=== PATIENT | female | born 1965 | race Caucasian/White ===

== ENCOUNTER 2017-04-03 18:50 | Inpatient (IN) | payer MEDICARE, MEDICAID ==
[~2017-04-03] VITALS: Ht 152.4 cm; Wt 42.6 kg
[2017-04-04] VITALS (51 sets, daily range): BP systolic 60–126; BP diastolic 37–100
[2017-04-04] MEDS ORDERED: Lidocaine 1% Plain 30 ml INJ ONE (01:48)
[2017-04-04 02:00] LABS: HEMATOCRIT 25.2 % (37.0-47.0); HEMOGLOBIN 8.7 G/DL (12.0-16.0); MEAN CORPUSCULAR VOLUME 93 FL (80-99); PLATELET COUNT 170 K/UL (150-450); RED BLOOD COUNT 2.72 M/UL (4.20-5.40); RED CELL DISTRIBUTION WIDTH 11.5 % (11.6-14.8); WHITE BLOOD COUNT 5.5 K/UL (4.8-10.8)
[2017-04-04 02:01] LABS: APPEARANCE,URINE CLEAR; BILIRUBIN, URINE NEGATIVE (NEGATIVE); COLOR,URINE PALE YELLOW; GLUCOSE, URINE (UA) 1+ (NEGATIVE); KETONES,URINE NEGATIVE (NEGATIVE); LEUKOCYTE ESTERASE ,URINE NEGATIVE (NEGATIVE); NITRITE,URINE NEGATIVE (NEGATIVE); PH,URINE 6 (4.5-8.0); PROTEIN,URINE 2+ (NEGATIVE); UROBILINOGEN,URINE NORMAL MG/DL (0.0-1.0)
[2017-04-04 02:06] LABS: ANION GAP 10 mmol/L (5-15); BLOOD UREA NITROGEN 88 mg/dL (7-18); CALCIUM 7.2 MG/DL (8.5-10.1); CARBON DIOXIDE 24 MMOL/L (21-32); CHLORIDE 103 MMOL/L (98-107); CREATININE 1.5 MG/DL (0.55-1.30); POTASSIUM 3.5 MMOL/L (3.5-5.1); SODIUM 137 MMOL/L (136-145)
[2017-04-04 02:09] LABS: INR 1.3 (0.9-1.1)
[2017-04-04 02:11] LABS: ALANINE AMINOTRANSFERASE 30 U/L (12-78); ALBUMIN 2.5 G/DL (3.4-5.0); ALKALINE PHOSPHATASE 41 U/L (46-116); ASPARTATE AMINO TRANSFERASE 74 U/L (15-37); BILIRUBIN,TOTAL 0.4 MG/DL (0.2-1.0)
--- NOTE | 2017-04-04 02:14 | Consultation ---
History of Present Illness General Date patient seen: Apr 04, 2017 Time patient seen: 01:40 Referring physician: Yaron Reason for Consultation: strangulated ventral hernia Present Illness HPI 51 year old female with multiple medical comorbidities was transferred to [facility] for care. Patient was at the [facility] when diagnosed with strangulated ventral hernia. She was in the ICU and required surgical care and was transferred to [facility]. I was informed of patient, gladly accepted to assist with surgical management, and expressed necessity for immediate transfer. Patient arrived at [facility] at approximately 01:40AM and I was present in the ICU as patient arrived. Patient evaluated and medical records that were given were reviewed. When seen patient in moderate distress, hypotensive with significant pressor requirement, tachypnea, c/o significant abdominal pain. states she has had pain for a few days now but does not recall exact onset. states pain is severe. states that she has had nausea and emesis for almost 2 weeks now. cannot recall ostomy output but states it has been low. she is a poor historian. she states she had colostomy 3 years ago but does not know why. she states she has medical problems and prior surgeries but cannot state what they are. in reviewing records it seems that patient was admitted to the [facility] 1-2 days ago for abnormal labs, severe hyponatremia, severe dehydration. Admission labs in records. During admission she was noted to have abdominal tenderness and CT was performed which demonstrated strangulated ventral hernia with bowel obstruction. surgery was necessary but unavailable hence transfer to [facility] for surgical care. Patient History History Provided By: Patient, Medical Record Healthcare decision maker Resuscitation status Advanced Directive on File Past Medical/Surgical History Past Medical/Surgical History: (1) Hyponatremia (2) Dehydration, severe (3) Abdominal pain (4) Strangulated ventral incisional hernia (5) Umbilical hernia (6) Peritonitis, acute generalized (7) Acute generalized abdominal pain (8) Bipolar 1 disorder (9) Psychiatric disorder (10) HTN (hypertension) (11) Vitamin D deficiency (12) Anxiety (13) History of colostomy (14) Psychosis (15) Hirsutism Review of Systems All Other Systems: negative except mentioned in HPI ROS Narrative difficult to obtain given patients current medical condition Physical Exam General Appearance: moderate distress, agitated, thin Lines, tubes and drains: peripheral, ngt - bilious output in tube. HEENT: atraumatic Neck: normal inspection Respiratory/Chest: chest wall non-tender, lungs clear, respiratory distress Breasts: other - abrasion noted, healing, old on breast/axilla Cardiovascular/Chest: tachycardia Abdomen: distended, guarding, rebound, tender, hernia, mass, other - generalized tendneress with large incarcerated likely strangulated hernia noted around prior right abdominal colostomy, tender, not reducible, tender umbilical hernia noted, prior midline scar noted. distended, tender, acute abdomen Genitourinary/Rectal: marks Extremities: no edema, no cyanosis Neurologic: alert, responsive Laboratory Tests Test 04/04/17 01:45 White Blood Count Pending Red Blood Count Pending Hemoglobin Pending Hematocrit Pending Mean Corpuscular Volume Pending Mean Corpuscular Hemoglobin Pending Mean Corpuscular Hemoglobin Concent Pending Red Cell Distribution Width Pending Platelet Count Pending Mean Platelet Volume Pending Neutrophils (%) (Auto) Pending Lymphocytes (%) (Auto) Pending Monocytes (%) (Auto) Pending Eosinophils (%) (Auto) Pending Basophils (%) (Auto) Pending Prothrombin Time Pending Prothromb Time International Ratio Pending Activated Partial Thromboplast Time Pending Urine Color Pending Urine Appearance Pending Urine pH Pending Urine Specific [place] Pending Urine Protein Pending Urine Glucose (UA) Pending Urine Ketones Pending Urine Occult Blood Pending Urine Nitrite Pending Urine Bilirubin Pending Urine Urobilinogen Pending Urine Leukocyte Esterase Pending Urine RBC Pending Urine WBC Pending Urine Squamous Epithelial Cells Pending Urine Bacteria Pending Sodium Level Pending Potassium Level Pending Chloride Level Pending Carbon Dioxide Level Pending Blood Urea Nitrogen Pending Creatinine Pending Estimat Glomerular Filtration Rate Pending Glucose Level Pending Lactic Acid Level Pending Calcium Level Pending Total Bilirubin Pending Aspartate Amino Transf (AST/SGOT) Pending Alanine Aminotransferase (ALT/SGPT) Pending Alkaline Phosphatase Pending Total Protein Pending Albumin Pending Globulin Pending Assessment/Plan Problem List: (1) Strangulated ventral incisional hernia Assessment & Plan: 51F with strangulated right lower quadrant abdominal hernia around prior right sided colostomy with bowl obstruction. also has tender umbilical hernia. transferred from [place] for surgical care. hypotensive, in moderate distress, acute abdomen with generalized peritonitis, dehydration, lactic acid >5. exam very concerning for possible bowel ischemia. recommend urgent exploratory laparotomy. may require bowel resection, may require ostomy. high risk given duration and medical history and current medical status. very poor prognosis without surgical intervention but still poor prognosis even with surgery. will proceed with surgery robson. npo, iv fluids, ng tube, marks, central venous catheter. thank you for this consultation. ICD Codes: K43.0 - Incisional hernia with obstruction, without gangrene SNOMED: [id number] Status: deteriorating Brandt Auguste Apr 04, 2017 02:14
[2017-04-04] MEDS ORDERED: Lidocaine 1% 10mg/ml/Epi 0.005mg/ml 30ml vial INJ ONE (02:22)
--- NOTE | 2017-04-04 02:45 | Operative Note - PDOC ---
Operative Note Operative Note Date of Operation/Procedure: Apr 04, 2017 Pre-op Diagnosis: septic shock from strangulated ventral hernia Procedure: left subclavian central venous catheter insertion Operative Findings: consistent w/pre-op dx studies Surgeon: lachelle Anesthesia: local Specimen: none Complications: none Condition: unstable Fluids: n/a Estimated Blood Loss: minimal Drains: none Implant(s) used?: Yes - triple lumen central venous catheter Indications for Procedure 51F septic shock from strangulated ventral hernia. hypotensive on pressors. only has small peripheral access. needs fluids, abx, and pressors/meds. needs central venous catheter robson. plan for OR robson. procedure indicated and recommended. consent obtained from patient. Description of Procedure patient made comfortable at bedside. 1% lidocaine used for local anesthetic. left subclavian site for use. left chest wall and neck prepped and draped in standard surgical fashion. appropriate sterile technique used. time out preformed. left subclavian vein obtained with finder needle. good venous flow aspirated. guide wire passed over finder needle without difficulty. finder needle removed. small incision made using scalpel over guide wire insertion site. dilator used to dilate tract. triple lumen catheter placed over guide without. guide wire removed and discarded. all ports aspirated and flushed without difficulty. line sutured to skin at two sites. dressings applied. patient tolerated procedure well. CXR obtained Brandt Auguste Apr 04, 2017 02:44
[2017-04-04] MEDS ORDERED: NS Irrig 1000ml IRRIG ONE (03:00)
[2017-04-04] MEDS ORDERED: Vecuronium 10 MG VIAL ONE (03:24)
[2017-04-04] MEDS ORDERED: LORAZEPAM4 MG/1 M1 IV (03:33)
[2017-04-04] MEDS ORDERED: ZOFRAN 4 MG4 MG/2 ML IV (03:33)
[2017-04-04] MEDS ORDERED: METRONIDAZ500 MG/100 IVPB (03:33)
[2017-04-04] MEDS ORDERED: PROTONIX IV40 MG IV (03:33)
[2017-04-04] MEDS ORDERED: CEFTRIAXONE1 G2 IV (03:33)
[2017-04-04] MEDS ORDERED: Levophed 4mg/4mL Inj IV ONE (03:59)
[2017-04-04] MEDS: Piperacillin/Tazobactam 3.375 GM in D5W 110 ML IVPB SCH ×2 (04:00→13:58)
[2017-04-04] MEDS ORDERED: Zosyn 3.375gm inj ONE (04:52)
--- NOTE | 2017-04-04 05:50 | Brief Operative Note ---
Immediate Post Operative Note Operative Note Pre-op Diagnosis: septic shock from strangulated ventral hernia Procedure: 1. Exploratory laparotomy 2. Small bowel resection 3. Ileostomy resection 4. Abdominal washout 5. Temporary Abdominal closure with plans for second look laparotomy Post-op Diagnosis: 1. strangulated ventral hernia with necrotic small bowel 2. incarcerated parastomal hernia 3. necrotic small bowel and ischemic ileostomy. Surgeon: Molina Anesthesiologist: Inocencio Anesthesia: general Specimen: yes - 1. necrotic small bowel 2. ischemic ileostomy 3. necrotic hernia sac 4. peritoneal cultures Complications: none Condition: unstable Fluids: see records. Estimated Blood Loss: minimal Drains: COLE Implant(s) used?: No Brandt Auguste Apr 04, 2017 05:50
[2017-04-04] MEDS ORDERED: Dextrose 10% 1,000 ML IV PRN (06:00)
[2017-04-04] MEDS ORDERED: Acetaminophen 650 MG SUPP RECTAL PRN (06:00)
[2017-04-04] MEDS: Norepinephrine Bitartrate 4 MG in NS 250 ML IV SCH ×5 (06:00→21:47)
[2017-04-04] MEDS ORDERED: Albuterol ud Inhalation HHN PRN (06:00)
[2017-04-04] MEDS ORDERED: HYDROmorphone 1mg/ml Carpuject IVP PRN (06:00)
[2017-04-04] MEDS ORDERED: DiphenhydrAMINE 50mg/ml Inj IVP PRN (06:00)
[2017-04-04] MEDS ORDERED: Ipratropium 0.02% Inh Soln 2.5ml UD HHN PRN (06:00)
[2017-04-04] MEDS ORDERED: Albuterol/Ipratropium 3ml neb HHN PRN (06:00)
--- NOTE | 2017-04-04 06:10 | General Progress Note ---
Progress Note Progress Note Surgery: post op note. found significant portion of small bowel from mid jejunum to ileostomy necrotic and not viable. resected majority of small bowel. approximately 75cm of jejunum remaining, duodenum okay, stomach okay. patient had prior subtotal colectomy. etiology of necrosis is incarcerated strangulated ventral hernia. attempted to preserve as much small bowel as possible. some proximal areas that had mild ischemia will hopefully be viable with resuscitation. Bowel left in discontinuity with plans to return to OR in 48 hrs for second look. high risk for short gut requiring mcfp parental nutrition given amount of bowel that required resection. prognosis guarded. -Strict NPO! -NG tube to suction -COLE drain care and management -[place] -Change wound packing and dressings BID -IV fluids -IV Abx -Heparin -Start TPN -Rx as written -Do Not Extubate. Plan for second look re-operation in 48hrs. Brandt Auguste Apr 04, 2017 06:10
[2017-04-04] MEDS: LR 1000ml 1,000 ML IV SCH ×3 (06:25→19:36)
[2017-04-04] MEDS ORDERED: fentaNYL Citrate 2,500 MCG in NS 200 ML IV SCH (07:00)
[2017-04-04] MEDS ORDERED: Midazolam for drip 50 MG in NS 90 ML IV SCH (07:00)
[2017-04-04] MEDS: Pantoprazole Inj IV SCH (08:42)
[2017-04-04] MEDS: Hydromorphone 0.5mg/0.5ml inj IVP PRN (08:42)
[2017-04-04] MEDS: LORazepam Inj 2mg/ml 1ml IV PRN ×2 (08:43→13:00)
[2017-04-04] MEDS ORDERED: cefTRIAXone 2gm/D5W 110ml IVPB SCH ×2 (09:00)
[2017-04-04 09:30] LABS: ANION GAP 12 mmol/L (5-15); BLOOD UREA NITROGEN 71 mg/dL (7-18); CALCIUM 6.7 MG/DL (8.5-10.1); CARBON DIOXIDE 22 MMOL/L (21-32); CHLORIDE 107 MMOL/L (98-107); CREATININE 1.3 MG/DL (0.55-1.30); POTASSIUM 3.3 MMOL/L (3.5-5.1); SODIUM 140 MMOL/L (136-145)
[2017-04-04] MEDS ORDERED: Midazolam/D5W 100ml 100 ML IVPB PRN (09:30)
[2017-04-04 09:35] LABS: ANION GAP 13 mmol/L (5-15); BLOOD UREA NITROGEN 71 mg/dL (7-18); CALCIUM 6.9 MG/DL (8.5-10.1); CARBON DIOXIDE 21 MMOL/L (21-32); CHLORIDE 107 MMOL/L (98-107); CREATININE 1.3 MG/DL (0.55-1.30); PHOSPHORUS 3.6 MG/DL (2.5-4.9); POTASSIUM 3.3 MMOL/L (3.5-5.1); SODIUM 141 MMOL/L (136-145)
[2017-04-04 09:40] LABS: HEMATOCRIT 21.5 % (37.0-47.0); HEMOGLOBIN 7.7 G/DL (12.0-16.0); MEAN CORPUSCULAR VOLUME 94 FL (80-99); PLATELET COUNT 138 K/UL (150-450); RED BLOOD COUNT 2.27 M/UL (4.20-5.40); RED CELL DISTRIBUTION WIDTH 11.7 % (11.6-14.8); WHITE BLOOD COUNT 7.8 K/UL (4.8-10.8)
[2017-04-04 09:42] LABS: INR 1.4 (0.9-1.1)
[2017-04-04 09:43] LABS: ALANINE AMINOTRANSFERASE 40 U/L (12-78); ALBUMIN 2.4 G/DL (3.4-5.0); ALBUMIN/GLOBULIN RATIO 1.1 (1.0-2.7); ALKALINE PHOSPHATASE 33 U/L (46-116); AMYLASE 10 U/L (25-115); ASPARTATE AMINO TRANSFERASE 101 U/L (15-37); BILIRUBIN,TOTAL 0.6 MG/DL (0.2-1.0); CKMB 30.2 NG/ML (0.0-3.6)
--- NOTE | 2017-04-04 11:10 | Pulmonolgy Critical Care Note ---
Critical Care - Asmt/Plan Problems: (1) Septic shock (2) Acute respiratory failure (3) Multiorgan failure Respiratory: monitor respiratory rate, adjust FIO2, CXR Cardiac: continue pressors Renal: F/U I&O, other - a few boluses of IV fluid Infectious Disease: check cultures Gastrointestinal: continue feedings/current rate Endocrine: monitor blood sugar, continue sliding scale insulin Hematologic: monitor H/H, transfuse if hgb<8.5 Neurologic: PRN Ativan, keep patient comfortable Affect: PRN ativan Prophylaxis: Protonix, Heparin Notes Reviewed: engine dynamometer tester, cardio, renal Discussed with: nurses, consultants, child support case officerdigital sales manager - Objective Last 24 Hour Vital Signs Date Time Temp Pulse Resp B/P (MAP) Pulse Ox O2 Delivery O2 Flow Rate FiO2 04/04/17 11:00 157 33 83/57 97 Mechanical Ventilator 40 04/04/17 10:42 156 33 40 04/04/17 09:12 99.6 04/04/17 09:09 151 30 40 04/04/17 08:00 40 04/04/17 07:05 140 15 40 04/04/17 06:30 134 27 126/86 97 Simple Mask 5.0 04/04/17 06:00 97.6 124 32 114/66 97 Simple Mask 5.0 04/04/17 06:00 107/68 04/04/17 05:43 118 15 40 04/04/17 03:00 132 04/04/17 03:00 132 32 69/42 97 Simple Mask 5.0 04/04/17 02:30 128 41 68/44 96 Simple Mask 5.0 04/04/17 02:00 98.7 131 36 69/43 96 Simple Mask 5.0 Status: obtunded Condition: critical HEENT: atraumatic Neck: full ROM Lungs: clear Heart: HR/BP stable, HR/BP unstable Abdomen: soft, non-tender, active bowel sounds Extremities: no C/C/E, edema Decubiti: stage Critical Care - Subjective ROS Limited/Unobtainable: Yes ICU Day: 1 Interval Events: pt brought in to ICU after exploratory laparotomy, He had significant portion of small bowel from mid jejunum to ileostomy necrotic and not viable. resected majority of small bowel. Currently on max dose of levophed with borderline BP. Condition: critical FI02: 40 Vent Support Breath Rate: 12 Vent Support Mode: AC Vent Tidal Volume: 450 Sputum Amount: None PIP: 20 I&O: Intake and Output 04/03/17 04/04/17 18:59 06:59 Intake Total 0 ml Output Total 930 ml Balance -930 ml Intake Oral 0 ml Output Urine Total 550 ml Gastric Drainage Total 350 ml Estimated Blood Loss 30 ml CXR: DAVID ET-Tube: 7.0 ET Position: 22 Labs: Laboratory Tests Test 04/04/17 01:45 04/04/17 01:50 04/04/17 06:40 04/04/17 07:15 White Blood Count 5.5 K/UL (4.8-10.8) 7.8 K/UL (4.8-10.8) Red Blood Count 2.72 M/UL (4.20-5.40) L 2.27 M/UL (4.20-5.40) L Hemoglobin 8.7 G/DL (12.0-16.0) L 7.7 G/DL (12.0-16.0) L Hematocrit 25.2 % (37.0-47.0) L 21.5 % (37.0-47.0) L Mean Corpuscular Volume 93 FL (80-99) 94 FL (80-99) Mean Corpuscular Hemoglobin 32.0 PG (27.0-31.0) H 33.8 PG (27.0-31.0) H Mean Corpuscular Hemoglobin Concent 34.6 G/DL (32.0-36.0) 35.8 G/DL (32.0-36.0) Red Cell Distribution Width 11.5 % (11.6-14.8) L 11.7 % (11.6-14.8) Platelet Count 170 K/UL (150-450) 138 K/UL (150-450) L Mean Platelet Volume 5.2 FL (6.5-10.1) L 6.0 FL (6.5-10.1) L Neutrophils (%) (Auto) % (45.0-75.0) % (45.0-75.0) Lymphocytes (%) (Auto) % (20.0-45.0) % (20.0-45.0) Monocytes (%) (Auto) % (1.0-10.0) % (1.0-10.0) Eosinophils (%) (Auto) % (0.0-3.0) % (0.0-3.0) Basophils (%) (Auto) % (0.0-2.0) % (0.0-2.0) Prothrombin Time 13.7 SEC (9.30-11.50) H 14.7 SEC (9.30-11.50) H Prothromb Time International Ratio 1.3 (0.9-1.1) H 1.4 (0.9-1.1) H Activated Partial Thromboplast Time 48 SEC (23-33) H 64 SEC (23-33) H Urine Color Pale yellow Urine Appearance Clear Urine pH 6 (4.5-8.0) Urine Specific [place] 1.010 (1.005-1.035) Urine Protein 2+ (NEGATIVE) H Urine Glucose (UA) 1+ (NEGATIVE) H Urine Ketones Negative (NEGATIVE) Urine Occult Blood 2+ (NEGATIVE) H Urine Nitrite Negative (NEGATIVE) Urine Bilirubin Negative (NEGATIVE) Urine Urobilinogen Normal MG/DL (0.0-1.0) Urine Leukocyte Esterase Negative (NEGATIVE) Urine RBC 5-10 /HPF (0 - 2) H Urine WBC 0-2 /HPF (0 - 2) Urine Squamous Epithelial Cells Many /LPF (NONE/OCC) H Urine Bacteria Few /HPF (NONE) Sodium Level 137 MMOL/L (136-145) 141 MMOL/L (136-145) Potassium Level 3.5 MMOL/L (3.5-5.1) 3.3 MMOL/L (3.5-5.1) L Chloride Level 103 MMOL/L (98-107) 107 MMOL/L (98-107) Carbon Dioxide Level 24 MMOL/L (21-32) 21 MMOL/L (21-32) Anion Gap 10 mmol/L (5-15) 13 mmol/L (5-15) Blood Urea Nitrogen 88 mg/dL (7-18) H 71 mg/dL (7-18) H Creatinine 1.5 MG/DL (0.55-1.30) H 1.3 MG/DL (0.55-1.30) Estimat Glomerular Filtration Rate 36.4 mL/min (>60) 43.0 mL/min (>60) Glucose Level 100 MG/DL (74-106) 106 MG/DL (74-106) Lactic Acid Level 6.60 mmol/L (0.66-2.22) H 5.60 mmol/L (0.66-2.22) H Calcium Level 7.2 MG/DL (8.5-10.1) L 6.9 MG/DL (8.5-10.1) L Total Bilirubin 0.4 MG/DL (0.2-1.0) 0.6 MG/DL (0.2-1.0) Aspartate Amino Transf (AST/SGOT) 74 U/L (15-37) H 101 U/L (15-37) H Alanine Aminotransferase (ALT/SGPT) 30 U/L (12-78) 40 U/L (12-78) Alkaline Phosphatase 41 U/L (46-116) L 33 U/L (46-116) L Total Protein 5.1 G/DL (6.4-8.2) L 4.5 G/DL (6.4-8.2) L Albumin 2.5 G/DL (3.4-5.0) L 2.4 G/DL (3.4-5.0) L Globulin 2.6 g/dL 2.1 g/dL Albumin/Globulin Ratio 1.0 (1.0-2.7) 1.1 (1.0-2.7) Arterial Blood pH 7.415 (7.350-7.450) 7.340 (7.350-7.450) Arterial Blood Partial Pressure CO2 28.0 mmHg (35.0-45.0) L 34.0 mmHg (35.0-45.0) L Arterial Blood Partial Pressure O2 137.6 mmHg (75.0-100.0) H 110.5 mmHg (75.0-100.0) H Arterial Blood HCO3 17.6 mmol/L (22.0-26.0) L 18.2 mmol/L (22.0-26.0) L Arterial Blood Oxygen Saturation 97.0 % (92.0-98.0) 96.5 % (92.0-98.0) Arterial Blood Base Excess -6.2 -6.7 Jignesh Test Positive Positive Neutrophils % (Manual) Pending Lymphocytes % (Manual) Pending Platelet Estimate Pending Platelet Morphology Pending Hemoglobin A1c 5.4 % (4.3-6.0) Ionized Calcium (Measured) 0.92 mmol/L (1.10-1.35) L Phosphorus Level 3.6 MG/DL (2.5-4.9) Magnesium Level 2.1 MG/DL (1.8-2.4) Creatine Kinase MB 30.2 NG/ML (0.0-3.6) H Troponin I 0.043 ng/mL (0.000-0.056) Pro-B-Type Natriuretic Peptide 43136 pg/mL (0-125) H Amylase Level 10 U/L (25-115) L Lipase 39 U/L (73-393) L YAYO CELIS Apr 04, 2017 11:10
[2017-04-04] MEDS: fentaNYL Citrate 2,500 MCG in NS 200 ML IV SCH (11:52)
[2017-04-04] MEDS: NovoLOG Insulin Flexpen SUBQ SCH ×3 (12:00→18:00)
--- NOTE | 2017-04-04 13:09 | Cardiology Report ---
APPROVED REPORT EKG Measurement Heart [id number] Sinus tachycardia Nonspecific ST and T wave abnormality Abnormal ECG
[2017-04-04] MEDS: Heparin 5000 units/ml inj SUBQ SCH ×3 (14:00→21:47)
--- NOTE | 2017-04-04 14:28 | Diagnostic Imaging Report ---
Indication: Status post line placement Technique: XRAY Chest 1v Comparison: None Findings/Impression: Heart size and mediastinal contours are within normal limits given technique. Left subclavian line has its catheter tip at the cavoatrial junction. NG tube tip in the proximal stomach, side-port in the region of the gastric esophageal junction. This was advanced on the subsequent view. There is patchy bibasilar atelectasis. There is no pneumothorax. No acute osseous abnormality seen.
--- NOTE | 2017-04-04 14:30 | Diagnostic Imaging Report ---
Indication: Endotracheal intubation. Technique: XRAY Chest 1v Comparison: Earlier the same day. Findings/impression: Interval endotracheal intubation. ET tube tip 2.5 cm above the [place]. NG tube has been advanced with tip and side-port within the stomach. Central line tip unchanged at the cavoatrial junction. There is slightly increased patchy left basilar opacities felt to represent atelectasis. There is no pneumothorax. No acute osseous abnormality seen.
--- NOTE | 2017-04-04 14:57 | General Surgery Progress Note ---
General Surgery-Progress Note Subjective Procedure Performed 1. Exploratory laparotomy 2. Small bowel resection 3. Ileostomy resection 4. Abdominal washout 5. Temporary Abdominal closure with plans for second look laparotomy Additional Comments critically unstable. hypotensive on max levophed. tachycardic. lethargic. on vent support. Objective Last 24 Hour Vital Signs Date Time Temp Pulse Resp B/P (MAP) Pulse Ox O2 Delivery O2 Flow Rate FiO2 04/04/17 13:17 158 34 40 04/04/17 13:00 158 33 120/100 96 Mechanical Ventilator 40 04/04/17 12:45 153 33 77/41 97 Mechanical Ventilator 40 04/04/17 12:30 154 33 70/45 97 Mechanical Ventilator 40 04/04/17 12:22 101.4 04/04/17 12:15 155 33 66/47 97 Mechanical Ventilator 40 04/04/17 12:00 40 04/04/17 12:00 99.9 157 40 85/46 97 Simple Mask 5.0 04/04/17 11:52 38 04/04/17 11:28 52/24 04/04/17 11:00 157 33 83/57 97 Mechanical Ventilator 40 04/04/17 10:42 156 33 40 04/04/17 09:12 99.6 04/04/17 09:09 151 30 40 04/04/17 08:30 149 27 77/48 97 Simple Mask 5.0 04/04/17 08:00 40 04/04/17 08:00 149 27 73/49 97 Simple Mask 5.0 04/04/17 07:30 142 27 89/48 97 Simple Mask 5.0 04/04/17 07:05 140 15 40 04/04/17 07:00 140 27 89/48 97 Simple Mask 5.0 04/04/17 06:30 134 27 126/86 97 Simple Mask 5.0 04/04/17 06:00 97.6 124 32 114/66 97 Simple Mask 5.0 04/04/17 06:00 107/68 04/04/17 05:43 118 15 40 04/04/17 03:00 132 04/04/17 03:00 132 32 69/42 97 Simple Mask 5.0 04/04/17 02:30 128 41 68/44 96 Simple Mask 5.0 04/04/17 02:00 98.7 131 36 69/43 96 Simple Mask 5.0 I&O Intake and Output 04/03/17 04/04/17 19:00 07:00 Intake Total 62.5 ml Output Total 1130 ml Balance -1067.5 ml Intake Oral 0 ml IV Total 62.5 ml Output Urine Total 750 ml Gastric Drainage Total 350 ml Estimated Blood Loss 30 ml Dressing: saturated Wound: clean Drains: sabine - serosang Cardiovascular: other - tachy 150's Respiratory: clear Abdomen: soft, absent bowel sounds, other - wounds noted and evaluated. okay for now Extremities: no cyanosis Laboratory Tests Test 04/04/17 01:45 04/04/17 01:50 04/04/17 06:40 04/04/17 07:15 White Blood Count 5.5 K/UL (4.8-10.8) 7.8 K/UL (4.8-10.8) Red Blood Count 2.72 M/UL (4.20-5.40) L 2.27 M/UL (4.20-5.40) L Hemoglobin 8.7 G/DL (12.0-16.0) L 7.7 G/DL (12.0-16.0) L Hematocrit 25.2 % (37.0-47.0) L 21.5 % (37.0-47.0) L Mean Corpuscular Volume 93 FL (80-99) 94 FL (80-99) Mean Corpuscular Hemoglobin 32.0 PG (27.0-31.0) H 33.8 PG (27.0-31.0) H Mean Corpuscular Hemoglobin Concent 34.6 G/DL (32.0-36.0) 35.8 G/DL (32.0-36.0) Red Cell Distribution Width 11.5 % (11.6-14.8) L 11.7 % (11.6-14.8) Platelet Count 170 K/UL (150-450) 138 K/UL (150-450) L Mean Platelet Volume 5.2 FL (6.5-10.1) L 6.0 FL (6.5-10.1) L Neutrophils (%) (Auto) % (45.0-75.0) % (45.0-75.0) Lymphocytes (%) (Auto) % (20.0-45.0) % (20.0-45.0) Monocytes (%) (Auto) % (1.0-10.0) % (1.0-10.0) Eosinophils (%) (Auto) % (0.0-3.0) % (0.0-3.0) Basophils (%) (Auto) % (0.0-2.0) % (0.0-2.0) Prothrombin Time 13.7 SEC (9.30-11.50) H 14.7 SEC (9.30-11.50) H Prothromb Time International Ratio 1.3 (0.9-1.1) H 1.4 (0.9-1.1) H Activated Partial Thromboplast Time 48 SEC (23-33) H 64 SEC (23-33) H Urine Color Pale yellow Urine Appearance Clear Urine pH 6 (4.5-8.0) Urine Specific [place] 1.010 (1.005-1.035) Urine Protein 2+ (NEGATIVE) H Urine Glucose (UA) 1+ (NEGATIVE) H Urine Ketones Negative (NEGATIVE) Urine Occult Blood 2+ (NEGATIVE) H Urine Nitrite Negative (NEGATIVE) Urine Bilirubin Negative (NEGATIVE) Urine Urobilinogen Normal MG/DL (0.0-1.0) Urine Leukocyte Esterase Negative (NEGATIVE) Urine RBC 5-10 /HPF (0 - 2) H Urine WBC 0-2 /HPF (0 - 2) Urine Squamous Epithelial Cells Many /LPF (NONE/OCC) H Urine Bacteria Few /HPF (NONE) Sodium Level 137 MMOL/L (136-145) 141 MMOL/L (136-145) Potassium Level 3.5 MMOL/L (3.5-5.1) 3.3 MMOL/L (3.5-5.1) L Chloride Level 103 MMOL/L (98-107) 107 MMOL/L (98-107) Carbon Dioxide Level 24 MMOL/L (21-32) 21 MMOL/L (21-32) Anion Gap 10 mmol/L (5-15) 13 mmol/L (5-15) Blood Urea Nitrogen 88 mg/dL (7-18) H 71 mg/dL (7-18) H Creatinine 1.5 MG/DL (0.55-1.30) H 1.3 MG/DL (0.55-1.30) Estimat Glomerular Filtration Rate 36.4 mL/min (>60) 43.0 mL/min (>60) Glucose Level 100 MG/DL (74-106) 106 MG/DL (74-106) Lactic Acid Level 6.60 mmol/L (0.66-2.22) H 5.60 mmol/L (0.66-2.22) H Calcium Level 7.2 MG/DL (8.5-10.1) L 6.9 MG/DL (8.5-10.1) L Total Bilirubin 0.4 MG/DL (0.2-1.0) 0.6 MG/DL (0.2-1.0) Aspartate Amino Transf (AST/SGOT) 74 U/L (15-37) H 101 U/L (15-37) H Alanine Aminotransferase (ALT/SGPT) 30 U/L (12-78) 40 U/L (12-78) Alkaline Phosphatase 41 U/L (46-116) L 33 U/L (46-116) L Total Protein 5.1 G/DL (6.4-8.2) L 4.5 G/DL (6.4-8.2) L Albumin 2.5 G/DL (3.4-5.0) L 2.4 G/DL (3.4-5.0) L Globulin 2.6 g/dL 2.1 g/dL Albumin/Globulin Ratio 1.0 (1.0-2.7) 1.1 (1.0-2.7) Arterial Blood pH 7.415 (7.350-7.450) 7.340 (7.350-7.450) Arterial Blood Partial Pressure CO2 28.0 mmHg (35.0-45.0) L 34.0 mmHg (35.0-45.0) L Arterial Blood Partial Pressure O2 137.6 mmHg (75.0-100.0) H 110.5 mmHg (75.0-100.0) H Arterial Blood HCO3 17.6 mmol/L (22.0-26.0) L 18.2 mmol/L (22.0-26.0) L Arterial Blood Oxygen Saturation 97.0 % (92.0-98.0) 96.5 % (92.0-98.0) Arterial Blood Base Excess -6.2 -6.7 Jignesh Test Positive Positive Differential Total Cells Counted 100 Neutrophils % (Manual) 91 % (45-75) H Lymphocytes % (Manual) 6 % (20-45) L Monocytes % (Manual) 3 % (1-10) Eosinophils % (Manual) 0 % (0-3) Basophils % (Manual) 0 % (0-2) Band Neutrophils 0 % (0-8) Platelet Estimate Decreased L Platelet Morphology Normal Hypochromasia 3+ Anisocytosis 1+ Hemoglobin A1c 5.4 % (4.3-6.0) Ionized Calcium (Measured) 0.92 mmol/L (1.10-1.35) L Phosphorus Level 3.6 MG/DL (2.5-4.9) Magnesium Level 2.1 MG/DL (1.8-2.4) Creatine Kinase MB 30.2 NG/ML (0.0-3.6) H Troponin I 0.043 ng/mL (0.000-0.056) Pro-B-Type Natriuretic Peptide 70530 pg/mL (0-125) H Amylase Level 10 U/L (25-115) L Lipase 39 U/L (73-393) L Test 04/04/17 11:35 Lactic Acid Level 4.00 mmol/L (0.66-2.22) H Assessment Post-op Diagnosis 1. strangulated ventral hernia with necrotic small bowel 2. incarcerated parastomal hernia 3. necrotic small bowel and ischemic ileostomy. Plan Problems: (1) Strangulated ventral incisional hernia Assessment & Plan: 51F with strangulated right lower quadrant abdominal hernia around prior right sided colostomy with bowl obstruction. also has tender umbilical hernia. transferred from [place] for surgical care. hypotensive, in moderate distress, acute abdomen with generalized peritonitis, dehydration, lactic acid >5. exam very concerning for possible bowel ischemia. POD 0/1 s/p exploratory laparotomy, small bowel resection, ileostomy resection, abdominal washout, temporary abdominal closure. noted to have >50% of small bowel that was necrotic and required resection. approximately 75cm of jejunum left in discontinuity. duo okay. stomach okay. still very unstable on max levophed with marginal pressures and tachycardia. dressing changed and wounds okay. prognosis very guarded. Strict NPO IV fluids IV Abx trend labs TPN NG tube marks heparin rx as written too unstable for second look right now. will plan for second look in the next 48hrs or so. unfortunately given how unstable she is, she may not make it. Brandt Auguste Apr 04, 2017 14:57
[2017-04-04] MEDS ORDERED: Sodium Chloride 500ML 1,000 ML IV SCH (15:00)
--- NOTE | 2017-04-04 16:11 | 48 Hour Post Anesthesia Eval ---
Post Anesthesia Evaluation Procedure: Exploratory laparotomy small bowel reserction Date of Evaluation: Apr 04, 2017 Time of Evaluation: 16:06 Blood Pressure Systolic: 75 0: 36 Pulse Rate: 136 Respiratory Rate: 12 Temperature (Fahrenheit): 96.8 O2 Sat by Pulse Oximetry: 98 Airway: other - intubated since surgical time, sedated on vent Nausea: No Vomiting: No Pain Intensity: 0 Hydration Status: adequate Cardiopulmonary Status: hypotensive on levofed at max, tachycardic Mental Status/LOC: other - nonresponsive Follow-up Care/Observations: n/a Post-Anesthesia Complications: patients condition critical related to ongoing septic infection peritonitis, no anesthesia related complications or event contributed to this condition. Follow-up care needed: N/A CHRISTIANO DUNCAN M.D. Apr 04, 2017 16:11
[2017-04-04] MEDS ORDERED: Fat Emulsion Iv 20% 250 ML IV SCH (21:00)
--- NOTE | 2017-04-04 22:30 | History and Physical Report ---
DATE OF ADMISSION: 04/04/2017 TIME SEEN: 3 p.m. ATTENDING PHYSICIAN: Juan Marrufo D.O. CONSULTANTS: 1. Tato Watson M.D. 2. Brandt Auguste M.D. 3. Urbano Verdugo M.D. 4. Mariel Saldana M.D. CHIEF COMPLAINT: Failure to thrive, weakness, weight loss, and found to have small-bowel obstruction with bowel strangulation. BRIEF HISTORY: This 51-year-old female presents to [facility] day before with the above-mentioned diagnosis. CT scan showed bowel strangulation. No surgeon available. The patient was transferred to [facility] last night. Dr. Auguste took her to surgery and did bowel resection. Currently, intubated, sedated, lethargic, NG in place, in ICU, and nonverbal. PAST MEDICAL HISTORY: Psych history, hypertension, and bipolar. PAST SURGICAL HISTORY: Recent bowel surgery. MEDICATIONS: Fentanyl, midazolam, pantoprazole, hydromorphone, Zofran, insulin aspart, albuterol, ipratropium, metronidazole, norepinephrine, and aspirin. ALLERGIES: Trazodone. SOCIAL HISTORY: Unable to obtain secondary to the patient's condition. REVIEW OF SYSTEMS: Unavailable. PHYSICAL EXAMINATION: GENERAL: Intubated, severely lethargic, in the ICU, and nonverbal. VITAL SIGNS: Temperature is not given, pulse 147, respirations 32, and blood pressure 81/41. CARDIOVASCULAR: Distant. LUNGS: Distant. ABDOMEN: Status post bowel surgery. Normal bowel sounds. EXTREMITIES: Shows no cyanosis, clubbing, or edema. NEURO: The patient is flaccid in bed, not responding to commands. LABORATORY DATA: Labs at this time show hemoglobin 7.7 and platelets 138,000. BMP shows potassium 3.3, BUN 71, creatinine 1.3. Urinalysis, 1+ glucose, 2+ protein, and 2+ occult blood. INR is 1.4 and PTT 64. ASSESSMENT: 1. Respiratory failure. 2. Bowel strangulation, status post surgery. 3. Hyponatremia. 4. Anemia. 5. Psych history. 6. Hypertension. 7. Bipolar. PLAN: 1. ICU care per Dr. Watson. 2. pulmonary. 3. Antibiotics per Infectious Disease. 4. CBC and BMP in the morning. 5. Pressure support. 6. Dr. Auguste spoke with family. Discussed prognosis is quite poor. He will plan to redo surgery Friday if the patient remains alive. So, we will continue to follow the patient. 7. Dr. Watson, Dr. Auguste, Dr. Verdugo, and Dr. Saldana to consult. We will continue to follow this patient. Juan Marrufo D.O. DR: CARO JOB#: [id number] CC:
[2017-04-05] VITALS (48 sets, daily range): BP systolic 96–147; BP diastolic 49–79
[2017-04-05] MEDS: Norepinephrine Bitartrate 4 MG in NS 250 ML IV SCH ×3 (00:12→11:34)
[2017-04-05] MEDS ORDERED: Piperacillin/Tazobactam 3.375 GM in D5W 110 ML IVPB SCH (02:00)
[2017-04-05] MEDS: LR 1000ml 1,000 ML IV SCH (05:31)
[2017-04-05] MEDS: Heparin 5000 units/ml inj SUBQ SCH ×3 (06:00→22:00)
[2017-04-05 06:13] LABS: HEMATOCRIT 20.2 % (37.0-47.0); HEMOGLOBIN 7.1 G/DL (12.0-16.0); MEAN CORPUSCULAR VOLUME 93 FL (80-99); PLATELET COUNT 87 K/UL (150-450); RED BLOOD COUNT 2.18 M/UL (4.20-5.40); RED CELL DISTRIBUTION WIDTH 11.9 % (11.6-14.8)
[2017-04-05 06:23] LABS: WHITE BLOOD COUNT 32.6 K/UL (4.8-10.8)
[2017-04-05 06:28] LABS: ALANINE AMINOTRANSFERASE 69 U/L (12-78); ALBUMIN 1.9 G/DL (3.4-5.0); ALBUMIN/GLOBULIN RATIO 0.7 (1.0-2.7); ALKALINE PHOSPHATASE 58 U/L (46-116); ANION GAP 10 mmol/L (5-15); ASPARTATE AMINO TRANSFERASE 150 U/L (15-37); BILIRUBIN,TOTAL 0.6 MG/DL (0.2-1.0); BLOOD UREA NITROGEN 30 mg/dL (7-18); CALCIUM 7.7 MG/DL (8.5-10.1); CARBON DIOXIDE 24 MMOL/L (21-32); CHLORIDE 117 MMOL/L (98-107); SODIUM 152 MMOL/L (136-145)
[2017-04-05 06:30] LABS: PHOSPHORUS 2.4 MG/DL (2.5-4.9)
[2017-04-05] MEDS: NovoLOG Insulin Flexpen SUBQ SCH ×5 (06:30→23:44)
[2017-04-05 06:39] LABS: POTASSIUM 2.1 MMOL/L (3.5-5.1)
--- NOTE | 2017-04-05 07:38 | Pulmonolgy Critical Care Note ---
Critical Care - Asmt/Plan Problems: (1) Septic shock (2) Acute respiratory failure (3) Multiorgan failure (4) Strangulated ventral incisional hernia (5) Peritonitis, acute generalized Respiratory: monitor respiratory rate, adjust FIO2, CXR Cardiac: continue pressors Renal: F/U I&O, keep IV fluid, check electrolytes Infectious Disease: check cultures Gastrointestinal: hold feedings Endocrine: check TSH, continue sliding scale insulin Hematologic: monitor H/H, transfuse if hgb<8.5 Neurologic: PRN Ativan, PRN Morphine, keep patient comfortable Affect: PRN ativan Prophylaxis: Protonix, Heparin Notes Reviewed: booster operator, renal Discussed with: nurses, consultants, case management assistantlegal department manager - Objective Last 24 Hour Vital Signs Date Time Temp Pulse Resp B/P (MAP) Pulse Ox O2 Delivery O2 Flow Rate FiO2 04/05/17 06:30 99 14 113/59 100 Mechanical Ventilator 40 04/05/17 06:00 102/56 04/05/17 06:00 12 04/05/17 06:00 100 12 102/56 100 Mechanical Ventilator 40 04/05/17 05:30 104 12 111/58 100 Mechanical Ventilator 40 04/05/17 05:29 111/60 04/05/17 05:07 104 18 40 04/05/17 05:00 105/57 04/05/17 05:00 14 04/05/17 05:00 102 13 105/57 100 Mechanical Ventilator 40 04/05/17 04:30 102 13 102/56 100 Mechanical Ventilator 40 04/05/17 04:00 102 04/05/17 04:00 97.7 102 12 100/56 100 Mechanical Ventilator 40 04/05/17 04:00 100/56 04/05/17 04:00 14 04/05/17 04:00 40 04/05/17 03:30 103 11 103/56 100 Mechanical Ventilator 40 04/05/17 03:21 103 15 40 04/05/17 03:00 99/55 04/05/17 03:00 14 04/05/17 03:00 105 12 99/55 100 Mechanical Ventilator 40 04/05/17 02:30 110 14 119/62 100 Mechanical Ventilator 40 04/05/17 02:00 110 14 106/59 100 Mechanical Ventilator 40 04/05/17 02:00 106/59 1/13/18 02:00 14 04/05/17 01:30 110 14 101/58 100 Mechanical Ventilator 40 04/05/17 01:29 120 24 40 04/05/17 01:00 99/49 04/05/17 01:00 14 04/05/17 01:00 112 14 99/49 100 Mechanical Ventilator 40 04/05/17 00:30 124 20 110/53 99 Mechanical Ventilator 40 04/05/17 00:12 111/54 04/05/17 00:00 98.7 116 16 111/54 100 Mechanical Ventilator 40 04/05/17 00:00 111/54 04/05/17 00:00 16 04/05/17 00:00 40 04/04/17 23:30 121 16 89/48 98 Mechanical Ventilator 40 04/04/17 23:20 118 22 40 04/04/17 23:00 129 23 113/55 98 Mechanical Ventilator 40 04/04/17 23:00 113/55 04/04/17 23:00 23 04/04/17 22:30 125 18 92/45 98 Mechanical Ventilator 40 04/04/17 22:00 98/51 04/04/17 22:00 27 04/04/17 22:00 134 27 98/51 98 Mechanical Ventilator 40 04/04/17 21:47 104/53 04/04/17 21:30 128 19 104/53 98 Mechanical Ventilator 40 04/04/17 21:28 128 20 40 04/04/17 21:00 100.1 131 23 100/52 99 Mechanical Ventilator 40 04/04/17 21:00 100/52 04/04/17 21:00 23 04/04/17 20:55 94/56 04/04/17 20:44 100.1 04/04/17 20:30 130 21 98/56 99 Mechanical Ventilator 40 04/04/17 20:00 40 04/04/17 20:00 133 24 92/50 99 Mechanical Ventilator 40 04/04/17 20:00 133 04/04/17 20:00 92/50 04/04/17 20:00 24 04/04/17 19:30 100.6 134 26 82/43 99 Mechanical Ventilator 40 04/04/17 19:08 134 26 40 04/04/17 19:00 82/43 04/04/17 19:00 26 04/04/17 19:00 134 26 82/42 99 Mechanical Ventilator 40 04/04/17 18:30 141 28 88/45 98 Mechanical Ventilator 40 04/04/17 18:00 28 04/04/17 18:00 99/47 04/04/17 18:00 137 28 91/42 99 Mechanical Ventilator 40 04/04/17 17:30 145 28 91/41 98 Mechanical Ventilator 40 04/04/17 17:16 140 31 40 04/04/17 17:00 141 31 93/46 99 Mechanical Ventilator 40 04/04/17 17:00 32 04/04/17 17:00 93/46 04/04/17 16:30 147 33 91/50 99 Mechanical Ventilator 40 04/04/17 16:11 136 12 98 04/04/17 16:00 101.4 149 32 91/50 99 Mechanical Ventilator 40 04/04/17 16:00 157 04/04/17 16:00 40 04/04/17 15:50 36 04/04/17 15:50 81/41 04/04/17 15:30 147 32 81/41 99 Mechanical Ventilator 40 04/04/17 15:24 154 33 40 04/04/17 15:15 151 33 73/41 100 Mechanical Ventilator 40 04/04/17 15:00 153 33 72/43 100 Mechanical Ventilator 40 04/04/17 15:00 88/54 04/04/17 14:45 155 33 72/44 96 Mechanical Ventilator 40 04/04/17 14:41 34 04/04/17 14:30 155 33 73/42 96 Mechanical Ventilator 40 04/04/17 14:00 156 33 60/38 96 Mechanical Ventilator 40 04/04/17 14:00 60/38 04/04/17 13:58 33 04/04/17 13:30 157 33 61/37 96 Mechanical Ventilator 40 04/04/17 13:17 158 34 40 04/04/17 13:00 33 04/04/17 13:00 77/41 04/04/17 13:00 158 33 120/100 96 Mechanical Ventilator 40 04/04/17 12:45 153 33 77/41 97 Mechanical Ventilator 40 04/04/17 12:30 154 33 70/45 97 Mechanical Ventilator 40 04/04/17 12:22 101.4 04/04/17 12:15 155 33 66/47 97 Mechanical Ventilator 40 04/04/17 12:00 40 04/04/17 12:00 99.9 157 40 85/46 97 Simple Mask 5.0 04/04/17 12:00 157 04/04/17 12:00 85/46 04/04/17 11:52 38 04/04/17 11:45 159 33 67/41 97 Mechanical Ventilator 40 04/04/17 11:30 158 33 74/56 97 Mechanical Ventilator 40 04/04/17 11:28 52/24 04/04/17 11:15 157 33 73/50 97 Mechanical Ventilator 40 04/04/17 11:00 157 33 83/57 97 Mechanical Ventilator 40 04/04/17 10:45 157 27 83/55 97 Simple Mask 5.0 04/04/17 10:42 156 33 40 04/04/17 10:30 156 27 83/57 97 Simple Mask 5.0 04/04/17 10:15 155 27 84/56 97 Simple Mask 5.0 04/04/17 10:00 154 27 86/54 97 Simple Mask 5.0 04/04/17 09:45 153 27 89/50 97 Simple Mask 5.0 04/04/17 09:30 152 27 77/53 97 Simple Mask 5.0 04/04/17 09:15 150 27 72/46 97 Simple Mask 5.0 04/04/17 09:12 99.6 04/04/17 09:09 151 30 40 04/04/17 09:00 149 27 77/48 97 Simple Mask 5.0 04/04/17 08:45 149 27 78/46 97 Simple Mask 5.0 04/04/17 08:30 149 27 77/48 97 Simple Mask 5.0 04/04/17 08:15 150 27 77/50 97 Simple Mask 5.0 04/04/17 08:00 40 04/04/17 08:00 144 04/04/17 08:00 149 27 73/49 97 Simple Mask 5.0 Status: sedated Condition: critical Lungs: clear, chest wall tender Heart: HR/BP unstable Abdomen: soft, non-tender Extremities: no C/C/E, edema Decubiti: location Micro: Microbiology Date/Time Source Procedure Growth Status 04/04/17 04:33 Bowel Gram Stain - Final Resulted 04/04/17 04:33 Bowel Aerobic Culture Pending Resulted 04/04/17 04:33 Bowel Anaerobic Culture Pending Resulted Accucheck: 126 Critical Care - Subjective ROS Limited/Unobtainable: Yes ICU Day: 2 Intubation Day: 2 Condition: critical EKG Rhythm: Sinus Rhythm FI02: 40 Vent Support Breath Rate: 12 Vent Support Mode: AC Vent Tidal Volume: 450 Sputum Amount: Scant PIP: 16 Drips: levophed, fentanyl I&O: Intake and Output 04/04/17 04/05/17 19:00 07:00 Intake Total 4316.80 ml 2699.85 ml Output Total 3350 ml 2685 ml Balance 966.80 ml 14.85 ml Intake Oral 0 ml IV Total 4316.80 ml 2399.85 ml Blood Product 300 ml Output Urine Total 2300 ml 2425 ml Gastric Drainage Total 550 ml 200 ml Drainage Total 60 ml Other 500 ml CXR: no change ET-Tube: 7.0 ET Position: 22 Labs: Laboratory Tests Test 04/04/17 11:35 04/05/17 05:00 Lactic Acid Level 4.00 mmol/L (0.66-2.22) H 2.00 mmol/L (0.66-2.22) White Blood Count 32.6 K/UL (4.8-10.8) #*H Red Blood Count 2.18 M/UL (4.20-5.40) L Hemoglobin 7.1 G/DL (12.0-16.0) L Hematocrit 20.2 % (37.0-47.0) L Mean Corpuscular Volume 93 FL (80-99) Mean Corpuscular Hemoglobin 32.7 PG (27.0-31.0) H Mean Corpuscular Hemoglobin Concent 35.3 G/DL (32.0-36.0) Red Cell Distribution Width 11.9 % (11.6-14.8) Platelet Count 87 K/UL (150-450) L Mean Platelet Volume 6.0 FL (6.5-10.1) L Neutrophils (%) (Auto) % (45.0-75.0) Lymphocytes (%) (Auto) % (20.0-45.0) Monocytes (%) (Auto) % (1.0-10.0) Eosinophils (%) (Auto) % (0.0-3.0) Basophils (%) (Auto) % (0.0-2.0) Neutrophils % (Manual) Pending Lymphocytes % (Manual) Pending Platelet Estimate Pending Platelet Morphology Pending Sodium Level 152 MMOL/L (136-145) #H Potassium Level 2.1 MMOL/L (3.5-5.1) *L Chloride Level 117 MMOL/L (98-107) H Carbon Dioxide Level 24 MMOL/L (21-32) Anion Gap 10 mmol/L (5-15) Blood Urea Nitrogen 30 mg/dL (7-18) H Creatinine 1.0 MG/DL (0.55-1.30) Estimat Glomerular Filtration Rate 58.2 mL/min (>60) Glucose Level 109 MG/DL (74-106) H Calcium Level 7.7 MG/DL (8.5-10.1) L Ionized Calcium (Measured) 1.07 mmol/L (1.10-1.35) L Phosphorus Level 2.4 MG/DL (2.5-4.9) L Magnesium Level 1.6 MG/DL (1.8-2.4) L Total Bilirubin 0.6 MG/DL (0.2-1.0) Aspartate Amino Transf (AST/SGOT) 150 U/L (15-37) H Alanine Aminotransferase (ALT/SGPT) 69 U/L (12-78) Alkaline Phosphatase 58 U/L (46-116) Total Protein 4.5 G/DL (6.4-8.2) L Albumin 1.9 G/DL (3.4-5.0) L Globulin 2.6 g/dL Albumin/Globulin Ratio 0.7 (1.0-2.7) L YAYO CELIS Apr 05, 2017 07:38
--- NOTE | 2017-04-05 07:50 | General Progress Note ---
Assessment/Plan Problem List: (1) Abdominal pain ICD Codes: R10.9 - Unspecified abdominal pain SNOMED: 86211087 (2) Peritonitis, acute generalized ICD Codes: K65.0 - Generalized (acute) peritonitis SNOMED: 15049984 (3) Strangulated ventral incisional hernia ICD Codes: K43.0 - Incisional hernia with obstruction, without gangrene SNOMED: 044550148 (4) Acute respiratory failure ICD Codes: J96.00 - Acute respiratory failure, unspecified whether with hypoxia or hypercapnia SNOMED: 33408792 (5) Septic shock ICD Codes: A41.9 - Sepsis, unspecified organism; R65.21 - Severe sepsis with septic shock SNOMED: 60851897 Status: unchanged Assessment/Plan vent abx sx f/u cbc bmp am id eval Subjective Constitutional: Reports: weakness Allergies: Coded Allergies: TRAZODONE (Verified Allergy, Unknown, 04/04/17) All Systems: reviewed and negative except above Subjective intub sedated in icu ng in place Objective Last 24 Hour Vital Signs Date Time Temp Pulse Resp B/P (MAP) Pulse Ox O2 Delivery O2 Flow Rate FiO2 04/05/17 06:30 99 14 113/59 100 Mechanical Ventilator 40 04/05/17 06:00 102/56 04/05/17 06:00 12 04/05/17 06:00 100 12 102/56 100 Mechanical Ventilator 40 04/05/17 05:30 104 12 111/58 100 Mechanical Ventilator 40 04/05/17 05:29 111/60 04/05/17 05:07 104 18 40 04/05/17 05:00 105/57 04/05/17 05:00 14 04/05/17 05:00 102 13 105/57 100 Mechanical Ventilator 40 04/05/17 04:30 102 13 102/56 100 Mechanical Ventilator 40 04/05/17 04:00 102 04/05/17 04:00 97.7 102 12 100/56 100 Mechanical Ventilator 40 04/05/17 04:00 100/56 04/05/17 04:00 14 04/05/17 04:00 40 04/05/17 03:30 103 11 103/56 100 Mechanical Ventilator 40 04/05/17 03:21 103 15 40 04/05/17 03:00 99/55 04/05/17 03:00 14 04/05/17 03:00 105 12 99/55 100 Mechanical Ventilator 40 04/05/17 02:30 110 14 119/62 100 Mechanical Ventilator 40 04/05/17 02:00 110 14 106/59 100 Mechanical Ventilator 40 04/05/17 02:00 106/59 04/05/17 02:00 14 04/05/17 01:30 110 14 101/58 100 Mechanical Ventilator 40 04/05/17 01:29 120 24 40 04/05/17 01:00 99/49 04/05/17 01:00 14 04/05/17 01:00 112 14 99/49 100 Mechanical Ventilator 40 04/05/17 00:30 124 20 110/53 99 Mechanical Ventilator 40 04/05/17 00:12 111/54 04/05/17 00:00 98.7 116 16 111/54 100 Mechanical Ventilator 40 04/05/17 00:00 111/54 04/05/17 00:00 16 04/05/17 00:00 40 04/04/17 23:30 121 16 89/48 98 Mechanical Ventilator 40 04/04/17 23:20 118 22 40 04/04/17 23:00 129 23 113/55 98 Mechanical Ventilator 40 04/04/17 23:00 113/55 04/04/17 23:00 23 04/04/17 22:30 125 18 92/45 98 Mechanical Ventilator 40 04/04/17 22:00 98/51 04/04/17 22:00 27 04/04/17 22:00 134 27 98/51 98 Mechanical Ventilator 40 04/04/17 21:47 104/53 04/04/17 21:30 128 19 104/53 98 Mechanical Ventilator 40 04/04/17 21:28 128 20 40 04/04/17 21:00 100.1 131 23 100/52 99 Mechanical Ventilator 40 04/04/17 21:00 100/52 04/04/17 21:00 23 04/04/17 20:55 94/56 04/04/17 20:44 100.1 04/04/17 20:30 130 21 98/56 99 Mechanical Ventilator 40 04/04/17 20:00 40 04/04/17 20:00 133 24 92/50 99 Mechanical Ventilator 40 04/04/17 20:00 133 04/04/17 20:00 92/50 04/04/17 20:00 24 04/04/17 19:30 100.6 134 26 82/43 99 Mechanical Ventilator 40 04/04/17 19:08 134 26 40 04/04/17 19:00 82/43 04/04/17 19:00 26 04/04/17 19:00 134 26 82/42 99 Mechanical Ventilator 40 04/04/17 18:30 141 28 88/45 98 Mechanical Ventilator 40 04/04/17 18:00 28 04/04/17 18:00 99/47 04/04/17 18:00 137 28 91/42 99 Mechanical Ventilator 40 04/04/17 17:30 145 28 91/41 98 Mechanical Ventilator 40 04/04/17 17:16 140 31 40 04/04/17 17:00 141 31 93/46 99 Mechanical Ventilator 40 04/04/17 17:00 32 04/04/17 17:00 93/46 04/04/17 16:30 147 33 91/50 99 Mechanical Ventilator 40 04/04/17 16:11 136 12 98 04/04/17 16:00 101.4 149 32 91/50 99 Mechanical Ventilator 40 04/04/17 16:00 157 04/04/17 16:00 40 04/04/17 15:50 36 04/04/17 15:50 81/41 04/04/17 15:30 147 32 81/41 99 Mechanical Ventilator 40 04/04/17 15:24 154 33 40 04/04/17 15:15 151 33 73/41 100 Mechanical Ventilator 40 04/04/17 15:00 153 33 72/43 100 Mechanical Ventilator 40 04/04/17 15:00 88/54 04/04/17 14:45 155 33 72/44 96 Mechanical Ventilator 40 04/04/17 14:41 34 04/04/17 14:30 155 33 73/42 96 Mechanical Ventilator 40 04/04/17 14:00 156 33 60/38 96 Mechanical Ventilator 40 04/04/17 14:00 60/38 04/04/17 13:58 33 04/04/17 13:30 157 33 61/37 96 Mechanical Ventilator 40 04/04/17 13:17 158 34 40 04/04/17 13:00 33 04/04/17 13:00 77/41 04/04/17 13:00 158 33 120/100 96 Mechanical Ventilator 40 04/04/17 12:45 153 33 77/41 97 Mechanical Ventilator 40 04/04/17 12:30 154 33 70/45 97 Mechanical Ventilator 40 04/04/17 12:22 101.4 04/04/17 12:15 155 33 66/47 97 Mechanical Ventilator 40 04/04/17 12:00 40 04/04/17 12:00 99.9 157 40 85/46 97 Simple Mask 5.0 04/04/17 12:00 157 04/04/17 12:00 85/46 04/04/17 11:52 38 04/04/17 11:45 159 33 67/41 97 Mechanical Ventilator 40 04/04/17 11:30 158 33 74/56 97 Mechanical Ventilator 40 04/04/17 11:28 52/24 04/04/17 11:15 157 33 73/50 97 Mechanical Ventilator 40 04/04/17 11:00 157 33 83/57 97 Mechanical Ventilator 40 04/04/17 10:45 157 27 83/55 97 Simple Mask 5.0 04/04/17 10:42 156 33 40 04/04/17 10:30 156 27 83/57 97 Simple Mask 5.0 04/04/17 10:15 155 27 84/56 97 Simple Mask 5.0 04/04/17 10:00 154 27 86/54 97 Simple Mask 5.0 04/04/17 09:45 153 27 89/50 97 Simple Mask 5.0 04/04/17 09:30 152 27 77/53 97 Simple Mask 5.0 04/04/17 09:15 150 27 72/46 97 Simple Mask 5.0 04/04/17 09:12 99.6 04/04/17 09:09 151 30 40 04/04/17 09:00 149 27 77/48 97 Simple Mask 5.0 04/04/17 08:45 149 27 78/46 97 Simple Mask 5.0 04/04/17 08:30 149 27 77/48 97 Simple Mask 5.0 04/04/17 08:15 150 27 77/50 97 Simple Mask 5.0 04/04/17 08:00 40 04/04/17 08:00 144 04/04/17 08:00 149 27 73/49 97 Simple Mask 5.0 Intake and Output 04/04/17 04/05/17 19:00 07:00 Intake Total 4316.80 ml 2699.85 ml Output Total 3350 ml 2685 ml Balance 966.80 ml 14.85 ml Intake Oral 0 ml IV Total 4316.80 ml 2399.85 ml Blood Product 300 ml Output Urine Total 2300 ml 2425 ml Gastric Drainage Total 550 ml 200 ml Drainage Total 60 ml Other 500 ml Laboratory Tests 04/04/17 11:35: Lactic Acid Level 4.00H 04/05/17 05:00: Lactic Acid Level 2.00, White Blood Count 32.6#*H, Red Blood Count 2.18L, Hemoglobin 7.1L, Hematocrit 20.2L, Mean Corpuscular Volume 93, Mean Corpuscular Hemoglobin 32.7H, Mean Corpuscular Hemoglobin Concent 35.3, Red Cell Distribution Width 11.9, Platelet Count 87L, Mean Platelet Volume 6.0L, Neutrophils (%) (Auto) , Lymphocytes (%) (Auto) , Monocytes (%) (Auto) , Eosinophils (%) (Auto) , Basophils (%) (Auto) , Neutrophils % (Manual) [Pending] , Lymphocytes % (Manual) [Pending], Platelet Estimate [Pending], Platelet Morphology [Pending], Sodium Level 152#H, Potassium Level 2.1*L, Chloride Level 117H, Carbon Dioxide Level 24, Anion Gap 10, Blood Urea Nitrogen 30H, Creatinine 1.0, Estimat Glomerular Filtration Rate 58.2, Glucose Level 109H, Calcium Level 7.7L, Ionized Calcium (Measured) 1.07L, Phosphorus Level 2.4L, Magnesium Level 1.6L, Total Bilirubin 0.6, Aspartate Amino Transf (AST/SGOT) 150H, Alanine Aminotransferase (ALT/SGPT) 69, Alkaline Phosphatase 58, Total Protein 4.5L, Albumin 1.9L, Globulin 2.6, Albumin/Globulin Ratio 0.7L Height (Feet): 5 Height (Inches): 0.00 Weight (Pounds): 97 General Appearance: lethargic EENT: normal ENT inspection Neck: normal alignment Cardiovascular: normal peripheral pulses, normal rate, regular rhythm Respiratory/Chest: decreased breath sounds Abdomen: hypoactive bowel sounds Extremities: normal inspection Edema: no edema noted Arm (L), no edema noted Arm (R), no edema noted Leg (L), no edema noted Leg (R), no edema noted Pedal (L), no edema noted Pedal (R), no edema noted Generalized Neurologic: motor weakness Skin: normal pigmentation, warm/dry LACY HERNÁNDEZ Apr 05, 2017 07:50
[2017-04-05] MEDS ORDERED: Potassium Phosphate 30 MM in Sodium Chloride 500ML 550 ML IV ONE (08:45)
[2017-04-05] MEDS: Pantoprazole Inj IV SCH (09:13)
[2017-04-05] MEDS ORDERED: Vancomycin 1gm in D5W 275ml IVPB ONE (10:00)
--- NOTE | 2017-04-05 10:53 | Diagnostic Imaging Report ---
Indication: Dyspnea Technique: XRAY Chest 1v Comparison: 04/04/2017 Findings: NG tube, ET tube and central line unchanged in position. Lung volumes are lower on today's exam. There is apparent increased interstitial prominence, likely related to a lung volumes. Question patchy retrocardiac atelectasis/consolidation. No pleural effusion. No pneumothorax. No acute osseous abnormality. Impression: Apparent development of mild interstitial prominence/opacification. This is slightly artifactual due to low lung volumes on this exam. Clinical correlation and old exam recommended. Support lines/tubes in appropriate position.
[2017-04-05] MEDS: fentaNYL Citrate 2,500 MCG in NS 200 ML IV SCH (11:35)
--- NOTE | 2017-04-05 12:32 | General Progress Note ---
Progress Note Progress Note Surgery: slight improvement. tachycardia improved HR currently in 90's. Hypotension improved and pressor requirement down to 10 of levophed. urine output improved. more responsive today. wbc >30k. K low, lactate improved. NG with black liquid output. abd soft, on distended, tender, wounds clean with packing and dressings. cxr reviewed POD #2 s/p ex lap, bowel resection, left in discontinuity for strangulated ventral hernia with bowel necrosis. somewhat improved -prognosis still very guarded -transfuse prbc -fluids -abx -wean pressors -wean vent -marks -heparin -continue with current care and management -fortunately improving. still unstable. tentatively on schedule friday morning for planned reexploration if continues to improve and stabilize. Brandt Auguste Apr 05, 2017 12:32
[2017-04-05] MEDS: Piperacillin/Tazobactam 3.375 GM in D5W 55 ML IVPB SCH ×2 (12:38→20:00)
--- NOTE | 2017-04-05 12:44 | General Progress Note ---
Progress Note Progress Note [id number] full note dictated DELMI ARITA Apr 05, 2017 12:44
[2017-04-05] MEDS ORDERED: Potassium Chloride 40 MEQ in Sodium Chloride 500ML 550 ML IVPB ONE (14:00)
[2017-04-05] MEDS: D5 1/4NS w/KCl 20mEq 1,000 ML IV SCH (15:55)
[2017-04-05] MEDS: Norepinephrine 4mg in D5W 250ml IV SCH ×2 (16:00→19:56)
--- NOTE | 2017-04-05 17:00 | Consultation ---
DATE OF CONSULTATION: 04/05/2016 NEPHROLOGY CONSULTATION REFERRING PHYSICIAN: Juan Marrufo D.O. REASON FOR CONSULTATION: Hypernatremia, hypokalemia, hypocalcemia, hypophosphatemia, and electrolyte imbalance. HISTORY OF PRESENT ILLNESS: The patient is an unfortunate 51-year-old female with past medical history significant for history of psychiatric disease, bipolar, and hypertension, who complained of abdominal pain at [place] outside facility. She basically had intractable nausea and vomiting. She had a CT scan of the abdomen. CT of the abdomen revealed small bowel obstruction with strangulation. Consequently the patient was transferred to [facility]. She was taken to the OR. Postop, the patient intubated and was transferred to ICU, found to have an abnormal electrolytes. I was called for management of electrolyte imbalance. PAST MEDICAL HISTORY: 1. History of anxiety. 2. History of bipolar disease. 3. History of hirsutism. 4. History of hypertension. 5. History of vitamin D. 6. History of psychosis. PAST SURGICAL HISTORY: History of colostomy. MEDICATIONS: Reviewed. ALLERGIES: The patient is allergic to trazodone. SOCIAL HISTORY: She lives at [facility]. There is no history of tobacco, alcohol, or drug use. REVIEW OF SYSTEMS: Unable to obtain due to the patient's condition, intubated at this time. She only opens her eyes with verbal stimuli and not following commands. PHYSICAL EXAMINATION: VITAL SIGNS: The patient has temperature of 98 degrees, blood pressure of 99/56, pulse rate of 91, and respiratory rate of 18. HEAD AND NECK: No JVP. No LAD. No thyromegaly. NG tube is placed. ET tube is in place. NG tube secreting greenish liquids. CARDIAC: Regular rate and rhythm. S1 and S2. No murmur. No rub. LUNGS: Has decreased breathing sound on both sides. ABDOMEN: Soft. Bowel sounds are hypoactive. Nontender. EXTREMITIES: No edema. No clubbing. No cyanosis. LABORATORY AND DIAGNOSTIC DATA: The patient has sodium of 152, potassium of 3.1, chloride 117 , bicarbonate of 21, BUN 30, creatinine of 1, and glucose of 109. Lactic acid of 4. Calcium of 7.7. Magnesium of 1.6. AST of 150 and ALT of 69. Total protein of 4.1. Albumin of 1.9. UA revealed specific gravity of 1.010, protein 2+, glucose 1+, WBCs 0 to 2, and RBCs 5 to 10. CBC revealed WBC count of 32, hemoglobin of 7.1, hematocrit of 30, and platelet count of 87. ASSESSMENT: 1. Hypernatremia. 2. Hypokalemia. 3. Acute renal failure or dehydration. 4. Malnutrition. 5. Hypocalcemia. 6. Hypomagnesemia. PLAN: Plan for the patient to obtain UA. Check the random urine protein creatinine ratio to calculate the proteinuria. Check the urine sodium and creatinine to calculate fractional excretion of sodium. Replace the magnesium. Change IV fluids to D5 water plus 40 KCl to run at 100 mL/hour. I would check and replace the magnesium. I would check the prealbumin level. If the patient continued to be NPO, may need to restart on TPN. Again, I would like to thank, Dr. Juan Marrufo, for allowing me to participate in the care of this patient. Mariel Saldana M.D. DR: Barbara JOB#: [id number] CC:
[2017-04-05] MEDS ORDERED: NS 275ml ONE ×2 (17:36→17:49)
[2017-04-05] MEDS ORDERED: Tubing Blood Filter IV ONE (17:49)
[2017-04-05] MEDS ORDERED: LR 1000ml ONE ×2 (17:49→18:05)
[2017-04-05] MEDS ORDERED: NS 500ML ONE (17:49)
[2017-04-05] MEDS ORDERED: Tubing IV Secondary IV ONE (17:49)
[2017-04-05] MEDS ORDERED: Sterile Water Irrig 1000ml IRRIG ONE (17:49)
[2017-04-05] MEDS: Dyna-Hex 2% Top Sol 2oz TOPIC SCH (20:00)
--- NOTE | 2017-04-05 22:00 | Operative Note - Dictated ---
DATE OF OPERATION: 04/04/2017 PREOPERATIVE DIAGNOSIS: Septic shock from strangulated ventral hernia. POSTOPERATIVE DIAGNOSES: 1. Strangulated ventral hernia with necrotic small bowel. 2. Incarcerated parastomal hernia. 3. Necrotic small bowel and ischemic ileostomy. PROCEDURE PERFORMED: 1. Exploratory laparotomy. 2. Small bowel resection. 3. Ileostomy resection. 4. Abdominal washout. 5. Temporary abdominal closure with plans for second-look laparotomy. ATTENDING SURGEON: Brandt Auguste M.D. ANESTHESIOLOGIST: Dr. Painter. ANESTHESIA: General [facility]. SPECIMENS: 1. Necrotic small bowel. 2. Ischemic ileostomy. 3. Necrotic hernia sac. 4. Peritoneal cultures. COMPLICATIONS: None. CONDITION: Unstable. FLUIDS: Please see anesthesia records. ESTIMATED BLOOD LOSS: Minimal. DRAINS: A 19-Arabic Ashwin drain. ANTIBIOTICS: The patient was given Zosyn and Flagyl one hour prior to cut time. IMPLANTS: None. WOUND CLASSIFICATION: Class 3. COUNTS: Sponge and needle count correct x2. INDICATIONS FOR PROCEDURE: This is a very unfortunate 51-year-old female, who during hospitalization at an outside facility developed worsening abdominal pain and workup identified an incarcerated ventral hernia as well as incarcerated parastomal hernia. Unfortunately, no surgeon was available and patient was transferred to [facility] for care and surgical evaluation. Immediate transfer was facilitated and the patient arrived to the [facility] at 1:30 a.m. in the morning on 04/04/2017, at which time I was present in the intensive care unit upon arrival. I evaluated the patient and noted the patient to be in distress, hypotensive, tachycardic, receiving pressors, and with an acute abdomen, peritoneal sign, and an incarcerated likely strangulated ventral abdominal hernia. The patient was immediately taken to the operating room for exploration as an emergency. Risks, benefits, and alternatives were discussed with the patient, who was aware of current condition and consented to surgery in emergent fashion. OPERATIVE NOTE: The patient was taken to the operating room and placed on the operative table in the supine position with bilateral arms out. All bony prominences were well padded. SCDs had been already placed. General anesthesia was induced and the patient was intubated. Preoperative time-out was taken identifying the patient, procedure, operative staff, and surgical staff. Upon arrival to the operating room, the patient already had a Donohue catheter and an NG tube placed prior. General anesthesia was induced and the patient was intubated. The abdomen was then clipped, prepped, and draped in standard surgical fashion. We began by making a vertical midline incision through the patient's prior laparotomy scar. Incision was carried down towards the fascia, at which time a large ventral hernia was identified with bowel contents. The ventral hernia was under significant tension with a black color to it. The fascia was opened carefully. Upon entering the hernia sac from the fascia, there was a significant amount of black necrotic ischemic gut noted. The hernia sac itself was black and necrotic as well. There was a significant amount of dark serous foul-smelling fluid in the abdomen. A suction was placed and a fair amount of dark serous foul-smelling fluid was evacuated. The abdomen was then opened further through the fascia. The omental adhesions to the fascia were taken down with electrocautery. Once this was complete, a significant portion of the small bowel was noted to be necrotic and gangrenous without any possibility of viability. We then identified the patient's prior ileostomy and noted that she had a parastomal hernia as well with incarcerated small bowel within the parastomal hernia. Unfortunately, some of the small bowel incarcerated into the parastomal hernia was definitely ischemic as well. There were some intra-loop adhesive bands noted that were causing ischemia as well. Adhesions were taken down and bands were released using electrocautery and fine dissection as necessary. Once this was complete, the bowel was run from ligament of Treitz down to the ileostomy. The abdomen was inspected and the patient was noted to have a rectal stump with a Prolene suture on it, but no other colon remnants, which is consistent with her history of subtotal colectomy for colitis. At this time, the stomach was evaluated and NG tube was noted to be within the stomach. The omentum was evaluated and part of the omentum was noted to be necrotic and resected. The spleen was dusky, but viable. The liver was viable as well as the gallbladder. The ovaries and the uterus were evaluated and viable as well. At this time, washout was performed and all debris evacuated from the abdomen. The stomach and the portions of the duodenum that could be visualized were viable. The ligament of Treitz was identified and the small bowel was ran. Approximately 75 cm of small bowel was viable and the remainder was necrotic without any sustainability or potential viability. This was almost towards the ileostomy. At this time, the decision was made to resect this portion of the small gut. Incision was made at the demarcation between ischemic and necrotic small bowel. A JOSE C linear stapler was used to divide the small bowel. The mesentery of the small bowel was then divided and ligated using #0 silk ties towards the ileostomy. Once this was complete, the ileostomy was evaluated and also noted to be ischemic. The ileostomy was then resected out and in two specimens the small bowel and ileostomy were resected and sent to pathology for review. At this time, the fascial defect of the ileostomy site was closed using a number #1 Prolene suture. The ileostomy site was cleaned with copious amounts of warm normal saline. The abdomen was then reinspected and washed out again with copious amounts of warm normal saline. At this time, the remaining 75 or so centimeters of small bowel were evaluated and some areas of ischemia with potential viability. At this time, it is not considered safe to develop a new ileostomy for the patient given that there was some ischemia of small bowel and portions may need to be resected at a later time and the patient was very unstable. The decision was made for temporary abdominal closure with plans for second-look laparotomy in few days once the patient is resuscitated and stabilized. Once the abdominal washout was complete, NG tube was noted to be in proper positioning. All necrotic gut and remnants were excised and removed and remaining potentially viable bowel and organs were left in place. A 19-Arabic Ashwin drain was placed through the left lower abdomen and into the pelvis for drainage. A temporary abdominal closure was performed using a #0 looped PDS suture. The prior ileostomy site and underlying wound were packed and dressings were applied. The patient was still in unstable condition on pressors and actively being resuscitated. The patient was then transferred back to the intensive care unit for further resuscitation and with plans of second-look laparotomy in the subsequent days as the patient stabilizes. Brandt Auguste M.D. DR: ELKE JOB#: [id number] CC: WOLF
[2017-04-06] VITALS (43 sets, daily range): BP systolic 105–146; BP diastolic 58–85
[2017-04-06] MEDS: Piperacillin/Tazobactam 3.375 GM in D5W 55 ML IVPB SCH ×3 (04:36→19:57)
[2017-04-06 05:42] LABS: HEMATOCRIT 20.9 % (37.0-47.0); HEMOGLOBIN 7.7 G/DL (12.0-16.0); MEAN CORPUSCULAR VOLUME 91 FL (80-99); PLATELET COUNT 48 K/UL (150-450); RED BLOOD COUNT 2.28 M/UL (4.20-5.40); RED CELL DISTRIBUTION WIDTH 12.3 % (11.6-14.8)
[2017-04-06 05:49] LABS: WHITE BLOOD COUNT 27.3 K/UL (4.8-10.8)
[2017-04-06] MEDS: Heparin 5000 units/ml inj SUBQ SCH ×3 (05:58→22:00)
[2017-04-06] MEDS: NovoLOG Insulin Flexpen SUBQ SCH ×4 (05:59→23:26)
[2017-04-06 06:09] LABS: ALANINE AMINOTRANSFERASE 97 U/L (12-78); ALBUMIN 1.6 G/DL (3.4-5.0); ALBUMIN/GLOBULIN RATIO 0.6 (1.0-2.7); ALKALINE PHOSPHATASE 60 U/L (46-116); ANION GAP 6 mmol/L (5-15); ASPARTATE AMINO TRANSFERASE 148 U/L (15-37); BILIRUBIN,TOTAL 0.4 MG/DL (0.2-1.0); BLOOD UREA NITROGEN 18 mg/dL (7-18); CALCIUM 7.9 MG/DL (8.5-10.1); CARBON DIOXIDE 27 MMOL/L (21-32); CHLORIDE 117 MMOL/L (98-107); CREATININE 0.8 MG/DL (0.55-1.30); PHOSPHORUS 2.3 MG/DL (2.5-4.9); SODIUM 150 MMOL/L (136-145)
[2017-04-06 06:12] LABS: POTASSIUM 2.7 MMOL/L (3.5-5.1)
--- NOTE | 2017-04-06 08:06 | General Progress Note ---
Assessment/Plan Problem List: (1) Abdominal pain ICD Codes: R10.9 - Unspecified abdominal pain SNOMED: 55720682 (2) Peritonitis, acute generalized ICD Codes: K65.0 - Generalized (acute) peritonitis SNOMED: 69046741 (3) Strangulated ventral incisional hernia ICD Codes: K43.0 - Incisional hernia with obstruction, without gangrene SNOMED: 604657467 (4) Acute respiratory failure ICD Codes: J96.00 - Acute respiratory failure, unspecified whether with hypoxia or hypercapnia SNOMED: 56358824 (5) Septic shock ICD Codes: A41.9 - Sepsis, unspecified organism; R65.21 - Severe sepsis with septic shock SNOMED: 48043516 Status: unchanged Assessment/Plan vent abx sx f/u cbc bmp am id eval Subjective Constitutional: Reports: weakness Allergies: Coded Allergies: TRAZODONE (Verified Allergy, Unknown, 04/04/17) All Systems: reviewed and negative except above Subjective intub sedated in icu ng in place Objective Last 24 Hour Vital Signs Date Time Temp Pulse Resp B/P (MAP) Pulse Ox O2 Delivery O2 Flow Rate FiO2 04/06/17 07:13 121 17 28 04/06/17 07:00 98.0 108 12 117/68 98 Mechanical Ventilator 04/06/17 06:30 107 12 114/58 98 Mechanical Ventilator 28 04/06/17 06:00 13 04/06/17 06:00 111 13 112/61 100 Mechanical Ventilator 28 04/06/17 05:30 107 13 110/64 98 Mechanical Ventilator 28 04/06/17 05:26 107 12 28 04/06/17 05:00 13 04/06/17 05:00 107 13 111/70 98 Mechanical Ventilator 28 04/06/17 04:30 97.7 112 13 121/68 98 Mechanical Ventilator 28 04/06/17 04:00 107/61 04/06/17 04:00 13 04/06/17 04:00 111 04/06/17 04:00 111 12 107/61 98 Mechanical Ventilator 28 04/06/17 04:00 28 04/06/17 03:30 106 13 117/69 98 Mechanical Ventilator 28 04/06/17 03:13 101 12 28 04/06/17 03:00 126/66 04/06/17 03:00 13 04/06/17 03:00 105 13 126/66 98 Mechanical Ventilator 28 04/06/17 02:30 106 13 121/65 98 Mechanical Ventilator 28 04/06/17 02:00 115/70 04/06/17 02:00 13 04/06/17 02:00 107 13 115/70 98 Mechanical Ventilator 28 04/06/17 01:30 106 13 105/62 98 Mechanical Ventilator 28 04/06/17 01:20 104 16 28 04/06/17 01:00 116/64 04/06/17 01:00 13 04/06/17 01:00 108 13 116/64 98 Mechanical Ventilator 28 04/06/17 00:30 106 13 114/63 98 Mechanical Ventilator 28 04/06/17 00:00 109 04/06/17 00:00 130/72 04/06/17 00:00 12 04/06/17 00:00 28 04/06/17 00:00 97.7 107 12 130/72 97 Mechanical Ventilator 28 04/05/17 23:30 103 15 119/66 98 Mechanical Ventilator 28 04/05/17 23:17 101 12 28 04/05/17 23:00 98/69 04/05/17 23:00 12 04/05/17 23:00 96 12 96/59 98 Mechanical Ventilator 28 04/05/17 22:30 105 13 121/67 98 Mechanical Ventilator 28 04/05/17 22:00 104 12 126/67 99 Mechanical Ventilator 28 04/05/17 22:00 126/67 04/05/17 22:00 12 04/05/17 21:30 103 12 139/76 99 Mechanical Ventilator 28 04/05/17 21:29 107 17 28 04/05/17 21:00 147/79 04/05/17 21:00 13 04/05/17 21:00 100 13 147/79 100 Mechanical Ventilator 28 04/05/17 20:30 91 16 138/78 100 Mechanical Ventilator 28 04/05/17 20:00 96 13 134/79 100 Mechanical Ventilator 28 04/05/17 20:00 96 04/05/17 20:00 134/79 04/05/17 20:00 13 04/05/17 20:00 28 04/05/17 19:56 117/75 04/05/17 19:30 97.7 102 13 107/69 99 Mechanical Ventilator 28 04/05/17 19:23 92 17 28 04/05/17 19:00 95/63 04/05/17 19:00 15 04/05/17 19:00 14 04/05/17 19:00 101 13 124/64 100 Mechanical Ventilator 28 04/05/17 18:30 97 14 113/69 100 Mechanical Ventilator 28 04/05/17 18:00 14 04/05/17 18:00 103 14 106/64 100 Mechanical Ventilator 28 04/05/17 17:30 105 16 121/66 100 Mechanical Ventilator 28 04/05/17 17:13 101 15 28 04/05/17 17:00 102 12 121/74 100 Mechanical Ventilator 28 04/05/17 17:00 13 04/05/17 16:30 100 13 105/66 100 Mechanical Ventilator 28 04/05/17 16:00 97.8 99 13 109/62 100 Mechanical Ventilator 28 04/05/17 16:00 108/63 04/05/17 16:00 95 04/05/17 16:00 28 04/05/17 15:55 12 04/05/17 15:30 99 12 103/66 100 Mechanical Ventilator 40 04/05/17 15:00 12 04/05/17 15:00 96 13 103/66 100 Mechanical Ventilator 40 04/05/17 14:45 98 17 28 04/05/17 14:30 95 12 103/66 100 Mechanical Ventilator 40 04/05/17 14:00 91 12 103/66 100 Mechanical Ventilator 40 04/05/17 14:00 101/65 04/05/17 14:00 14 04/05/17 13:30 90 14 96/55 100 Mechanical Ventilator 40 04/05/17 13:00 101/66 04/05/17 13:00 13 04/05/17 13:00 93 13 112/65 99 Mechanical Ventilator 40 04/05/17 12:50 98 17 40 04/05/17 12:30 96 13 119/64 100 Mechanical Ventilator 40 04/05/17 12:05 98.0 04/05/17 12:00 98.1 96 12 109/62 100 Mechanical Ventilator 40 04/05/17 12:00 94 04/05/17 12:00 40 04/05/17 12:00 96/55 04/05/17 12:00 12 04/05/17 11:35 14 04/05/17 11:34 99/52 1/13/18 11:30 91 16 99/56 99 Mechanical Ventilator 40 04/05/17 11:30 93 14 99/56 100 Mechanical Ventilator 40 04/05/17 11:00 94 12 109/67 99 Mechanical Ventilator 40 04/05/17 11:00 99/56 04/05/17 11:00 12 04/05/17 10:36 99 17 40 04/05/17 10:30 99 14 105/57 99 Mechanical Ventilator 40 04/05/17 10:00 110/62 04/05/17 10:00 14 04/05/17 10:00 102 14 110/62 99 Mechanical Ventilator 40 04/05/17 09:30 106 14 108/68 99 Mechanical Ventilator 40 04/05/17 09:24 105 13 40 04/05/17 09:12 105/59 04/05/17 09:12 14 04/05/17 09:00 104 14 105/59 99 Mechanical Ventilator 40 04/05/17 08:30 103 14 115/61 99 Mechanical Ventilator 40 Intake and Output 04/05/17 04/06/17 19:00 07:00 Intake Total 3602.491 ml 1763.75 ml Output Total 2625 ml 1420 ml Balance 977.491 ml 343.75 ml Intake Oral 0 ml 0 ml IV Total 3402.491 ml 1763.75 ml Blood Product 200 ml Output Urine Total 2145 ml 990 ml Gastric Drainage Total 300 ml 350 ml Drainage Total 180 ml 80 ml Laboratory Tests 04/05/17 08:35: Arterial Blood pH 7.400, Arterial Blood Partial Pressure CO2 40.4, Arterial Blood Partial Pressure O2 130.9H, Arterial Blood HCO3 25.0, Arterial Blood Oxygen Saturation 97.9, Arterial Blood Base Excess 0.3, Jignesh Test Positive 04/05/17 09:40: Lactic Acid Level 1.90 04/05/17 18:00: Urine Eosinophils None seen, Urine Random Creatinine [Pending], Urine Random Microalbumin [Pending], Urine Random Total Protein 52H, Urine Random Sodium 90, Urine Microalbumin/Creatinine Ratio [Pending] 04/06/17 04:00: Lactic Acid Level 1.50, White Blood Count 27.3*H, Red Blood Count 2.28L, Hemoglobin 7.7L, Hematocrit 20.9L, Mean Corpuscular Volume 91, Mean Corpuscular Hemoglobin 33.9H, Mean Corpuscular Hemoglobin Concent 37.0H, Red Cell Distribution Width 12.3, Platelet Count 48L, Mean Platelet Volume 6.8, Neutrophils (%) (Auto) , Lymphocytes (%) (Auto) , Monocytes (%) (Auto) , Eosinophils (%) (Auto) , Basophils (%) (Auto) , Differential Total Cells Counted 100, Neutrophils % (Manual) 91H, Lymphocytes % (Manual) 6L, Monocytes % (Manual) 3, Eosinophils % (Manual) 0, Basophils % (Manual) 0, Band Neutrophils 0 , Platelet Estimate DecreasedL, Platelet Morphology Normal, Hypochromasia 1+, Sodium Level 150H, Potassium Level 2.7*L, Chloride Level 117H, Carbon Dioxide Level 27, Anion Gap 6, Blood Urea Nitrogen 18, Creatinine 0.8, Estimat Glomerular Filtration Rate > 60, Glucose Level 105, Calcium Level 7.9L, Phosphorus Level 2.3L, Magnesium Level 2.1, Total Bilirubin 0.4, Aspartate Amino Transf (AST/SGOT) 148H, Alanine Aminotransferase (ALT/SGPT) 97H, Alkaline Phosphatase 60, Total Protein 4.4L, Albumin 1.6L, Globulin 2.8, Albumin/ Globulin Ratio 0.6L Height (Feet): 5 Height (Inches): 0.00 Weight (Pounds): 102 General Appearance: lethargic EENT: normal ENT inspection Neck: normal alignment Cardiovascular: normal peripheral pulses, normal rate Respiratory/Chest: decreased breath sounds Abdomen: hypoactive bowel sounds Extremities: normal inspection Edema: no edema noted Arm (L), no edema noted Arm (R), no edema noted Leg (L), no edema noted Leg (R), no edema noted Pedal (L), no edema noted Pedal (R), no edema noted Generalized Neurologic: motor weakness Skin: normal pigmentation, warm/dry LACY HERNÁNDEZ Apr 06, 2017 08:06
--- NOTE | 2017-04-06 08:11 | Pulmonolgy Critical Care Note ---
Critical Care - Asmt/Plan Problems: (1) Septic shock (2) Acute respiratory failure (3) Multiorgan failure (4) Strangulated ventral incisional hernia (5) Peritonitis, acute generalized Respiratory: monitor respiratory rate, adjust FIO2, CXR Cardiac: continue pressors, continue to monitor HR/BP Renal: F/U I&O Infectious Disease: check cultures, continue antibiotics Gastrointestinal: continue feedings/current rate, hold feedings Endocrine: monitor blood sugar, check TSH, check HgA1C, continue sliding scale insulin Hematologic: monitor H/H, transfuse if hgb<8.5 Neurologic: PRN Ativan, keep patient comfortable Affect: PRN ativan Prophylaxis: Heparin Time Spent (Minutes): 40 Notes Reviewed: cardio, renal Discussed with: nurses, consultants, upper caserclient services account manager - Objective Last 24 Hour Vital Signs Date Time Temp Pulse Resp B/P (MAP) Pulse Ox O2 Delivery O2 Flow Rate FiO2 04/06/17 07:13 121 17 28 04/06/17 07:00 98.0 108 12 117/68 98 Mechanical Ventilator 04/06/17 06:30 107 12 114/58 98 Mechanical Ventilator 28 04/06/17 06:00 13 04/06/17 06:00 111 13 112/61 100 Mechanical Ventilator 28 04/06/17 05:30 107 13 110/64 98 Mechanical Ventilator 28 04/06/17 05:26 107 12 28 04/06/17 05:00 13 04/06/17 05:00 107 13 111/70 98 Mechanical Ventilator 28 04/06/17 04:30 97.7 112 13 121/68 98 Mechanical Ventilator 28 04/06/17 04:00 107/61 04/06/17 04:00 13 04/06/17 04:00 111 04/06/17 04:00 111 12 107/61 98 Mechanical Ventilator 28 04/06/17 04:00 28 04/06/17 03:30 106 13 117/69 98 Mechanical Ventilator 28 04/06/17 03:13 101 12 28 04/06/17 03:00 126/66 04/06/17 03:00 13 04/06/17 03:00 105 13 126/66 98 Mechanical Ventilator 28 04/06/17 02:30 106 13 121/65 98 Mechanical Ventilator 28 04/06/17 02:00 115/70 04/06/17 02:00 13 04/06/17 02:00 107 13 115/70 98 Mechanical Ventilator 28 04/06/17 01:30 106 13 105/62 98 Mechanical Ventilator 28 04/06/17 01:20 104 16 28 04/06/17 01:00 116/64 04/06/17 01:00 13 04/06/17 01:00 108 13 116/64 98 Mechanical Ventilator 28 04/06/17 00:30 106 13 114/63 98 Mechanical Ventilator 28 04/06/17 00:00 109 04/06/17 00:00 130/72 04/06/17 00:00 12 04/06/17 00:00 28 04/06/17 00:00 97.7 107 12 130/72 97 Mechanical Ventilator 28 04/05/17 23:30 103 15 119/66 98 Mechanical Ventilator 28 04/05/17 23:17 101 12 28 04/05/17 23:00 98/69 04/05/17 23:00 12 04/05/17 23:00 96 12 96/59 98 Mechanical Ventilator 28 04/05/17 22:30 105 13 121/67 98 Mechanical Ventilator 28 04/05/17 22:00 104 12 126/67 99 Mechanical Ventilator 28 04/05/17 22:00 126/67 04/05/17 22:00 12 04/05/17 21:30 103 12 139/76 99 Mechanical Ventilator 28 04/05/17 21:29 107 17 28 04/05/17 21:00 147/79 04/05/17 21:00 13 04/05/17 21:00 100 13 147/79 100 Mechanical Ventilator 28 04/05/17 20:30 91 16 138/78 100 Mechanical Ventilator 28 04/05/17 20:00 96 13 134/79 100 Mechanical Ventilator 28 04/05/17 20:00 96 04/05/17 20:00 134/79 04/05/17 20:00 13 04/05/17 20:00 28 04/05/17 19:56 117/75 04/05/17 19:30 97.7 102 13 107/69 99 Mechanical Ventilator 28 04/05/17 19:23 92 17 28 04/05/17 19:00 95/63 04/05/17 19:00 15 04/05/17 19:00 14 04/05/17 19:00 101 13 124/64 100 Mechanical Ventilator 28 04/05/17 18:30 97 14 113/69 100 Mechanical Ventilator 28 04/05/17 18:00 14 04/05/17 18:00 103 14 106/64 100 Mechanical Ventilator 28 04/05/17 17:30 105 16 121/66 100 Mechanical Ventilator 28 04/05/17 17:13 101 15 28 04/05/17 17:00 102 12 121/74 100 Mechanical Ventilator 28 04/05/17 17:00 13 04/05/17 16:30 100 13 105/66 100 Mechanical Ventilator 28 04/05/17 16:00 97.8 99 13 109/62 100 Mechanical Ventilator 28 04/05/17 16:00 108/63 04/05/17 16:00 95 04/05/17 16:00 28 04/05/17 15:55 12 04/05/17 15:30 99 12 103/66 100 Mechanical Ventilator 40 04/05/17 15:00 12 04/05/17 15:00 96 13 103/66 100 Mechanical Ventilator 40 04/05/17 14:45 98 17 28 04/05/17 14:30 95 12 103/66 100 Mechanical Ventilator 40 04/05/17 14:00 91 12 103/66 100 Mechanical Ventilator 40 04/05/17 14:00 101/65 04/05/17 14:00 14 04/05/17 13:30 90 14 96/55 100 Mechanical Ventilator 40 04/05/17 13:00 101/66 04/05/17 13:00 13 04/05/17 13:00 93 13 112/65 99 Mechanical Ventilator 40 04/05/17 12:50 98 17 40 04/05/17 12:30 96 13 119/64 100 Mechanical Ventilator 40 04/05/17 12:05 98.0 04/05/17 12:00 98.1 96 12 109/62 100 Mechanical Ventilator 40 04/05/17 12:00 94 04/05/17 12:00 40 04/05/17 12:00 96/55 04/05/17 12:00 12 04/05/17 11:35 14 04/05/17 11:34 99/52 04/05/17 11:30 91 16 99/56 99 Mechanical Ventilator 40 04/05/17 11:30 93 14 99/56 100 Mechanical Ventilator 40 04/05/17 11:00 94 12 109/67 99 Mechanical Ventilator 40 04/05/17 11:00 99/56 04/05/17 11:00 12 04/05/17 10:36 99 17 40 04/05/17 10:30 99 14 105/57 99 Mechanical Ventilator 40 04/05/17 10:00 110/62 04/05/17 10:00 14 04/05/17 10:00 102 14 110/62 99 Mechanical Ventilator 40 04/05/17 09:30 106 14 108/68 99 Mechanical Ventilator 40 04/05/17 09:24 105 13 40 04/05/17 09:12 105/59 04/05/17 09:12 14 04/05/17 09:00 104 14 105/59 99 Mechanical Ventilator 40 04/05/17 08:30 103 14 115/61 99 Mechanical Ventilator 40 Status: awake Condition: critical HEENT: atraumatic Neck: full ROM Lungs: chest wall tender Heart: HR/BP stable, HR/BP unstable Abdomen: soft, active bowel sounds, feeding tube Extremities: edema Micro: Microbiology Date/Time Source Procedure Growth Status 04/04/17 07:20 Blood Blood Culture - Preliminary NO GROWTH AFTER 24 HOURS Resulted 04/04/17 07:10 Blood Blood Culture - Preliminary NO GROWTH AFTER 24 HOURS Resulted 04/04/17 04:33 Bowel Gram Stain - Final Resulted 04/04/17 04:33 Bowel Aerobic Culture - Preliminary Resulted 04/04/17 04:33 Bowel Anaerobic Culture - Preliminary Resulted Accucheck: 96 Critical Care - Subjective ROS Limited/Unobtainable: Yes ICU Day: 2 Intubation Day: 2 Condition: critical EKG Rhythm: Sinus Rhythm FI02: 28 Vent Support Breath Rate: 12 Vent Support Mode: AC Vent Tidal Volume: 450 Sputum Amount: Small PIP: 17 Fluids: d5 1/4 NS + 20m eQ at 100 Drips: off levophed, fentanyl Residuals: NG to suction, COLE in place I&O: Intake and Output 04/05/17 04/06/17 19:00 07:00 Intake Total 3602.491 ml 1763.75 ml Output Total 2625 ml 1420 ml Balance 977.491 ml 343.75 ml Intake Oral 0 ml 0 ml IV Total 3402.491 ml 1763.75 ml Blood Product 200 ml Output Urine Total 2145 ml 990 ml Gastric Drainage Total 300 ml 350 ml Drainage Total 180 ml 80 ml ET-Tube: 7.0 ET Position: 22 Labs: Laboratory Tests Test 04/05/17 08:35 04/05/17 09:40 04/05/17 18:00 04/06/17 04:00 Arterial Blood pH 7.400 (7.350-7.450) Arterial Blood Partial Pressure CO2 40.4 mmHg (35.0-45.0) Arterial Blood Partial Pressure O2 130.9 mmHg (75.0-100.0) H Arterial Blood HCO3 25.0 mmol/L (22.0-26.0) Arterial Blood Oxygen Saturation 97.9 % (92.0-98.0) Arterial Blood Base Excess 0.3 Jignesh Test Positive Lactic Acid Level 1.90 mmol/L (0.66-2.22) 1.50 mmol/L (0.66-2.22) Urine Eosinophils None seen Urine Random Creatinine Pending Urine Random Microalbumin Pending Urine Random Total Protein 52 MG/DL (< 11.9) H Urine Random Sodium 90 MEQ/L (20-110) Urine Microalbumin/Creatinine Ratio Pending White Blood Count 27.3 K/UL (4.8-10.8) *H Red Blood Count 2.28 M/UL (4.20-5.40) L Hemoglobin 7.7 G/DL (12.0-16.0) L Hematocrit 20.9 % (37.0-47.0) L Mean Corpuscular Volume 91 FL (80-99) Mean Corpuscular Hemoglobin 33.9 PG (27.0-31.0) H Mean Corpuscular Hemoglobin Concent 37.0 G/DL (32.0-36.0) H Red Cell Distribution Width 12.3 % (11.6-14.8) Platelet Count 48 K/UL (150-450) L Mean Platelet Volume 6.8 FL (6.5-10.1) Neutrophils (%) (Auto) % (45.0-75.0) Lymphocytes (%) (Auto) % (20.0-45.0) Monocytes (%) (Auto) % (1.0-10.0) Eosinophils (%) (Auto) % (0.0-3.0) Basophils (%) (Auto) % (0.0-2.0) Differential Total Cells Counted 100 Neutrophils % (Manual) 91 % (45-75) H Lymphocytes % (Manual) 6 % (20-45) L Monocytes % (Manual) 3 % (1-10) Eosinophils % (Manual) 0 % (0-3) Basophils % (Manual) 0 % (0-2) Band Neutrophils 0 % (0-8) Platelet Estimate Decreased L Platelet Morphology Normal Hypochromasia 1+ Sodium Level 150 MMOL/L (136-145) H Potassium Level 2.7 MMOL/L (3.5-5.1) *L Chloride Level 117 MMOL/L (98-107) H Carbon Dioxide Level 27 MMOL/L (21-32) Anion Gap 6 mmol/L (5-15) Blood Urea Nitrogen 18 mg/dL (7-18) Creatinine 0.8 MG/DL (0.55-1.30) Estimat Glomerular Filtration Rate > 60 mL/min (>60) Glucose Level 105 MG/DL (74-106) Calcium Level 7.9 MG/DL (8.5-10.1) L Phosphorus Level 2.3 MG/DL (2.5-4.9) L Magnesium Level 2.1 MG/DL (1.8-2.4) Total Bilirubin 0.4 MG/DL (0.2-1.0) Aspartate Amino Transf (AST/SGOT) 148 U/L (15-37) H Alanine Aminotransferase (ALT/SGPT) 97 U/L (12-78) H Alkaline Phosphatase 60 U/L (46-116) Total Protein 4.4 G/DL (6.4-8.2) L Albumin 1.6 G/DL (3.4-5.0) L Globulin 2.8 g/dL Albumin/Globulin Ratio 0.6 (1.0-2.7) L YAYO CELIS Apr 06, 2017 08:11
[2017-04-06] MEDS ORDERED: Potassium Chloride 50 MEQ in Sodium Chloride 500ML 550 ML IVPB ONE (09:00)
[2017-04-06] MEDS: Pantoprazole Inj IV SCH (09:01)
[2017-04-06] MEDS: D5 1/4NS w/KCl 20mEq 1,000 ML IV SCH ×3 (09:01→18:54)
[2017-04-06] MEDS ORDERED: Vancomycin 750mg/NS 250ml IVPB SCH (10:00)
--- NOTE | 2017-04-06 10:26 | General Progress Note ---
Progress Note Progress Note surgery: improving. off pressors. uop improved. more alert today. wbc decreasing. h/ h okay. plt down. ng tube output bilious now! wounds clean with dressings. stabilizing. will proceed with planned reexlporation tomorrow. will evaluate remaining bowel for viability. will form ostomy for continuity. npo iv fluid iv abx marks vent dressings transfuse 1 unit prbc ordered platelets for Surgery tomorrow. DO NOT transfuse. will given intraoperative. Brandt Auguste Apr 06, 2017 10:26
--- NOTE | 2017-04-06 10:27 | Pre-Procedure Note/Attestation ---
Pre-Procedure Note/Attestation Complete Prior to Procedure Planned Procedure: not applicable Procedure Narrative: planned re-exploratory laparotomy, possible bowel resection, ostomy creation, abdominal washout. Indications for Procedure Pre-Operative Diagnosis: septic shock from strangulated ventral hernia with small bowel necrosis Attestation I attest that I discussed the nature of the procedure; its benefits; risks and complications; and alternatives (and the risks and benefits of such alternatives ), prior to the procedure, with the patient (or the patient's legal medical field representative). I attest that, if there was a reasonable possibility of needing a blood transfusion, the patient (or the patient's legal medical field representative) was given the [place] Department [employer] standardized written summary, pursuant to the Don[employer] Amarjit Blood Safety Act ([place] Health and Safety Code # 1645, as amended). I attest that I re-evaluated the patient just prior to the surgery and that there has been no change in the patient's H&P, except as documented below: Brandt Auguste Apr 06, 2017 10:27
[2017-04-06] MEDS: fentaNYL Citrate 2,500 MCG in NS 200 ML IV SCH (11:23)
[2017-04-06] MEDS ORDERED: Sodium Phosphate 15 MM in NS 275 ML IV ONE (12:00)
--- NOTE | 2017-04-06 12:05 | Diagnostic Imaging Report ---
Indication: Dyspnea Technique: XRAY Chest 1v Comparison: 04/05/2017 Findings: Heart size and mediastinal contours are stable. Support lines/tubes unchanged in position. There is persistent interstitial opacification/edema, slightly increased. There are increasing patchy bilateral airspace opacities. No pneumothorax. Impression: Interval worsening of interstitial opacification/edema with development of patchy bilateral airspace opacities. Findings are concerning for CHF. Superimposed pneumonia not excludable. Follow-up exam recommended.
[2017-04-06] MEDS ORDERED: Potassium Phosphate 15 MM in NS 275 ML IV ONE (14:00)
--- NOTE | 2017-04-06 14:09 | Cardiology Progress Note ---
Assessment/Plan Assessment/Plan The patient is seen and examined, full consult note is dictated. Objective Last 24 Hour Vital Signs Date Time Temp Pulse Resp B/P (MAP) Pulse Ox O2 Delivery O2 Flow Rate FiO2 04/06/17 13:29 120 15 28 04/06/17 13:00 14 04/06/17 13:00 116 14 120/73 97 Mechanical Ventilator 28 04/06/17 12:00 116 04/06/17 12:00 99.0 118 15 128/73 97 Mechanical Ventilator 28 04/06/17 12:00 28 04/06/17 11:23 21 04/06/17 11:00 24 04/06/17 11:00 114 14 122/69 96 Mechanical Ventilator 28 04/06/17 10:52 119 21 28 04/06/17 10:00 116 14 131/73 98 Mechanical Ventilator 28 04/06/17 10:00 14 04/06/17 09:16 113 12 28 04/06/17 09:01 14 04/06/17 09:00 115 14 117/64 98 Mechanical Ventilator 28 04/06/17 08:00 28 04/06/17 08:00 112 16 123/69 98 Mechanical Ventilator 28 04/06/17 08:00 17 04/06/17 08:00 113 04/06/17 07:13 121 17 28 04/06/17 07:00 98.0 108 12 117/68 98 Mechanical Ventilator 28 04/06/17 06:30 107 12 114/58 98 Mechanical Ventilator 28 04/06/17 06:00 13 04/06/17 06:00 111 13 112/61 100 Mechanical Ventilator 28 04/06/17 05:30 107 13 110/64 98 Mechanical Ventilator 28 04/06/17 05:26 107 12 28 04/06/17 05:00 13 04/06/17 05:00 107 13 111/70 98 Mechanical Ventilator 28 04/06/17 04:30 97.7 112 13 121/68 98 Mechanical Ventilator 28 04/06/17 04:00 107/61 04/06/17 04:00 13 04/06/17 04:00 111 04/06/17 04:00 111 12 107/61 98 Mechanical Ventilator 28 04/06/17 04:00 28 04/06/17 03:30 106 13 117/69 98 Mechanical Ventilator 28 04/06/17 03:13 101 12 28 04/06/17 03:00 126/66 04/06/17 03:00 13 04/06/17 03:00 105 13 126/66 98 Mechanical Ventilator 28 04/06/17 02:30 106 13 121/65 98 Mechanical Ventilator 28 04/06/17 02:00 115/70 04/06/17 02:00 13 04/06/17 02:00 107 13 115/70 98 Mechanical Ventilator 28 04/06/17 01:30 106 13 105/62 98 Mechanical Ventilator 28 04/06/17 01:20 104 16 28 04/06/17 01:00 116/64 04/06/17 01:00 13 04/06/17 01:00 108 13 116/64 98 Mechanical Ventilator 28 04/06/17 00:30 106 13 114/63 98 Mechanical Ventilator 28 04/06/17 00:00 109 04/06/17 00:00 130/72 04/06/17 00:00 12 04/06/17 00:00 28 04/06/17 00:00 97.7 107 12 130/72 97 Mechanical Ventilator 28 04/05/17 23:30 103 15 119/66 98 Mechanical Ventilator 28 04/05/17 23:17 101 12 28 04/05/17 23:00 98/69 04/05/17 23:00 12 04/05/17 23:00 96 12 96/59 98 Mechanical Ventilator 28 04/05/17 22:30 105 13 121/67 98 Mechanical Ventilator 28 04/05/17 22:00 104 12 126/67 99 Mechanical Ventilator 28 04/05/17 22:00 126/67 04/05/17 22:00 12 04/05/17 21:30 103 12 139/76 99 Mechanical Ventilator 28 04/05/17 21:29 107 17 28 04/05/17 21:00 147/79 04/05/17 21:00 13 04/05/17 21:00 100 13 147/79 100 Mechanical Ventilator 28 04/05/17 20:30 91 16 138/78 100 Mechanical Ventilator 28 04/05/17 20:00 96 13 134/79 100 Mechanical Ventilator 28 04/05/17 20:00 96 04/05/17 20:00 134/79 04/05/17 20:00 13 04/05/17 20:00 28 04/05/17 19:56 117/75 04/05/17 19:30 97.7 102 13 107/69 99 Mechanical Ventilator 28 04/05/17 19:23 92 17 28 04/05/17 19:00 95/63 04/05/17 19:00 15 04/05/17 19:00 14 04/05/17 19:00 101 13 124/64 100 Mechanical Ventilator 28 04/05/17 18:30 97 14 113/69 100 Mechanical Ventilator 28 04/05/17 18:00 14 04/05/17 18:00 103 14 106/64 100 Mechanical Ventilator 28 04/05/17 17:30 105 16 121/66 100 Mechanical Ventilator 28 04/05/17 17:13 101 15 28 04/05/17 17:00 102 12 121/74 100 Mechanical Ventilator 28 04/05/17 17:00 13 04/05/17 16:30 100 13 105/66 100 Mechanical Ventilator 28 04/05/17 16:00 97.8 99 13 109/62 100 Mechanical Ventilator 28 04/05/17 16:00 108/63 04/05/17 16:00 95 04/05/17 16:00 28 04/05/17 15:55 12 04/05/17 15:30 99 12 103/66 100 Mechanical Ventilator 40 04/05/17 15:00 12 04/05/17 15:00 96 13 103/66 100 Mechanical Ventilator 40 04/05/17 14:45 98 17 28 04/05/17 14:30 95 12 103/66 100 Mechanical Ventilator 40 Intake and Output 04/05/17 04/06/17 18:59 06:59 Intake Total 3618.091 ml 1907.50 ml Output Total 2775 ml 1470 ml Balance 843.091 ml 437.50 ml Intake Oral 0 ml 0 ml IV Total 3418.091 ml 1907.50 ml Blood Product 200 ml Output Urine Total 2245 ml 1040 ml Gastric Drainage Total 300 ml 350 ml Drainage Total 230 ml 80 ml Laboratory Tests Test 04/05/17 18:00 04/06/17 04:00 04/06/17 09:15 04/06/17 10:15 Urine Eosinophils None seen Urine Random Creatinine Pending Urine Random Microalbumin Pending Urine Random Total Protein 52 MG/DL (< 11.9) H Urine Random Sodium 90 MEQ/L (20-110) Urine Microalbumin/Creatinine Ratio Pending White Blood Count 27.3 K/UL (4.8-10.8) *H Red Blood Count 2.28 M/UL (4.20-5.40) L Hemoglobin 7.7 G/DL (12.0-16.0) L Hematocrit 20.9 % (37.0-47.0) L Mean Corpuscular Volume 91 FL (80-99) Mean Corpuscular Hemoglobin 33.9 PG (27.0-31.0) H Mean Corpuscular Hemoglobin Concent 37.0 G/DL (32.0-36.0) H Red Cell Distribution Width 12.3 % (11.6-14.8) Platelet Count 48 K/UL (150-450) L Mean Platelet Volume 6.8 FL (6.5-10.1) Neutrophils (%) (Auto) % (45.0-75.0) Lymphocytes (%) (Auto) % (20.0-45.0) Monocytes (%) (Auto) % (1.0-10.0) Eosinophils (%) (Auto) % (0.0-3.0) Basophils (%) (Auto) % (0.0-2.0) Differential Total Cells Counted 100 Neutrophils % (Manual) 91 % (45-75) H Lymphocytes % (Manual) 6 % (20-45) L Monocytes % (Manual) 3 % (1-10) Eosinophils % (Manual) 0 % (0-3) Basophils % (Manual) 0 % (0-2) Band Neutrophils 0 % (0-8) Platelet Estimate Decreased L Platelet Morphology Normal Hypochromasia 1+ Sodium Level 150 MMOL/L (136-145) H Potassium Level 2.7 MMOL/L (3.5-5.1) *L Chloride Level 117 MMOL/L (98-107) H Carbon Dioxide Level 27 MMOL/L (21-32) Anion Gap 6 mmol/L (5-15) Blood Urea Nitrogen 18 mg/dL (7-18) Creatinine 0.8 MG/DL (0.55-1.30) Estimat Glomerular Filtration Rate > 60 mL/min (>60) Glucose Level 105 MG/DL (74-106) Lactic Acid Level 1.50 mmol/L (0.66-2.22) Calcium Level 7.9 MG/DL (8.5-10.1) L Phosphorus Level 2.3 MG/DL (2.5-4.9) L Magnesium Level 2.1 MG/DL (1.8-2.4) Total Bilirubin 0.4 MG/DL (0.2-1.0) Aspartate Amino Transf (AST/SGOT) 148 U/L (15-37) H Alanine Aminotransferase (ALT/SGPT) 97 U/L (12-78) H Alkaline Phosphatase 60 U/L (46-116) Total Protein 4.4 G/DL (6.4-8.2) L Albumin 1.6 G/DL (3.4-5.0) L Globulin 2.8 g/dL Albumin/Globulin Ratio 0.6 (1.0-2.7) L Arterial Blood pH 7.422 (7.350-7.450) Arterial Blood Partial Pressure CO2 42.2 mmHg (35.0-45.0) Arterial Blood Partial Pressure O2 87.6 mmHg (75.0-100.0) Arterial Blood HCO3 26.9 mmol/L (22.0-26.0) H Arterial Blood Oxygen Saturation 98.6 % (92.0-98.0) H Arterial Blood Base Excess 2.2 Jignesh Test Positive Urine Creatinine 38.0 MG/DL (30.0-125.0) Microbiology Date/Time Source Procedure Growth Status 04/04/17 07:20 Blood Blood Culture - Preliminary NO GROWTH AFTER 24 HOURS Resulted 04/04/17 07:10 Blood Blood Culture - Preliminary NO GROWTH AFTER 24 HOURS Resulted 04/04/17 22:45 Nasal Aspirate MRSA Culture - Final Staphylococcus Aureus - Mrsa Complete 04/04/17 04:33 Bowel Gram Stain - Final Resulted 04/04/17 04:33 Aerobic Culture - Preliminary Gram Negative Bacillus 1 Usual Skin Chrissie Resulted 04/04/17 04:33 Bowel Anaerobic Culture - Preliminary Resulted JUWAN ULLOA Apr 06, 2017 14:09
--- NOTE | 2017-04-06 14:16 | Nephrology Progress Note ---
Assessment/Plan Assessment 1. Hypernatremia. 2. Hypokalemia. 3. Acute renal failure or dehydration. 4. Malnutrition. 5. Hypocalcemia. 6. Hypomagnesemia. Plan to continue 03/27 ns with kcl replace k replace phos monitoring out put monitoring renal function Subjective Constitutional: Reports: no symptoms HEENT: Reports: no symptoms Genitourinary: Reports: no symptoms Neurologic/Psychiatric: Reports: no symptoms Subjective intubated no acute events overnight off pressor going for another x lap in AM Objective Objective Last 24 Hour Vital Signs Date Time Temp Pulse Resp B/P (MAP) Pulse Ox O2 Delivery O2 Flow Rate FiO2 04/06/17 13:29 120 15 28 04/06/17 13:00 14 04/06/17 13:00 116 14 120/73 97 Mechanical Ventilator 28 04/06/17 12:00 116 04/06/17 12:00 99.0 118 15 128/73 97 Mechanical Ventilator 28 04/06/17 12:00 28 04/06/17 11:23 21 04/06/17 11:00 24 04/06/17 11:00 114 14 122/69 96 Mechanical Ventilator 28 04/06/17 10:52 119 21 28 04/06/17 10:00 116 14 131/73 98 Mechanical Ventilator 28 04/06/17 10:00 14 04/06/17 09:16 113 12 28 04/06/17 09:01 14 04/06/17 09:00 115 14 117/64 98 Mechanical Ventilator 28 04/06/17 08:00 28 04/06/17 08:00 112 16 123/69 98 Mechanical Ventilator 28 04/06/17 08:00 17 04/06/17 08:00 113 04/06/17 07:13 121 17 28 04/06/17 07:00 98.0 108 12 117/68 98 Mechanical Ventilator 28 04/06/17 06:30 107 12 114/58 98 Mechanical Ventilator 28 04/06/17 06:00 13 04/06/17 06:00 111 13 112/61 100 Mechanical Ventilator 28 04/06/17 05:30 107 13 110/64 98 Mechanical Ventilator 28 04/06/17 05:26 107 12 28 04/06/17 05:00 13 04/06/17 05:00 107 13 111/70 98 Mechanical Ventilator 28 04/06/17 04:30 97.7 112 13 121/68 98 Mechanical Ventilator 28 04/06/17 04:00 107/61 04/06/17 04:00 13 04/06/17 04:00 111 04/06/17 04:00 111 12 107/61 98 Mechanical Ventilator 28 04/06/17 04:00 28 04/06/17 03:30 106 13 117/69 98 Mechanical Ventilator 28 04/06/17 03:13 101 12 28 04/06/17 03:00 126/66 04/06/17 03:00 13 04/06/17 03:00 105 13 126/66 98 Mechanical Ventilator 28 04/06/17 02:30 106 13 121/65 98 Mechanical Ventilator 28 04/06/17 02:00 115/70 04/06/17 02:00 13 04/06/17 02:00 107 13 115/70 98 Mechanical Ventilator 28 04/06/17 01:30 106 13 105/62 98 Mechanical Ventilator 28 04/06/17 01:20 104 16 28 04/06/17 01:00 116/64 04/06/17 01:00 13 04/06/17 01:00 108 13 116/64 98 Mechanical Ventilator 28 04/06/17 00:30 106 13 114/63 98 Mechanical Ventilator 28 04/06/17 00:00 109 04/06/17 00:00 130/72 04/06/17 00:00 12 04/06/17 00:00 28 04/06/17 00:00 97.7 107 12 130/72 97 Mechanical Ventilator 28 04/05/17 23:30 103 15 119/66 98 Mechanical Ventilator 28 04/05/17 23:17 101 12 28 04/05/17 23:00 98/69 04/05/17 23:00 12 04/05/17 23:00 96 12 96/59 98 Mechanical Ventilator 28 04/05/17 22:30 105 13 121/67 98 Mechanical Ventilator 28 04/05/17 22:00 104 12 126/67 99 Mechanical Ventilator 28 04/05/17 22:00 126/67 04/05/17 22:00 12 04/05/17 21:30 103 12 139/76 99 Mechanical Ventilator 28 04/05/17 21:29 107 17 28 04/05/17 21:00 147/79 04/05/17 21:00 13 1/13/18 21:00 100 13 147/79 100 Mechanical Ventilator 28 04/05/17 20:30 91 16 138/78 100 Mechanical Ventilator 28 04/05/17 20:00 96 13 134/79 100 Mechanical Ventilator 28 04/05/17 20:00 96 04/05/17 20:00 134/79 04/05/17 20:00 13 04/05/17 20:00 28 04/05/17 19:56 117/75 04/05/17 19:30 97.7 102 13 107/69 99 Mechanical Ventilator 28 04/05/17 19:23 92 17 28 04/05/17 19:00 95/63 04/05/17 19:00 15 04/05/17 19:00 14 04/05/17 19:00 101 13 124/64 100 Mechanical Ventilator 28 04/05/17 18:30 97 14 113/69 100 Mechanical Ventilator 28 04/05/17 18:00 14 04/05/17 18:00 103 14 106/64 100 Mechanical Ventilator 28 04/05/17 17:30 105 16 121/66 100 Mechanical Ventilator 28 04/05/17 17:13 101 15 28 04/05/17 17:00 102 12 121/74 100 Mechanical Ventilator 28 04/05/17 17:00 13 04/05/17 16:30 100 13 105/66 100 Mechanical Ventilator 28 04/05/17 16:00 97.8 99 13 109/62 100 Mechanical Ventilator 28 04/05/17 16:00 108/63 04/05/17 16:00 95 04/05/17 16:00 28 04/05/17 15:55 12 04/05/17 15:30 99 12 103/66 100 Mechanical Ventilator 40 04/05/17 15:00 12 04/05/17 15:00 96 13 103/66 100 Mechanical Ventilator 40 04/05/17 14:45 98 17 28 04/05/17 14:30 95 12 103/66 100 Mechanical Ventilator 40 Intake and Output 04/05/17 04/06/17 19:00 07:00 Intake Total 3602.491 ml 1763.75 ml Output Total 2625 ml 1420 ml Balance 977.491 ml 343.75 ml Intake Oral 0 ml 0 ml IV Total 3402.491 ml 1763.75 ml Blood Product 200 ml Output Urine Total 2145 ml 990 ml Gastric Drainage Total 300 ml 350 ml Drainage Total 180 ml 80 ml Laboratory Tests 04/05/17 18:00: Urine Eosinophils None seen, Urine Random Creatinine [Pending], Urine Random Microalbumin [Pending], Urine Random Total Protein 52H, Urine Random Sodium 90, Urine Microalbumin/Creatinine Ratio [Pending] 04/06/17 04:00: White Blood Count 27.3*H, Red Blood Count 2.28L, Hemoglobin 7.7L, Hematocrit 20.9L, Mean Corpuscular Volume 91, Mean Corpuscular Hemoglobin 33.9H, Mean Corpuscular Hemoglobin Concent 37.0H, Red Cell Distribution Width 12.3, Platelet Count 48L, Mean Platelet Volume 6.8, Neutrophils (%) (Auto) , Lymphocytes (%) (Auto) , Monocytes (%) (Auto) , Eosinophils (%) (Auto) , Basophils (%) (Auto) , Differential Total Cells Counted 100, Neutrophils % ( Manual) 91H, Lymphocytes % (Manual) 6L, Monocytes % (Manual) 3, Eosinophils % ( Manual) 0, Basophils % (Manual) 0, Band Neutrophils 0, Platelet Estimate DecreasedL, Platelet Morphology Normal, Hypochromasia 1+, Sodium Level 150H, Potassium Level 2.7*L, Chloride Level 117H, Carbon Dioxide Level 27, Anion Gap 6 , Blood Urea Nitrogen 18, Creatinine 0.8, Estimat Glomerular Filtration Rate > 60, Glucose Level 105, Lactic Acid Level 1.50, Calcium Level 7.9L, Phosphorus Level 2.3L, Magnesium Level 2.1, Total Bilirubin 0.4, Aspartate Amino Transf ( AST/SGOT) 148H, Alanine Aminotransferase (ALT/SGPT) 97H, Alkaline Phosphatase 60 , Total Protein 4.4L, Albumin 1.6L, Globulin 2.8, Albumin/Globulin Ratio 0.6L 04/06/17 09:15: Arterial Blood pH 7.422, Arterial Blood Partial Pressure CO2 42.2, Arterial Blood Partial Pressure O2 87.6, Arterial Blood HCO3 26.9H, Arterial Blood Oxygen Saturation 98.6H, Arterial Blood Base Excess 2.2, Jignesh Test Positive 04/06/17 10:15: Urine Creatinine 38.0 Height (Feet): 5 Height (Inches): 0.00 Weight (Pounds): 102 Objective HEAD AND NECK: No JVP. No LAD. No thyromegaly. NG tube is placed. ET tube is in place. NG tube secreting greenish liquids. CARDIAC: Regular rate and rhythm. S1 and S2. No murmur. No rub. LUNGS: Has decreased breathing sound on both sides. ABDOMEN: Soft. Bowel sounds are hypoactive. Nontender. EXTREMITIES: No edema. No clubbing. No cyanosis. DELMI ARITA Apr 06, 2017 14:16
--- NOTE | 2017-04-06 16:00 | Consultation ---
DATE OF CONSULTATION: 04/06/2017 INFECTIOUS DISEASE CONSULTATION CONSULTING PHYSICIAN: Andrew Tipton M.D. PRIMARY ATTENDING PHYSICIAN: Juan Marrufo D.O. REASON FOR CONSULT: Peritonitis secondary to necrosis of small bowel. HISTORY OF PRESENT ILLNESS: This 51-year-old correction resident admitted on 04/04/2017 from [facility]. The patient had abdominal pain and failure to thrive. It was discovered that the patient had a strangulated ventral hernia. She had operation that included exploratory laparotomy, small bowel resection, ileostomy resection, and abdominal washout. The patient was on Levophed that was discontinued today. PAST MEDICAL HISTORY: Significant for bipolar disorder, hypertension, and history of colostomy. ALLERGIES: Allergic to trazodone. MEDICATIONS: Vancomycin, Levophed that was discontinued, Zosyn, fluconazole, Fentanyl, midazolam, Protonix, heparin, hydromorphone, insulin, albuterol and ipratropium inhaler, Tylenol, and metronidazole. SOCIAL HISTORY: alf resident. . No other history obtainable. PHYSICAL EXAMINATION: VITAL SIGNS: Temperature 98, blood pressure 117/68, and pulse is 121. The patient had no fever since 04/04/2017. GENERAL: Seems weak, opens eyes. HEAD AND NECK: Orally intubated. CARDIAC: Tachycardic. Has left subclavian vein. ABDOMEN: Has a drain in the midline. It is nondistended and soft. Has NG tube connected to suction. EXTREMITIES: Has no edema. LABORATORY AND DIAGNOSTIC DATA: Sodium 150, potassium 2.7, chloride 117, bicarbonate 27, BUN 18, creatinine 0.8, and glucose 105. WBC 27.3, hemoglobin 7.7, hematocrit 20.9, and platelets are 37,000. Blood culture x2 are negative. Peritoneal culture is pending. Chest x-ray showed interstitial prominence. IMPRESSION: Sepsis with septic shock that is improving. The patient seems to have peritonitis secondary to a strangulated small bowel. She is status post resection of necrotic small bowel and exploratory laparotomy, has respiratory failure, anemia, hypokalemia, hypernatremia, and thrombocytopenia. RECOMMENDATION: We will continue with Zosyn and Flagyl. Discontinue vancomycin and fluconazole. At the end of my exam, I thank Dr. Juan Marrufo for involving me in the care of this patient. Andrew Tipton M.D. DR: SILVANO JOB#: [id number] CC:
[2017-04-06] MEDS: Dyna-Hex 2% Top Sol 2oz TOPIC SCH (19:57)
[2017-04-06] MEDS ORDERED: Tubing IV Secondary IV ONE (21:13)
[2017-04-06] MEDS ORDERED: Tubing Blood Filter IV ONE (21:13)
[2017-04-06] MEDS: LORazepam Inj 2mg/ml 1ml IV PRN (22:02)
[2017-04-07] VITALS (24 sets, daily range): BP systolic 118–136; BP diastolic 72–97
--- NOTE | 2017-04-07 01:15 | Consultation ---
DATE OF CONSULTATION: 04/06/2017 CARDIOLOGY CONSULTATION CONSULTING PHYSICIAN: Urbaon Verdugo M.D. REFERRING PHYSICIAN: Juan Marrufo D.O. REASON FOR CONSULTATION: Management of tachycardia. HISTORY OF PRESENT ILLNESS: The patient is a very unfortunate 51-year-old female who is a transfer from [facility]. Apparently, she had intractable nausea and vomiting. CT of abdomen in that facility revealed small bowel obstruction with strangulation. As there was no surgeon available to operate on her, she was transferred to [facility] for surgical intervention. She is currently in a postoperative period. Cardiology consultation was made at request of Dr. Marrufo for evaluation and management of tachycardia. Review of the old record shows no prior history of coronary artery disease, congestive heart failure, or cardiac arrhythmias. Currently, the patient is intubated, awake, not capable of providing any history. PAST MEDICAL HISTORY: 1. History of anxiety. 2. History of bipolar disease. 3. History of hirsutism. 4. History of hypertension. 5. History of vitamin D deficiency. 6. History of psychosis. PAST SURGICAL HISTORY: 1. History of colostomy. 2. Exploratory laparotomy, small bowel obstruction, ileostomy resection. MEDICATIONS: Prior to arrival to the hospital, ceftriaxone 1 g IV piggyback daily, lorazepam 5 mg IV as needed for agitation and sedation, metronidazole 500 mg IV piggyback q.8 h., Zofran 4 mg IV q.6 h., and Protonix 4 mg IV daily. FAMILY HISTORY: Cannot be obtained at this time. ALLERGIES: Trazodone. SOCIAL HISTORY: She is a resident of a [facility] facility. There is no history of tobacco, alcohol, or illicit drug use. REVIEW OF SYSTEMS: Unable to obtain as the patient is intubated. PHYSICAL EXAMINATION: VITAL SIGNS: Currently, blood pressure is 129/75 mmHg, heart rate of 120, O2 saturation 97%, and respirations 21. She was on IV Levophed, which was discontinued. HEENT: Atraumatic and normocephalic. Anicteric. Pupils are equal, round, and reactive to light and accommodation. Intubated and attached to the ventilator. NECK: JVP cannot be assessed as the patient is intubated. CARDIOVASCULAR: Normal S1 and S2. Regular rate and rhythm. Tachycardic. Do not appreciate any murmurs, gallops, or rubs. LUNGS: Diminished breath sounds at both bases. ABDOMEN: Distended. Diminished bowel sounds. Slightly tender at the site of surgery. EXTREMITIES: No evidence of edema, clubbing, or cyanosis. IMAGING STUDIES: Chest x-ray shows normal cardiac silhouette. There is a possible new left pleural effusion and some increasing interstitial markings suggestive of possible congestive heart failure versus pneumonia. LABORATORY FINDINGS: WBC was 27.3, hemoglobin of 7.7, hematocrit of 20.9, and platelet count is 48. Sodium 150, potassium is 2.7, chloride is 117, BUN of 18, creatinine 0.8, and glucose is 105. Calcium is 7.9. Magnesium is 2.1. Troponin I level was 0.043. INR is 1.4. A 12-lead electrocardiogram shows sinus tachycardia heart rate of [address] and T-wave abnormalities. Prolonged QT interval. ASSESSMENT AND PLAN: The patient is a very unfortunate 51-year-old lady was seen in Cardiology consultation at request of Dr. Marrufo. 1. Sinus tachycardia, most likely due to underlying sepsis. The patient has leukocytosis status post laparotomy. Hemodynamically appears to be stable off Levophed drip. Continue with IV hydration and replacement of potassium and also determination of the correction of hypernatremia likely with hypotonic solutions. 2. We would like to obtain 2D echocardiography especially in the setting of congestive heart failure that is a differential on the chest x-ray that was obtained today. 3. Further therapeutic and diagnostic decision will be based on results of echocardiography. 4. Status post laparotomy postoperative day #2. 5. Septic shock, resolved, off Levophed drip, on hydration. A total amount of time spent in evaluation of this patient in the intensive care unit of [facility] discussing the plan of care with the ancillary service and review of old record was 45 minutes. I would like to thank Dr. Marrufo for the courtesy of this consultation. Urbano Verdugo M.D. DR: EJ JOB#: [id number] CC:
--- NOTE | 2017-04-07 03:15 | Consultation ---
DATE OF CONSULTATION: 04/05/2017 NOTE: CANCELED DICTATION CONSULTING PHYSICIAN: Pamela Ramirez M.D. TREATING ATTENDING PHYSICIAN: Juan Marrufo D.O. HISTORY OF PRESENT ILLNESS: The patient is a 51-year-old female patient from [facility]. The patient is admitted to the hospital for hypernatremia. Pamela Ramirez PsyD. DR: OUMAR JOB#: [id number] CC:
[2017-04-07] MEDS: Piperacillin/Tazobactam 3.375 GM in D5W 55 ML IVPB SCH ×3 (04:01→20:10)
[2017-04-07] MEDS: Heparin 5000 units/ml inj SUBQ SCH ×3 (05:53→21:34)
[2017-04-07] MEDS: NovoLOG Insulin Flexpen SUBQ SCH ×4 (05:54→23:40)
[2017-04-07] MEDS: D5 1/4NS w/KCl 20mEq 1,000 ML IV SCH ×2 (05:55→16:04)
[2017-04-07 06:57] LABS: HEMATOCRIT 24.4 % (37.0-47.0); HEMOGLOBIN 8.5 G/DL (12.0-16.0); MEAN CORPUSCULAR VOLUME 91 FL (80-99); PLATELET COUNT 44 K/UL (150-450); RED BLOOD COUNT 2.67 M/UL (4.20-5.40); RED CELL DISTRIBUTION WIDTH 13.8 % (11.6-14.8); WHITE BLOOD COUNT 12.4 K/UL (4.8-10.8)
[2017-04-07 07:26] LABS: ALANINE AMINOTRANSFERASE 101 U/L (12-78); ALBUMIN 1.4 G/DL (3.4-5.0); ALBUMIN/GLOBULIN RATIO 0.5 (1.0-2.7); ALKALINE PHOSPHATASE 59 U/L (46-116); ANION GAP 6 mmol/L (5-15); ASPARTATE AMINO TRANSFERASE 94 U/L (15-37); BILIRUBIN,TOTAL 0.6 MG/DL (0.2-1.0); BLOOD UREA NITROGEN 16 mg/dL (7-18); CALCIUM 7.7 MG/DL (8.5-10.1); CARBON DIOXIDE 28 MMOL/L (21-32); CHLORIDE 115 MMOL/L (98-107); CREATININE 0.7 MG/DL (0.55-1.30); PHOSPHORUS 1.9 MG/DL (2.5-4.9); POTASSIUM 3.5 MMOL/L (3.5-5.1); SODIUM 149 MMOL/L (136-145)
[2017-04-07] MEDS ORDERED: Zemuron 50mg/5ml Inj IV ONE (08:00)
[2017-04-07] MEDS ORDERED: LR 1000ml ONE (08:00)
--- NOTE | 2017-04-07 08:06 | General Progress Note ---
Assessment/Plan Problem List: (1) Abdominal pain ICD Codes: R10.9 - Unspecified abdominal pain SNOMED: 58314548 (2) Peritonitis, acute generalized ICD Codes: K65.0 - Generalized (acute) peritonitis SNOMED: 04897607 (3) Strangulated ventral incisional hernia ICD Codes: K43.0 - Incisional hernia with obstruction, without gangrene SNOMED: 184669206 (4) Acute respiratory failure ICD Codes: J96.00 - Acute respiratory failure, unspecified whether with hypoxia or hypercapnia SNOMED: 23019126 (5) Septic shock ICD Codes: A41.9 - Sepsis, unspecified organism; R65.21 - Severe sepsis with septic shock SNOMED: 27481906 Status: unchanged Assessment/Plan vent abx sx f/u cbc bmp am id eval Subjective Constitutional: Reports: weakness Allergies: Coded Allergies: TRAZODONE (Verified Allergy, Unknown, 04/04/17) All Systems: reviewed and negative except above Subjective intub sedated in icu ng in place Objective Last 24 Hour Vital Signs Date Time Temp Pulse Resp B/P (MAP) Pulse Ox O2 Delivery O2 Flow Rate FiO2 04/07/17 07:00 99 12 130/78 100 Mechanical Ventilator 28 04/07/17 07:00 12 04/07/17 06:56 98 13 28 04/07/17 06:00 99 15 132/83 98 Mechanical Ventilator 28 04/07/17 05:55 15 04/07/17 05:30 99 14 28 04/07/17 05:00 97 13 126/80 99 Mechanical Ventilator 28 04/07/17 05:00 15 04/07/17 04:00 98.8 99 15 127/82 98 Mechanical Ventilator 28 04/07/17 04:00 98 04/07/17 04:00 15 04/07/17 04:00 28 04/07/17 03:30 108 15 28 04/07/17 03:00 99 15 133/81 98 Mechanical Ventilator 28 04/07/17 03:00 14 04/07/17 02:00 107 16 131/87 98 Mechanical Ventilator 28 04/07/17 02:00 17 04/07/17 01:30 101 14 28 04/07/17 01:30 100 14 131/87 100 Mechanical Ventilator 28 04/07/17 01:00 15 04/07/17 01:00 104 15 127/81 99 Mechanical Ventilator 28 04/07/17 00:30 98.8 103 16 130/80 100 Mechanical Ventilator 28 04/07/17 00:00 28 04/07/17 00:00 103 04/07/17 00:00 15 04/07/17 00:00 98.6 101 13 127/77 98 Mechanical Ventilator 28 04/06/17 23:20 96 13 28 04/06/17 23:10 13 04/06/17 23:00 100 19 113/72 100 Mechanical Ventilator 28 04/06/17 22:00 13 04/06/17 22:00 100 13 125/75 99 Mechanical Ventilator 28 04/06/17 21:30 110 18 28 04/06/17 21:00 100 17 146/85 100 Mechanical Ventilator 28 04/06/17 21:00 13 04/06/17 20:00 98 04/06/17 20:00 98.9 99 14 138/83 100 Mechanical Ventilator 28 04/06/17 20:00 28 04/06/17 19:57 14 04/06/17 19:30 102 16 28 04/06/17 19:00 14 04/06/17 19:00 100 14 132/81 100 Mechanical Ventilator 28 04/06/17 18:30 101 14 125/83 100 Mechanical Ventilator 28 04/06/17 18:00 98.8 102 14 130/81 100 Mechanical Ventilator 28 04/06/17 18:00 20 04/06/17 17:30 107 16 119/76 98 Mechanical Ventilator 28 04/06/17 17:16 114 17 28 04/06/17 17:00 16 04/06/17 17:00 110 15 119/76 97 Mechanical Ventilator 28 04/06/17 16:30 99.9 113 18 140/81 98 Mechanical Ventilator 28 04/06/17 16:00 115 16 140/81 97 Mechanical Ventilator 28 04/06/17 16:00 114 04/06/17 16:00 16 04/06/17 16:00 28 04/06/17 15:30 114 15 127/75 97 Mechanical Ventilator 28 04/06/17 15:20 119 21 28 04/06/17 15:00 20 04/06/17 15:00 119 20 134/77 97 Mechanical Ventilator 28 04/06/17 14:30 116 15 129/77 98 Mechanical Ventilator 28 04/06/17 14:00 16 04/06/17 14:00 116 14 129/75 97 Mechanical Ventilator 28 04/06/17 13:30 117 15 129/75 97 Mechanical Ventilator 28 04/06/17 13:29 120 15 28 04/06/17 13:00 14 04/06/17 13:00 116 14 120/73 97 Mechanical Ventilator 28 04/06/17 12:30 118 15 120/73 97 Mechanical Ventilator 28 04/06/17 12:00 116 04/06/17 12:00 99.0 118 15 128/73 97 Mechanical Ventilator 28 04/06/17 12:00 28 04/06/17 11:30 117 15 137/73 97 Mechanical Ventilator 28 04/06/17 11:23 21 04/06/17 11:00 24 04/06/17 11:00 114 14 122/69 96 Mechanical Ventilator 28 04/06/17 10:52 119 21 28 04/06/17 10:30 114 14 134/81 97 Mechanical Ventilator 28 04/06/17 10:00 116 14 131/73 98 Mechanical Ventilator 28 04/06/17 10:00 14 04/06/17 09:30 114 13 122/68 97 Mechanical Ventilator 28 04/06/17 09:16 113 12 28 04/06/17 09:01 14 04/06/17 09:00 115 14 117/64 98 Mechanical Ventilator 28 04/06/17 08:30 111 13 117/64 98 Mechanical Ventilator 28 Intake and Output 04/06/17 04/07/17 19:00 07:00 Intake Total 1738.75 ml 1530.25 ml Output Total 1260 ml 1330 ml Balance 478.75 ml 200.25 ml IV Total 1738.75 ml 1280.25 ml Blood Product 250 ml Output Urine Total 1200 ml 1195 ml Drainage Total 60 ml 135 ml Laboratory Tests 04/06/17 09:15: Arterial Blood pH 7.422, Arterial Blood Partial Pressure CO2 42.2, Arterial Blood Partial Pressure O2 87.6, Arterial Blood HCO3 26.9H, Arterial Blood Oxygen Saturation 98.6H, Arterial Blood Base Excess 2.2, Jignesh Test Positive 04/06/17 10:15: Urine Creatinine 38.0 04/07/17 05:45: White Blood Count 12.4#H, Red Blood Count 2.67L, Hemoglobin 8.5L, Hematocrit 24.4L, Mean Corpuscular Volume 91, Mean Corpuscular Hemoglobin 31.8H, Mean Corpuscular Hemoglobin Concent 34.9, Red Cell Distribution Width 13.8, Platelet Count 44L, Mean Platelet Volume 7.8, Neutrophils (%) (Auto) , Lymphocytes (%) ( Auto) , Monocytes (%) (Auto) , Eosinophils (%) (Auto) , Basophils (%) (Auto) , Neutrophils % (Manual) [Pending], Lymphocytes % (Manual) [Pending], Platelet Estimate [Pending], Platelet Morphology [Pending], Sodium Level 149H, Potassium Level 3.5, Chloride Level 115H, Carbon Dioxide Level 28, Anion Gap 6, Blood Urea Nitrogen 16, Creatinine 0.7, Estimat Glomerular Filtration Rate > 60, Glucose Level 97, Calcium Level 7.7L, Phosphorus Level 1.9L, Magnesium Level 1.2L, Total Bilirubin 0.6, Aspartate Amino Transf (AST/SGOT) 94H, Alanine Aminotransferase (ALT/SGPT) 101H, Alkaline Phosphatase 59, Total Protein 4.5L, Albumin 1.4L, Globulin 3.1, Albumin/Globulin Ratio 0.5L Height (Feet): 5 Height (Inches): 0.00 Weight (Pounds): 94 General Appearance: lethargic EENT: normal ENT inspection Neck: normal alignment Cardiovascular: normal peripheral pulses, normal rate, regular rhythm Respiratory/Chest: decreased breath sounds Abdomen: hypoactive bowel sounds Edema: no edema noted Arm (L), no edema noted Arm (R), no edema noted Leg (L), no edema noted Leg (R), no edema noted Pedal (L), no edema noted Pedal (R), no edema noted Generalized Neurologic: motor weakness Skin: normal pigmentation, warm/dry LACY HERNÁNDEZ Apr 07, 2017 08:05
[2017-04-07] MEDS: Pantoprazole Inj IV SCH (08:14)
--- NOTE | 2017-04-07 09:02 | Diagnostic Imaging Report ---
Indication: Dyspnea Technique: XRAY Chest 1v Comparison: 04/06/2017 Findings: ET tube tip above the monica. NG tube and left subclavian catheter unchanged in position. Heart size and mediastinal contours are stable. Improvement in aeration with decreased interstitial opacification and decreased patchy left lower lung opacities. Some right-sided opacities persist. There is no pneumothorax. No acute osseous abnormality seen. Impression: Interval improved aeration with decreased interstitial opacification and improved aeration of the left lower lung compared to the prior exam. Patchy right basilar opacities persist.
--- NOTE | 2017-04-07 09:24 | Pulmonolgy Critical Care Note ---
Critical Care - Asmt/Plan Problems: (1) Septic shock (2) Acute respiratory failure (3) Multiorgan failure (4) Strangulated ventral incisional hernia (5) Peritonitis, acute generalized Respiratory: monitor respiratory rate, adjust FIO2 Cardiac: stop pressors, continue to monitor HR/BP Renal: F/U I&O Infectious Disease: check cultures, continue antibiotics Gastrointestinal: hold feedings, other - start TPN Endocrine: check TSH, check HgA1C, continue sliding scale insulin Hematologic: transfuse if hgb<8.5 Neurologic: PRN Ativan, PRN Morphine, keep patient comfortable Affect: PRN ativan Prophylaxis: Heparin Disposition: keep in ICU Notes Reviewed: cardio Discussed with: nurses, consultants, case hardenerdigital strategy manager - Objective Last 24 Hour Vital Signs Date Time Temp Pulse Resp B/P (MAP) Pulse Ox O2 Delivery O2 Flow Rate FiO2 04/07/17 08:00 14 04/07/17 08:00 98.7 100 13 124/78 100 Mechanical Ventilator 28 04/07/17 08:00 28 04/07/17 08:00 98 04/07/17 07:00 99 12 130/78 100 Mechanical Ventilator 28 04/07/17 07:00 12 04/07/17 06:56 98 13 28 04/07/17 06:00 99 15 132/83 98 Mechanical Ventilator 28 04/07/17 05:55 15 04/07/17 05:30 99 14 28 04/07/17 05:00 97 13 126/80 99 Mechanical Ventilator 28 04/07/17 05:00 15 04/07/17 04:00 98.8 99 15 127/82 98 Mechanical Ventilator 28 04/07/17 04:00 98 04/07/17 04:00 15 04/07/17 04:00 28 04/07/17 03:30 108 15 28 04/07/17 03:00 99 15 133/81 98 Mechanical Ventilator 28 04/07/17 03:00 14 04/07/17 02:00 107 16 131/87 98 Mechanical Ventilator 28 04/07/17 02:00 17 04/07/17 01:30 101 14 28 04/07/17 01:30 100 14 131/87 100 Mechanical Ventilator 28 04/07/17 01:00 15 04/07/17 01:00 104 15 127/81 99 Mechanical Ventilator 28 04/07/17 00:30 98.8 103 16 130/80 100 Mechanical Ventilator 28 04/07/17 00:00 28 04/07/17 00:00 103 04/07/17 00:00 15 04/07/17 00:00 98.6 101 13 127/77 98 Mechanical Ventilator 28 04/06/17 23:20 96 13 28 04/06/17 23:10 13 04/06/17 23:00 100 19 113/72 100 Mechanical Ventilator 28 04/06/17 22:00 13 04/06/17 22:00 100 13 125/75 99 Mechanical Ventilator 28 04/06/17 21:30 110 18 28 04/06/17 21:00 100 17 146/85 100 Mechanical Ventilator 28 04/06/17 21:00 13 04/06/17 20:00 98 04/06/17 20:00 98.9 99 14 138/83 100 Mechanical Ventilator 28 04/06/17 20:00 28 04/06/17 19:57 14 04/06/17 19:30 102 16 28 04/06/17 19:00 14 04/06/17 19:00 100 14 132/81 100 Mechanical Ventilator 28 04/06/17 18:30 101 14 125/83 100 Mechanical Ventilator 28 04/06/17 18:00 98.8 102 14 130/81 100 Mechanical Ventilator 28 04/06/17 18:00 20 04/06/17 17:30 107 16 119/76 98 Mechanical Ventilator 28 04/06/17 17:16 114 17 28 04/06/17 17:00 16 04/06/17 17:00 110 15 119/76 97 Mechanical Ventilator 28 04/06/17 16:30 99.9 113 18 140/81 98 Mechanical Ventilator 28 04/06/17 16:00 115 16 140/81 97 Mechanical Ventilator 28 04/06/17 16:00 114 04/06/17 16:00 16 04/06/17 16:00 28 04/06/17 15:30 114 15 127/75 97 Mechanical Ventilator 28 04/06/17 15:20 119 21 28 04/06/17 15:00 20 04/06/17 15:00 119 20 134/77 97 Mechanical Ventilator 28 04/06/17 14:30 116 15 129/77 98 Mechanical Ventilator 28 04/06/17 14:00 16 04/06/17 14:00 116 14 129/75 97 Mechanical Ventilator 28 04/06/17 13:30 117 15 129/75 97 Mechanical Ventilator 28 04/06/17 13:29 120 15 28 04/06/17 13:00 14 04/06/17 13:00 116 14 120/73 97 Mechanical Ventilator 28 04/06/17 12:30 118 15 120/73 97 Mechanical Ventilator 28 04/06/17 12:00 116 04/06/17 12:00 99.0 118 15 128/73 97 Mechanical Ventilator 28 04/06/17 12:00 28 04/06/17 11:30 117 15 137/73 97 Mechanical Ventilator 28 04/06/17 11:23 21 04/06/17 11:00 24 04/06/17 11:00 114 14 122/69 96 Mechanical Ventilator 28 04/06/17 10:52 119 21 28 04/06/17 10:30 114 14 134/81 97 Mechanical Ventilator 28 04/06/17 10:00 116 14 131/73 98 Mechanical Ventilator 28 04/06/17 10:00 14 04/06/17 09:30 114 13 122/68 97 Mechanical Ventilator 28 Micro: Microbiology Date/Time Source Procedure Growth Status 04/04/17 22:45 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 Complete Accucheck: 98 Critical Care - Subjective ROS Limited/Unobtainable: No ICU Day: 3 Intubation Day: 3 Condition: critical EKG Rhythm: Sinus Rhythm FI02: 28 Vent Support Breath Rate: 12 Vent Support Mode: AC Vent Tidal Volume: 450 Sputum Amount: Small PIP: 19 I&O: Intake and Output 04/06/17 04/07/17 19:00 07:00 Intake Total 1738.75 ml 1530.25 ml Output Total 1260 ml 1330 ml Balance 478.75 ml 200.25 ml IV Total 1738.75 ml 1280.25 ml Blood Product 250 ml Output Urine Total 1200 ml 1195 ml Drainage Total 60 ml 135 ml CXR: ET in good position ET-Tube: 7.0 ET Position: 22 Labs: Laboratory Tests Test 04/06/17 10:15 04/07/17 04:00 04/07/17 05:45 Urine Creatinine 38.0 MG/DL (30.0-125.0) Arterial Blood pH 7.405 (7.350-7.450) Arterial Blood Partial Pressure CO2 42.0 mmHg (35.0-45.0) Arterial Blood Partial Pressure O2 96.9 mmHg (75.0-100.0) Arterial Blood HCO3 25.7 mmol/L (22.0-26.0) Arterial Blood Oxygen Saturation 97.3 % (92.0-98.0) Arterial Blood Base Excess 0.9 Jignesh Test Positive White Blood Count 12.4 K/UL (4.8-10.8) #H Red Blood Count 2.67 M/UL (4.20-5.40) L Hemoglobin 8.5 G/DL (12.0-16.0) L Hematocrit 24.4 % (37.0-47.0) L Mean Corpuscular Volume 91 FL (80-99) Mean Corpuscular Hemoglobin 31.8 PG (27.0-31.0) H Mean Corpuscular Hemoglobin Concent 34.9 G/DL (32.0-36.0) Red Cell Distribution Width 13.8 % (11.6-14.8) Platelet Count 44 K/UL (150-450) L Mean Platelet Volume 7.8 FL (6.5-10.1) Neutrophils (%) (Auto) % (45.0-75.0) Lymphocytes (%) (Auto) % (20.0-45.0) Monocytes (%) (Auto) % (1.0-10.0) Eosinophils (%) (Auto) % (0.0-3.0) Basophils (%) (Auto) % (0.0-2.0) Differential Total Cells Counted 100 Neutrophils % (Manual) 83 % (45-75) H Lymphocytes % (Manual) 12 % (20-45) L Monocytes % (Manual) 0 % (1-10) L Eosinophils % (Manual) 1 % (0-3) Basophils % (Manual) 0 % (0-2) Band Neutrophils 4 % (0-8) Platelet Estimate Decreased L Platelet Morphology Normal Hypochromasia 1+ Sodium Level 149 MMOL/L (136-145) H Potassium Level 3.5 MMOL/L (3.5-5.1) Chloride Level 115 MMOL/L (98-107) H Carbon Dioxide Level 28 MMOL/L (21-32) Anion Gap 6 mmol/L (5-15) Blood Urea Nitrogen 16 mg/dL (7-18) Creatinine 0.7 MG/DL (0.55-1.30) Estimat Glomerular Filtration Rate > 60 mL/min (>60) Glucose Level 97 MG/DL (74-106) Calcium Level 7.7 MG/DL (8.5-10.1) L Phosphorus Level 1.9 MG/DL (2.5-4.9) L Magnesium Level 1.2 MG/DL (1.8-2.4) L Total Bilirubin 0.6 MG/DL (0.2-1.0) Aspartate Amino Transf (AST/SGOT) 94 U/L (15-37) H Alanine Aminotransferase (ALT/SGPT) 101 U/L (12-78) H Alkaline Phosphatase 59 U/L (46-116) Total Protein 4.5 G/DL (6.4-8.2) L Albumin 1.4 G/DL (3.4-5.0) L Globulin 3.1 g/dL Albumin/Globulin Ratio 0.5 (1.0-2.7) L YAYO CELIS Apr 07, 2017 09:24
[2017-04-07] MEDS: fentaNYL Citrate 2,500 MCG in NS 200 ML IV SCH (10:01)
--- NOTE | 2017-04-07 10:02 | General Progress Note ---
Progress Note Progress Note Surgery: patient seen and examined. more alert today. eyes open. mild agitation. improved. stable. labs improved. plt low. plan for second look laparotomy today. likely ostomy creation. Brandt Auguste Apr 07, 2017 10:02
--- NOTE | 2017-04-07 10:19 | Anethesia Preoperative Eval ---
Anesthesia Pre-op PMH/ROS General Date of Evaluation: Apr 07, 2017 Time of Evaluation: 11:56 Anesthesiologist: Sin ASA Score: ASA 4 Mallampati Score Class I : Soft palate, uvula, fauces, pillars visible Class II: Soft palate, uvula, fauces visible Class III: Soft palate, base of uvula visible Class IV: Only hard plate visible Mallampati Classification: Class II Surgeon: Molina Diagnosis: Sepsis, ARF Surgical Procedure: Exploratory Laparotomy Anesthesia History: none Family History: no anesthesia problems Allergies: Coded Allergies: TRAZODONE (Verified Allergy, Unknown, 04/04/17) Medications: see eMAR Past Medical History Pulmonary: Reports: other - Acute Ventilatory Failure Gastrointestinal/Genitourinary: Reports: other - Strangulated Bowel Hematology/Immune: Reports: other - Sepsis PSxH Narrative: Incisional Hernia, Non -Viable Bowel removed 04/04/17 Anesthesia Pre-op Phys. Exam Physician Exam Last Vital Signs Date Time Temp Pulse Resp B/P (MAP) Pulse Ox O2 Delivery O2 Flow Rate FiO2 04/07/17 10:01 15 04/07/17 09:34 95 28 04/07/17 09:00 122/83 100 Mechanical Ventilator 04/07/17 08:00 98.7 04/04/17 12:00 5.0 Constitutional: NAD Neurologic: CN 2-12 intact Cardiovascular: other - ARF Respiratory: CTA Airway Exam Mallampati Score: Class II MO: limited ROM: limited Teeth: intact Anesthesia Pre-op A/P Labs Hematology Test 04/07/17 05:45 White Blood Count 12.4 K/UL (4.8-10.8) #H Red Blood Count 2.67 M/UL (4.20-5.40) L Hemoglobin 8.5 G/DL (12.0-16.0) L Hematocrit 24.4 % (37.0-47.0) L Mean Corpuscular Volume 91 FL (80-99) Mean Corpuscular Hemoglobin 31.8 PG (27.0-31.0) H Mean Corpuscular Hemoglobin Concent 34.9 G/DL (32.0-36.0) Red Cell Distribution Width 13.8 % (11.6-14.8) Platelet Count 44 K/UL (150-450) L Mean Platelet Volume 7.8 FL (6.5-10.1) Neutrophils (%) (Auto) % (45.0-75.0) Lymphocytes (%) (Auto) % (20.0-45.0) Monocytes (%) (Auto) % (1.0-10.0) Eosinophils (%) (Auto) % (0.0-3.0) Basophils (%) (Auto) % (0.0-2.0) Differential Total Cells Counted 100 Neutrophils % (Manual) 83 % (45-75) H Lymphocytes % (Manual) 12 % (20-45) L Monocytes % (Manual) 0 % (1-10) L Eosinophils % (Manual) 1 % (0-3) Basophils % (Manual) 0 % (0-2) Band Neutrophils 4 % (0-8) Platelet Estimate Decreased L Platelet Morphology Normal Hypochromasia 1+ Chemistry Test 04/07/17 05:45 Sodium Level 149 MMOL/L (136-145) H Potassium Level 3.5 MMOL/L (3.5-5.1) Chloride Level 115 MMOL/L (98-107) H Carbon Dioxide Level 28 MMOL/L (21-32) Anion Gap 6 mmol/L (5-15) Blood Urea Nitrogen 16 mg/dL (7-18) Creatinine 0.7 MG/DL (0.55-1.30) Estimat Glomerular Filtration Rate > 60 mL/min (>60) Glucose Level 97 MG/DL (74-106) Calcium Level 7.7 MG/DL (8.5-10.1) L Phosphorus Level 1.9 MG/DL (2.5-4.9) L Magnesium Level 1.2 MG/DL (1.8-2.4) L Total Bilirubin 0.6 MG/DL (0.2-1.0) Aspartate Amino Transf (AST/SGOT) 94 U/L (15-37) H Alanine Aminotransferase (ALT/SGPT) 101 U/L (12-78) H Alkaline Phosphatase 59 U/L (46-116) Total Protein 4.5 G/DL (6.4-8.2) L Albumin 1.4 G/DL (3.4-5.0) L Globulin 3.1 g/dL Albumin/Globulin Ratio 0.5 (1.0-2.7) L Risk Assessment & Plan Assessment: ASA 4 Plan: GA, BIS Status Change Before Surgery: No Pre-Antibiotics Drug: on Floor Carlos Mack MD Apr 07, 2017 10:19
[2017-04-07] MEDS ORDERED: Potassium Phosphate 30 MM in Sodium Chloride 500ML 550 ML IV ONE (10:30)
--- NOTE | 2017-04-07 12:06 | Wound Care Consultation ---
Wound Assessment Wound Assessment #1: Wound Number: 1 Wound Present on Admission: Yes New Wound: No Status Change of Wound: No Wound Location Body Site: other - sacrococcygeal extending to right buttock Wound Type: pressure ulcer Jacquelyn Test: Does not Jacquelyn Pressure Ulcer Stage: Deep Tissue Injury Wound Thickness: Full Thickness Wound Length: 10.0 Wound Width: 10.0 Wound Depth: utd Percent of Wound Purple/Maroon: 100 Wound Drainage Amount: None Wound Drainage Odor: None/Absent Tissue Surrounding Wound: Erythemic Wound General Appearance: Reddened - maroon Wound Assessment #2: Wound Number: 2 Wound Present on Admission: Yes New Wound: No Wound Location Body Site Modif: left, anterior Wound Location Body Site: breast Wound Type: scab - lesion etiology unknown-scattered dry scabs Jacquelyn Test: Does not Jacquelyn Wound Length: 4.5 - scattered Wound Width: 4.5 - scattered Percent of Wound Black/Brown: 100 - scattered dry Wound Drainage Amount: None Wound Drainage Odor: None/Absent Tissue Surrounding Wound: Erythemic Wound General Appearance: Necrotic - scattered dry scabs Wound Comment #1 sacrococcygeal extending to right buttocks deep tissue injury. #2 left breast lesion-etiology unknown scattered dry scabs. Recommendation. -Local wound care as ordered. -Turn and reposition. -Keep clean and dry. -Optimize nutrition. -Offload affected areas. -Apply low air loss SPR mattress. -Avoid shear and friction -Assess and follow up with MD for any further change of condition to skin noted. SHA ADKINS Apr 07, 2017 12:06
--- NOTE | 2017-04-07 12:22 | Cardiology Report ---
APPROVED REPORT EXAM: Two-dimensional and M-mode echocardiogram with Doppler and color Doppler. INDICATION Tachycardia M-Mode DIMENSIONS IVSd0.8 (0.7-1.1cm)Left Atrium (MM)3.3 (1.6-4.0cm) LVDd2.9 (3.5-5.6cm)Aortic Root2.4 (2.0-3.7cm) PWd0.8 (0.7-1.1cm)Aortic Cusp Exc.1.5 (1.5-2.0cm) LVDs1.6 (2.5-4.0cm) PWs1.8 cm Technically difficult study due to poor acoustic windows. Pt on vent. Study quality precludes accurate assessment of regional wall motion. Normal left ventricular chamber size, systolic function and wall motion. Left ventricular ejection fraction estimated to be 60 %. No evidence of left ventricular hypertrophy. No evidence of pericardial effusion. All other cardiac chamber sizes are within normal limits. Focal aortic valve sclerosis with adequate cusp excursion. Thickened mitral valve leaflets with normal excursion. Mitral annulus and aortic root calcification. Pulmonic valve not well visualized. Normal tricuspid valve structure. IVC dilated at 2.1 cm without physiologic collapse suggestive of increased RA pressure. A color flow and spectral Doppler study was performed and revealed: No aortic regurgitation. Moderate mitral regurgitation. Mitral diastolic velocities suggest mild left ventricular dysfunction (Grade I ). Moderate tricuspid regurgitation. No pulmonic regurgitation present.
--- NOTE | 2017-04-07 12:30 | Nephrology Progress Note ---
Assessment/Plan Assessment 1. Hypernatremia. 2. Hypokalemia. 3. Acute renal failure or dehydration. 4. Malnutrition. 5. Hypocalcemia. 6. Hypomagnesemia. Plan to continue 03/27 ns with kcl replace k replace phos monitoring out put monitoring renal function Subjective Constitutional: Reports: no symptoms HEENT: Reports: no symptoms Genitourinary: Reports: no symptoms Neurologic/Psychiatric: Reports: no symptoms Subjective intubated open her eyes with verbal stimuli off pressor Objective Objective Last 24 Hour Vital Signs Date Time Temp Pulse Resp B/P (MAP) Pulse Ox O2 Delivery O2 Flow Rate FiO2 04/07/17 11:07 97 12 28 04/07/17 11:00 92 13 124/79 99 Mechanical Ventilator 28 04/07/17 10:31 98.7 04/07/17 10:01 15 04/07/17 10:00 98 13 124/81 99 Mechanical Ventilator 28 04/07/17 09:34 95 13 28 04/07/17 09:00 95 15 122/83 100 Mechanical Ventilator 28 04/07/17 08:00 14 04/07/17 08:00 98.7 100 13 124/78 100 Mechanical Ventilator 28 04/07/17 08:00 28 04/07/17 08:00 98 04/07/17 07:00 99 12 130/78 100 Mechanical Ventilator 28 04/07/17 07:00 12 04/07/17 06:56 98 13 28 04/07/17 06:00 99 15 132/83 98 Mechanical Ventilator 28 04/07/17 05:55 15 04/07/17 05:30 99 14 28 04/07/17 05:00 97 13 126/80 99 Mechanical Ventilator 28 04/07/17 05:00 15 04/07/17 04:00 98.8 99 15 127/82 98 Mechanical Ventilator 28 04/07/17 04:00 98 04/07/17 04:00 15 04/07/17 04:00 28 04/07/17 03:30 108 15 28 04/07/17 03:00 99 15 133/81 98 Mechanical Ventilator 28 04/07/17 03:00 14 04/07/17 02:00 107 16 131/87 98 Mechanical Ventilator 28 04/07/17 02:00 17 04/07/17 01:30 101 14 28 04/07/17 01:30 100 14 131/87 100 Mechanical Ventilator 28 04/07/17 01:00 15 04/07/17 01:00 104 15 127/81 99 Mechanical Ventilator 28 04/07/17 00:30 98.8 103 16 130/80 100 Mechanical Ventilator 28 04/07/17 00:00 28 04/07/17 00:00 103 04/07/17 00:00 15 04/07/17 00:00 98.6 101 13 127/77 98 Mechanical Ventilator 28 04/06/17 23:20 96 13 28 04/06/17 23:10 13 04/06/17 23:00 100 19 113/72 100 Mechanical Ventilator 28 04/06/17 22:00 13 04/06/17 22:00 100 13 125/75 99 Mechanical Ventilator 28 04/06/17 21:30 110 18 28 04/06/17 21:00 100 17 146/85 100 Mechanical Ventilator 28 04/06/17 21:00 13 04/06/17 20:00 98 04/06/17 20:00 98.9 99 14 138/83 100 Mechanical Ventilator 28 04/06/17 20:00 28 04/06/17 19:57 14 04/06/17 19:30 102 16 28 04/06/17 19:00 14 04/06/17 19:00 100 14 132/81 100 Mechanical Ventilator 28 04/06/17 18:30 101 14 125/83 100 Mechanical Ventilator 28 04/06/17 18:00 98.8 102 14 130/81 100 Mechanical Ventilator 28 04/06/17 18:00 20 04/06/17 17:30 107 16 119/76 98 Mechanical Ventilator 28 04/06/17 17:16 114 17 28 04/06/17 17:00 16 04/06/17 17:00 110 15 119/76 97 Mechanical Ventilator 28 04/06/17 16:30 99.9 113 18 140/81 98 Mechanical Ventilator 28 04/06/17 16:00 115 16 140/81 97 Mechanical Ventilator 28 04/06/17 16:00 114 04/06/17 16:00 16 04/06/17 16:00 28 04/06/17 15:30 114 15 127/75 97 Mechanical Ventilator 28 04/06/17 15:20 119 21 28 04/06/17 15:00 20 04/06/17 15:00 119 20 134/77 97 Mechanical Ventilator 28 04/06/17 14:30 116 15 129/77 98 Mechanical Ventilator 28 04/06/17 14:00 16 04/06/17 14:00 116 14 129/75 97 Mechanical Ventilator 28 04/06/17 13:30 117 15 129/75 97 Mechanical Ventilator 28 04/06/17 13:29 120 15 28 04/06/17 13:00 14 04/06/17 13:00 116 14 120/73 97 Mechanical Ventilator 28 04/06/17 12:30 118 15 120/73 97 Mechanical Ventilator 28 Intake and Output 04/06/17 04/07/17 19:00 07:00 Intake Total 1738.75 ml 1530.25 ml Output Total 1260 ml 1330 ml Balance 478.75 ml 200.25 ml IV Total 1738.75 ml 1280.25 ml Blood Product 250 ml Output Urine Total 1200 ml 1195 ml Drainage Total 60 ml 135 ml Laboratory Tests 04/07/17 04:00: Arterial Blood pH 7.405, Arterial Blood Partial Pressure CO2 42.0, Arterial Blood Partial Pressure O2 96.9, Arterial Blood HCO3 25.7, Arterial Blood Oxygen Saturation 97.3, Arterial Blood Base Excess 0.9, Jignesh Test Positive 04/07/17 05:45: White Blood Count 12.4#H, Red Blood Count 2.67L, Hemoglobin 8.5L, Hematocrit 24.4L, Mean Corpuscular Volume 91, Mean Corpuscular Hemoglobin 31.8H, Mean Corpuscular Hemoglobin Concent 34.9, Red Cell Distribution Width 13.8, Platelet Count 44L, Mean Platelet Volume 7.8, Neutrophils (%) (Auto) , Lymphocytes (%) ( Auto) , Monocytes (%) (Auto) , Eosinophils (%) (Auto) , Basophils (%) (Auto) , Differential Total Cells Counted 100, Neutrophils % (Manual) 83H, Lymphocytes % (Manual) 12L, Monocytes % (Manual) 0L, Eosinophils % (Manual) 1, Basophils % ( Manual) 0, Band Neutrophils 4, Platelet Estimate DecreasedL, Platelet Morphology Normal, Hypochromasia 1+, Sodium Level 149H, Potassium Level 3.5, Chloride Level 115H, Carbon Dioxide Level 28, Anion Gap 6, Blood Urea Nitrogen 16, Creatinine 0.7, Estimat Glomerular Filtration Rate > 60, Glucose Level 97, Calcium Level 7.7L, Phosphorus Level 1.9L, Magnesium Level 1.2L, Total Bilirubin 0.6, Aspartate Amino Transf (AST/SGOT) 94H, Alanine Aminotransferase ( ALT/SGPT) 101H, Alkaline Phosphatase 59, Total Protein 4.5L, Albumin 1.4L, Globulin 3.1, Albumin/Globulin Ratio 0.5L Height (Feet): 5 Height (Inches): 0.00 Weight (Pounds): 94 Objective HEAD AND NECK: No JVP. No LAD. No thyromegaly. NG tube is placed. ET tube is in place. NG tube secreting greenish liquids. CARDIAC: Regular rate and rhythm. S1 and S2. No murmur. No rub. LUNGS: Has decreased breathing sound on both sides. ABDOMEN: Soft. Bowel sounds are hypoactive. Nontender. EXTREMITIES: No edema. No clubbing. No cyanosis. DELMI ARITA Apr 07, 2017 12:30
--- NOTE | 2017-04-07 12:51 | Immediate Post-Op Evaluation ---
Immediate Post-Op Evalulation Immediate Post-Op Evalulation Procedure: Exploratory Laparotomy Date of Evaluation: Apr 07, 2017 Time of Evaluation: 14:20 IV Fluids: 1000 LR Blood Products: 0 Estimated Blood Loss: 25 Urinary Output: 0 Blood Pressure Systolic: 136 Blood Pressure Diastolic: 85 Pulse Rate: 89 Respiratory Rate: 20 - Mech Vent O2 Sat by Pulse Oximetry: 100 Temperature (Fahrenheit): 98.6 Pain Score (1-10): 1 Nausea: No Vomiting: No Patient Status: no response, patent, ventilated, none Hydration Status: adequate Drug: on Floor Carlos Mack MD Apr 07, 2017 12:51
--- NOTE | 2017-04-07 14:03 | Brief Operative Note ---
Immediate Post Operative Note Operative Note Pre-op Diagnosis: septic shock from strangulated ventral hernia with small bowel necrosis s/p ex- lap with small bowel resection. Procedure: 1. Planned Second look laparotomy / Exploratory laparotomy 2. Ileostomy creation 3. Abdominal washout 4. Complex closure of prior large right lower quadrant ileostomy site with tissue transfer. Findings: consistent w/pre-op dx studies Surgeon: Molina Anesthesiologist: Frederick Anesthesia: general Specimen: none Complications: none Condition: stable Fluids: n/a Estimated Blood Loss: minimal Drains: COLE Implant(s) used?: No Brandt Auguste Apr 07, 2017 14:02
--- NOTE | 2017-04-07 15:18 | GI Initial Consult Note ---
History of Present Illness General Date patient seen: Apr 07, 2017 Time patient seen: 15:12 Referring physician: Yaron Reason for Consultation: TPN Present Illness HPI CHIEF COMPLAINT: Failure to thrive, weakness, weight loss, and found to have small-bowel obstruction with bowel strangulation. BRIEF HISTORY: This 51-year-old female presents to [place] day before with the above-mentioned diagnosis. CT scan showed bowel strangulation. No surgeon available. The patient was transferred to [place] last night. Dr. Auguste took her to surgery and did bowel resection. Currently, intubated, sedated, lethargic, NG in place, in ICU, and nonverbal. GI consulted for TPN. HPI noted above. Pt scheduled for second look laparotomy today with possible ostomy. ROS limited, non verbal. Currently has NGT, in ICU with simple mask. Labs reviewed with mild leukocytosis, anemia, elevated troponin levels, abnormal LFTs with transaminitis and hyperbilirubinemia. Unknown history of endoscopies / colonoscopies. Home Meds Reported Medications Ondansetron* (ZOFRAN*) 4 Mg/2 Ml Vial, 4 MG IV Q6H, VIAL 04/04/17 Lorazepam (LORAZEPAM) 4 Mg/1 Ml Vial, 4 MG IV NEEDED, VIAL 04/04/17 Pantoprazole* (PROTONIX*) 40 Mg Vial, 40 MG IV DAILY, VIAL 04/04/17 Metronidazole/Sodium Chloride* (METRONIDAZOLE 500 MG/100 ML*) 500 Mg/100 Ml Piggyback, 500 MG IVPB EVERY 8 HOURS, BAG 04/04/17 Ceftriaxone Sodium (CEFTRIAXONE) 1 Gm Vial.port, 1 GM IV DAILY, VIAL 04/04/17 Med list reviewed/reconciled: Yes Allergies: Coded Allergies: TRAZODONE (Verified Allergy, Unknown, 04/04/17) Patient History Limited by: medical condition History Provided By: Medical Record [facility] Narrative PAST MEDICAL HISTORY: Psych history, hypertension, and bipolar. PAST SURGICAL HISTORY: Recent bowel surgery. Review of Systems All Other Systems: limited Physical Exam Vital Signs Date Time Temp Pulse Resp B/P (MAP) Pulse Ox O2 Delivery O2 Flow Rate FiO2 04/04/17 02:00 98.7 131 36 69/43 96 Simple Mask 5.0 04/04/17 05:43 40 Sp02 EP Interpretation: reviewed Labs Laboratory Tests Test 04/07/17 04:00 1/15/18 05:45 Arterial Blood pH 7.405 (7.350-7.450) Arterial Blood Partial Pressure CO2 42.0 mmHg (35.0-45.0) Arterial Blood Partial Pressure O2 96.9 mmHg (75.0-100.0) Arterial Blood HCO3 25.7 mmol/L (22.0-26.0) Arterial Blood Oxygen Saturation 97.3 % (92.0-98.0) Arterial Blood Base Excess 0.9 Jignesh Test Positive White Blood Count 12.4 K/UL (4.8-10.8) #H Red Blood Count 2.67 M/UL (4.20-5.40) L Hemoglobin 8.5 G/DL (12.0-16.0) L Hematocrit 24.4 % (37.0-47.0) L Mean Corpuscular Volume 91 FL (80-99) Mean Corpuscular Hemoglobin 31.8 PG (27.0-31.0) H Mean Corpuscular Hemoglobin Concent 34.9 G/DL (32.0-36.0) Red Cell Distribution Width 13.8 % (11.6-14.8) Platelet Count 44 K/UL (150-450) L Mean Platelet Volume 7.8 FL (6.5-10.1) Neutrophils (%) (Auto) % (45.0-75.0) Lymphocytes (%) (Auto) % (20.0-45.0) Monocytes (%) (Auto) % (1.0-10.0) Eosinophils (%) (Auto) % (0.0-3.0) Basophils (%) (Auto) % (0.0-2.0) Differential Total Cells Counted 100 Neutrophils % (Manual) 83 % (45-75) H Lymphocytes % (Manual) 12 % (20-45) L Monocytes % (Manual) 0 % (1-10) L Eosinophils % (Manual) 1 % (0-3) Basophils % (Manual) 0 % (0-2) Band Neutrophils 4 % (0-8) Platelet Estimate Decreased L Platelet Morphology Normal Hypochromasia 1+ Sodium Level 149 MMOL/L (136-145) H Potassium Level 3.5 MMOL/L (3.5-5.1) Chloride Level 115 MMOL/L (98-107) H Carbon Dioxide Level 28 MMOL/L (21-32) Anion Gap 6 mmol/L (5-15) Blood Urea Nitrogen 16 mg/dL (7-18) Creatinine 0.7 MG/DL (0.55-1.30) Estimat Glomerular Filtration Rate > 60 mL/min (>60) Glucose Level 97 MG/DL (74-106) Calcium Level 7.7 MG/DL (8.5-10.1) L Phosphorus Level 1.9 MG/DL (2.5-4.9) L Magnesium Level 1.2 MG/DL (1.8-2.4) L Total Bilirubin 0.6 MG/DL (0.2-1.0) Aspartate Amino Transf (AST/SGOT) 94 U/L (15-37) H Alanine Aminotransferase (ALT/SGPT) 101 U/L (12-78) H Alkaline Phosphatase 59 U/L (46-116) Total Protein 4.5 G/DL (6.4-8.2) L Albumin 1.4 G/DL (3.4-5.0) L Globulin 3.1 g/dL Albumin/Globulin Ratio 0.5 (1.0-2.7) L General Appearance: no apparent distress, thin Head: normocephalic EENT: normal ENT inspection Neck: supple Respiratory: other - simple mask Cardiovascular: normal rate Gastrointestinal: soft Musculoskeletal: back normal Skin: normal color, no rash, warm/dry Lymphatic: normal inspection, no adenopathy Current Medications Current Medications Medications (Trade) Dose Ordered Sig/Nicole Route PRN Reason Start Time Stop Time Status Last Admin Dose Admin Acetaminophen (Tylenol) 650 mg Q4H PRN RECTAL FEVER 04/04/17 06:00 05/04/17 05:59 04/04/17 20:14 Albuterol Sulfate (Proventil) 2.5 mg NEEDED PRN HHN Shortness of Breath 04/04/17 06:00 04/09/17 05:59 Albuterol/ Ipratropium (Albuterol/ Ipratropium) 3 ml NEEDED PRN HHN Shortness of Breath 04/04/17 06:00 04/09/17 05:59 Chlorhexidine Gluconate (Collette-Hex 2%) 1 applic DAILY@1999 TOPIC 04/05/17 20:00 05/05/17 19:59 04/06/17 19:57 Dextrose 1,000 ml @ 0 mls/hr Q24H PRN IV PN interrupted or unavailable 04/08/17 20:00 05/08/17 19:59 Dextrose (Dextrose 50%) STAT PRN IV Hypoglycemia 04/04/17 06:00 05/04/17 05:59 Dextrose/ Electrolytes 1,000 ml @ 100 mls/hr Q10H IV 04/05/17 14:00 04/08/17 19:59 04/07/17 05:55 Diphenhydramine HCl (Benadryl) 12.5 mg Q6H PRN IVP Itching/Pruritis 04/04/17 06:00 05/04/17 05:59 Fentanyl Citrate 2500 mcg/Sodium Chloride 250 ml @ 0 mls/hr Q24H IV 04/04/17 10:45 04/11/17 06:59 04/07/17 10:01 Heparin Sodium (Porcine) (Heparin 5000 units/ml) 5,000 units EVERY 8 HOURS SUBQ 04/04/17 06:00 05/04/17 05:59 Hydromorphone HCl (Dilaudid) 0.5 mg Q3H PRN IVP Pain Score 1-3 04/04/17 06:00 04/11/17 05:59 04/04/17 08:42 Hydromorphone HCl (Dilaudid) 1 mg Q3H PRN IVP pain score 4-6 04/04/17 06:00 04/11/17 05:59 Hydromorphone HCl (Dilaudid) 2 mg Q3H PRN IVP pain score 7-10 04/04/17 06:00 04/11/17 05:59 04/05/17 23:47 Insulin Aspart (NovoLOG) Q6HR SUBQ 04/04/17 06:00 05/04/17 05:59 04/06/17 23:26 Ipratropium [place] (Atrovent) 0.5 mcg NEEDED PRN HHN Shortness of Breath 04/04/17 06:00 04/09/17 05:59 Lorazepam (Ativan 2mg/ml 1ml) 0.5 mg Q4H PRN IV For Anxiety 04/04/17 06:00 04/11/17 05:59 04/06/17 22:02 Metronidazole 100 ml @ 100 mls/hr Q6HR IV 04/04/17 06:00 04/11/17 05:59 04/07/17 11:37 Midazolam HCl 100 ml @ 0 mls/hr Q24H PRN IVPB titrate per protocol 04/04/17 09:30 04/11/17 09:29 Norepinephrine Bitartrate 4 mg/ Dextrose 250 ml @ 0 mls/hr Q24H IV 04/05/17 16:00 05/05/17 15:59 04/05/17 19:56 Ondansetron HCl (Zofran) 4 mg Q6H PRN IVP Nausea & Vomiting 04/04/17 06:00 05/04/17 05:59 Pantoprazole (Protonix) 40 mg DAILY IV 04/04/17 09:00 05/04/17 08:59 04/07/17 08:14 Piperacillin Sod/ Tazobactam Sod 3.375 gm/Dextrose 55 ml @ 13.75 mls/ hr Q8HR@0400,1200,2000 IVPB 04/05/17 12:00 04/12/17 11:59 04/07/17 11:38 Potassium Phosphate 30 mm/ Sodium Chloride 560 ml @ 93.3 mls/hr ONCE ONCE IV 04/07/17 10:30 04/07/17 16:30 04/07/17 10:00 GI: Plan Problems: (1) On total parenteral nutrition (TPN) (2) Dehydration, severe (3) Strangulated ventral incisional hernia (4) Vitamin D deficiency (5) Sepsis (6) Severe malnutrition (7) Anemia (8) Electrolyte imbalance Plan TPN ordered, scheduled to start tomorrow. fu surgical recs anemia work up monitor H&H, prn transfusions ppi electrolyte correction fu labs Discussed with Dr. Mejia. Thank you for this patient referral, we will follow. Shahana Wang N.P. Apr 07, 2017 15:18
--- NOTE | 2017-04-07 15:42 | Infectious Diseases Prog Note ---
Assessment/Plan Assessment/Plan A: Sepsis Peritonitis Strangulated hernia Small bowel necrosis Respiratory failure Anemia s/p laparotomy X 2 P: Continue Zosyn & Flagyl Subjective ROS Limited/Unobtainable: Yes Neurologic: Reports: confusion, other - on restraint Allergies: Coded Allergies: TRAZODONE (Verified Allergy, Unknown, 04/04/17) Objective Vital Signs Last 24 Hour Vital Signs Date Time Temp Pulse Resp B/P (MAP) Pulse Ox O2 Delivery O2 Flow Rate FiO2 04/07/17 15:08 94 15 28 04/07/17 14:02 89 20 100 04/07/17 12:00 99 04/07/17 12:00 28 04/07/17 12:00 14 04/07/17 12:00 98.9 100 15 120/75 100 Mechanical Ventilator 28 04/07/17 11:07 97 12 28 04/07/17 11:00 14 04/07/17 11:00 92 13 124/79 99 Mechanical Ventilator 28 04/07/17 10:31 98.7 04/07/17 10:01 15 04/07/17 10:00 98 13 124/81 99 Mechanical Ventilator 28 04/07/17 09:34 95 13 28 04/07/17 09:00 95 15 122/83 100 Mechanical Ventilator 28 04/07/17 09:00 16 04/07/17 08:00 14 04/07/17 08:00 98.7 100 13 124/78 100 Mechanical Ventilator 28 04/07/17 08:00 28 04/07/17 08:00 98 04/07/17 07:00 99 12 130/78 100 Mechanical Ventilator 28 04/07/17 07:00 12 04/07/17 06:56 98 13 28 04/07/17 06:00 99 15 132/83 98 Mechanical Ventilator 28 04/07/17 05:55 15 04/07/17 05:30 99 14 28 04/07/17 05:00 97 13 126/80 99 Mechanical Ventilator 28 04/07/17 05:00 15 04/07/17 04:00 98.8 99 15 127/82 98 Mechanical Ventilator 28 04/07/17 04:00 98 04/07/17 04:00 15 04/07/17 04:00 28 04/07/17 03:30 108 15 28 04/07/17 03:00 99 15 133/81 98 Mechanical Ventilator 28 04/07/17 03:00 14 04/07/17 02:00 107 16 131/87 98 Mechanical Ventilator 28 04/07/17 02:00 17 04/07/17 01:30 101 14 28 04/07/17 01:30 100 14 131/87 100 Mechanical Ventilator 28 04/07/17 01:00 15 04/07/17 01:00 104 15 127/81 99 Mechanical Ventilator 28 04/07/17 00:30 98.8 103 16 130/80 100 Mechanical Ventilator 28 04/07/17 00:00 28 04/07/17 00:00 103 04/07/17 00:00 15 04/07/17 00:00 98.6 101 13 127/77 98 Mechanical Ventilator 28 04/06/17 23:20 96 13 28 04/06/17 23:10 13 04/06/17 23:00 100 19 113/72 100 Mechanical Ventilator 28 04/06/17 22:00 13 04/06/17 22:00 100 13 125/75 99 Mechanical Ventilator 28 04/06/17 21:30 110 18 28 04/06/17 21:00 100 17 146/85 100 Mechanical Ventilator 28 04/06/17 21:00 13 04/06/17 20:00 98 04/06/17 20:00 98.9 99 14 138/83 100 Mechanical Ventilator 28 04/06/17 20:00 28 04/06/17 19:57 14 04/06/17 19:30 102 16 28 04/06/17 19:00 14 04/06/17 19:00 100 14 132/81 100 Mechanical Ventilator 28 04/06/17 18:30 101 14 125/83 100 Mechanical Ventilator 28 04/06/17 18:00 98.8 102 14 130/81 100 Mechanical Ventilator 28 04/06/17 18:00 20 04/06/17 17:30 107 16 119/76 98 Mechanical Ventilator 28 04/06/17 17:16 114 17 28 04/06/17 17:00 16 04/06/17 17:00 110 15 119/76 97 Mechanical Ventilator 28 04/06/17 16:30 99.9 113 18 140/81 98 Mechanical Ventilator 28 04/06/17 16:00 115 16 140/81 97 Mechanical Ventilator 28 04/06/17 16:00 114 04/06/17 16:00 16 04/06/17 16:00 28 Height (Feet): 5 Height (Inches): 0.00 Weight (Pounds): 94 HEENT: other - orally intubated Respiratory/Chest: decreased breath sounds Cardiovascular: normal rate, other - left subclavian line Abdomen: other - NG to suction, drain, surgical wound dressing Extremities: other - edema of hands Neurologic/Psychiatric: disoriented, other Microbiology Date/Time Source Procedure Growth Status 04/04/17 22:45 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 Complete Laboratory Tests Test 04/07/17 04:00 04/07/17 05:45 Arterial Blood pH 7.405 (7.350-7.450) Arterial Blood Partial Pressure CO2 42.0 mmHg (35.0-45.0) Arterial Blood Partial Pressure O2 96.9 mmHg (75.0-100.0) Arterial Blood HCO3 25.7 mmol/L (22.0-26.0) Arterial Blood Oxygen Saturation 97.3 % (92.0-98.0) Arterial Blood Base Excess 0.9 Jignesh Test Positive White Blood Count 12.4 K/UL (4.8-10.8) #H Red Blood Count 2.67 M/UL (4.20-5.40) L Hemoglobin 8.5 G/DL (12.0-16.0) L Hematocrit 24.4 % (37.0-47.0) L Mean Corpuscular Volume 91 FL (80-99) Mean Corpuscular Hemoglobin 31.8 PG (27.0-31.0) H Mean Corpuscular Hemoglobin Concent 34.9 G/DL (32.0-36.0) Red Cell Distribution Width 13.8 % (11.6-14.8) Platelet Count 44 K/UL (150-450) L Mean Platelet Volume 7.8 FL (6.5-10.1) Neutrophils (%) (Auto) % (45.0-75.0) Lymphocytes (%) (Auto) % (20.0-45.0) Monocytes (%) (Auto) % (1.0-10.0) Eosinophils (%) (Auto) % (0.0-3.0) Basophils (%) (Auto) % (0.0-2.0) Differential Total Cells Counted 100 Neutrophils % (Manual) 83 % (45-75) H Lymphocytes % (Manual) 12 % (20-45) L Monocytes % (Manual) 0 % (1-10) L Eosinophils % (Manual) 1 % (0-3) Basophils % (Manual) 0 % (0-2) Band Neutrophils 4 % (0-8) Platelet Estimate Decreased L Platelet Morphology Normal Hypochromasia 1+ Sodium Level 149 MMOL/L (136-145) H Potassium Level 3.5 MMOL/L (3.5-5.1) Chloride Level 115 MMOL/L (98-107) H Carbon Dioxide Level 28 MMOL/L (21-32) Anion Gap 6 mmol/L (5-15) Blood Urea Nitrogen 16 mg/dL (7-18) Creatinine 0.7 MG/DL (0.55-1.30) Estimat Glomerular Filtration Rate > 60 mL/min (>60) Glucose Level 97 MG/DL (74-106) Calcium Level 7.7 MG/DL (8.5-10.1) L Phosphorus Level 1.9 MG/DL (2.5-4.9) L Magnesium Level 1.2 MG/DL (1.8-2.4) L Total Bilirubin 0.6 MG/DL (0.2-1.0) Aspartate Amino Transf (AST/SGOT) 94 U/L (15-37) H Alanine Aminotransferase (ALT/SGPT) 101 U/L (12-78) H Alkaline Phosphatase 59 U/L (46-116) Total Protein 4.5 G/DL (6.4-8.2) L Albumin 1.4 G/DL (3.4-5.0) L Globulin 3.1 g/dL Albumin/Globulin Ratio 0.5 (1.0-2.7) L Current Medications Medications (Trade) Dose Ordered Sig/Nicole Route PRN Reason Start Time Stop Time Status Last Admin Dose Admin Acetaminophen (Tylenol) 650 mg Q4H PRN RECTAL FEVER 04/04/17 06:00 05/04/17 05:59 04/04/17 20:14 Albuterol Sulfate (Proventil) 2.5 mg NEEDED PRN HHN Shortness of Breath 04/04/17 06:00 04/09/17 05:59 Albuterol/ Ipratropium (Albuterol/ Ipratropium) 3 ml NEEDED PRN HHN Shortness of Breath 04/04/17 06:00 04/09/17 05:59 Chlorhexidine Gluconate (Collette-Hex 2%) 1 applic DAILY@2000 TOPIC 04/05/17 20:00 05/05/17 19:59 04/06/17 19:57 Dextrose 1,000 ml @ 0 mls/hr Q24H PRN IV PN interrupted or unavailable 04/08/17 20:00 05/08/17 19:59 Dextrose (Dextrose 50%) STAT PRN IV Hypoglycemia 04/04/17 06:00 05/04/17 05:59 Dextrose/ Electrolytes 1,000 ml @ 100 mls/hr Q10H IV 04/05/17 14:00 04/08/17 19:59 04/07/17 05:55 Diphenhydramine HCl (Benadryl) 12.5 mg Q6H PRN IVP Itching/Pruritis 04/04/17 06:00 05/04/17 05:59 Fat Emulsion Intravenous 216 ml/Amino Acids/ Electrolytes/ Dextrose 1,536 ml @ 64 mls/hr Q24H IV 04/08/17 20:00 05/08/17 19:59 Fentanyl Citrate 2500 mcg/Sodium Chloride 250 ml @ 0 mls/hr Q24H IV 04/04/17 10:45 04/11/17 06:59 04/07/17 10:01 Heparin Sodium (Porcine) (Heparin 5000 units/ml) 5,000 units EVERY 8 HOURS SUBQ 04/04/17 06:00 05/04/17 05:59 Hydromorphone HCl (Dilaudid) 0.5 mg Q3H PRN IVP Pain Score 1-3 04/04/17 06:00 04/11/17 05:59 04/04/17 08:42 Hydromorphone HCl (Dilaudid) 1 mg Q3H PRN IVP pain score 4-6 04/04/17 06:00 04/11/17 05:59 Hydromorphone HCl (Dilaudid) 2 mg Q3H PRN IVP pain score 7-10 04/04/17 06:00 04/11/17 05:59 04/05/17 23:47 Insulin Aspart (NovoLOG) Q6HR SUBQ 04/04/17 06:00 05/04/17 05:59 04/06/17 23:26 Ipratropium [place] (Atrovent) 0.5 mcg NEEDED PRN HHN Shortness of Breath 04/04/17 06:00 04/09/17 05:59 Lorazepam (Ativan 2mg/ml 1ml) 0.5 mg Q4H PRN IV For Anxiety 04/04/17 06:00 04/11/17 05:59 04/06/17 22:02 Metronidazole 100 ml @ 100 mls/hr Q6HR IV 04/04/17 06:00 04/11/17 05:59 04/07/17 11:37 Midazolam HCl 100 ml @ 0 mls/hr Q24H PRN IVPB titrate per protocol 04/04/17 09:30 04/11/17 09:29 Norepinephrine Bitartrate 4 mg/ Dextrose 250 ml @ 0 mls/hr Q24H IV 04/05/17 16:00 05/05/17 15:59 04/05/17 19:56 Ondansetron HCl (Zofran) 4 mg Q6H PRN IVP Nausea & Vomiting 04/04/17 06:00 05/04/17 05:59 Pantoprazole (Protonix) 40 mg DAILY IV 04/04/17 09:00 05/04/17 08:59 04/07/17 08:14 Piperacillin Sod/ Tazobactam Sod 3.375 gm/Dextrose 55 ml @ 13.75 mls/ hr Q8HR@0400,1200,2000 IVPB 04/05/17 12:00 04/12/17 11:59 04/07/17 11:38 Potassium Phosphate 30 mm/ Sodium Chloride 560 ml @ 93.3 mls/hr ONCE ONCE IV 04/07/17 10:30 04/07/17 16:30 04/07/17 10:00 MIO LOMAX Apr 07, 2017 15:42
[2017-04-07] MEDS: Norepinephrine 4mg in D5W 250ml IV SCH (16:00)
[2017-04-07] MEDS: Dyna-Hex 2% Top Sol 2oz TOPIC SCH (20:10)
--- NOTE | 2017-04-07 23:56 | Cardiology Progress Note ---
Assessment/Plan Assessment/Plan 1. Sinus tachycardia, most likely due to underlying sepsis. The patient has leukocytosis status post second look laparotomy, second look, s/p ileostomy pouch creation, POD #0. Hemodynamically appears to be stable, Continue with IV hydration and correction of electrolyte derangement. 2D echocardiography reveals normal LV systolic function. 2. Sepsis, leukocytosis, on hydration. 3. Hypernatremia, free water deficit, hypotonic IVF, nephrology follow up. 4. Hypokalemia, better with replacement, keep K >4.0. 5. Hypomagnesemia, replace with Mg sulfate, keep Mg level >2.5. Subjective Subjective Sinus rhythm at 89. Intubated. Had second look laparotomy with ileostomy creation POD #0 Objective Last 24 Hour Vital Signs Date Time Temp Pulse Resp B/P (MAP) Pulse Ox O2 Delivery O2 Flow Rate FiO2 04/07/17 23:15 98 17 28 04/07/17 23:00 96 15 130/97 100 Mechanical Ventilator 28 04/07/17 23:00 12 04/07/17 22:00 98.8 94 11 125/77 100 Mechanical Ventilator 28 04/07/17 22:00 13 04/07/17 21:18 103 14 28 04/07/17 21:00 12 18 21:00 99 14 121/74 100 Mechanical Ventilator 28 04/07/17 20:00 99.1 102 22 118/74 96 Mechanical Ventilator 28 04/07/17 20:00 28 04/07/17 20:00 14 04/07/17 20:00 99 04/07/17 19:16 101 15 28 04/07/17 19:00 100 14 130/79 99 Mechanical Ventilator 28 04/07/17 19:00 14 04/07/17 18:07 15 04/07/17 18:00 100 15 134/78 100 Mechanical Ventilator 28 04/07/17 17:18 100 12 28 04/07/17 17:00 95 16 128/84 99 Mechanical Ventilator 28 04/07/17 17:00 14 04/07/17 16:00 97 04/07/17 16:00 98.5 87 14 127/72 100 Mechanical Ventilator 28 04/07/17 16:00 136/80 04/07/17 16:00 14 04/07/17 16:00 28 04/07/17 15:08 94 15 28 04/07/17 15:00 95 15 136/80 99 Mechanical Ventilator 28 04/07/17 15:00 15 04/07/17 14:02 89 20 100 04/07/17 12:00 99 04/07/17 12:00 28 04/07/17 12:00 14 04/07/17 12:00 98.9 100 15 120/75 100 Mechanical Ventilator 28 04/07/17 11:07 97 12 28 04/07/17 11:00 14 04/07/17 11:00 92 13 124/79 99 Mechanical Ventilator 28 04/07/17 10:31 98.7 04/07/17 10:01 15 04/07/17 10:00 98 13 124/81 99 Mechanical Ventilator 28 04/07/17 09:34 95 13 28 04/07/17 09:00 95 15 122/83 100 Mechanical Ventilator 28 04/07/17 09:00 16 04/07/17 08:00 14 04/07/17 08:00 98.7 100 13 124/78 100 Mechanical Ventilator 28 04/07/17 08:00 28 04/07/17 08:00 98 04/07/17 07:00 99 12 130/78 100 Mechanical Ventilator 28 04/07/17 07:00 12 04/07/17 06:56 98 13 28 04/07/17 06:00 99 15 132/83 98 Mechanical Ventilator 28 04/07/17 05:55 15 04/07/17 05:30 99 14 28 04/07/17 05:00 97 13 126/80 99 Mechanical Ventilator 28 04/07/17 05:00 15 04/07/17 04:00 98.8 99 15 127/82 98 Mechanical Ventilator 28 04/07/17 04:00 98 04/07/17 04:00 15 04/07/17 04:00 28 04/07/17 03:30 108 15 28 04/07/17 03:00 99 15 133/81 98 Mechanical Ventilator 28 04/07/17 03:00 14 04/07/17 02:00 107 16 131/87 98 Mechanical Ventilator 28 04/07/17 02:00 17 04/07/17 01:30 101 14 28 04/07/17 01:30 100 14 131/87 100 Mechanical Ventilator 28 04/07/17 01:00 15 04/07/17 01:00 104 15 127/81 99 Mechanical Ventilator 28 04/07/17 00:30 98.8 103 16 130/80 100 Mechanical Ventilator 28 04/07/17 00:00 28 04/07/17 00:00 103 04/07/17 00:00 15 04/07/17 00:00 98.6 101 13 127/77 98 Mechanical Ventilator 28 Intake and Output 04/06/17 04/07/17 19:00 07:00 Intake Total 1738.75 ml 1530.25 ml Output Total 1260 ml 1330 ml Balance 478.75 ml 200.25 ml IV Total 1738.75 ml 1280.25 ml Blood Product 250 ml Output Urine Total 1200 ml 1195 ml Drainage Total 60 ml 135 ml 2D Echo: LVEF at 60%, Moderate MR, Grade I LVDD Laboratory Tests Test 04/07/17 04:00 04/07/17 05:45 Arterial Blood pH 7.405 (7.350-7.450) Arterial Blood Partial Pressure CO2 42.0 mmHg (35.0-45.0) Arterial Blood Partial Pressure O2 96.9 mmHg (75.0-100.0) Arterial Blood HCO3 25.7 mmol/L (22.0-26.0) Arterial Blood Oxygen Saturation 97.3 % (92.0-98.0) Arterial Blood Base Excess 0.9 Jignesh Test Positive White Blood Count 12.4 K/UL (4.8-10.8) #H Red Blood Count 2.67 M/UL (4.20-5.40) L Hemoglobin 8.5 G/DL (12.0-16.0) L Hematocrit 24.4 % (37.0-47.0) L Mean Corpuscular Volume 91 FL (80-99) Mean Corpuscular Hemoglobin 31.8 PG (27.0-31.0) H Mean Corpuscular Hemoglobin Concent 34.9 G/DL (32.0-36.0) Red Cell Distribution Width 13.8 % (11.6-14.8) Platelet Count 44 K/UL (150-450) L Mean Platelet Volume 7.8 FL (6.5-10.1) Neutrophils (%) (Auto) % (45.0-75.0) Lymphocytes (%) (Auto) % (20.0-45.0) Monocytes (%) (Auto) % (1.0-10.0) Eosinophils (%) (Auto) % (0.0-3.0) Basophils (%) (Auto) % (0.0-2.0) Differential Total Cells Counted 100 Neutrophils % (Manual) 83 % (45-75) H Lymphocytes % (Manual) 12 % (20-45) L Monocytes % (Manual) 0 % (1-10) L Eosinophils % (Manual) 1 % (0-3) Basophils % (Manual) 0 % (0-2) Band Neutrophils 4 % (0-8) Platelet Estimate Decreased L Platelet Morphology Normal Hypochromasia 1+ Sodium Level 149 MMOL/L (136-145) H Potassium Level 3.5 MMOL/L (3.5-5.1) Chloride Level 115 MMOL/L (98-107) H Carbon Dioxide Level 28 MMOL/L (21-32) Anion Gap 6 mmol/L (5-15) Blood Urea Nitrogen 16 mg/dL (7-18) Creatinine 0.7 MG/DL (0.55-1.30) Estimat Glomerular Filtration Rate > 60 mL/min (>60) Glucose Level 97 MG/DL (74-106) Calcium Level 7.7 MG/DL (8.5-10.1) L Phosphorus Level 1.9 MG/DL (2.5-4.9) L Magnesium Level 1.2 MG/DL (1.8-2.4) L Total Bilirubin 0.6 MG/DL (0.2-1.0) Aspartate Amino Transf (AST/SGOT) 94 U/L (15-37) H Alanine Aminotransferase (ALT/SGPT) 101 U/L (12-78) H Alkaline Phosphatase 59 U/L (46-116) Total Protein 4.5 G/DL (6.4-8.2) L Albumin 1.4 G/DL (3.4-5.0) L Globulin 3.1 g/dL Albumin/Globulin Ratio 0.5 (1.0-2.7) L Objective HEENT: Atraumatic and normocephalic. Anicteric. Pupils are equal, round and reactive to light and accommodation. Intubated and attached to the ventilator. NECK: JVP cannot be assessed as the patient is intubated. CARDIOVASCULAR: Normal S1 and S2. Regular rate and rhythm. Do not appreciate any murmurs, gallops, or rubs. LUNGS: Diminished breath sounds at both bases. ABDOMEN: Distended. Diminished bowel sounds. Slightly tender at the site of surgery. EXTREMITIES: No evidence of edema, clubbing, or cyanosis. JUWAN ULLOA Apr 07, 2017 23:56
[2017-04-08] VITALS (29 sets, daily range): BP systolic 106–136; BP diastolic 62–81
--- NOTE | 2017-04-08 01:30 | Operative Note - Dictated ---
DATE OF OPERATION: 04/07/2017 PREOPERATIVE DIAGNOSES: 1. 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 2. Bowel left in discontinuity and partial abdominal closure for planned second-look reexploration. POSTOPERATIVE DIAGNOSES: 1. 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 2. Bowel left in discontinuity and partial abdominal closure for planned second-look reexploration. OPERATION PERFORMED: 1. Planned second-look laparotomy/exploratory laparotomy. 2. Ileostomy creation. 3. Abdominal washout. 4. Complex closure of prior large right lower quadrant ileostomy with tissue transfer. ATTENDING SURGEON: Brandt Auguste M.D. INVENTORY CONTROL ANALYST: None. ANESTHESIOLOGIST: Carlos Mack M.D. ANESTHESIA: General CALL OUT OPERATOR. SPECIMENS: None. COMPLICATIONS: None. CONDITION: Stable. FLUIDS: Please see anesthesia records. ESTIMATED BLOOD LOSS: Minimal. DRAINS: A 19-Maori COLE drain left in the pelvis through the right upper quadrant. WOUND CLASSIFICATION: Class 3. ANTIBIOTICS: The patient was on scheduled Zosyn and Flagyl for acute active inflammatory process. COMPLICATIONS: None. COUNTS: Sponge and needle count correct x2. INDICATIONS FOR PROCEDURE: This is an unfortunate 51-year-old female with a large ventral hernia, who developed strangulated ventral hernia with small bowel necrosis leading to septic shock. When initially arriving at [facility], the patient was taken urgently to the operating room for exploration at which time, a majority of her small bowel was noted to be necrotic and required resection. The patient already had a subtotal colectomy for colitis a few years ago and did not have any large bowel. Her ileostomy was nonviable as well and resected and the vital portions of the bowel were identified as potentially the stomach, duodenum, and 75 cm of the proximal jejunum. The patient was left in discontinuity with planned second-look laparotomy during the first procedure with abdominal washout and temporary abdominal closure. Since first procedure, the patient has improved. Over the past 48 hours, she has weaned off pressors, has become more alert, and is making better urine output with improved laboratory data as well. The patient was scheduled for planned reexploration today to evaluate remainder of small bowel for viability and completion of surgery with likely ostomy creation. The risks, benefits, and alternatives were discussed with the patient's daughter who was contacted. The patient's daughter expressed understanding and consented for surgery. OPERATIVE NOTE: The patient was taken to the operating room directly from the intensive care unit and placed on the operating table in supine position. Bilateral arms were out. All bony prominences were well padded with gel pads. SCDs were initiated. The patient already had ET tube and Donohue catheter prior to entering the operating room. The abdominal dressings were removed. Preoperative time-out was taken identifying the patient, procedure, operative staff, and surgical staff. The abdomen was prepped and draped in standard surgical fashion using Betadine. We began by removing the temporary abdominal closure suture and opened the abdomen. Upon doing so, the abdomen looked very clear with only minimal serous fluid. All four quadrants, the pelvis, abdomen were evaluated. In the right upper quadrant, there was no significant finding, liver looked okay, gallbladder looked okay. In the right lower quadrant, there were no significant findings, prior fascial closure from the prior ileostomy site looked intact. In the pelvis, there were some small blood clots which were evacuated and otherwise drain was in good positioning, uterus and ovaries were normal, rectal stump was seen. In the left lower quadrant, there were no abnormalities. In the left upper quadrant, the stomach looked okay as well as the spleen and the remainder of whatever was left of the omentum. There were no abscess cavities, fluid collections, or other abnormalities. The stomach was evaluated and noted to be viable with mild edema. NG tube was in place. The duodenum was distended and otherwise normal. The bowel was evaluated from the ligament of Treitz and re-examined, and noted to be viable without any areas of necrosis and significantly improved as compared to initial surgery. The bowel was remeasured and noted to be approximately again only 75 cm in length from the ligament of Treitz to the terminal end. At this time, the abdomen was washed out with copious amounts of warm normal saline. Following this, hemostasis was achieved with electrocautery when necessary. At this time, given the bowel was all viable, no further resection was necessary and no other abnormalities were noted. Decision was made to create an ostomy for the patient. Given the large prior right-sided parastomal hernia and ostomy site with resection, there was no significant room to place the ostomy properly and unfortunately was unable to place it on the right side and it was necessary to place it on the left side. The prior drain was removed and the drain site was extended to two fingerbreadths through the fascia and with electrocautery and place for new ostomy site. The small bowel was grasped with a Adan making sure not to twist it around its mesentery. Once this was complete, it was brought through the newly created ileostomy incision site. Following this, the abdomen was inspected and the bowel looked in good positioning viable and stable and therefore, we began our abdominal closure. The abdominal fascia was closed with 0-loop PDS suture. Following closure, the midline wound was covered when we turned our attention to creation of the ostomy. The prior staple line was removed and hemostasis was achieved with electrocautery. A Radha-style ileostomy was created using multiple 3-0 Vicryl sutures in a circumferential fashion around the ileostomy site. Successful Radha ileostomy was created without ischemia or abnormality. The ileostomy was digitally manipulated and noted to go through the fascia without complication and bowel succus was evacuated. At this time, ileostomy bag was placed and we turned our attention to the very large right lower quadrant wound at which the prior ileostomy was resected and large parastomal hernia sac was resected leaving a large defect. This had achieved wound care for the last 48 hours and had some nice granulation tissue and did not have any signs of infection. At this time, decision was made to partially close and reapproximate some of the tissues in this area with fat transfer. A flap of fat was made in the subcutaneous tissue around the Lilibeth fascia. This was mobilized laterally and placed over the significant portion of the defect. The fat was sutured into place and the Lilibeth fascia was reapproximated using multiple interrupted 3-0 Vicryl sutures. Once this was complete, there was significant reduction of size of the right lower quadrant defect. At this time, we began the conclusion of our procedure. All wounds were closed. Packing, dressing, and a few surgical ghulam were placed in the superior portion of the midline wound that was near-reapproximated as well as the medial portion of the right lower quadrant wound to help with wound closure. Wet-to-dry gauze dressings were placed on the remainder of the open wounds followed by dressings. The patient tolerated the procedure well and was taken directly to the intensive care unit. rBandt Auguste M.D. DR: DESTINEE JOB#: [id number] CC: WOLF
[2017-04-08] MEDS: D5 1/4NS w/KCl 20mEq 1,000 ML IV SCH ×2 (02:00→12:37)
[2017-04-08] MEDS: Piperacillin/Tazobactam 3.375 GM in D5W 55 ML IVPB SCH ×3 (04:00→20:01)
[2017-04-08] MEDS: Heparin 5000 units/ml inj SUBQ SCH ×2 (05:41→14:00)
[2017-04-08] MEDS: NovoLOG Insulin Flexpen SUBQ SCH ×3 (05:41→18:00)
[2017-04-08 06:15] LABS: HEMATOCRIT 25.9 % (37.0-47.0); HEMOGLOBIN 8.8 G/DL (12.0-16.0); MEAN CORPUSCULAR VOLUME 92 FL (80-99); PLATELET COUNT 77 K/UL (150-450); RED CELL DISTRIBUTION WIDTH 13.7 % (11.6-14.8); WHITE BLOOD COUNT 8.4 K/UL (4.8-10.8)
[2017-04-08 06:31] LABS: INR 1.4 (0.9-1.1)
[2017-04-08 06:38] LABS: ALANINE AMINOTRANSFERASE 61 U/L (12-78); ALBUMIN 1.4 G/DL (3.4-5.0); ALBUMIN/GLOBULIN RATIO 0.5 (1.0-2.7); ALKALINE PHOSPHATASE 49 U/L (46-116); ANION GAP 5 mmol/L (5-15); ASPARTATE AMINO TRANSFERASE 48 U/L (15-37); BILIRUBIN,TOTAL 0.5 MG/DL (0.2-1.0); BLOOD UREA NITROGEN 14 mg/dL (7-18); CALCIUM 7.7 MG/DL (8.5-10.1); CARBON DIOXIDE 28 MMOL/L (21-32); CHLORIDE 111 MMOL/L (98-107); CREATININE 0.5 MG/DL (0.55-1.30); POTASSIUM 3.6 MMOL/L (3.5-5.1); SODIUM 144 MMOL/L (136-145)
[2017-04-08 06:41] LABS: % IRON SATURATION 38 % (15-50); IRON 22 ug/dL (50-175); TOTAL IRON BINDING CAPACITY 58 ug/dL (250-450)
[2017-04-08 06:43] LABS: FERRITIN 414 NG/ML (8-388); PHOSPHORUS 2.1 MG/DL (2.5-4.9)
[2017-04-08] MEDS: Pantoprazole Inj IV SCH (09:13)
[2017-04-08] MEDS: fentaNYL Citrate 2,500 MCG in NS 200 ML IV SCH (09:13)
--- NOTE | 2017-04-08 09:52 | Nephrology Progress Note ---
Assessment/Plan Assessment 1. Hypernatremia resolved 2. Hypokalemia. 3. Acute renal failure or dehydration. 4. Malnutrition. 5. Hypocalcemia. 6. Hypomagnesemia. Plan to continue 03/27 ns with kcl nutritional support if no feeding TPN replace phos monitoring out put monitoring renal function Subjective Constitutional: Reports: no symptoms HEENT: Reports: no symptoms Genitourinary: Reports: no symptoms Neurologic/Psychiatric: Reports: no symptoms Subjective intubated open her eyes with verbal stimuli off pressor fallows simple command Objective Objective Last 24 Hour Vital Signs Date Time Temp Pulse Resp B/P (MAP) Pulse Ox O2 Delivery O2 Flow Rate FiO2 04/08/17 09:13 13 04/08/17 09:05 94 13 28 04/08/17 09:00 16 04/08/17 08:00 18 04/08/17 07:11 102 23 28 04/08/17 07:00 96 20 136/77 96 Mechanical Ventilator 28 04/08/17 07:00 16 04/08/17 06:00 94 20 121/67 98 Mechanical Ventilator 28 04/08/17 06:00 14 04/08/17 05:20 101 17 28 04/08/17 05:00 94 12 116/68 100 Mechanical Ventilator 28 04/08/17 05:00 11 04/08/17 04:00 98.6 97 19 123/73 99 Mechanical Ventilator 28 04/08/17 04:00 28 04/08/17 04:00 18 04/08/17 04:00 95 04/08/17 03:18 104 15 28 04/08/17 03:00 100 11 112/73 100 Mechanical Ventilator 28 04/08/17 03:00 12 04/08/17 02:00 95 14 122/78 100 Mechanical Ventilator 28 04/08/17 02:00 15 04/08/17 01:28 95 16 28 04/08/17 01:00 14 04/08/17 01:00 94 15 127/76 100 Mechanical Ventilator 28 04/08/17 00:10 15 04/08/17 00:00 93 04/08/17 00:00 28 04/08/17 00:00 98.8 94 12 123/74 100 Mechanical Ventilator 28 04/07/17 23:15 98 17 28 04/07/17 23:00 96 15 130/97 100 Mechanical Ventilator 28 04/07/17 23:00 12 04/07/17 22:00 98.8 94 11 125/77 100 Mechanical Ventilator 28 04/07/17 22:00 13 04/07/17 21:18 103 14 28 04/07/17 21:00 12 04/07/17 21:00 99 14 121/74 100 Mechanical Ventilator 28 04/07/17 20:00 99.1 102 22 118/74 96 Mechanical Ventilator 28 04/07/17 20:00 28 04/07/17 20:00 14 04/07/17 20:00 99 04/07/17 19:16 101 15 28 04/07/17 19:00 100 14 130/79 99 Mechanical Ventilator 28 04/07/17 19:00 14 04/07/17 18:07 15 04/07/17 18:00 100 15 134/78 100 Mechanical Ventilator 28 04/07/17 17:18 100 12 28 04/07/17 17:00 95 16 128/84 99 Mechanical Ventilator 28 04/07/17 17:00 14 04/07/17 16:00 97 04/07/17 16:00 98.5 87 14 127/72 100 Mechanical Ventilator 28 04/07/17 16:00 136/80 04/07/17 16:00 14 04/07/17 16:00 28 04/07/17 15:08 94 15 28 04/07/17 15:00 95 15 136/80 99 Mechanical Ventilator 28 04/07/17 15:00 15 04/07/17 14:02 89 20 100 04/07/17 12:00 99 04/07/17 12:00 28 04/07/17 12:00 14 04/07/17 12:00 98.9 100 15 120/75 100 Mechanical Ventilator 28 04/07/17 11:07 97 12 28 04/07/17 11:00 14 04/07/17 11:00 92 13 124/79 99 Mechanical Ventilator 28 04/07/17 10:31 98.7 04/07/17 10:01 15 04/07/17 10:00 98 13 124/81 99 Mechanical Ventilator 28 Intake and Output 04/07/17 04/08/17 19:00 07:00 Intake Total 1749.95 ml 1640.25 ml Output Total 2205 ml 2145 ml Balance -455.05 ml -504.75 ml IV Total 1749.95 ml 1640.25 ml Output Urine Total 1360 ml 1455 ml Gastric Drainage Total 700 ml 550 ml Drainage Total 125 ml 55 ml Other 20 ml 85 ml Laboratory Tests 04/08/17 04:00: Iron Level 22L, Total Iron Binding Capacity 58L, Percent Iron Saturation 38, Unsaturated Iron Binding 36L, Free Thyroxine 1.06 04/08/17 05:25: White Blood Count 8.4, Red Blood Count 2.80L, Hemoglobin 8.8L, Hematocrit 25.9L , Mean Corpuscular Volume 92, Mean Corpuscular Hemoglobin 31.4H, Mean Corpuscular Hemoglobin Concent 34.0, Red Cell Distribution Width 13.7, Platelet Count 77#L, Mean Platelet Volume 7.4, Neutrophils (%) (Auto) , Lymphocytes (%) ( Auto) , Monocytes (%) (Auto) , Eosinophils (%) (Auto) , Basophils (%) (Auto) , Neutrophils % (Manual) [Pending], Lymphocytes % (Manual) [Pending], Platelet Estimate [Pending], Platelet Morphology [Pending], Reticulocyte Count [Pending] , Prothrombin Time 14.7H, Prothromb Time International Ratio 1.4H, Activated Partial Thromboplast Time 35H, Sodium Level 144, Potassium Level 3.6, Chloride Level 111H, Carbon Dioxide Level 28, Anion Gap 5, Blood Urea Nitrogen 14, Creatinine 0.5L, Estimat Glomerular Filtration Rate > 60, Glucose Level 105, Calcium Level 7.7L, Phosphorus Level 2.1L, Magnesium Level 1.3L, Ferritin 414H, Total Bilirubin 0.5, Aspartate Amino Transf (AST/SGOT) 48H, Alanine Aminotransferase (ALT/SGPT) 61, Alkaline Phosphatase 49, Total Protein 4.5L, Albumin 1.4L, Globulin 3.1, Albumin/Globulin Ratio 0.5L, Vitamin B12 Level > 2000H, Folate 5.7L, Thyroid Stimulating Hormone (TSH) 1.683 04/08/17 09:05: Vancomycin Level Trough [Pending] 04/08/17 09:30: Arterial Blood pH 7.462H, Arterial Blood Partial Pressure CO2 39.6, Arterial Blood Partial Pressure O2 109.9H, Arterial Blood HCO3 27.7H, Arterial Blood Oxygen Saturation 98.4H, Arterial Blood Base Excess 3.6, Jignesh Test Positive Height (Feet): 5 Height (Inches): 0.00 Weight (Pounds): 94 Objective HEAD AND NECK: No JVP. No LAD. No thyromegaly. NG tube is placed. ET tube is in place. NG tube secreting greenish liquids. CARDIAC: Regular rate and rhythm. S1 and S2. No murmur. No rub. LUNGS: Has decreased breathing sound on both sides. ABDOMEN: Soft. Bowel sounds are hypoactive. Nontender. EXTREMITIES: No edema. No clubbing. No cyanosis. DELMI ARITA Apr 08, 2017 09:52
--- NOTE | 2017-04-08 10:17 | Infectious Diseases Prog Note ---
Assessment/Plan Assessment/Plan A: Sepsis Peritonitis Strangulated hernia Small bowel necrosis Respiratory failure Anemia s/p laparotomy X 2 P: Continue Zosyn & Flagyl Subjective ROS Limited/Unobtainable: Yes Allergies: Coded Allergies: TRAZODONE (Verified Allergy, Unknown, 04/04/17) Objective Vital Signs Last 24 Hour Vital Signs Date Time Temp Pulse Resp B/P (MAP) Pulse Ox O2 Delivery O2 Flow Rate FiO2 04/08/17 10:00 95 16 107/64 98 Mechanical Ventilator 28 04/08/17 09:13 13 04/08/17 09:05 94 13 28 04/08/17 09:00 16 04/08/17 09:00 95 16 109/66 98 Mechanical Ventilator 28 04/08/17 08:00 18 04/08/17 08:00 98.7 96 18 107/64 98 Mechanical Ventilator 28 04/08/17 07:11 102 23 28 04/08/17 07:00 96 20 136/77 96 Mechanical Ventilator 28 04/08/17 07:00 16 04/08/17 06:00 94 20 121/67 98 Mechanical Ventilator 28 04/08/17 06:00 14 04/08/17 05:20 101 17 28 04/08/17 05:00 94 12 116/68 100 Mechanical Ventilator 28 04/08/17 05:00 11 04/08/17 04:00 98.6 97 19 123/73 99 Mechanical Ventilator 28 04/08/17 04:00 28 04/08/17 04:00 18 04/08/17 04:00 95 04/08/17 03:18 104 15 28 04/08/17 03:00 100 11 112/73 100 Mechanical Ventilator 28 04/08/17 03:00 12 04/08/17 02:00 95 14 122/78 100 Mechanical Ventilator 28 04/08/17 02:00 15 04/08/17 01:28 95 16 28 04/08/17 01:00 14 04/08/17 01:00 94 15 127/76 100 Mechanical Ventilator 28 04/08/17 00:10 15 04/08/17 00:00 93 04/08/17 00:00 28 04/08/17 00:00 98.8 94 12 123/74 100 Mechanical Ventilator 28 04/07/17 23:15 98 17 28 04/07/17 23:00 96 15 130/97 100 Mechanical Ventilator 28 04/07/17 23:00 12 04/07/17 22:00 98.8 94 11 125/77 100 Mechanical Ventilator 28 04/07/17 22:00 13 04/07/17 21:18 103 14 28 04/07/17 21:00 12 04/07/17 21:00 99 14 121/74 100 Mechanical Ventilator 28 04/07/17 20:00 99.1 102 22 118/74 96 Mechanical Ventilator 28 04/07/17 20:00 28 04/07/17 20:00 14 04/07/17 20:00 99 04/07/17 19:16 101 15 28 04/07/17 19:00 100 14 130/79 99 Mechanical Ventilator 28 04/07/17 19:00 14 04/07/17 18:07 15 04/07/17 18:00 100 15 134/78 100 Mechanical Ventilator 28 04/07/17 17:18 100 12 28 04/07/17 17:00 95 16 128/84 99 Mechanical Ventilator 28 04/07/17 17:00 14 04/07/17 16:00 97 04/07/17 16:00 98.5 87 14 127/72 100 Mechanical Ventilator 28 04/07/17 16:00 136/80 04/07/17 16:00 14 04/07/17 16:00 28 04/07/17 15:08 94 15 28 04/07/17 15:00 95 15 136/80 99 Mechanical Ventilator 28 04/07/17 15:00 15 04/07/17 14:02 89 20 100 04/07/17 12:00 99 04/07/17 12:00 28 04/07/17 12:00 14 04/07/17 12:00 98.9 100 15 120/75 100 Mechanical Ventilator 28 04/07/17 11:07 97 12 28 04/07/17 11:00 14 04/07/17 11:00 92 13 124/79 99 Mechanical Ventilator 28 04/07/17 10:31 98.7 Height (Feet): 5 Height (Inches): 0.00 Weight (Pounds): 94 HEENT: mucous membranes moist, other - orally intubated Respiratory/Chest: lungs clear, other - on ventilator Cardiovascular: normal rate, other - left subclavian central line Abdomen: other - surgical drain & dressing Extremities: other - edema of hands Neurologic/Psychiatric: alert Laboratory Tests Test 04/08/17 04:00 04/08/17 05:25 04/08/17 09:05 04/08/17 09:30 Iron Level 22 ug/dL (50-175) L Total Iron Binding Capacity 58 ug/dL (250-450) L Percent Iron Saturation 38 % (15-50) Unsaturated Iron Binding 36 ug/dL (112-346) L Free Thyroxine 1.06 NG/DL (0.76-1.46) White Blood Count 8.4 K/UL (4.8-10.8) Red Blood Count 2.80 M/UL (4.20-5.40) L Hemoglobin 8.8 G/DL (12.0-16.0) L Hematocrit 25.9 % (37.0-47.0) L Mean Corpuscular Volume 92 FL (80-99) Mean Corpuscular Hemoglobin 31.4 PG (27.0-31.0) H Mean Corpuscular Hemoglobin Concent 34.0 G/DL (32.0-36.0) Red Cell Distribution Width 13.7 % (11.6-14.8) Platelet Count 77 K/UL (150-450) #L Mean Platelet Volume 7.4 FL (6.5-10.1) Neutrophils (%) (Auto) % (45.0-75.0) Lymphocytes (%) (Auto) % (20.0-45.0) Monocytes (%) (Auto) % (1.0-10.0) Eosinophils (%) (Auto) % (0.0-3.0) Basophils (%) (Auto) % (0.0-2.0) Neutrophils % (Manual) Pending Lymphocytes % (Manual) Pending Platelet Estimate Pending Platelet Morphology Pending Reticulocyte Count Pending Prothrombin Time 14.7 SEC (9.30-11.50) H Prothromb Time International Ratio 1.4 (0.9-1.1) H Activated Partial Thromboplast Time 35 SEC (23-33) H Sodium Level 144 MMOL/L (136-145) Potassium Level 3.6 MMOL/L (3.5-5.1) Chloride Level 111 MMOL/L (98-107) H Carbon Dioxide Level 28 MMOL/L (21-32) Anion Gap 5 mmol/L (5-15) Blood Urea Nitrogen 14 mg/dL (7-18) Creatinine 0.5 MG/DL (0.55-1.30) L Estimat Glomerular Filtration Rate > 60 mL/min (>60) Glucose Level 105 MG/DL (74-106) Calcium Level 7.7 MG/DL (8.5-10.1) L Phosphorus Level 2.1 MG/DL (2.5-4.9) L Magnesium Level 1.3 MG/DL (1.8-2.4) L Ferritin 414 NG/ML (8-388) H Total Bilirubin 0.5 MG/DL (0.2-1.0) Aspartate Amino Transf (AST/SGOT) 48 U/L (15-37) H Alanine Aminotransferase (ALT/SGPT) 61 U/L (12-78) Alkaline Phosphatase 49 U/L (46-116) Total Protein 4.5 G/DL (6.4-8.2) L Albumin 1.4 G/DL (3.4-5.0) L Globulin 3.1 g/dL Albumin/Globulin Ratio 0.5 (1.0-2.7) L Vitamin B12 Level > 2000 PG/ML (193-986) H Folate 5.7 NG/ML (8.6-58.9) L Thyroid Stimulating Hormone (TSH) 1.683 uiU/mL (0.358-3.740) Vancomycin Level Trough < 2.0 ug/mL (5.0-12.0) L Arterial Blood pH 7.462 (7.350-7.450) Arterial Blood Partial Pressure CO2 39.6 mmHg (35.0-45.0) Arterial Blood Partial Pressure O2 109.9 mmHg (75.0-100.0) H Arterial Blood HCO3 27.7 mmol/L (22.0-26.0) H Arterial Blood Oxygen Saturation 98.4 % (92.0-98.0) H Arterial Blood Base Excess 3.6 Jignesh Test Positive Current Medications Medications (Trade) Dose Ordered Sig/Nicole Route PRN Reason Start Time Stop Time Status Last Admin Dose Admin Acetaminophen (Tylenol) 650 mg Q4H PRN RECTAL FEVER 04/04/17 06:00 05/04/17 05:59 04/04/17 20:14 Albuterol Sulfate (Proventil) 2.5 mg NEEDED PRN HHN Shortness of Breath 1/12/18 06:00 04/09/17 05:59 Albuterol/ Ipratropium (Albuterol/ Ipratropium) 3 ml NEEDED PRN HHN Shortness of Breath 04/04/17 06:00 04/09/17 05:59 Chlorhexidine Gluconate (Collette-Hex 2%) 1 applic DAILY@2000 TOPIC 04/05/17 20:00 05/05/17 19:59 04/07/17 20:10 Dextrose 1,000 ml @ 0 mls/hr Q24H PRN IV PN interrupted or unavailable 04/08/17 20:00 05/08/17 19:59 Dextrose (Dextrose 50%) STAT PRN IV Hypoglycemia 04/04/17 06:00 05/04/17 05:59 Dextrose/ Electrolytes 1,000 ml @ 100 mls/hr Q10H IV 04/05/17 14:00 04/08/17 19:59 04/08/17 02:00 Diphenhydramine HCl (Benadryl) 12.5 mg Q6H PRN IVP Itching/Pruritis 04/04/17 06:00 05/04/17 05:59 Fat Emulsion Intravenous 216 ml/Amino Acids/ Electrolytes/ Dextrose 1,536 ml @ 64 mls/hr Q24H IV 04/08/17 20:00 05/08/17 19:59 Fentanyl Citrate 2500 mcg/Sodium Chloride 250 ml @ 0 mls/hr Q24H IV 04/04/17 10:45 04/11/17 06:59 04/08/17 09:13 Heparin Sodium (Porcine) (Heparin 5000 units/ml) 5,000 units EVERY 8 HOURS SUBQ 04/04/17 06:00 05/04/17 05:59 Hydromorphone HCl (Dilaudid) 0.5 mg Q3H PRN IVP Pain Score 1-3 04/04/17 06:00 04/11/17 05:59 04/04/17 08:42 Hydromorphone HCl (Dilaudid) 1 mg Q3H PRN IVP pain score 4-6 04/04/17 06:00 04/11/17 05:59 Hydromorphone HCl (Dilaudid) 2 mg Q3H PRN IVP pain score 7-10 04/04/17 06:00 04/11/17 05:59 04/05/17 23:47 Insulin Aspart (NovoLOG) Q6HR SUBQ 04/04/17 06:00 05/04/17 05:59 04/06/17 23:26 Ipratropium Parsons (Atrovent) 0.5 mcg NEEDED PRN HHN Shortness of Breath 04/04/17 06:00 04/09/17 05:59 Lorazepam (Ativan 2mg/ml 1ml) 0.5 mg Q4H PRN IV For Anxiety 04/04/17 06:00 04/11/17 05:59 04/06/17 22:02 Magnesium Sulfate 100 ml @ 100 mls/hr Q1H IVPB 04/08/17 09:00 04/08/17 10:59 04/08/17 10:11 Metronidazole 100 ml @ 100 mls/hr Q6HR IV 04/04/17 06:00 04/11/17 05:59 04/08/17 05:42 Midazolam HCl 100 ml @ 0 mls/hr Q24H PRN IVPB titrate per protocol 04/04/17 09:30 04/11/17 09:29 Norepinephrine Bitartrate 4 mg/ Dextrose 250 ml @ 0 mls/hr Q24H IV 04/05/17 16:00 05/05/17 15:59 04/05/17 19:56 Ondansetron HCl (Zofran) 4 mg Q6H PRN IVP Nausea & Vomiting 04/04/17 06:00 05/04/17 05:59 Pantoprazole (Protonix) 40 mg DAILY IV 04/04/17 09:00 05/04/17 08:59 04/08/17 09:13 Piperacillin Sod/ Tazobactam Sod 3.375 gm/Dextrose 55 ml @ 13.75 mls/ hr Q8HR@0400,1200,2000 IVPB 04/05/17 12:00 04/12/17 11:59 04/08/17 04:00 MIO LOMAX Apr 08, 2017 10:17
--- NOTE | 2017-04-08 10:45 | General Progress Note ---
Progress Note Progress Note Surgery: doing well since surgery. no acute events. more alert today. comfortable. on vent support. labs improved. ng with bilious output. COLE with serous output. abdomen soft, non distended, wounds clean with packing and dressings, ostomy pink and viable. afebrile, HD stable, recovering. POD #1 s/p planned second look laparotomy. remaining intestine viable. has stomach, duodenum, and 75cm of jejunum remaining. ostomy created. abdomen washed out. 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 -wean vent to extubate -start TPN today. -will start tube feeds soon -trend labs -will monitor exam. -packing and dressings BID Brandt Auguste Apr 08, 2017 10:45
--- NOTE | 2017-04-08 11:18 | Pulmonolgy Critical Care Note ---
Critical Care - Asmt/Plan Problems: (1) Septic shock (2) Acute respiratory failure (3) Multiorgan failure (4) Strangulated ventral incisional hernia (5) Peritonitis, acute generalized Respiratory: monitor respiratory rate, adjust FIO2, weaning trial Cardiac: continue to monitor HR/BP Renal: F/U I&O Infectious Disease: check cultures, continue antibiotics Gastrointestinal: continue feedings/current rate Endocrine: monitor blood sugar, check TSH, continue sliding scale insulin Hematologic: monitor H/H, transfuse if hgb<8.5 Neurologic: PRN Ativan, PRN Morphine, keep patient comfortable Affect: PRN ativan Prophylaxis: Protonix, Heparin Notes Reviewed: information receptionist, cardio Discussed with: nurses, consultants, supportive employment case managersoftware qa manager - Objective Last 24 Hour Vital Signs Date Time Temp Pulse Resp B/P (MAP) Pulse Ox O2 Delivery O2 Flow Rate FiO2 04/08/17 10:00 14 04/08/17 10:00 96 14 111/64 98 Mechanical Ventilator 28 04/08/17 09:30 95 16 107/63 98 Mechanical Ventilator 28 04/08/17 09:13 13 04/08/17 09:05 94 13 28 04/08/17 09:00 16 04/08/17 09:00 95 16 109/66 98 Mechanical Ventilator 28 04/08/17 08:30 96 20 136/77 96 Mechanical Ventilator 28 04/08/17 08:00 18 04/08/17 08:00 98.7 96 18 107/64 98 Mechanical Ventilator 28 04/08/17 08:00 28 04/08/17 07:30 97 20 113/65 97 Mechanical Ventilator 28 04/08/17 07:11 102 23 28 04/08/17 07:00 96 20 136/77 96 Mechanical Ventilator 28 04/08/17 07:00 16 04/08/17 06:00 94 20 121/67 98 Mechanical Ventilator 28 04/08/17 06:00 14 04/08/17 05:20 101 17 28 04/08/17 05:00 94 12 116/68 100 Mechanical Ventilator 28 04/08/17 05:00 11 04/08/17 04:00 98.6 97 19 123/73 99 Mechanical Ventilator 28 04/08/17 04:00 28 04/08/17 04:00 18 04/08/17 04:00 95 04/08/17 03:18 104 15 28 04/08/17 03:00 100 11 112/73 100 Mechanical Ventilator 28 04/08/17 03:00 12 04/08/17 02:00 95 14 122/78 100 Mechanical Ventilator 28 04/08/17 02:00 15 04/08/17 01:28 95 16 28 04/08/17 01:00 14 04/08/17 01:00 94 15 127/76 100 Mechanical Ventilator 28 04/08/17 00:10 15 04/08/17 00:00 93 04/08/17 00:00 28 04/08/17 00:00 98.8 94 12 123/74 100 Mechanical Ventilator 28 04/07/17 23:15 98 17 28 04/07/17 23:00 96 15 130/97 100 Mechanical Ventilator 28 04/07/17 23:00 12 04/07/17 22:00 98.8 94 11 125/77 100 Mechanical Ventilator 28 04/07/17 22:00 13 04/07/17 21:18 103 14 28 04/07/17 21:00 12 04/07/17 21:00 99 14 121/74 100 Mechanical Ventilator 28 04/07/17 20:00 99.1 102 22 118/74 96 Mechanical Ventilator 28 04/07/17 20:00 28 04/07/17 20:00 14 04/07/17 20:00 99 04/07/17 19:16 101 15 28 04/07/17 19:00 100 14 130/79 99 Mechanical Ventilator 28 04/07/17 19:00 14 04/07/17 18:07 15 04/07/17 18:00 100 15 134/78 100 Mechanical Ventilator 28 04/07/17 17:18 100 12 28 04/07/17 17:00 95 16 128/84 99 Mechanical Ventilator 28 04/07/17 17:00 14 04/07/17 16:00 97 04/07/17 16:00 98.5 87 14 127/72 100 Mechanical Ventilator 28 04/07/17 16:00 136/80 04/07/17 16:00 14 04/07/17 16:00 28 04/07/17 15:08 94 15 28 04/07/17 15:00 95 15 136/80 99 Mechanical Ventilator 28 04/07/17 15:00 15 04/07/17 14:02 89 20 100 04/07/17 12:00 99 04/07/17 12:00 28 04/07/17 12:00 14 04/07/17 12:00 98.9 100 15 120/75 100 Mechanical Ventilator 28 Status: awake Condition: critical HEENT: atraumatic, normocephalic Lungs: clear Heart: HR/BP stable Abdomen: soft Extremities: no C/C/E, edema Accucheck: 101 Critical Care - Subjective ROS Limited/Unobtainable: No ICU Day: 4 Intubation Day: 4 Condition: critical EKG Rhythm: Sinus Bradycardia FI02: 28 Vent Support Breath Rate: 12 Vent Support Mode: CPAP Vent Tidal Volume: 450 Sputum Amount: Small PIP: 17 Drips: tpn I&O: Intake and Output 04/07/17 04/08/17 19:00 07:00 Intake Total 1749.95 ml 1640.25 ml Output Total 2205 ml 2145 ml Balance -455.05 ml -504.75 ml IV Total 1749.95 ml 1640.25 ml Output Urine Total 1360 ml 1455 ml Gastric Drainage Total 700 ml 550 ml Drainage Total 125 ml 55 ml Other 20 ml 85 ml CXR: clear, DAVID ET-Tube: 7.0 ET Position: 22 Labs: Laboratory Tests Test 04/08/17 04:00 04/08/17 05:25 04/08/17 09:05 04/08/17 09:30 Iron Level 22 ug/dL (50-175) L Total Iron Binding Capacity 58 ug/dL (250-450) L Percent Iron Saturation 38 % (15-50) Unsaturated Iron Binding 36 ug/dL (112-346) L Free Thyroxine 1.06 NG/DL (0.76-1.46) White Blood Count 8.4 K/UL (4.8-10.8) Red Blood Count 2.80 M/UL (4.20-5.40) L Hemoglobin 8.8 G/DL (12.0-16.0) L Hematocrit 25.9 % (37.0-47.0) L Mean Corpuscular Volume 92 FL (80-99) Mean Corpuscular Hemoglobin 31.4 PG (27.0-31.0) H Mean Corpuscular Hemoglobin Concent 34.0 G/DL (32.0-36.0) Red Cell Distribution Width 13.7 % (11.6-14.8) Platelet Count 77 K/UL (150-450) #L Mean Platelet Volume 7.4 FL (6.5-10.1) Neutrophils (%) (Auto) % (45.0-75.0) Lymphocytes (%) (Auto) % (20.0-45.0) Monocytes (%) (Auto) % (1.0-10.0) Eosinophils (%) (Auto) % (0.0-3.0) Basophils (%) (Auto) % (0.0-2.0) Differential Total Cells Counted 100 Neutrophils % (Manual) 82 % (45-75) H Lymphocytes % (Manual) 13 % (20-45) L Monocytes % (Manual) 4 % (1-10) Eosinophils % (Manual) 1 % (0-3) Basophils % (Manual) 0 % (0-2) Band Neutrophils 0 % (0-8) Platelet Estimate Decreased L Platelet Morphology Normal Red Blood Cell Morphology Normal Reticulocyte Count 0.6 % (0.0-2.0) Prothrombin Time 14.7 SEC (9.30-11.50) H Prothromb Time International Ratio 1.4 (0.9-1.1) H Activated Partial Thromboplast Time 35 SEC (23-33) H Sodium Level 144 MMOL/L (136-145) Potassium Level 3.6 MMOL/L (3.5-5.1) Chloride Level 111 MMOL/L (98-107) H Carbon Dioxide Level 28 MMOL/L (21-32) Anion Gap 5 mmol/L (5-15) Blood Urea Nitrogen 14 mg/dL (7-18) Creatinine 0.5 MG/DL (0.55-1.30) L Estimat Glomerular Filtration Rate > 60 mL/min (>60) Glucose Level 105 MG/DL (74-106) Calcium Level 7.7 MG/DL (8.5-10.1) L Phosphorus Level 2.1 MG/DL (2.5-4.9) L Magnesium Level 1.3 MG/DL (1.8-2.4) L Ferritin 414 NG/ML (8-388) H Total Bilirubin 0.5 MG/DL (0.2-1.0) Aspartate Amino Transf (AST/SGOT) 48 U/L (15-37) H Alanine Aminotransferase (ALT/SGPT) 61 U/L (12-78) Alkaline Phosphatase 49 U/L (46-116) Total Protein 4.5 G/DL (6.4-8.2) L Albumin 1.4 G/DL (3.4-5.0) L Globulin 3.1 g/dL Albumin/Globulin Ratio 0.5 (1.0-2.7) L Vitamin B12 Level > 2000 PG/ML (193-986) H Folate 5.7 NG/ML (8.6-58.9) L Thyroid Stimulating Hormone (TSH) 1.683 uiU/mL (0.358-3.740) Vancomycin Level Trough < 2.0 ug/mL (5.0-12.0) L Arterial Blood pH 7.462 (7.350-7.450) Arterial Blood Partial Pressure CO2 39.6 mmHg (35.0-45.0) Arterial Blood Partial Pressure O2 109.9 mmHg (75.0-100.0) H Arterial Blood HCO3 27.7 mmol/L (22.0-26.0) H Arterial Blood Oxygen Saturation 98.4 % (92.0-98.0) H Arterial Blood Base Excess 3.6 Jignesh Test Positive YAYO CELIS Apr 08, 2017 11:18
[2017-04-08] MEDS ORDERED: Potassium Phosphate 30 MM in Sodium Chloride 500ML 550 ML IV ONE (12:30)
--- NOTE | 2017-04-08 12:53 | Diagnostic Imaging Report ---
Indication: Dyspnea Comparison: 04/07/2017 A single view chest radiograph was obtained. Findings: Interstitial vascular prominence has improved since last day. There is left basilar density likely atelectasis noted. Tubes and lines are stable. Heart size is stable. IMPRESSION: Improved pulmonary vascular congestion. Suspected mild left basal atelectasis
--- NOTE | 2017-04-08 13:25 | General Progress Note ---
Assessment/Plan Problem List: (1) Abdominal pain ICD Codes: R10.9 - Unspecified abdominal pain SNOMED: 77260614 (2) Peritonitis, acute generalized ICD Codes: K65.0 - Generalized (acute) peritonitis SNOMED: 61615923 (3) Strangulated ventral incisional hernia ICD Codes: K43.0 - Incisional hernia with obstruction, without gangrene SNOMED: 537056322 (4) Acute respiratory failure ICD Codes: J96.00 - Acute respiratory failure, unspecified whether with hypoxia or hypercapnia SNOMED: 27025923 (5) Septic shock ICD Codes: A41.9 - Sepsis, unspecified organism; R65.21 - Severe sepsis with septic shock SNOMED: 56926779 Status: progressing Assessment/Plan vent abx sx f/u cbc bmp am id eval ltach eval Subjective Constitutional: Reports: weakness Allergies: Coded Allergies: TRAZODONE (Verified Allergy, Unknown, 04/04/17) All Systems: reviewed and negative except above Subjective o2nc calm in icu ng in place Objective Last 24 Hour Vital Signs Date Time Temp Pulse Resp B/P (MAP) Pulse Ox O2 Delivery O2 Flow Rate FiO2 04/08/17 13:00 98.7 100 18 112/62 98 Nasal Cannula 3.0 04/08/17 12:15 99 Nasal Cannula 2.0 28 04/08/17 12:14 Nasal Cannula 2.0 28 04/08/17 12:05 Nasal Cannula 2.0 28 04/08/17 12:00 04/08/17 12:00 19 04/08/17 12:00 96 14 113/64 98 Mechanical Ventilator 28 04/08/17 11:59 95 18 28 04/08/17 11:40 89 04/08/17 11:30 96 16 108/65 98 Mechanical Ventilator 28 04/08/17 11:20 28 04/08/17 11:14 97 20 28 04/08/17 11:00 16 04/08/17 11:00 96 22 106/69 98 Mechanical Ventilator 22 04/08/17 10:30 95 17 108/63 98 Mechanical Ventilator 28 04/08/17 10:00 14 04/08/17 10:00 96 14 111/64 98 Mechanical Ventilator 28 04/08/17 09:30 95 16 107/63 98 Mechanical Ventilator 28 04/08/17 09:13 13 04/08/17 09:05 94 13 28 04/08/17 09:00 16 04/08/17 09:00 95 16 109/66 98 Mechanical Ventilator 28 04/08/17 08:30 96 20 136/77 96 Mechanical Ventilator 28 04/08/17 08:28 81 04/08/17 08:00 18 04/08/17 08:00 98.7 96 18 107/64 98 Mechanical Ventilator 28 04/08/17 08:00 28 04/08/17 07:30 97 20 113/65 97 Mechanical Ventilator 28 04/08/17 07:11 102 23 28 04/08/17 07:00 96 20 136/77 96 Mechanical Ventilator 28 04/08/17 07:00 16 04/08/17 06:00 94 20 121/67 98 Mechanical Ventilator 28 04/08/17 06:00 14 04/08/17 05:20 101 17 28 04/08/17 05:00 94 12 116/68 100 Mechanical Ventilator 28 04/08/17 05:00 11 04/08/17 04:00 98.6 97 19 123/73 99 Mechanical Ventilator 28 04/08/17 04:00 28 04/08/17 04:00 18 04/08/17 04:00 95 04/08/17 03:18 104 15 28 04/08/17 03:00 100 11 112/73 100 Mechanical Ventilator 28 04/08/17 03:00 12 04/08/17 02:00 95 14 122/78 100 Mechanical Ventilator 28 04/08/17 02:00 15 04/08/17 01:28 95 16 28 04/08/17 01:00 14 04/08/17 01:00 94 15 127/76 100 Mechanical Ventilator 28 04/08/17 00:10 15 04/08/17 00:00 93 04/08/17 00:00 28 04/08/17 00:00 98.8 94 12 123/74 100 Mechanical Ventilator 28 04/07/17 23:15 98 17 28 04/07/17 23:00 96 15 130/97 100 Mechanical Ventilator 28 04/07/17 23:00 12 04/07/17 22:00 98.8 94 11 125/77 100 Mechanical Ventilator 28 04/07/17 22:00 13 04/07/17 21:18 103 14 28 04/07/17 21:00 12 04/07/17 21:00 99 14 121/74 100 Mechanical Ventilator 28 04/07/17 20:00 99.1 102 22 118/74 96 Mechanical Ventilator 28 04/07/17 20:00 28 04/07/17 20:00 14 04/07/17 20:00 99 04/07/17 19:16 101 15 28 04/07/17 19:00 100 14 130/79 99 Mechanical Ventilator 28 04/07/17 19:00 14 04/07/17 18:07 15 04/07/17 18:00 100 15 134/78 100 Mechanical Ventilator 28 04/07/17 17:18 100 12 28 04/07/17 17:00 95 16 128/84 99 Mechanical Ventilator 28 04/07/17 17:00 14 04/07/17 16:00 97 04/07/17 16:00 98.5 87 14 127/72 100 Mechanical Ventilator 28 04/07/17 16:00 136/80 04/07/17 16:00 14 04/07/17 16:00 28 04/07/17 15:08 94 15 28 04/07/17 15:00 95 15 136/80 99 Mechanical Ventilator 28 04/07/17 15:00 15 04/07/17 14:02 89 20 100 Intake and Output 04/07/17 04/08/17 19:00 07:00 Intake Total 1749.95 ml 1640.25 ml Output Total 2205 ml 2145 ml Balance -455.05 ml -504.75 ml IV Total 1749.95 ml 1640.25 ml Output Urine Total 1360 ml 1455 ml Gastric Drainage Total 700 ml 550 ml Drainage Total 125 ml 55 ml Other 20 ml 85 ml Laboratory Tests 04/08/17 04:00: Iron Level 22L, Total Iron Binding Capacity 58L, Percent Iron Saturation 38, Unsaturated Iron Binding 36L, Free Thyroxine 1.06 04/08/17 05:25: White Blood Count 8.4, Red Blood Count 2.80L, Hemoglobin 8.8L, Hematocrit 25.9L , Mean Corpuscular Volume 92, Mean Corpuscular Hemoglobin 31.4H, Mean Corpuscular Hemoglobin Concent 34.0, Red Cell Distribution Width 13.7, Platelet Count 77#L, Mean Platelet Volume 7.4, Neutrophils (%) (Auto) , Lymphocytes (%) ( Auto) , Monocytes (%) (Auto) , Eosinophils (%) (Auto) , Basophils (%) (Auto) , Differential Total Cells Counted 100, Neutrophils % (Manual) 82H, Lymphocytes % (Manual) 13L, Monocytes % (Manual) 4, Eosinophils % (Manual) 1, Basophils % ( Manual) 0, Band Neutrophils 0, Platelet Estimate DecreasedL, Platelet Morphology Normal, Red Blood Cell Morphology Normal, Reticulocyte Count 0.6, Prothrombin Time 14.7H, Prothromb Time International Ratio 1.4H, Activated Partial Thromboplast Time 35H, Sodium Level 144, Potassium Level 3.6, Chloride Level 111H, Carbon Dioxide Level 28, Anion Gap 5, Blood Urea Nitrogen 14, Creatinine 0.5L, Estimat Glomerular Filtration Rate > 60, Glucose Level 105, Calcium Level 7.7L, Phosphorus Level 2.1L, Magnesium Level 1.3L, Ferritin 414H, Total Bilirubin 0.5, Aspartate Amino Transf (AST/SGOT) 48H, Alanine Aminotransferase (ALT/SGPT) 61, Alkaline Phosphatase 49, Total Protein 4.5L, Albumin 1.4L, Globulin 3.1, Albumin/Globulin Ratio 0.5L, Vitamin B12 Level > 2000H, Folate 5.7L, Thyroid Stimulating Hormone (TSH) 1.683 04/08/17 09:05: Vancomycin Level Trough < 2.0L 04/08/17 09:30: Arterial Blood pH 7.462H, Arterial Blood Partial Pressure CO2 39.6, Arterial Blood Partial Pressure O2 109.9H, Arterial Blood HCO3 27.7H, Arterial Blood Oxygen Saturation 98.4H, Arterial Blood Base Excess 3.6, Jignesh Test Positive Height (Feet): 5 Height (Inches): 0.00 Weight (Pounds): 94 General Appearance: lethargic EENT: normal ENT inspection Neck: normal alignment Cardiovascular: normal peripheral pulses, normal rate, regular rhythm Respiratory/Chest: chest wall non-tender, lungs clear, normal breath sounds Abdomen: normal bowel sounds, non tender, soft Extremities: normal inspection Edema: no edema noted Arm (L), no edema noted Arm (R), no edema noted Leg (L), no edema noted Leg (R), no edema noted Pedal (L), no edema noted Pedal (R), no edema noted Generalized Neurologic: motor weakness Skin: normal pigmentation, warm/dry LACY HERNÁNDEZ Apr 08, 2017 13:25
[2017-04-08] MEDS: Norepinephrine 4mg in D5W 250ml IV SCH (16:00)
--- NOTE | 2017-04-08 18:06 | GI Progress Note ---
Assessment/Plan Problems: (1) On total parenteral nutrition (TPN) ICD Codes: Z78.9 - Other specified health status SNOMED: 59190147, 304018131 (2) Anemia ICD Codes: D64.9 - Anemia, unspecified SNOMED: 967843127 (3) Electrolyte imbalance ICD Codes: E87.8 - Other disorders of electrolyte and fluid balance, not elsewhere classified SNOMED: 306625890 (4) Severe malnutrition ICD Codes: E43 - Unspecified severe protein-calorie malnutrition SNOMED: 82452430 (5) History of colostomy ICD Codes: Z98.890 - Other specified postprocedural states SNOMED: 929944162 (6) Multiorgan failure SNOMED: 00929864 (7) Strangulated ventral incisional hernia ICD Codes: K43.0 - Incisional hernia with obstruction, without gangrene SNOMED: 193466334 Status: unchanged Status Narrative Discussed with Dr. Mejia. Assessment/Plan start TPN tonight fu surgical recs anemia work up >> folate deficiency monitor H&H, prn transfusions ppi electrolyte correction fu labs Subjective Subjective limited Objective Last 24 Hour Vital Signs Date Time Temp Pulse Resp B/P (MAP) Pulse Ox O2 Delivery O2 Flow Rate FiO2 04/08/17 17:00 100 22 117/77 98 Nasal Cannula 3.0 04/08/17 17:00 22 04/08/17 16:38 22 04/08/17 16:00 100 04/08/17 16:00 98.9 98 30 120/72 97 Nasal Cannula 3.0 04/08/17 16:00 120/72 04/08/17 16:00 22 04/08/17 15:00 20 04/08/17 15:00 100 22 117/72 97 Nasal Cannula 3.0 04/08/17 14:00 99 18 111/72 97 Nasal Cannula 3.0 04/08/17 14:00 22 04/08/17 13:00 16 04/08/17 13:00 98.7 100 18 112/62 98 Nasal Cannula 3.0 04/08/17 12:37 16 04/08/17 12:15 99 Nasal Cannula 2.0 28 04/08/17 12:14 Nasal Cannula 2.0 28 04/08/17 12:05 Nasal Cannula 2.0 28 04/08/17 12:00 04/08/17 12:00 19 04/08/17 12:00 96 14 113/64 98 Mechanical Ventilator 28 04/08/17 11:59 95 18 28 04/08/17 11:40 89 04/08/17 11:30 96 16 108/65 98 Mechanical Ventilator 28 04/08/17 11:20 28 04/08/17 11:14 97 20 28 04/08/17 11:00 16 04/08/17 11:00 96 22 106/69 98 Mechanical Ventilator 22 04/08/17 10:30 95 17 108/63 98 Mechanical Ventilator 28 04/08/17 10:00 14 04/08/17 10:00 96 14 111/64 98 Mechanical Ventilator 28 04/08/17 09:30 95 16 107/63 98 Mechanical Ventilator 28 04/08/17 09:13 13 04/08/17 09:05 94 13 28 04/08/17 09:00 16 04/08/17 09:00 95 16 109/66 98 Mechanical Ventilator 28 04/08/17 08:30 96 20 136/77 96 Mechanical Ventilator 28 04/08/17 08:28 81 04/08/17 08:00 18 04/08/17 08:00 98.7 96 18 107/64 98 Mechanical Ventilator 28 04/08/17 08:00 28 04/08/17 07:30 97 20 113/65 97 Mechanical Ventilator 28 04/08/17 07:11 102 23 28 04/08/17 07:00 96 20 136/77 96 Mechanical Ventilator 28 04/08/17 07:00 16 04/08/17 06:00 94 20 121/67 98 Mechanical Ventilator 28 04/08/17 06:00 14 04/08/17 05:20 101 17 28 04/08/17 05:00 94 12 116/68 100 Mechanical Ventilator 28 04/08/17 05:00 11 04/08/17 04:00 98.6 97 19 123/73 99 Mechanical Ventilator 28 04/08/17 04:00 28 04/08/17 04:00 18 04/08/17 04:00 95 04/08/17 03:18 104 15 28 04/08/17 03:00 100 11 112/73 100 Mechanical Ventilator 28 04/08/17 03:00 12 04/08/17 02:00 95 14 122/78 100 Mechanical Ventilator 28 04/08/17 02:00 15 04/08/17 01:28 95 16 28 04/08/17 01:00 14 04/08/17 01:00 94 15 127/76 100 Mechanical Ventilator 28 04/08/17 00:10 15 04/08/17 00:00 93 04/08/17 00:00 28 04/08/17 00:00 98.8 94 12 123/74 100 Mechanical Ventilator 28 04/07/17 23:15 98 17 28 04/07/17 23:00 96 15 130/97 100 Mechanical Ventilator 28 04/07/17 23:00 12 04/07/17 22:00 98.8 94 11 125/77 100 Mechanical Ventilator 28 04/07/17 22:00 13 04/07/17 21:18 103 14 28 04/07/17 21:00 12 04/07/17 21:00 99 14 121/74 100 Mechanical Ventilator 28 04/07/17 20:00 99.1 102 22 118/74 96 Mechanical Ventilator 28 04/07/17 20:00 28 04/07/17 20:00 14 04/07/17 20:00 99 04/07/17 19:16 101 15 28 04/07/17 19:00 100 14 130/79 99 Mechanical Ventilator 28 04/07/17 19:00 14 04/07/17 18:07 15 Intake and Output 04/07/17 04/08/17 19:00 07:00 Intake Total 1749.95 ml 1640.25 ml Output Total 2205 ml 2145 ml Balance -455.05 ml -504.75 ml IV Total 1749.95 ml 1640.25 ml Output Urine Total 1360 ml 1455 ml Gastric Drainage Total 700 ml 550 ml Drainage Total 125 ml 55 ml Other 20 ml 85 ml Laboratory Tests Test 04/08/17 04:00 04/08/17 05:25 04/08/17 09:05 04/08/17 09:30 Iron Level 22 ug/dL (50-175) L Total Iron Binding Capacity 58 ug/dL (250-450) L Percent Iron Saturation 38 % (15-50) Unsaturated Iron Binding 36 ug/dL (112-346) L Free Thyroxine 1.06 NG/DL (0.76-1.46) White Blood Count 8.4 K/UL (4.8-10.8) Red Blood Count 2.80 M/UL (4.20-5.40) L Hemoglobin 8.8 G/DL (12.0-16.0) L Hematocrit 25.9 % (37.0-47.0) L Mean Corpuscular Volume 92 FL (80-99) Mean Corpuscular Hemoglobin 31.4 PG (27.0-31.0) H Mean Corpuscular Hemoglobin Concent 34.0 G/DL (32.0-36.0) Red Cell Distribution Width 13.7 % (11.6-14.8) Platelet Count 77 K/UL (150-450) #L Mean Platelet Volume 7.4 FL (6.5-10.1) Neutrophils (%) (Auto) % (45.0-75.0) Lymphocytes (%) (Auto) % (20.0-45.0) Monocytes (%) (Auto) % (1.0-10.0) Eosinophils (%) (Auto) % (0.0-3.0) Basophils (%) (Auto) % (0.0-2.0) Differential Total Cells Counted 100 Neutrophils % (Manual) 82 % (45-75) H Lymphocytes % (Manual) 13 % (20-45) L Monocytes % (Manual) 4 % (1-10) Eosinophils % (Manual) 1 % (0-3) Basophils % (Manual) 0 % (0-2) Band Neutrophils 0 % (0-8) Platelet Estimate Decreased L Platelet Morphology Normal Red Blood Cell Morphology Normal Reticulocyte Count 0.6 % (0.0-2.0) Prothrombin Time 14.7 SEC (9.30-11.50) H Prothromb Time International Ratio 1.4 (0.9-1.1) H Activated Partial Thromboplast Time 35 SEC (23-33) H Sodium Level 144 MMOL/L (136-145) Potassium Level 3.6 MMOL/L (3.5-5.1) Chloride Level 111 MMOL/L (98-107) H Carbon Dioxide Level 28 MMOL/L (21-32) Anion Gap 5 mmol/L (5-15) Blood Urea Nitrogen 14 mg/dL (7-18) Creatinine 0.5 MG/DL (0.55-1.30) L Estimat Glomerular Filtration Rate > 60 mL/min (>60) Glucose Level 105 MG/DL (74-106) Calcium Level 7.7 MG/DL (8.5-10.1) L Phosphorus Level 2.1 MG/DL (2.5-4.9) L Magnesium Level 1.3 MG/DL (1.8-2.4) L Ferritin 414 NG/ML (8-388) H Total Bilirubin 0.5 MG/DL (0.2-1.0) Aspartate Amino Transf (AST/SGOT) 48 U/L (15-37) H Alanine Aminotransferase (ALT/SGPT) 61 U/L (12-78) Alkaline Phosphatase 49 U/L (46-116) Total Protein 4.5 G/DL (6.4-8.2) L Albumin 1.4 G/DL (3.4-5.0) L Globulin 3.1 g/dL Albumin/Globulin Ratio 0.5 (1.0-2.7) L Vitamin B12 Level > 2000 PG/ML (193-986) H Folate 5.7 NG/ML (8.6-58.9) L Thyroid Stimulating Hormone (TSH) 1.683 uiU/mL (0.358-3.740) Vancomycin Level Trough < 2.0 ug/mL (5.0-12.0) L Arterial Blood pH 7.462 (7.350-7.450) Arterial Blood Partial Pressure CO2 39.6 mmHg (35.0-45.0) Arterial Blood Partial Pressure O2 109.9 mmHg (75.0-100.0) H Arterial Blood HCO3 27.7 mmol/L (22.0-26.0) H Arterial Blood Oxygen Saturation 98.4 % (92.0-98.0) H Arterial Blood Base Excess 3.6 Jignesh Test Positive Height (Feet): 5 Height (Inches): 0.00 Weight (Pounds): 94 General Appearance: no apparent distress Cardiovascular: normal rate Respiratory/Chest: normal breath sounds, no respiratory distress, other - NC Abdominal Exam: normal bowel sounds, non tender, soft, other - TPN Extremities: non-tender Shahana Wang N.Michelle Apr 08, 2017 18:06
[2017-04-08] MEDS ORDERED: FAT EMULSION 20% IV SCH (20:00)
[2017-04-08] MEDS ORDERED: TPN IV SCH (20:00)
[2017-04-08] MEDS ORDERED: Dextrose 10% 1,000 ML IV PRN ×2 (20:00)
[2017-04-08] MEDS: FAT EMULSION 20% IV SCH (20:01)
[2017-04-08] MEDS: TPN IV SCH (20:01)
[2017-04-08] MEDS: Dyna-Hex 2% Top Sol 2oz TOPIC SCH (20:01)
--- NOTE | 2017-04-08 21:58 | Cardiology Progress Note ---
Assessment/Plan Assessment/Plan 1. Sinus tachycardia, most likely due to underlying sepsis. The patient has leukocytosis status post second look laparotomy, s/p ileostomy pouch creation, POD #1. Hemodynamically appears to be stable, Continue with IV hydration and correction of electrolyte derangement. 2D echocardiography reveals normal LV systolic function. 2. Sepsis, leukocytosis, on hydration. 3. Hypernatremia, improving, hypotonic IVF, nephrology follow up. 4. Hypokalemia, resolved, keep K >4.0. 5. Hypomagnesemia, replace with Mg sulfate, keep Mg level >2.5. Subjective Subjective Sinus tachycardia at 100. Extubated on NC. Had second look laparotomy with ileostomy creation POD #1 Objective Last 24 Hour Vital Signs Date Time Temp Pulse Resp B/P (MAP) Pulse Ox O2 Delivery O2 Flow Rate FiO2 04/08/17 21:00 103 21 119/68 99 Nasal Cannula 3.0 04/08/17 20:00 103 04/08/17 20:00 98.5 99 21 120/74 99 Nasal Cannula 3.0 04/08/17 19:00 99 21 118/80 96 Nasal Cannula 3.0 04/08/17 18:00 100 23 118/72 97 Nasal Cannula 3.0 04/08/17 18:00 100 22 118/77 97 Nasal Cannula 3.0 04/08/17 17:00 100 22 117/77 98 Nasal Cannula 3.0 04/08/17 17:00 22 04/08/17 16:38 22 04/08/17 16:00 100 04/08/17 16:00 98.9 98 30 120/72 97 Nasal Cannula 3.0 04/08/17 16:00 120/72 04/08/17 16:00 22 04/08/17 15:00 20 04/08/17 15:00 100 22 117/72 97 Nasal Cannula 3.0 04/08/17 14:00 99 18 111/72 97 Nasal Cannula 3.0 04/08/17 14:00 22 04/08/17 13:00 16 04/08/17 13:00 98.7 100 18 112/62 98 Nasal Cannula 3.0 04/08/17 12:37 16 04/08/17 12:15 99 Nasal Cannula 2.0 28 04/08/17 12:14 Nasal Cannula 2.0 28 04/08/17 12:05 Nasal Cannula 2.0 28 04/08/17 12:00 04/08/17 12:00 19 04/08/17 12:00 96 14 113/64 98 Mechanical Ventilator 28 04/08/17 11:59 95 18 28 04/08/17 11:40 89 04/08/17 11:30 96 16 108/65 98 Mechanical Ventilator 28 04/08/17 11:20 28 04/08/17 11:14 97 20 28 04/08/17 11:00 16 04/08/17 11:00 96 22 106/69 98 Mechanical Ventilator 22 04/08/17 10:30 95 17 108/63 98 Mechanical Ventilator 28 04/08/17 10:00 14 04/08/17 10:00 96 14 111/64 98 Mechanical Ventilator 28 04/08/17 09:30 95 16 107/63 98 Mechanical Ventilator 28 04/08/17 09:13 13 04/08/17 09:05 94 13 28 04/08/17 09:00 16 04/08/17 09:00 95 16 109/66 98 Mechanical Ventilator 28 04/08/17 08:30 96 20 136/77 96 Mechanical Ventilator 28 04/08/17 08:28 81 04/08/17 08:00 18 04/08/17 08:00 98.7 96 18 107/64 98 Mechanical Ventilator 28 04/08/17 08:00 28 04/08/17 07:30 97 20 113/65 97 Mechanical Ventilator 28 04/08/17 07:11 102 23 28 04/08/17 07:00 96 20 136/77 96 Mechanical Ventilator 28 04/08/17 07:00 16 04/08/17 06:00 94 20 121/67 98 Mechanical Ventilator 28 04/08/17 06:00 14 04/08/17 05:20 101 17 28 04/08/17 05:00 94 12 116/68 100 Mechanical Ventilator 28 04/08/17 05:00 11 04/08/17 04:00 98.6 97 19 123/73 99 Mechanical Ventilator 28 04/08/17 04:00 28 04/08/17 04:00 18 04/08/17 04:00 95 04/08/17 03:18 104 15 28 04/08/17 03:00 100 11 112/73 100 Mechanical Ventilator 28 04/08/17 03:00 12 04/08/17 02:00 95 14 122/78 100 Mechanical Ventilator 28 04/08/17 02:00 15 04/08/17 01:28 95 16 28 04/08/17 01:00 14 04/08/17 01:00 94 15 127/76 100 Mechanical Ventilator 28 04/08/17 00:10 15 04/08/17 00:00 93 04/08/17 00:00 28 04/08/17 00:00 98.8 94 12 123/74 100 Mechanical Ventilator 28 04/07/17 23:15 98 17 28 04/07/17 23:00 96 15 130/97 100 Mechanical Ventilator 28 04/07/17 23:00 12 04/07/17 22:00 98.8 94 11 125/77 100 Mechanical Ventilator 28 04/07/17 22:00 13 Intake and Output 04/07/17 04/08/17 19:00 07:00 Intake Total 1749.95 ml 1640.25 ml Output Total 2205 ml 2145 ml Balance -455.05 ml -504.75 ml IV Total 1749.95 ml 1640.25 ml Output Urine Total 1360 ml 1455 ml Gastric Drainage Total 700 ml 550 ml Drainage Total 125 ml 55 ml Other 20 ml 85 ml 2D Echo: LVEF 60%, Mod MR, Grade I LVDD Laboratory Tests Test 04/08/17 04:00 04/08/17 05:25 04/08/17 09:05 04/08/17 09:30 Iron Level 22 ug/dL (50-175) L Total Iron Binding Capacity 58 ug/dL (250-450) L Percent Iron Saturation 38 % (15-50) Unsaturated Iron Binding 36 ug/dL (112-346) L Free Thyroxine 1.06 NG/DL (0.76-1.46) White Blood Count 8.4 K/UL (4.8-10.8) Red Blood Count 2.80 M/UL (4.20-5.40) L Hemoglobin 8.8 G/DL (12.0-16.0) L Hematocrit 25.9 % (37.0-47.0) L Mean Corpuscular Volume 92 FL (80-99) Mean Corpuscular Hemoglobin 31.4 PG (27.0-31.0) H Mean Corpuscular Hemoglobin Concent 34.0 G/DL (32.0-36.0) Red Cell Distribution Width 13.7 % (11.6-14.8) Platelet Count 77 K/UL (150-450) #L Mean Platelet Volume 7.4 FL (6.5-10.1) Neutrophils (%) (Auto) % (45.0-75.0) Lymphocytes (%) (Auto) % (20.0-45.0) Monocytes (%) (Auto) % (1.0-10.0) Eosinophils (%) (Auto) % (0.0-3.0) Basophils (%) (Auto) % (0.0-2.0) Differential Total Cells Counted 100 Neutrophils % (Manual) 82 % (45-75) H Lymphocytes % (Manual) 13 % (20-45) L Monocytes % (Manual) 4 % (1-10) Eosinophils % (Manual) 1 % (0-3) Basophils % (Manual) 0 % (0-2) Band Neutrophils 0 % (0-8) Platelet Estimate Decreased L Platelet Morphology Normal Red Blood Cell Morphology Normal Reticulocyte Count 0.6 % (0.0-2.0) Prothrombin Time 14.7 SEC (9.30-11.50) H Prothromb Time International Ratio 1.4 (0.9-1.1) H Activated Partial Thromboplast Time 35 SEC (23-33) H Sodium Level 144 MMOL/L (136-145) Potassium Level 3.6 MMOL/L (3.5-5.1) Chloride Level 111 MMOL/L (98-107) H Carbon Dioxide Level 28 MMOL/L (21-32) Anion Gap 5 mmol/L (5-15) Blood Urea Nitrogen 14 mg/dL (7-18) Creatinine 0.5 MG/DL (0.55-1.30) L Estimat Glomerular Filtration Rate > 60 mL/min (>60) Glucose Level 105 MG/DL (74-106) Calcium Level 7.7 MG/DL (8.5-10.1) L Phosphorus Level 2.1 MG/DL (2.5-4.9) L Magnesium Level 1.3 MG/DL (1.8-2.4) L Ferritin 414 NG/ML (8-388) H Total Bilirubin 0.5 MG/DL (0.2-1.0) Aspartate Amino Transf (AST/SGOT) 48 U/L (15-37) H Alanine Aminotransferase (ALT/SGPT) 61 U/L (12-78) Alkaline Phosphatase 49 U/L (46-116) Total Protein 4.5 G/DL (6.4-8.2) L Albumin 1.4 G/DL (3.4-5.0) L Globulin 3.1 g/dL Albumin/Globulin Ratio 0.5 (1.0-2.7) L Vitamin B12 Level > 2000 PG/ML (193-986) H Folate 5.7 NG/ML (8.6-58.9) L Thyroid Stimulating Hormone (TSH) 1.683 uiU/mL (0.358-3.740) Vancomycin Level Trough < 2.0 ug/mL (5.0-12.0) L Arterial Blood pH 7.462 (7.350-7.450) Arterial Blood Partial Pressure CO2 39.6 mmHg (35.0-45.0) Arterial Blood Partial Pressure O2 109.9 mmHg (75.0-100.0) H Arterial Blood HCO3 27.7 mmol/L (22.0-26.0) H Arterial Blood Oxygen Saturation 98.4 % (92.0-98.0) H Arterial Blood Base Excess 3.6 Jignesh Test Positive Objective HEENT: Atraumatic and normocephalic. Anicteric. Pupils are equal, round and reactive to light and accommodation. Intubated and attached to the ventilator. NECK: JVP cannot be assessed as the patient is intubated. CARDIOVASCULAR: Normal S1 and S2. Regular rate and rhythm. Do not appreciate any murmurs, gallops, or rubs. LUNGS: Diminished breath sounds at both bases. ABDOMEN: Distended. Diminished bowel sounds. Slightly tender at the site of surgery. EXTREMITIES: No evidence of edema, clubbing, or cyanosis. JUWAN ULLOA Apr 08, 2017 21:58
[2017-04-09] VITALS (24 sets, daily range): BP systolic 111–144; BP diastolic 42–90
[2017-04-09] MEDS: NovoLOG Insulin Flexpen SUBQ SCH ×4 (00:22→17:47)
[2017-04-09] MEDS: Piperacillin/Tazobactam 3.375 GM in D5W 55 ML IVPB SCH ×3 (04:08→20:16)
[2017-04-09 07:17] LABS: BASOPHILS % (AUTO) 0.2 % (0.0-2.0); EOSINOPHILS % (AUTO) 1.4 % (0.0-3.0); HEMATOCRIT 26.2 % (37.0-47.0); HEMOGLOBIN 8.8 G/DL (12.0-16.0); LYMPHOCYTES % (AUTO) 15.1 % (20.0-45.0); MEAN CORPUSCULAR VOLUME 93 FL (80-99); MONOCYTES % (AUTO) 2.5 % (1.0-10.0); NEUTROPHILS % (AUTO) 80.8 % (45.0-75.0); PLATELET COUNT 108 K/UL (150-450); RED BLOOD COUNT 2.83 M/UL (4.20-5.40); RED CELL DISTRIBUTION WIDTH 13.2 % (11.6-14.8); WHITE BLOOD COUNT 6.7 K/UL (4.8-10.8)
[2017-04-09 07:22] LABS: ALANINE AMINOTRANSFERASE 40 U/L (12-78); ALBUMIN 1.3 G/DL (3.4-5.0); ALBUMIN/GLOBULIN RATIO 0.4 (1.0-2.7); ALKALINE PHOSPHATASE 43 U/L (46-116); ANION GAP 5 mmol/L (5-15); ASPARTATE AMINO TRANSFERASE 28 U/L (15-37); BILIRUBIN,TOTAL 0.5 MG/DL (0.2-1.0); BLOOD UREA NITROGEN 16 mg/dL (7-18); CALCIUM 7.7 MG/DL (8.5-10.1); CARBON DIOXIDE 29 MMOL/L (21-32); CHLORIDE 108 MMOL/L (98-107); CREATININE 0.6 MG/DL (0.55-1.30); PHOSPHORUS 1.9 MG/DL (2.5-4.9); POTASSIUM 2.9 MMOL/L (3.5-5.1); SODIUM 142 MMOL/L (136-145)
[2017-04-09] MEDS: Pantoprazole Inj IV SCH (08:51)
--- NOTE | 2017-04-09 09:36 | Infectious Diseases Prog Note ---
Assessment/Plan Assessment/Plan A: Sepsis Peritonitis Strangulated hernia Small bowel necrosis Respiratory failure resolved Anemia s/p laparotomy X 2 Short bowel syndrome P: Continue Zosyn , discontinue Flagyl Subjective ROS Limited/Unobtainable: Yes Respiratory: Reports: other - extubated yrsterday Neurologic: Reports: confusion, other - on restraint Allergies: Coded Allergies: TRAZODONE (Verified Allergy, Unknown, 04/04/17) Objective Vital Signs Last 24 Hour Vital Signs Date Time Temp Pulse Resp B/P (MAP) Pulse Ox O2 Delivery O2 Flow Rate FiO2 04/09/17 08:00 99.2 102 22 120/87 100 Nasal Cannula 3.0 04/09/17 07:56 Nasal Cannula 2.0 04/09/17 07:56 100 Nasal Cannula 2.0 04/09/17 07:00 102 22 125/77 100 Nasal Cannula 3.0 04/09/17 06:00 102 21 125/78 100 Nasal Cannula 3.0 04/09/17 05:00 104 21 126/78 96 Nasal Cannula 3.0 04/09/17 04:00 98.8 103 26 128/86 93 Nasal Cannula 3.0 04/09/17 04:00 104 04/09/17 03:00 106 28 125/79 97 Nasal Cannula 3.0 04/09/17 02:00 108 22 120/81 96 Nasal Cannula 3.0 04/09/17 01:00 113 22 124/78 95 Nasal Cannula 3.0 04/09/17 00:00 98.7 110 22 129/76 93 Nasal Cannula 3.0 04/09/17 00:00 112 04/08/17 23:00 110 24 122/81 96 Nasal Cannula 3.0 04/08/17 22:00 108 21 124/72 96 Nasal Cannula 3.0 04/08/17 21:00 103 21 119/68 99 Nasal Cannula 3.0 04/08/17 20:00 103 04/08/17 20:00 98.5 99 21 120/74 99 Nasal Cannula 3.0 04/08/17 19:30 96 Nasal Cannula 2.0 28 04/08/17 19:30 Nasal Cannula 2.0 28 04/08/17 19:00 99 21 118/80 96 Nasal Cannula 3.0 04/08/17 18:00 100 23 118/72 97 Nasal Cannula 3.0 04/08/17 18:00 100 22 118/77 97 Nasal Cannula 3.0 04/08/17 17:00 100 22 117/77 98 Nasal Cannula 3.0 04/08/17 17:00 22 04/08/17 16:38 22 04/08/17 16:00 100 04/08/17 16:00 98.9 98 30 120/72 97 Nasal Cannula 3.0 04/08/17 16:00 120/72 04/08/17 16:00 22 04/08/17 15:00 20 04/08/17 15:00 100 22 117/72 97 Nasal Cannula 3.0 04/08/17 14:00 99 18 111/72 97 Nasal Cannula 3.0 04/08/17 14:00 22 04/08/17 13:00 16 04/08/17 13:00 98.7 100 18 112/62 98 Nasal Cannula 3.0 04/08/17 12:37 16 04/08/17 12:15 99 Nasal Cannula 2.0 28 04/08/17 12:14 Nasal Cannula 2.0 28 04/08/17 12:05 Nasal Cannula 2.0 28 04/08/17 12:00 04/08/17 12:00 19 04/08/17 12:00 96 14 113/64 98 Mechanical Ventilator 28 04/08/17 11:59 95 18 28 04/08/17 11:40 89 04/08/17 11:30 96 16 108/65 98 Mechanical Ventilator 28 04/08/17 11:20 28 04/08/17 11:14 97 20 28 04/08/17 11:00 16 04/08/17 11:00 96 22 106/69 98 Mechanical Ventilator 22 04/08/17 10:30 95 17 108/63 98 Mechanical Ventilator 28 04/08/17 10:00 14 04/08/17 10:00 96 14 111/64 98 Mechanical Ventilator 28 Height (Feet): 5 Height (Inches): 0.00 Weight (Pounds): 96 General Appearance: no acute distress HEENT: mucous membranes moist Respiratory/Chest: lungs clear, other - O2 by cannula Cardiovascular: normal rate, other - left subclavian line Abdomen: other - s/p osteotomy Extremities: no edema Neurologic/Psychiatric: alert, responsive, disoriented Laboratory Tests Test 04/09/17 06:15 White Blood Count 6.7 K/UL (4.8-10.8) Red Blood Count 2.83 M/UL (4.20-5.40) L Hemoglobin 8.8 G/DL (12.0-16.0) L Hematocrit 26.2 % (37.0-47.0) L Mean Corpuscular Volume 93 FL (80-99) Mean Corpuscular Hemoglobin 31.3 PG (27.0-31.0) H Mean Corpuscular Hemoglobin Concent 33.8 G/DL (32.0-36.0) Red Cell Distribution Width 13.2 % (11.6-14.8) Platelet Count 108 K/UL (150-450) L Mean Platelet Volume 6.3 FL (6.5-10.1) L Neutrophils (%) (Auto) 80.8 % (45.0-75.0) H Lymphocytes (%) (Auto) 15.1 % (20.0-45.0) L Monocytes (%) (Auto) 2.5 % (1.0-10.0) Eosinophils (%) (Auto) 1.4 % (0.0-3.0) Basophils (%) (Auto) 0.2 % (0.0-2.0) Sodium Level 142 MMOL/L (136-145) Potassium Level 2.9 MMOL/L (3.5-5.1) L Chloride Level 108 MMOL/L (98-107) H Carbon Dioxide Level 29 MMOL/L (21-32) Anion Gap 5 mmol/L (5-15) Blood Urea Nitrogen 16 mg/dL (7-18) Creatinine 0.6 MG/DL (0.55-1.30) Estimat Glomerular Filtration Rate > 60 mL/min (>60) Glucose Level 152 MG/DL (74-106) H Calcium Level 7.7 MG/DL (8.5-10.1) L Phosphorus Level 1.9 MG/DL (2.5-4.9) L Magnesium Level 1.2 MG/DL (1.8-2.4) L Total Bilirubin 0.5 MG/DL (0.2-1.0) Aspartate Amino Transf (AST/SGOT) 28 U/L (15-37) Alanine Aminotransferase (ALT/SGPT) 40 U/L (12-78) Alkaline Phosphatase 43 U/L (46-116) L Total Protein 4.8 G/DL (6.4-8.2) L Albumin 1.3 G/DL (3.4-5.0) L Globulin 3.5 g/dL Albumin/Globulin Ratio 0.4 (1.0-2.7) L Current Medications Medications (Trade) Dose Ordered Sig/Nicole Route PRN Reason Start Time Stop Time Status Last Admin Dose Admin Acetaminophen (Tylenol) 650 mg Q4H PRN RECTAL FEVER 04/04/17 06:00 05/04/17 05:59 04/04/17 20:14 Chlorhexidine Gluconate (Collette-Hex 2%) 1 applic DAILY@2000 TOPIC 04/05/17 20:00 05/05/17 19:59 04/08/17 20:01 Dextrose 1,000 ml @ 0 mls/hr Q24H PRN IV PN interrupted or unavailable 04/08/17 20:00 05/08/17 19:59 Dextrose (Dextrose 50%) STAT PRN IV Hypoglycemia 04/04/17 06:00 05/04/17 05:59 Diphenhydramine HCl (Benadryl) 12.5 mg Q6H PRN IVP Itching/Pruritis 04/04/17 06:00 05/04/17 05:59 Fat Emulsion Intravenous 216 ml/Amino Acids/ Electrolytes/ Dextrose 1,536 ml @ 64 mls/hr Q24H IV 04/08/17 20:00 05/08/17 19:59 04/08/17 20:01 Fentanyl Citrate 2500 mcg/Sodium Chloride 250 ml @ 0 mls/hr Q24H IV 04/04/17 10:45 04/11/17 06:59 04/08/17 09:13 Hydromorphone HCl (Dilaudid) 0.5 mg Q3H PRN IVP Pain Score 1-3 04/04/17 06:00 04/11/17 05:59 04/04/17 08:42 Hydromorphone HCl (Dilaudid) 1 mg Q3H PRN IVP pain score 4-6 04/04/17 06:00 04/11/17 05:59 Hydromorphone HCl (Dilaudid) 2 mg Q3H PRN IVP pain score 7-10 04/04/17 06:00 04/11/17 05:59 04/05/17 23:47 Insulin Aspart (NovoLOG) Q6HR SUBQ 04/04/17 06:00 05/04/17 05:59 04/09/17 05:39 Lorazepam (Ativan 2mg/ml 1ml) 0.5 mg Q4H PRN IV For Anxiety 04/04/17 06:00 04/11/17 05:59 04/06/17 22:02 Metronidazole 100 ml @ 100 mls/hr Q6HR IV 04/04/17 06:00 04/11/17 05:59 04/09/17 05:39 Midazolam HCl 100 ml @ 0 mls/hr Q24H PRN IVPB titrate per protocol 04/04/17 09:30 04/11/17 09:29 Norepinephrine Bitartrate 4 mg/ Dextrose 250 ml @ 0 mls/hr Q24H IV 04/05/17 16:00 05/05/17 15:59 04/05/17 19:56 Ondansetron HCl (Zofran) 4 mg Q6H PRN IVP Nausea & Vomiting 04/04/17 06:00 05/04/17 05:59 Pantoprazole (Protonix) 40 mg DAILY IV 04/04/17 09:00 05/04/17 08:59 04/09/17 08:51 Piperacillin Sod/ Tazobactam Sod 3.375 gm/Dextrose 55 ml @ 13.75 mls/ hr Q8HR@0400,1200,2000 IVPB 04/05/17 12:00 04/12/17 11:59 04/09/17 04:08 MIO LOMAX Apr 09, 2017 09:36
--- NOTE | 2017-04-09 10:05 | General Progress Note ---
Progress Note Progress Note Surgery: extubated and holding well. breathing comfortable. awake, alert, talkative today. responds to commands and says thank you. no n/v/f/c. afebrile, HD stable, no leukocytosis, plt improved. abdomen soft, incisional tenderness, ostomy pink and viable with bilious output. 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 recovering -TPN -okay to trail PO Diet -ostomy care -dressings BID for midline and prior ostomy wound -ambulate and OOB -trend labs -replace electrolytes Brandt Auguste Apr 09, 2017 10:05
[2017-04-09] MEDS: fentaNYL Citrate 2,500 MCG in NS 200 ML IV SCH (10:45)
[2017-04-09] MEDS: Magnesium Sulfate 1gm/100ml IVPB SCH ×2 (10:53→12:07)
--- NOTE | 2017-04-09 11:31 | Diagnostic Imaging Report ---
Indication: Dyspnea Comparison: 04/08/2017 A single view chest radiograph was obtained. Findings: Extubation noted. Other tubes and lines are stable. Right pleural effusion is suspected. Mild interstitial edema is likely present. Heart size is probably stable. IMPRESSION: Mild interstitial edema. Development of right pleural effusion. Postextubation
--- NOTE | 2017-04-09 11:48 | Pulmonolgy Critical Care Note ---
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: consultants Critical Care - Objective Last 24 Hour Vital Signs Date Time Temp Pulse Resp B/P (MAP) Pulse Ox O2 Delivery O2 Flow Rate FiO2 04/09/17 11:00 95 26 120/67 99 Nasal Cannula 3.0 04/09/17 10:00 102 26 118/73 100 Nasal Cannula 3.0 04/09/17 09:00 103 25 126/78 100 Nasal Cannula 3.0 04/09/17 08:00 99.2 102 22 120/87 100 Nasal Cannula 3.0 04/09/17 07:56 Nasal Cannula 2.0 04/09/17 07:56 100 Nasal Cannula 2.0 04/09/17 07:35 104 04/09/17 07:00 102 22 125/77 100 Nasal Cannula 3.0 04/09/17 06:00 102 21 125/78 100 Nasal Cannula 3.0 04/09/17 05:00 104 21 126/78 96 Nasal Cannula 3.0 04/09/17 04:00 98.8 103 26 128/86 93 Nasal Cannula 3.0 04/09/17 04:00 104 04/09/17 03:00 106 28 125/79 97 Nasal Cannula 3.0 04/09/17 02:00 108 22 120/81 96 Nasal Cannula 3.0 04/09/17 01:00 113 22 124/78 95 Nasal Cannula 3.0 04/09/17 00:00 98.7 110 22 129/76 93 Nasal Cannula 3.0 04/09/17 00:00 112 04/08/17 23:00 110 24 122/81 96 Nasal Cannula 3.0 04/08/17 22:00 108 21 124/72 96 Nasal Cannula 3.0 04/08/17 21:00 103 21 119/68 99 Nasal Cannula 3.0 04/08/17 20:00 103 04/08/17 20:00 98.5 99 21 120/74 99 Nasal Cannula 3.0 04/08/17 19:30 96 Nasal Cannula 2.0 28 04/08/17 19:30 Nasal Cannula 2.0 28 04/08/17 19:00 99 21 118/80 96 Nasal Cannula 3.0 04/08/17 18:00 100 23 118/72 97 Nasal Cannula 3.0 04/08/17 18:00 100 22 118/77 97 Nasal Cannula 3.0 04/08/17 17:00 100 22 117/77 98 Nasal Cannula 3.0 04/08/17 17:00 22 04/08/17 16:38 22 04/08/17 16:00 100 04/08/17 16:00 98.9 98 30 120/72 97 Nasal Cannula 3.0 04/08/17 16:00 120/72 04/08/17 16:00 22 04/08/17 15:00 20 04/08/17 15:00 100 22 117/72 97 Nasal Cannula 3.0 04/08/17 14:00 99 18 111/72 97 Nasal Cannula 3.0 04/08/17 14:00 22 04/08/17 13:00 16 04/08/17 13:00 98.7 100 18 112/62 98 Nasal Cannula 3.0 04/08/17 12:37 16 04/08/17 12:15 99 Nasal Cannula 2.0 28 04/08/17 12:14 Nasal Cannula 2.0 28 04/08/17 12:05 Nasal Cannula 2.0 28 04/08/17 12:00 04/08/17 12:00 19 04/08/17 12:00 96 14 113/64 98 Mechanical Ventilator 28 04/08/17 11:59 95 18 28 Status: awake Condition: grave HEENT: atraumatic Lungs: clear Heart: HR/BP stable, HR/BP unstable Abdomen: soft, non-tender, active bowel sounds, feeding tube Extremities: no C/C/E Accucheck: 155 Critical Care - Subjective ROS Limited/Unobtainable: No ICU Day: 5 FI02: 28 Vent Support Breath Rate: 12 Vent Support Mode: CPAP Vent Tidal Volume: 450 Sputum Amount: Small PIP: 17 Fluids: tpn I&O: Intake and Output 04/08/17 04/09/17 19:00 07:00 Intake Total 1776.95 ml 1100.25 ml Output Total 2065 ml 3382 ml Balance -288.05 ml -2281.75 ml IV Total 1776.95 ml 1100.25 ml Output Urine Total 1550 ml 1835 ml Gastric Drainage Total 400 ml 430 ml Drainage Total 15 ml 47 ml Other 100 ml 1070 ml CXR: RLL atelectasis ET-Tube: 7.0 ET Position: 22 Labs: Laboratory Tests Test 04/09/17 06:15 White Blood Count 6.7 K/UL (4.8-10.8) Red Blood Count 2.83 M/UL (4.20-5.40) L Hemoglobin 8.8 G/DL (12.0-16.0) L Hematocrit 26.2 % (37.0-47.0) L Mean Corpuscular Volume 93 FL (80-99) Mean Corpuscular Hemoglobin 31.3 PG (27.0-31.0) H Mean Corpuscular Hemoglobin Concent 33.8 G/DL (32.0-36.0) Red Cell Distribution Width 13.2 % (11.6-14.8) Platelet Count 108 K/UL (150-450) L Mean Platelet Volume 6.3 FL (6.5-10.1) L Neutrophils (%) (Auto) 80.8 % (45.0-75.0) H Lymphocytes (%) (Auto) 15.1 % (20.0-45.0) L Monocytes (%) (Auto) 2.5 % (1.0-10.0) Eosinophils (%) (Auto) 1.4 % (0.0-3.0) Basophils (%) (Auto) 0.2 % (0.0-2.0) Sodium Level 142 MMOL/L (136-145) Potassium Level 2.9 MMOL/L (3.5-5.1) L Chloride Level 108 MMOL/L (98-107) H Carbon Dioxide Level 29 MMOL/L (21-32) Anion Gap 5 mmol/L (5-15) Blood Urea Nitrogen 16 mg/dL (7-18) Creatinine 0.6 MG/DL (0.55-1.30) Estimat Glomerular Filtration Rate > 60 mL/min (>60) Glucose Level 152 MG/DL (74-106) H Calcium Level 7.7 MG/DL (8.5-10.1) L Phosphorus Level 1.9 MG/DL (2.5-4.9) L Magnesium Level 1.2 MG/DL (1.8-2.4) L Total Bilirubin 0.5 MG/DL (0.2-1.0) Aspartate Amino Transf (AST/SGOT) 28 U/L (15-37) Alanine Aminotransferase (ALT/SGPT) 40 U/L (12-78) Alkaline Phosphatase 43 U/L (46-116) L Total Protein 4.8 G/DL (6.4-8.2) L Albumin 1.3 G/DL (3.4-5.0) L Globulin 3.5 g/dL Albumin/Globulin Ratio 0.4 (1.0-2.7) L YAYO CELIS Apr 09, 2017 11:48
[2017-04-09] MEDS ORDERED: Sodium Phosphate 30 MM in NS 275 ML IV ONE (12:45)
--- NOTE | 2017-04-09 12:58 | GI Progress Note ---
Assessment/Plan Problems: (1) On total parenteral nutrition (TPN) ICD Codes: Z78.9 - Other specified health status SNOMED: 39317327, 792238634 (2) Anemia ICD Codes: D64.9 - Anemia, unspecified SNOMED: 563468090 (3) Electrolyte imbalance ICD Codes: E87.8 - Other disorders of electrolyte and fluid balance, not elsewhere classified SNOMED: 211057125 (4) Severe malnutrition ICD Codes: E43 - Unspecified severe protein-calorie malnutrition SNOMED: 65347101 (5) History of colostomy ICD Codes: Z98.890 - Other specified postprocedural states SNOMED: 991607818 (6) Multiorgan failure SNOMED: 95239800 (7) Strangulated ventral incisional hernia ICD Codes: K43.0 - Incisional hernia with obstruction, without gangrene SNOMED: 347837077 Status: progressing Status Narrative Discussed with Dr. Mejia. Assessment/Plan fu surgical recs TPN tonight, may dc tomorrow if patient tolerates PO trial with ST today. CLD, adv as tolerated clamp NGT. anemia work up >> folate deficiency monitor H&H, prn transfusions ppi electrolyte correction fu labs Subjective Subjective limited Objective Last 24 Hour Vital Signs Date Time Temp Pulse Resp B/P (MAP) Pulse Ox O2 Delivery O2 Flow Rate FiO2 04/09/17 12:00 97.8 103 26 122/75 100 Nasal Cannula 3.0 04/09/17 11:00 95 26 120/67 99 Nasal Cannula 3.0 04/09/17 10:00 102 26 118/73 100 Nasal Cannula 3.0 04/09/17 09:00 103 25 126/78 100 Nasal Cannula 3.0 04/09/17 08:00 99.2 102 22 120/87 100 Nasal Cannula 3.0 04/09/17 07:56 Nasal Cannula 2.0 04/09/17 07:56 100 Nasal Cannula 2.0 04/09/17 07:35 104 04/09/17 07:00 102 22 125/77 100 Nasal Cannula 3.0 04/09/17 06:00 102 21 125/78 100 Nasal Cannula 3.0 04/09/17 05:00 104 21 126/78 96 Nasal Cannula 3.0 04/09/17 04:00 98.8 103 26 128/86 93 Nasal Cannula 3.0 04/09/17 04:00 104 04/09/17 03:00 106 28 125/79 97 Nasal Cannula 3.0 04/09/17 02:00 108 22 120/81 96 Nasal Cannula 3.0 04/09/17 01:00 113 22 124/78 95 Nasal Cannula 3.0 04/09/17 00:00 98.7 110 22 129/76 93 Nasal Cannula 3.0 04/09/17 00:00 112 04/08/17 23:00 110 24 122/81 96 Nasal Cannula 3.0 04/08/17 22:00 108 21 124/72 96 Nasal Cannula 3.0 04/08/17 21:00 103 21 119/68 99 Nasal Cannula 3.0 04/08/17 20:00 103 04/08/17 20:00 98.5 99 21 120/74 99 Nasal Cannula 3.0 04/08/17 19:30 96 Nasal Cannula 2.0 28 04/08/17 19:30 Nasal Cannula 2.0 28 04/08/17 19:00 99 21 118/80 96 Nasal Cannula 3.0 04/08/17 18:00 100 23 118/72 97 Nasal Cannula 3.0 04/08/17 18:00 100 22 118/77 97 Nasal Cannula 3.0 04/08/17 17:00 100 22 117/77 98 Nasal Cannula 3.0 04/08/17 17:00 22 04/08/17 16:38 22 04/08/17 16:00 100 04/08/17 16:00 98.9 98 30 120/72 97 Nasal Cannula 3.0 04/08/17 16:00 120/72 04/08/17 16:00 22 04/08/17 15:00 20 04/08/17 15:00 100 22 117/72 97 Nasal Cannula 3.0 04/08/17 14:00 99 18 111/72 97 Nasal Cannula 3.0 04/08/17 14:00 22 04/08/17 13:00 16 04/08/17 13:00 98.7 100 18 112/62 98 Nasal Cannula 3.0 Intake and Output 04/08/17 04/09/17 19:00 07:00 Intake Total 1776.95 ml 1100.25 ml Output Total 2065 ml 3382 ml Balance -288.05 ml -2281.75 ml IV Total 1776.95 ml 1100.25 ml Output Urine Total 1550 ml 1835 ml Gastric Drainage Total 400 ml 430 ml Drainage Total 15 ml 47 ml Other 100 ml 1070 ml Laboratory Tests Test 04/09/17 06:15 White Blood Count 6.7 K/UL (4.8-10.8) Red Blood Count 2.83 M/UL (4.20-5.40) L Hemoglobin 8.8 G/DL (12.0-16.0) L Hematocrit 26.2 % (37.0-47.0) L Mean Corpuscular Volume 93 FL (80-99) Mean Corpuscular Hemoglobin 31.3 PG (27.0-31.0) H Mean Corpuscular Hemoglobin Concent 33.8 G/DL (32.0-36.0) Red Cell Distribution Width 13.2 % (11.6-14.8) Platelet Count 108 K/UL (150-450) L Mean Platelet Volume 6.3 FL (6.5-10.1) L Neutrophils (%) (Auto) 80.8 % (45.0-75.0) H Lymphocytes (%) (Auto) 15.1 % (20.0-45.0) L Monocytes (%) (Auto) 2.5 % (1.0-10.0) Eosinophils (%) (Auto) 1.4 % (0.0-3.0) Basophils (%) (Auto) 0.2 % (0.0-2.0) Sodium Level 142 MMOL/L (136-145) Potassium Level 2.9 MMOL/L (3.5-5.1) L Chloride Level 108 MMOL/L (98-107) H Carbon Dioxide Level 29 MMOL/L (21-32) Anion Gap 5 mmol/L (5-15) Blood Urea Nitrogen 16 mg/dL (7-18) Creatinine 0.6 MG/DL (0.55-1.30) Estimat Glomerular Filtration Rate > 60 mL/min (>60) Glucose Level 152 MG/DL (74-106) H Calcium Level 7.7 MG/DL (8.5-10.1) L Phosphorus Level 1.9 MG/DL (2.5-4.9) L Magnesium Level 1.2 MG/DL (1.8-2.4) L Total Bilirubin 0.5 MG/DL (0.2-1.0) Aspartate Amino Transf (AST/SGOT) 28 U/L (15-37) Alanine Aminotransferase (ALT/SGPT) 40 U/L (12-78) Alkaline Phosphatase 43 U/L (46-116) L Total Protein 4.8 G/DL (6.4-8.2) L Albumin 1.3 G/DL (3.4-5.0) L Globulin 3.5 g/dL Albumin/Globulin Ratio 0.4 (1.0-2.7) L Height (Feet): 5 Height (Inches): 0.00 Weight (Pounds): 96 General Appearance: WD/WN, no apparent distress, alert Cardiovascular: normal rate Respiratory/Chest: normal breath sounds, no respiratory distress Abdominal Exam: normal bowel sounds, non tender, soft, other - NGT Extremities: non-tender Shahana Wang N.P. Apr 09, 2017 12:58
[2017-04-09] MEDS ORDERED: Potassium Phosphate 30 MM in NS 275ml IV ONE (13:00)
--- NOTE | 2017-04-09 13:35 | Nephrology Progress Note ---
Assessment/Plan Assessment 1. Hypernatremia resolved 2. Hypokalemia. 3. Acute renal failure or dehydration. 4. Malnutrition. 5. Hypocalcemia. 6. Hypomagnesemia. Plan to continue 03/27 ns with kcl nutritional support if no feeding TPN replace phos monitoring out put monitoring renal function Subjective Constitutional: Reports: no symptoms HEENT: Reports: no symptoms Genitourinary: Reports: no symptoms Neurologic/Psychiatric: Reports: no symptoms Subjective intubated open her eyes with verbal stimuli Objective Objective Last 24 Hour Vital Signs Date Time Temp Pulse Resp B/P (MAP) Pulse Ox O2 Delivery O2 Flow Rate FiO2 04/09/17 12:00 97.8 103 26 122/75 100 Nasal Cannula 3.0 04/09/17 11:00 95 26 120/67 99 Nasal Cannula 3.0 04/09/17 10:00 102 26 118/73 100 Nasal Cannula 3.0 04/09/17 09:00 103 25 126/78 100 Nasal Cannula 3.0 04/09/17 08:00 99.2 102 22 120/87 100 Nasal Cannula 3.0 04/09/17 07:56 Nasal Cannula 2.0 04/09/17 07:56 100 Nasal Cannula 2.0 04/09/17 07:35 104 04/09/17 07:00 102 22 125/77 100 Nasal Cannula 3.0 04/09/17 06:00 102 21 125/78 100 Nasal Cannula 3.0 04/09/17 05:00 104 21 126/78 96 Nasal Cannula 3.0 04/09/17 04:00 98.8 103 26 128/86 93 Nasal Cannula 3.0 04/09/17 04:00 104 04/09/17 03:00 106 28 125/79 97 Nasal Cannula 3.0 04/09/17 02:00 108 22 120/81 96 Nasal Cannula 3.0 04/09/17 01:00 113 22 124/78 95 Nasal Cannula 3.0 04/09/17 00:00 98.7 110 22 129/76 93 Nasal Cannula 3.0 04/09/17 00:00 112 04/08/17 23:00 110 24 122/81 96 Nasal Cannula 3.0 04/08/17 22:00 108 21 124/72 96 Nasal Cannula 3.0 04/08/17 21:00 103 21 119/68 99 Nasal Cannula 3.0 04/08/17 20:00 103 04/08/17 20:00 98.5 99 21 120/74 99 Nasal Cannula 3.0 04/08/17 19:30 96 Nasal Cannula 2.0 28 04/08/17 19:30 Nasal Cannula 2.0 28 04/08/17 19:00 99 21 118/80 96 Nasal Cannula 3.0 04/08/17 18:00 100 23 118/72 97 Nasal Cannula 3.0 04/08/17 18:00 100 22 118/77 97 Nasal Cannula 3.0 04/08/17 17:00 100 22 117/77 98 Nasal Cannula 3.0 04/08/17 17:00 22 04/08/17 16:38 22 04/08/17 16:00 100 04/08/17 16:00 98.9 98 30 120/72 97 Nasal Cannula 3.0 04/08/17 16:00 120/72 04/08/17 16:00 22 04/08/17 15:00 20 04/08/17 15:00 100 22 117/72 97 Nasal Cannula 3.0 04/08/17 14:00 99 18 111/72 97 Nasal Cannula 3.0 04/08/17 14:00 22 Intake and Output 04/08/17 04/09/17 19:00 07:00 Intake Total 1776.95 ml 1100.25 ml Output Total 2065 ml 3382 ml Balance -288.05 ml -2281.75 ml IV Total 1776.95 ml 1100.25 ml Output Urine Total 1550 ml 1835 ml Gastric Drainage Total 400 ml 430 ml Drainage Total 15 ml 47 ml Other 100 ml 1070 ml Laboratory Tests 04/09/17 06:15: White Blood Count 6.7, Red Blood Count 2.83L, Hemoglobin 8.8L, Hematocrit 26.2L , Mean Corpuscular Volume 93, Mean Corpuscular Hemoglobin 31.3H, Mean Corpuscular Hemoglobin Concent 33.8, Red Cell Distribution Width 13.2, Platelet Count 108L, Mean Platelet Volume 6.3L, Neutrophils (%) (Auto) 80.8H, Lymphocytes (%) (Auto) 15.1L, Monocytes (%) (Auto) 2.5, Eosinophils (%) (Auto) 1.4, Basophils (%) (Auto) 0.2, Sodium Level 142, Potassium Level 2.9L, Chloride Level 108H, Carbon Dioxide Level 29, Anion Gap 5, Blood Urea Nitrogen 16, Creatinine 0.6, Estimat Glomerular Filtration Rate > 60, Glucose Level 152H, Calcium Level 7.7L, Phosphorus Level 1.9L, Magnesium Level 1.2L, Total Bilirubin 0.5, Aspartate Amino Transf (AST/SGOT) 28, Alanine Aminotransferase ( ALT/SGPT) 40, Alkaline Phosphatase 43L, Total Protein 4.8L, Albumin 1.3L, Globulin 3.5, Albumin/Globulin Ratio 0.4L Height (Feet): 5 Height (Inches): 0.00 Weight (Pounds): 96 Objective HEAD AND NECK: No JVP. No LAD. No thyromegaly. NG tube is placed. ET tube is in place. NG tube secreting greenish liquids. CARDIAC: Regular rate and rhythm. S1 and S2. No murmur. No rub. LUNGS: Has decreased breathing sound on both sides. ABDOMEN: Soft. Bowel sounds are hypoactive. Nontender. EXTREMITIES: No edema. No clubbing. No cyanosis. DELMI ARITA Apr 09, 2017 13:35
[2017-04-09] MEDS ORDERED: Potassium Chloride 40 MEQ in Sodium Chloride 500ML 550 ML IVPB ONE (14:00)
--- NOTE | 2017-04-09 14:22 | General Progress Note ---
Assessment/Plan Problem List: (1) Abdominal pain ICD Codes: R10.9 - Unspecified abdominal pain SNOMED: 76095310 (2) Peritonitis, acute generalized ICD Codes: K65.0 - Generalized (acute) peritonitis SNOMED: 19923314 (3) Strangulated ventral incisional hernia ICD Codes: K43.0 - Incisional hernia with obstruction, without gangrene SNOMED: 070094167 (4) Acute respiratory failure ICD Codes: J96.00 - Acute respiratory failure, unspecified whether with hypoxia or hypercapnia SNOMED: 38983924 (5) Septic shock ICD Codes: A41.9 - Sepsis, unspecified organism; R65.21 - Severe sepsis with septic shock SNOMED: 39132399 Status: unchanged Assessment/Plan vent abx sx f/u cbc bmp am id eval ltach eval Subjective Constitutional: Reports: weakness Allergies: Coded Allergies: TRAZODONE (Verified Allergy, Unknown, 04/04/17) All Systems: reviewed and negative except above Subjective o2nc calm in icu ng in place Objective Last 24 Hour Vital Signs Date Time Temp Pulse Resp B/P (MAP) Pulse Ox O2 Delivery O2 Flow Rate FiO2 04/09/17 14:00 105 20 135/80 99 Nasal Cannula 3.0 04/09/17 13:00 102 25 143/88 99 Nasal Cannula 3.0 04/09/17 12:00 97.8 103 26 122/75 100 Nasal Cannula 3.0 04/09/17 11:00 95 26 120/67 99 Nasal Cannula 3.0 04/09/17 10:00 102 26 118/73 100 Nasal Cannula 3.0 04/09/17 09:00 103 25 126/78 100 Nasal Cannula 3.0 04/09/17 08:00 99.2 102 22 120/87 100 Nasal Cannula 3.0 04/09/17 07:56 Nasal Cannula 2.0 04/09/17 07:56 100 Nasal Cannula 2.0 04/09/17 07:35 104 04/09/17 07:00 102 22 125/77 100 Nasal Cannula 3.0 04/09/17 06:00 102 21 125/78 100 Nasal Cannula 3.0 04/09/17 05:00 104 21 126/78 96 Nasal Cannula 3.0 04/09/17 04:00 98.8 103 26 128/86 93 Nasal Cannula 3.0 04/09/17 04:00 104 04/09/17 03:00 106 28 125/79 97 Nasal Cannula 3.0 04/09/17 02:00 108 22 120/81 96 Nasal Cannula 3.0 04/09/17 01:00 113 22 124/78 95 Nasal Cannula 3.0 04/09/17 00:00 98.7 110 22 129/76 93 Nasal Cannula 3.0 04/09/17 00:00 112 04/08/17 23:00 110 24 122/81 96 Nasal Cannula 3.0 04/08/17 22:00 108 21 124/72 96 Nasal Cannula 3.0 04/08/17 21:00 103 21 119/68 99 Nasal Cannula 3.0 04/08/17 20:00 103 04/08/17 20:00 98.5 99 21 120/74 99 Nasal Cannula 3.0 04/08/17 19:30 96 Nasal Cannula 2.0 28 04/08/17 19:30 Nasal Cannula 2.0 28 04/08/17 19:00 99 21 118/80 96 Nasal Cannula 3.0 04/08/17 18:00 100 23 118/72 97 Nasal Cannula 3.0 04/08/17 18:00 100 22 118/77 97 Nasal Cannula 3.0 04/08/17 17:00 100 22 117/77 98 Nasal Cannula 3.0 04/08/17 17:00 22 04/08/17 16:38 22 04/08/17 16:00 100 04/08/17 16:00 98.9 98 30 120/72 97 Nasal Cannula 3.0 04/08/17 16:00 120/72 04/08/17 16:00 22 04/08/17 15:00 20 04/08/17 15:00 100 22 117/72 97 Nasal Cannula 3.0 Intake and Output 04/08/17 04/09/17 19:00 07:00 Intake Total 1776.95 ml 1100.25 ml Output Total 2065 ml 3382 ml Balance -288.05 ml -2281.75 ml IV Total 1776.95 ml 1100.25 ml Output Urine Total 1550 ml 1835 ml Gastric Drainage Total 400 ml 430 ml Drainage Total 15 ml 47 ml Other 100 ml 1070 ml Laboratory Tests 04/09/17 06:15: White Blood Count 6.7, Red Blood Count 2.83L, Hemoglobin 8.8L, Hematocrit 26.2L , Mean Corpuscular Volume 93, Mean Corpuscular Hemoglobin 31.3H, Mean Corpuscular Hemoglobin Concent 33.8, Red Cell Distribution Width 13.2, Platelet Count 108L, Mean Platelet Volume 6.3L, Neutrophils (%) (Auto) 80.8H, Lymphocytes (%) (Auto) 15.1L, Monocytes (%) (Auto) 2.5, Eosinophils (%) (Auto) 1.4, Basophils (%) (Auto) 0.2, Sodium Level 142, Potassium Level 2.9L, Chloride Level 108H, Carbon Dioxide Level 29, Anion Gap 5, Blood Urea Nitrogen 16, Creatinine 0.6, Estimat Glomerular Filtration Rate > 60, Glucose Level 152H, Calcium Level 7.7L, Phosphorus Level 1.9L, Magnesium Level 1.2L, Total Bilirubin 0.5, Aspartate Amino Transf (AST/SGOT) 28, Alanine Aminotransferase ( ALT/SGPT) 40, Alkaline Phosphatase 43L, Total Protein 4.8L, Albumin 1.3L, Globulin 3.5, Albumin/Globulin Ratio 0.4L Height (Feet): 5 Height (Inches): 0.00 Weight (Pounds): 96 General Appearance: lethargic EENT: normal ENT inspection Neck: normal alignment Cardiovascular: normal peripheral pulses, normal rate, regular rhythm Respiratory/Chest: decreased breath sounds Abdomen: hypoactive bowel sounds Extremities: normal inspection Edema: no edema noted Arm (L), no edema noted Arm (R), no edema noted Leg (L), no edema noted Leg (R), no edema noted Pedal (L), no edema noted Pedal (R), no edema noted Generalized Neurologic: motor weakness Skin: normal pigmentation, warm/dry LACY HERNÁNDEZ Apr 09, 2017 14:22
[2017-04-09] MEDS: Norepinephrine 4mg in D5W 250ml IV SCH (16:00)
[2017-04-09] MEDS: LORazepam Inj 2mg/ml 1ml IV PRN (18:58)
[2017-04-09] MEDS: Dyna-Hex 2% Top Sol 2oz TOPIC SCH (20:15)
[2017-04-09] MEDS: TPN IV SCH (20:15)
[2017-04-09] MEDS: FAT EMULSION 20% IV SCH (20:15)
[2017-04-09 21:25] LABS: ANION GAP 7 mmol/L (5-15); BLOOD UREA NITROGEN 19 mg/dL (7-18); CALCIUM 7.6 MG/DL (8.5-10.1); CARBON DIOXIDE 27 MMOL/L (21-32); CHLORIDE 110 MMOL/L (98-107); CREATININE 0.6 MG/DL (0.55-1.30); POTASSIUM 3.8 MMOL/L (3.5-5.1); SODIUM 144 MMOL/L (136-145)
--- NOTE | 2017-04-09 23:50 | Cardiology Progress Note ---
Assessment/Plan Assessment/Plan 1. Sinus tachycardia, most likely due to underlying sepsis. The patient has leukocytosis status post second look laparotomy, s/p ileostomy pouch creation, POD #1. Hemodynamically appears to be stable, Continue with IV hydration and correction of electrolyte derangement. 2D echocardiography reveals normal LV systolic function. 2. Sepsis, leukocytosis, on hydration. 3. Hypernatremia, improving, hypotonic IVF, nephrology follow up. 4. Hypokalemia, resolved, keep K >4.0. 5. Hypomagnesemia, replace with Mg sulfate, keep Mg level >2.5. Subjective Subjective Sinus tachycardia at 100. Extubated on NC. Objective Last 24 Hour Vital Signs Date Time Temp Pulse Resp B/P (MAP) Pulse Ox O2 Delivery O2 Flow Rate FiO2 04/09/17 23:00 118 26 144/82 98 Nasal Cannula 3.0 04/09/17 22:00 114 26 123/79 100 Nasal Cannula 3.0 04/09/17 21:00 119 26 133/79 98 Nasal Cannula 3.0 04/09/17 20:00 98.2 111 27 131/87 99 Nasal Cannula 3.0 04/09/17 20:00 113 04/09/17 19:30 98 Nasal Cannula 2.0 28 04/09/17 19:30 Nasal Cannula 2.0 28 04/09/17 19:00 111 25 139/84 99 Nasal Cannula 3.0 04/09/17 18:00 107 27 140/90 98 Nasal Cannula 3.0 04/09/17 17:00 103 27 111/42 98 Nasal Cannula 3.0 04/09/17 16:00 98.0 112 26 136/83 99 Nasal Cannula 3.0 04/09/17 15:41 111 04/09/17 15:00 108 27 139/82 99 Nasal Cannula 3.0 04/09/17 14:00 105 20 135/80 99 Nasal Cannula 3.0 04/09/17 13:00 102 25 143/88 99 Nasal Cannula 3.0 04/09/17 12:00 97.8 103 26 122/75 100 Nasal Cannula 3.0 04/09/17 11:22 100 04/09/17 11:00 95 26 120/67 99 Nasal Cannula 3.0 04/09/17 10:00 102 26 118/73 100 Nasal Cannula 3.0 04/09/17 09:00 103 25 126/78 100 Nasal Cannula 3.0 04/09/17 08:00 99.2 102 22 120/87 100 Nasal Cannula 3.0 04/09/17 07:56 Nasal Cannula 2.0 04/09/17 07:56 100 Nasal Cannula 2.0 04/09/17 07:35 104 04/09/17 07:00 102 22 125/77 100 Nasal Cannula 3.0 04/09/17 06:00 102 21 125/78 100 Nasal Cannula 3.0 04/09/17 05:00 104 21 126/78 96 Nasal Cannula 3.0 04/09/17 04:00 98.8 103 26 128/86 93 Nasal Cannula 3.0 04/09/17 04:00 104 04/09/17 03:00 106 28 125/79 97 Nasal Cannula 3.0 04/09/17 02:00 108 22 120/81 96 Nasal Cannula 3.0 04/09/17 01:00 113 22 124/78 95 Nasal Cannula 3.0 04/09/17 00:00 98.7 110 22 129/76 93 Nasal Cannula 3.0 04/09/17 00:00 112 Intake and Output 04/08/17 04/09/17 19:00 07:00 Intake Total 1776.95 ml 1100.25 ml Output Total 2065 ml 3382 ml Balance -288.05 ml -2281.75 ml IV Total 1776.95 ml 1100.25 ml Output Urine Total 1550 ml 1835 ml Gastric Drainage Total 400 ml 430 ml Drainage Total 15 ml 47 ml Other 100 ml 1070 ml 2D Echo: LVEF 60%, Mod MR, Grade I LVDD Laboratory Tests Test 04/09/17 06:15 04/09/17 20:55 White Blood Count 6.7 K/UL (4.8-10.8) Red Blood Count 2.83 M/UL (4.20-5.40) L Hemoglobin 8.8 G/DL (12.0-16.0) L Hematocrit 26.2 % (37.0-47.0) L Mean Corpuscular Volume 93 FL (80-99) Mean Corpuscular Hemoglobin 31.3 PG (27.0-31.0) H Mean Corpuscular Hemoglobin Concent 33.8 G/DL (32.0-36.0) Red Cell Distribution Width 13.2 % (11.6-14.8) Platelet Count 108 K/UL (150-450) L Mean Platelet Volume 6.3 FL (6.5-10.1) L Neutrophils (%) (Auto) 80.8 % (45.0-75.0) H Lymphocytes (%) (Auto) 15.1 % (20.0-45.0) L Monocytes (%) (Auto) 2.5 % (1.0-10.0) Eosinophils (%) (Auto) 1.4 % (0.0-3.0) Basophils (%) (Auto) 0.2 % (0.0-2.0) Sodium Level 142 MMOL/L (136-145) 144 MMOL/L (136-145) Potassium Level 2.9 MMOL/L (3.5-5.1) L 3.8 MMOL/L (3.5-5.1) Chloride Level 108 MMOL/L (98-107) H 110 MMOL/L (98-107) H Carbon Dioxide Level 29 MMOL/L (21-32) 27 MMOL/L (21-32) Anion Gap 5 mmol/L (5-15) 7 mmol/L (5-15) Blood Urea Nitrogen 16 mg/dL (7-18) 19 mg/dL (7-18) H Creatinine 0.6 MG/DL (0.55-1.30) 0.6 MG/DL (0.55-1.30) Estimat Glomerular Filtration Rate > 60 mL/min (>60) > 60 mL/min (>60) Glucose Level 152 MG/DL (74-106) H 112 MG/DL (74-106) H Calcium Level 7.7 MG/DL (8.5-10.1) L 7.6 MG/DL (8.5-10.1) L Phosphorus Level 1.9 MG/DL (2.5-4.9) L Magnesium Level 1.2 MG/DL (1.8-2.4) L Total Bilirubin 0.5 MG/DL (0.2-1.0) Aspartate Amino Transf (AST/SGOT) 28 U/L (15-37) Alanine Aminotransferase (ALT/SGPT) 40 U/L (12-78) Alkaline Phosphatase 43 U/L (46-116) L Total Protein 4.8 G/DL (6.4-8.2) L Albumin 1.3 G/DL (3.4-5.0) L Globulin 3.5 g/dL Albumin/Globulin Ratio 0.4 (1.0-2.7) L Objective HEENT: Atraumatic and normocephalic. Anicteric. Pupils are equal, round and reactive to light and accommodation. Intubated and attached to the ventilator. NECK: JVP cannot be assessed as the patient is intubated. CARDIOVASCULAR: Normal S1 and S2. Regular rate and rhythm. Do not appreciate any murmurs, gallops, or rubs. LUNGS: Diminished breath sounds at both bases. ABDOMEN: Distended. Diminished bowel sounds. Slightly tender at the site of surgery. EXTREMITIES: No evidence of edema, clubbing, or cyanosis. JUWAN ULLOA Apr 09, 2017 23:50
[2017-04-10] VITALS (24 sets, daily range): BP systolic 117–163; BP diastolic 74–94
[2017-04-10] MEDS: Piperacillin/Tazobactam 3.375 GM in D5W 55 ML IVPB SCH ×3 (03:46→20:08)
[2017-04-10 05:38] LABS: BASOPHILS % (AUTO) 0.4 % (0.0-2.0); HEMOGLOBIN 10.7 G/DL (12.0-16.0); LYMPHOCYTES % (AUTO) 15.8 % (20.0-45.0); MEAN CORPUSCULAR VOLUME 93 FL (80-99); MONOCYTES % (AUTO) 3.7 % (1.0-10.0); NEUTROPHILS % (AUTO) 79.1 % (45.0-75.0); PLATELET COUNT 169 K/UL (150-450); RED BLOOD COUNT 3.32 M/UL (4.20-5.40); RED CELL DISTRIBUTION WIDTH 13.1 % (11.6-14.8); WHITE BLOOD COUNT 7.9 K/UL (4.8-10.8)
[2017-04-10] MEDS: NovoLOG Insulin Flexpen SUBQ SCH ×4 (05:55→19:02)
[2017-04-10 06:19] LABS: ALANINE AMINOTRANSFERASE 37 U/L (12-78); ALBUMIN 1.8 G/DL (3.4-5.0); ALBUMIN/GLOBULIN RATIO 0.4 (1.0-2.7); ALKALINE PHOSPHATASE 60 U/L (46-116); ANION GAP 10 mmol/L (5-15); ASPARTATE AMINO TRANSFERASE 31 U/L (15-37); BILIRUBIN,TOTAL 0.5 MG/DL (0.2-1.0); BLOOD UREA NITROGEN 19 mg/dL (7-18); CALCIUM 8.6 MG/DL (8.5-10.1); CARBON DIOXIDE 26 MMOL/L (21-32); CHLORIDE 107 MMOL/L (98-107); CREATININE 0.7 MG/DL (0.55-1.30); PHOSPHORUS 2.5 MG/DL (2.5-4.9); POTASSIUM 3.1 MMOL/L (3.5-5.1); SODIUM 143 MMOL/L (136-145)
[2017-04-10] MEDS ORDERED: Potassium Chloride 40 MEQ in Sodium Chloride 500ML 550 ML IVPB ONE (08:00)
[2017-04-10] MEDS: LORazepam Inj 2mg/ml 1ml IV PRN ×2 (08:01→20:08)
[2017-04-10] MEDS: Pantoprazole Inj IV SCH (08:37)
--- NOTE | 2017-04-10 09:18 | Nephrology Progress Note ---
Assessment/Plan Assessment 1. Hypernatremia resolved 2. Hypokalemia. 3. Acute renal failure or dehydration. 4. Malnutrition. 5. Hypocalcemia. 6. Hypomagnesemia. Plan to continue nutritional support with TPN replace mg replace k monitoring out put monitoring renal function Subjective Constitutional: Reports: no symptoms HEENT: Reports: no symptoms Genitourinary: Reports: no symptoms Neurologic/Psychiatric: Reports: no symptoms Subjective extubated awake but confused Objective Objective Last 24 Hour Vital Signs Date Time Temp Pulse Resp B/P (MAP) Pulse Ox O2 Delivery O2 Flow Rate FiO2 04/10/17 08:00 99.0 105 27 138/91 98 Nasal Cannula 3.0 04/10/17 08:00 119 04/10/17 07:00 115 26 138/91 97 Nasal Cannula 3.0 04/10/17 06:00 113 26 131/85 97 Nasal Cannula 3.0 04/10/17 05:00 113 26 130/94 97 Nasal Cannula 3.0 04/10/17 04:00 99.0 119 26 139/91 98 Nasal Cannula 3.0 04/10/17 04:00 120 04/10/17 03:00 119 26 156/88 97 Nasal Cannula 3.0 04/10/17 02:00 126 26 163/92 98 Nasal Cannula 3.0 04/10/17 01:00 121 26 150/84 98 Nasal Cannula 3.0 04/10/17 00:00 116 04/10/17 00:00 98.5 121 26 150/84 97 Nasal Cannula 3.0 04/09/17 23:00 118 26 144/82 98 Nasal Cannula 3.0 04/09/17 22:00 114 26 123/79 100 Nasal Cannula 3.0 04/09/17 21:00 119 26 133/79 98 Nasal Cannula 3.0 04/09/17 20:00 98.2 111 27 131/87 99 Nasal Cannula 3.0 04/09/17 20:00 113 04/09/17 19:30 98 Nasal Cannula 2.0 28 04/09/17 19:30 Nasal Cannula 2.0 28 04/09/17 19:00 111 25 139/84 99 Nasal Cannula 3.0 04/09/17 18:00 107 27 140/90 98 Nasal Cannula 3.0 04/09/17 17:00 103 27 111/42 98 Nasal Cannula 3.0 04/09/17 16:00 98.0 112 26 136/83 99 Nasal Cannula 3.0 04/09/17 15:41 111 04/09/17 15:00 108 27 139/82 99 Nasal Cannula 3.0 04/09/17 14:00 105 20 135/80 99 Nasal Cannula 3.0 04/09/17 13:00 102 25 143/88 99 Nasal Cannula 3.0 04/09/17 12:00 97.8 103 26 122/75 100 Nasal Cannula 3.0 04/09/17 11:22 100 04/09/17 11:00 95 26 120/67 99 Nasal Cannula 3.0 04/09/17 10:00 102 26 118/73 100 Nasal Cannula 3.0 Intake and Output 04/09/17 04/10/17 19:00 07:00 Intake Total 2144.25 ml 2564.25 ml Output Total 2165 ml 1455 ml Balance -20.75 ml 1109.25 ml IV Total 1744.25 ml 864.25 ml Other 400 ml 1700 ml Output Urine Total 825 ml 1325 ml Gastric Drainage Total 50 ml 50 ml Drainage Total 30 ml 80 ml Other 1260 ml Laboratory Tests 04/09/17 20:55: Sodium Level 144, Potassium Level 3.8, Chloride Level 110H, Carbon Dioxide Level 27, Anion Gap 7, Blood Urea Nitrogen 19H, Creatinine 0.6, Estimat Glomerular Filtration Rate > 60, Glucose Level 112H, Calcium Level 7.6L 04/10/17 05:05: Sodium Level 143, Potassium Level 3.1L, Chloride Level 107, Carbon Dioxide Level 26, Anion Gap 10, Blood Urea Nitrogen 19H, Creatinine 0.7, Estimat Glomerular Filtration Rate > 60, Glucose Level 120H, Calcium Level 8.6, White Blood Count 7.9, Red Blood Count 3.32L, Hemoglobin 10.7L, Hematocrit 31.0L, Mean Corpuscular Volume 93, Mean Corpuscular Hemoglobin 32.1H, Mean Corpuscular Hemoglobin Concent 34.4, Red Cell Distribution Width 13.1, Platelet Count 169#, Mean Platelet Volume 6.4L, Neutrophils (%) (Auto) 79.1H, Lymphocytes (%) (Auto) 15.8L, Monocytes (%) (Auto) 3.7, Eosinophils (%) (Auto) 1.0, Basophils (%) (Auto ) 0.4, Phosphorus Level 2.5, Magnesium Level 1.4L, Total Bilirubin 0.5, Aspartate Amino Transf (AST/SGOT) 31, Alanine Aminotransferase (ALT/SGPT) 37, Alkaline Phosphatase 60, Total Protein 6.2L, Albumin 1.8L, Globulin 4.4, Albumin /Globulin Ratio 0.4L Height (Feet): 5 Height (Inches): 0.00 Weight (Pounds): 90 Objective HEAD AND NECK: No JVP. No LAD. No thyromegaly. NG tube is placed. ET tube is in place. NG tube secreting greenish liquids. CARDIAC: Regular rate and rhythm. S1 and S2. No murmur. No rub. LUNGS: Has decreased breathing sound on both sides. ABDOMEN: Soft. Bowel sounds are hypoactive. Nontender. EXTREMITIES: No edema. No clubbing. No cyanosis. DELMI ARITA Apr 10, 2017 09:18
--- NOTE | 2017-04-10 09:50 | Pulmonolgy Critical Care Note ---
Critical Care - Asmt/Plan Problems: (1) Septic shock (2) Acute respiratory failure (3) Multiorgan failure (4) Strangulated ventral incisional hernia (5) Peritonitis, acute generalized Respiratory: monitor respiratory rate, adjust FIO2, CXR Cardiac: continue to monitor HR/BP Renal: F/U I&O, check electrolytes Infectious Disease: check cultures Gastrointestinal: other - on tpn Hematologic: monitor H/H Neurologic: PRN Morphine Prophylaxis: Protonix, Heparin Notes Reviewed: cardio, renal Discussed with: nurses, case operatormanager nc - Objective Last 24 Hour Vital Signs Date Time Temp Pulse Resp B/P (MAP) Pulse Ox O2 Delivery O2 Flow Rate FiO2 04/10/17 08:00 99.0 105 27 138/91 98 Nasal Cannula 3.0 04/10/17 08:00 119 04/10/17 07:00 115 26 138/91 97 Nasal Cannula 3.0 04/10/17 06:00 113 26 131/85 97 Nasal Cannula 3.0 04/10/17 05:00 113 26 130/94 97 Nasal Cannula 3.0 04/10/17 04:00 99.0 119 26 139/91 98 Nasal Cannula 3.0 04/10/17 04:00 120 04/10/17 03:00 119 26 156/88 97 Nasal Cannula 3.0 04/10/17 02:00 126 26 163/92 98 Nasal Cannula 3.0 04/10/17 01:00 121 26 150/84 98 Nasal Cannula 3.0 04/10/17 00:00 116 04/10/17 00:00 98.5 121 26 150/84 97 Nasal Cannula 3.0 04/09/17 23:00 118 26 144/82 98 Nasal Cannula 3.0 04/09/17 22:00 114 26 123/79 100 Nasal Cannula 3.0 04/09/17 21:00 119 26 133/79 98 Nasal Cannula 3.0 04/09/17 20:00 98.2 111 27 131/87 99 Nasal Cannula 3.0 04/09/17 20:00 113 04/09/17 19:30 98 Nasal Cannula 2.0 28 04/09/17 19:30 Nasal Cannula 2.0 28 04/09/17 19:00 111 25 139/84 99 Nasal Cannula 3.0 04/09/17 18:00 107 27 140/90 98 Nasal Cannula 3.0 04/09/17 17:00 103 27 111/42 98 Nasal Cannula 3.0 04/09/17 16:00 98.0 112 26 136/83 99 Nasal Cannula 3.0 04/09/17 15:41 111 04/09/17 15:00 108 27 139/82 99 Nasal Cannula 3.0 04/09/17 14:00 105 20 135/80 99 Nasal Cannula 3.0 04/09/17 13:00 102 25 143/88 99 Nasal Cannula 3.0 04/09/17 12:00 97.8 103 26 122/75 100 Nasal Cannula 3.0 04/09/17 11:22 100 04/09/17 11:00 95 26 120/67 99 Nasal Cannula 3.0 04/09/17 10:00 102 26 118/73 100 Nasal Cannula 3.0 Status: awake Condition: critical HEENT: atraumatic Lungs: chest wall tender Heart: HR/BP stable, HR/BP unstable Abdomen: soft, non-tender, active bowel sounds Extremities: no C/C/E, edema Accucheck: 111 Critical Care - Subjective ROS Limited/Unobtainable: No ICU Day: 6 Intubation Day: 6 Condition: critical EKG Rhythm: Sinus Rhythm FI02: 28 Vent Support Breath Rate: 12 Vent Support Mode: CPAP Vent Tidal Volume: 450 Sputum Amount: Small PIP: 17 Fluids: tpn I&O: Intake and Output 04/09/17 04/10/17 19:00 07:00 Intake Total 2144.25 ml 2564.25 ml Output Total 2165 ml 1455 ml Balance -20.75 ml 1109.25 ml IV Total 1744.25 ml 864.25 ml Other 400 ml 1700 ml Output Urine Total 825 ml 1325 ml Gastric Drainage Total 50 ml 50 ml Drainage Total 30 ml 80 ml Other 1260 ml CXR: pending ET-Tube: 7.0 ET Position: 22 Labs: Laboratory Tests Test 04/09/17 20:55 04/10/17 05:05 Sodium Level 144 MMOL/L (136-145) 143 MMOL/L (136-145) Potassium Level 3.8 MMOL/L (3.5-5.1) 3.1 MMOL/L (3.5-5.1) L Chloride Level 110 MMOL/L (98-107) H 107 MMOL/L (98-107) Carbon Dioxide Level 27 MMOL/L (21-32) 26 MMOL/L (21-32) Anion Gap 7 mmol/L (5-15) 10 mmol/L (5-15) Blood Urea Nitrogen 19 mg/dL (7-18) H 19 mg/dL (7-18) H Creatinine 0.6 MG/DL (0.55-1.30) 0.7 MG/DL (0.55-1.30) Estimat Glomerular Filtration Rate > 60 mL/min (>60) > 60 mL/min (>60) Glucose Level 112 MG/DL (74-106) H 120 MG/DL (74-106) H Calcium Level 7.6 MG/DL (8.5-10.1) L 8.6 MG/DL (8.5-10.1) White Blood Count 7.9 K/UL (4.8-10.8) Red Blood Count 3.32 M/UL (4.20-5.40) L Hemoglobin 10.7 G/DL (12.0-16.0) L Hematocrit 31.0 % (37.0-47.0) L Mean Corpuscular Volume 93 FL (80-99) Mean Corpuscular Hemoglobin 32.1 PG (27.0-31.0) H Mean Corpuscular Hemoglobin Concent 34.4 G/DL (32.0-36.0) Red Cell Distribution Width 13.1 % (11.6-14.8) Platelet Count 169 K/UL (150-450) # Mean Platelet Volume 6.4 FL (6.5-10.1) L Neutrophils (%) (Auto) 79.1 % (45.0-75.0) H Lymphocytes (%) (Auto) 15.8 % (20.0-45.0) L Monocytes (%) (Auto) 3.7 % (1.0-10.0) Eosinophils (%) (Auto) 1.0 % (0.0-3.0) Basophils (%) (Auto) 0.4 % (0.0-2.0) Phosphorus Level 2.5 MG/DL (2.5-4.9) Magnesium Level 1.4 MG/DL (1.8-2.4) L Total Bilirubin 0.5 MG/DL (0.2-1.0) Aspartate Amino Transf (AST/SGOT) 31 U/L (15-37) Alanine Aminotransferase (ALT/SGPT) 37 U/L (12-78) Alkaline Phosphatase 60 U/L (46-116) Total Protein 6.2 G/DL (6.4-8.2) L Albumin 1.8 G/DL (3.4-5.0) L Globulin 4.4 g/dL Albumin/Globulin Ratio 0.4 (1.0-2.7) L YAYO CELIS Apr 10, 2017 09:50
--- NOTE | 2017-04-10 10:11 | Infectious Diseases Prog Note ---
Assessment/Plan Assessment/Plan A: Sepsis Peritonitis Strangulated hernia Small bowel necrosis Respiratory failure resolved Anemia s/p laparotomy X 2 Short bowel syndrome P: Continue Zosyn Subjective ROS Limited/Unobtainable: Yes Neurologic: Reports: confusion, other - on restraint Allergies: Coded Allergies: TRAZODONE (Verified Allergy, Unknown, 04/04/17) Objective Vital Signs Last 24 Hour Vital Signs Date Time Temp Pulse Resp B/P (MAP) Pulse Ox O2 Delivery O2 Flow Rate FiO2 04/10/17 09:00 112 42 138/86 93 Nasal Cannula 3.0 04/10/17 08:00 99.0 105 27 138/91 98 Nasal Cannula 3.0 04/10/17 08:00 119 04/10/17 07:00 115 26 138/91 97 Nasal Cannula 3.0 04/10/17 06:00 113 26 131/85 97 Nasal Cannula 3.0 04/10/17 05:00 113 26 130/94 97 Nasal Cannula 3.0 04/10/17 04:00 99.0 119 26 139/91 98 Nasal Cannula 3.0 04/10/17 04:00 120 04/10/17 03:00 119 26 156/88 97 Nasal Cannula 3.0 04/10/17 02:00 126 26 163/92 98 Nasal Cannula 3.0 04/10/17 01:00 121 26 150/84 98 Nasal Cannula 3.0 04/10/17 00:00 116 04/10/17 00:00 98.5 121 26 150/84 97 Nasal Cannula 3.0 04/09/17 23:00 118 26 144/82 98 Nasal Cannula 3.0 04/09/17 22:00 114 26 123/79 100 Nasal Cannula 3.0 04/09/17 21:00 119 26 133/79 98 Nasal Cannula 3.0 04/09/17 20:00 98.2 111 27 131/87 99 Nasal Cannula 3.0 04/09/17 20:00 113 04/09/17 19:30 98 Nasal Cannula 2.0 28 04/09/17 19:30 Nasal Cannula 2.0 28 04/09/17 19:00 111 25 139/84 99 Nasal Cannula 3.0 04/09/17 18:00 107 27 140/90 98 Nasal Cannula 3.0 04/09/17 17:00 103 27 111/42 98 Nasal Cannula 3.0 04/09/17 16:00 98.0 112 26 136/83 99 Nasal Cannula 3.0 04/09/17 15:41 111 04/09/17 15:00 108 27 139/82 99 Nasal Cannula 3.0 04/09/17 14:00 105 20 135/80 99 Nasal Cannula 3.0 04/09/17 13:00 102 25 143/88 99 Nasal Cannula 3.0 04/09/17 12:00 97.8 103 26 122/75 100 Nasal Cannula 3.0 04/09/17 11:22 100 04/09/17 11:00 95 26 120/67 99 Nasal Cannula 3.0 Height (Feet): 5 Height (Inches): 0.00 Weight (Pounds): 90 General Appearance: no acute distress HEENT: other - O2 by nasal cannula Respiratory/Chest: lungs clear Cardiovascular: tachycardia, other - left subclavian line Abdomen: soft, non tender, other - NG to suction Extremities: no edema Neurologic/Psychiatric: alert, disoriented Musculoskeletal: atrophy Laboratory Tests Test 04/09/17 20:55 04/10/17 05:05 Sodium Level 144 MMOL/L (136-145) 143 MMOL/L (136-145) Potassium Level 3.8 MMOL/L (3.5-5.1) 3.1 MMOL/L (3.5-5.1) L Chloride Level 110 MMOL/L (98-107) H 107 MMOL/L (98-107) Carbon Dioxide Level 27 MMOL/L (21-32) 26 MMOL/L (21-32) Anion Gap 7 mmol/L (5-15) 10 mmol/L (5-15) Blood Urea Nitrogen 19 mg/dL (7-18) H 19 mg/dL (7-18) H Creatinine 0.6 MG/DL (0.55-1.30) 0.7 MG/DL (0.55-1.30) Estimat Glomerular Filtration Rate > 60 mL/min (>60) > 60 mL/min (>60) Glucose Level 112 MG/DL (74-106) H 120 MG/DL (74-106) H Calcium Level 7.6 MG/DL (8.5-10.1) L 8.6 MG/DL (8.5-10.1) White Blood Count 7.9 K/UL (4.8-10.8) Red Blood Count 3.32 M/UL (4.20-5.40) L Hemoglobin 10.7 G/DL (12.0-16.0) L Hematocrit 31.0 % (37.0-47.0) L Mean Corpuscular Volume 93 FL (80-99) Mean Corpuscular Hemoglobin 32.1 PG (27.0-31.0) H Mean Corpuscular Hemoglobin Concent 34.4 G/DL (32.0-36.0) Red Cell Distribution Width 13.1 % (11.6-14.8) Platelet Count 169 K/UL (150-450) # Mean Platelet Volume 6.4 FL (6.5-10.1) L Neutrophils (%) (Auto) 79.1 % (45.0-75.0) H Lymphocytes (%) (Auto) 15.8 % (20.0-45.0) L Monocytes (%) (Auto) 3.7 % (1.0-10.0) Eosinophils (%) (Auto) 1.0 % (0.0-3.0) Basophils (%) (Auto) 0.4 % (0.0-2.0) Phosphorus Level 2.5 MG/DL (2.5-4.9) Magnesium Level 1.4 MG/DL (1.8-2.4) L Total Bilirubin 0.5 MG/DL (0.2-1.0) Aspartate Amino Transf (AST/SGOT) 31 U/L (15-37) Alanine Aminotransferase (ALT/SGPT) 37 U/L (12-78) Alkaline Phosphatase 60 U/L (46-116) Total Protein 6.2 G/DL (6.4-8.2) L Albumin 1.8 G/DL (3.4-5.0) L Globulin 4.4 g/dL Albumin/Globulin Ratio 0.4 (1.0-2.7) L Current Medications Medications (Trade) Dose Ordered Sig/Nicole Route PRN Reason Start Time Stop Time Status Last Admin Dose Admin Acetaminophen (Tylenol) 650 mg Q4H PRN RECTAL FEVER 04/04/17 06:00 05/04/17 05:59 04/04/17 20:14 Chlorhexidine Gluconate (Collette-Hex 2%) 1 applic DAILY@1999 TOPIC 04/05/17 20:00 05/05/17 19:59 04/09/17 20:15 Dextrose 1,000 ml @ 0 mls/hr Q24H PRN IV PN interrupted or unavailable 04/08/17 20:00 05/08/17 19:59 Dextrose (Dextrose 50%) STAT PRN IV Hypoglycemia 04/04/17 06:00 05/04/17 05:59 Diphenhydramine HCl (Benadryl) 12.5 mg Q6H PRN IVP Itching/Pruritis 04/04/17 06:00 05/04/17 05:59 04/10/17 08:01 Fat Emulsion Intravenous 216 ml/Amino Acids/ Electrolytes/ Dextrose 1,536 ml @ 64 mls/hr Q24H IV 04/08/17 20:00 05/08/17 19:59 04/09/17 20:15 Hydromorphone HCl (Dilaudid) 0.5 mg Q3H PRN IVP Pain Score 1-3 04/04/17 06:00 04/11/17 05:59 04/04/17 08:42 Hydromorphone HCl (Dilaudid) 1 mg Q3H PRN IVP pain score 4-6 04/04/17 06:00 04/11/17 05:59 Hydromorphone HCl (Dilaudid) 2 mg Q3H PRN IVP pain score 7-10 04/04/17 06:00 04/11/17 05:59 04/05/17 23:47 Insulin Aspart (NovoLOG) Q6HR SUBQ 04/04/17 06:00 05/04/17 05:59 04/10/17 05:55 Lorazepam (Ativan 2mg/ml 1ml) 0.5 mg Q4H PRN IV For Anxiety 04/04/17 06:00 04/11/17 05:59 04/10/17 08:01 Midazolam HCl 100 ml @ 0 mls/hr Q24H PRN IVPB titrate per protocol 04/04/17 09:30 04/11/17 09:29 Norepinephrine Bitartrate 4 mg/ Dextrose 250 ml @ 0 mls/hr Q24H IV 04/05/17 16:00 05/05/17 15:59 04/05/17 19:56 Ondansetron HCl (Zofran) 4 mg Q6H PRN IVP Nausea & Vomiting 04/04/17 06:00 05/04/17 05:59 Pantoprazole (Protonix) 40 mg DAILY IV 04/04/17 09:00 05/04/17 08:59 04/10/17 08:37 Piperacillin Sod/ Tazobactam Sod 3.375 gm/Dextrose 55 ml @ 13.75 mls/ hr Q8HR@0400,1200,2000 IVPB 04/05/17 12:00 04/12/17 11:59 04/10/17 03:46 Potassium Chloride 40 meq/ Sodium Chloride 570 ml @ 142.5 mls/ hr ONCE ONCE IVPB 04/10/17 08:00 04/10/17 11:59 04/10/17 08:37 MIO LOMAX Apr 10, 2017 10:11
[2017-04-10] MEDS: Hydromorphone 0.5mg/0.5ml inj IVP PRN (11:42)
--- NOTE | 2017-04-10 14:52 | General Progress Note ---
Assessment/Plan Problem List: (1) Abdominal pain ICD Codes: R10.9 - Unspecified abdominal pain SNOMED: 70898273 (2) Peritonitis, acute generalized ICD Codes: K65.0 - Generalized (acute) peritonitis SNOMED: 22739713 (3) Strangulated ventral incisional hernia ICD Codes: K43.0 - Incisional hernia with obstruction, without gangrene SNOMED: 820532665 (4) Acute respiratory failure ICD Codes: J96.00 - Acute respiratory failure, unspecified whether with hypoxia or hypercapnia SNOMED: 89691900 (5) Septic shock ICD Codes: A41.9 - Sepsis, unspecified organism; R65.21 - Severe sepsis with septic shock SNOMED: 07291002 Status: unchanged Assessment/Plan vent abx sx f/u cbc bmp am id eval ltach transfer Subjective Constitutional: Reports: weakness Allergies: Coded Allergies: TRAZODONE (Verified Allergy, Unknown, 04/04/17) All Systems: reviewed and negative except above Subjective o2nc confused in icu ng in place Objective Last 24 Hour Vital Signs Date Time Temp Pulse Resp B/P (MAP) Pulse Ox O2 Delivery O2 Flow Rate FiO2 04/10/17 14:00 116 24 130/78 98 Nasal Cannula 3.0 04/10/17 13:00 111 22 134/83 99 Nasal Cannula 3.0 04/10/17 12:12 99.0 04/10/17 12:00 99.0 114 22 134/83 100 Nasal Cannula 3.0 04/10/17 12:00 119 04/10/17 11:00 117 26 142/86 100 Nasal Cannula 3.0 04/10/17 10:00 120 29 146/92 93 Nasal Cannula 3.0 04/10/17 09:00 112 42 138/86 93 Nasal Cannula 3.0 04/10/17 08:00 99.0 105 27 138/91 98 Nasal Cannula 3.0 04/10/17 08:00 119 04/10/17 07:00 115 26 138/91 97 Nasal Cannula 3.0 04/10/17 06:00 113 26 131/85 97 Nasal Cannula 3.0 04/10/17 05:00 113 26 130/94 97 Nasal Cannula 3.0 04/10/17 04:00 99.0 119 26 139/91 98 Nasal Cannula 3.0 04/10/17 04:00 120 04/10/17 03:00 119 26 156/88 97 Nasal Cannula 3.0 04/10/17 02:00 126 26 163/92 98 Nasal Cannula 3.0 04/10/17 01:00 121 26 150/84 98 Nasal Cannula 3.0 04/10/17 00:00 116 04/10/17 00:00 98.5 121 26 150/84 97 Nasal Cannula 3.0 04/09/17 23:00 118 26 144/82 98 Nasal Cannula 3.0 04/09/17 22:00 114 26 123/79 100 Nasal Cannula 3.0 04/09/17 21:00 119 26 133/79 98 Nasal Cannula 3.0 04/09/17 20:00 98.2 111 27 131/87 99 Nasal Cannula 3.0 04/09/17 20:00 113 04/09/17 19:30 98 Nasal Cannula 2.0 28 04/09/17 19:30 Nasal Cannula 2.0 28 04/09/17 19:00 111 25 139/84 99 Nasal Cannula 3.0 04/09/17 18:00 107 27 140/90 98 Nasal Cannula 3.0 04/09/17 17:00 103 27 111/42 98 Nasal Cannula 3.0 04/09/17 16:00 98.0 112 26 136/83 99 Nasal Cannula 3.0 04/09/17 15:41 111 04/09/17 15:00 108 27 139/82 99 Nasal Cannula 3.0 Intake and Output 04/09/17 04/10/17 19:00 07:00 Intake Total 2144.25 ml 2564.25 ml Output Total 2165 ml 1455 ml Balance -20.75 ml 1109.25 ml IV Total 1744.25 ml 864.25 ml Other 400 ml 1700 ml Output Urine Total 825 ml 1325 ml Gastric Drainage Total 50 ml 50 ml Drainage Total 30 ml 80 ml Other 1260 ml Laboratory Tests 04/09/17 20:55: Sodium Level 144, Potassium Level 3.8, Chloride Level 110H, Carbon Dioxide Level 27, Anion Gap 7, Blood Urea Nitrogen 19H, Creatinine 0.6, Estimat Glomerular Filtration Rate > 60, Glucose Level 112H, Calcium Level 7.6L 04/10/17 05:05: Sodium Level 143, Potassium Level 3.1L, Chloride Level 107, Carbon Dioxide Level 26, Anion Gap 10, Blood Urea Nitrogen 19H, Creatinine 0.7, Estimat Glomerular Filtration Rate > 60, Glucose Level 120H, Calcium Level 8.6, White Blood Count 7.9, Red Blood Count 3.32L, Hemoglobin 10.7L, Hematocrit 31.0L, Mean Corpuscular Volume 93, Mean Corpuscular Hemoglobin 32.1H, Mean Corpuscular Hemoglobin Concent 34.4, Red Cell Distribution Width 13.1, Platelet Count 169#, Mean Platelet Volume 6.4L, Neutrophils (%) (Auto) 79.1H, Lymphocytes (%) (Auto) 15.8L, Monocytes (%) (Auto) 3.7, Eosinophils (%) (Auto) 1.0, Basophils (%) (Auto ) 0.4, Phosphorus Level 2.5, Magnesium Level 1.4L, Total Bilirubin 0.5, Aspartate Amino Transf (AST/SGOT) 31, Alanine Aminotransferase (ALT/SGPT) 37, Alkaline Phosphatase 60, Total Protein 6.2L, Albumin 1.8L, Globulin 4.4, Albumin /Globulin Ratio 0.4L Height (Feet): 5 Height (Inches): 0.00 Weight (Pounds): 90 General Appearance: confused EENT: normal ENT inspection Neck: normal alignment Cardiovascular: normal peripheral pulses, normal rate, regular rhythm Respiratory/Chest: decreased breath sounds Abdomen: hypoactive bowel sounds Extremities: normal inspection Edema: no edema noted Arm (L), no edema noted Arm (R), no edema noted Leg (L), no edema noted Leg (R), no edema noted Pedal (L), no edema noted Pedal (R), no edema noted Generalized Neurologic: motor weakness Skin: normal pigmentation, warm/dry LACY HERNÁNDEZ Apr 10, 2017 14:52
--- NOTE | 2017-04-10 14:54 | GI Progress Note ---
Assessment/Plan Problems: (1) On total parenteral nutrition (TPN) ICD Codes: Z78.9 - Other specified health status SNOMED: 70944816, 095868982 (2) Anemia ICD Codes: D64.9 - Anemia, unspecified SNOMED: 017193789 (3) Electrolyte imbalance ICD Codes: E87.8 - Other disorders of electrolyte and fluid balance, not elsewhere classified SNOMED: 676674851 (4) Severe malnutrition ICD Codes: E43 - Unspecified severe protein-calorie malnutrition SNOMED: 45029236 (5) History of colostomy ICD Codes: Z98.890 - Other specified postprocedural states SNOMED: 733356990 (6) Multiorgan failure SNOMED: 91215176 (7) Strangulated ventral incisional hernia ICD Codes: K43.0 - Incisional hernia with obstruction, without gangrene SNOMED: 949444265 Status: unchanged Status Narrative Discussed with Dr. Mejia. Assessment/Plan fu surgical recs >> patient will need to be on TPN for approximately 6 months and be re-evaluated. - NGTFs and PO trial for nutritional supplementation CLD, adv as tolerated clamp NGT. anemia work up >> folate deficiency monitor H&H, prn transfusions ppi electrolyte correction fu labs Subjective Subjective limited Objective Last 24 Hour Vital Signs Date Time Temp Pulse Resp B/P (MAP) Pulse Ox O2 Delivery O2 Flow Rate FiO2 04/10/17 14:00 116 24 130/78 98 Nasal Cannula 3.0 04/10/17 13:00 111 22 134/83 99 Nasal Cannula 3.0 04/10/17 12:12 99.0 04/10/17 12:00 99.0 114 22 134/83 100 Nasal Cannula 3.0 04/10/17 12:00 119 04/10/17 11:00 117 26 142/86 100 Nasal Cannula 3.0 04/10/17 10:00 120 29 146/92 93 Nasal Cannula 3.0 04/10/17 09:00 112 42 138/86 93 Nasal Cannula 3.0 04/10/17 08:00 99.0 105 27 138/91 98 Nasal Cannula 3.0 04/10/17 08:00 119 04/10/17 07:00 115 26 138/91 97 Nasal Cannula 3.0 04/10/17 06:00 113 26 131/85 97 Nasal Cannula 3.0 04/10/17 05:00 113 26 130/94 97 Nasal Cannula 3.0 04/10/17 04:00 99.0 119 26 139/91 98 Nasal Cannula 3.0 04/10/17 04:00 120 04/10/17 03:00 119 26 156/88 97 Nasal Cannula 3.0 04/10/17 02:00 126 26 163/92 98 Nasal Cannula 3.0 04/10/17 01:00 121 26 150/84 98 Nasal Cannula 3.0 04/10/17 00:00 116 04/10/17 00:00 98.5 121 26 150/84 97 Nasal Cannula 3.0 04/09/17 23:00 118 26 144/82 98 Nasal Cannula 3.0 04/09/17 22:00 114 26 123/79 100 Nasal Cannula 3.0 04/09/17 21:00 119 26 133/79 98 Nasal Cannula 3.0 04/09/17 20:00 98.2 111 27 131/87 99 Nasal Cannula 3.0 04/09/17 20:00 113 04/09/17 19:30 98 Nasal Cannula 2.0 28 04/09/17 19:30 Nasal Cannula 2.0 28 04/09/17 19:00 111 25 139/84 99 Nasal Cannula 3.0 04/09/17 18:00 107 27 140/90 98 Nasal Cannula 3.0 04/09/17 17:00 103 27 111/42 98 Nasal Cannula 3.0 04/09/17 16:00 98.0 112 26 136/83 99 Nasal Cannula 3.0 04/09/17 15:41 111 04/09/17 15:00 108 27 139/82 99 Nasal Cannula 3.0 Intake and Output 04/09/17 04/10/17 19:00 07:00 Intake Total 2144.25 ml 2564.25 ml Output Total 2165 ml 1455 ml Balance -20.75 ml 1109.25 ml IV Total 1744.25 ml 864.25 ml Other 400 ml 1700 ml Output Urine Total 825 ml 1325 ml Gastric Drainage Total 50 ml 50 ml Drainage Total 30 ml 80 ml Other 1260 ml Laboratory Tests Test 04/09/17 20:55 04/10/17 05:05 Sodium Level 144 MMOL/L (136-145) 143 MMOL/L (136-145) Potassium Level 3.8 MMOL/L (3.5-5.1) 3.1 MMOL/L (3.5-5.1) L Chloride Level 110 MMOL/L (98-107) H 107 MMOL/L (98-107) Carbon Dioxide Level 27 MMOL/L (21-32) 26 MMOL/L (21-32) Anion Gap 7 mmol/L (5-15) 10 mmol/L (5-15) Blood Urea Nitrogen 19 mg/dL (7-18) H 19 mg/dL (7-18) H Creatinine 0.6 MG/DL (0.55-1.30) 0.7 MG/DL (0.55-1.30) Estimat Glomerular Filtration Rate > 60 mL/min (>60) > 60 mL/min (>60) Glucose Level 112 MG/DL (74-106) H 120 MG/DL (74-106) H Calcium Level 7.6 MG/DL (8.5-10.1) L 8.6 MG/DL (8.5-10.1) White Blood Count 7.9 K/UL (4.8-10.8) Red Blood Count 3.32 M/UL (4.20-5.40) L Hemoglobin 10.7 G/DL (12.0-16.0) L Hematocrit 31.0 % (37.0-47.0) L Mean Corpuscular Volume 93 FL (80-99) Mean Corpuscular Hemoglobin 32.1 PG (27.0-31.0) H Mean Corpuscular Hemoglobin Concent 34.4 G/DL (32.0-36.0) Red Cell Distribution Width 13.1 % (11.6-14.8) Platelet Count 169 K/UL (150-450) # Mean Platelet Volume 6.4 FL (6.5-10.1) L Neutrophils (%) (Auto) 79.1 % (45.0-75.0) H Lymphocytes (%) (Auto) 15.8 % (20.0-45.0) L Monocytes (%) (Auto) 3.7 % (1.0-10.0) Eosinophils (%) (Auto) 1.0 % (0.0-3.0) Basophils (%) (Auto) 0.4 % (0.0-2.0) Phosphorus Level 2.5 MG/DL (2.5-4.9) Magnesium Level 1.4 MG/DL (1.8-2.4) L Total Bilirubin 0.5 MG/DL (0.2-1.0) Aspartate Amino Transf (AST/SGOT) 31 U/L (15-37) Alanine Aminotransferase (ALT/SGPT) 37 U/L (12-78) Alkaline Phosphatase 60 U/L (46-116) Total Protein 6.2 G/DL (6.4-8.2) L Albumin 1.8 G/DL (3.4-5.0) L Globulin 4.4 g/dL Albumin/Globulin Ratio 0.4 (1.0-2.7) L Height (Feet): 5 Height (Inches): 0.00 Weight (Pounds): 90 General Appearance: no apparent distress, alert, confused Cardiovascular: normal rate Respiratory/Chest: other - NC Abdominal Exam: other - NGT Shahana Wang N.P. Apr 10, 2017 14:54
[2017-04-10] MEDS: Norepinephrine 4mg in D5W 250ml IV SCH (15:38)
--- NOTE | 2017-04-10 18:48 | General Progress Note ---
Progress Note Progress Note Surgery: much improved. talking, responsive to simple commands. comfortable. did not pass swallow. afebrile, HD stable, tachy, labs improved. wounds clean with dressings. ostomy viable and functional. -will be TPN dependant for a long time if not life. -continue TPN -okay for NG feeds as tolerated -continue with current care. -will need to monitor for a bit longer. Brandt Auguste Apr 10, 2017 18:48
[2017-04-10] MEDS: Dyna-Hex 2% Top Sol 2oz TOPIC SCH (20:08)
--- NOTE | 2017-04-10 23:36 | Cardiology Progress Note ---
Assessment/Plan Assessment/Plan 1. Sinus tachycardia, most likely due to underlying sepsis. The patient has leukocytosis status post second look laparotomy, s/p ileostomy pouch creation, POD #2 Hemodynamically appears to be stable, Continue with IV hydration and correction of electrolyte derangement. 2D echocardiography reveals normal LV systolic function. 2. Sepsis, leukocytosis, on hydration. 3. Hypernatremia, improving, hypotonic IVF, nephrology follow up. 4. Hypokalemia, resolved, keep K >4.0. 5. Hypomagnesemia, replace with Mg sulfate, keep Mg level >2.5. Subjective Subjective Sinus tachycardia at 120. Objective Last 24 Hour Vital Signs Date Time Temp Pulse Resp B/P (MAP) Pulse Ox O2 Delivery O2 Flow Rate FiO2 04/10/17 20:46 Nasal Cannula 2.0 28 04/10/17 20:46 98 Nasal Cannula 2.0 28 04/10/17 19:00 120 29 139/89 98 Nasal Cannula 3.0 04/10/17 18:00 119 22 148/90 98 Nasal Cannula 3.0 04/10/17 17:00 113 26 148/89 100 Nasal Cannula 3.0 04/10/17 16:00 99.2 118 26 148/89 100 Nasal Cannula 3.0 04/10/17 16:00 118 04/10/17 15:38 131/85 04/10/17 15:00 122 27 131/85 100 Nasal Cannula 3.0 04/10/17 14:00 116 24 130/78 98 Nasal Cannula 3.0 04/10/17 13:00 111 22 134/83 99 Nasal Cannula 3.0 04/10/17 12:12 99.0 04/10/17 12:00 99.0 114 22 134/83 100 Nasal Cannula 3.0 04/10/17 12:00 119 04/10/17 11:00 117 26 142/86 100 Nasal Cannula 3.0 04/10/17 10:00 120 29 146/92 93 Nasal Cannula 3.0 04/10/17 09:00 112 42 138/86 93 Nasal Cannula 3.0 04/10/17 08:00 99.0 105 27 138/91 98 Nasal Cannula 3.0 04/10/17 08:00 119 04/10/17 07:00 115 26 138/91 97 Nasal Cannula 3.0 04/10/17 06:00 113 26 131/85 97 Nasal Cannula 3.0 04/10/17 05:00 113 26 130/94 97 Nasal Cannula 3.0 04/10/17 04:00 99.0 119 26 139/91 98 Nasal Cannula 3.0 04/10/17 04:00 120 04/10/17 03:00 119 26 156/88 97 Nasal Cannula 3.0 04/10/17 02:00 126 26 163/92 98 Nasal Cannula 3.0 04/10/17 01:00 121 26 150/84 98 Nasal Cannula 3.0 04/10/17 00:00 116 04/10/17 00:00 98.5 121 26 150/84 97 Nasal Cannula 3.0 Intake and Output 04/09/17 04/10/17 19:00 07:00 Intake Total 2144.25 ml 864.25 ml Output Total 2165 ml 3155 ml Balance -20.75 ml -2290.75 ml IV Total 1744.25 ml 864.25 ml Other 400 ml Output Urine Total 825 ml 1325 ml Gastric Drainage Total 50 ml 50 ml Drainage Total 30 ml 80 ml Other 1260 ml 1700 ml 2D Echo: LVEF 60%, Mod MR, Grade I LVDD Laboratory Tests Test 04/10/17 05:05 White Blood Count 7.9 K/UL (4.8-10.8) Red Blood Count 3.32 M/UL (4.20-5.40) L Hemoglobin 10.7 G/DL (12.0-16.0) L Hematocrit 31.0 % (37.0-47.0) L Mean Corpuscular Volume 93 FL (80-99) Mean Corpuscular Hemoglobin 32.1 PG (27.0-31.0) H Mean Corpuscular Hemoglobin Concent 34.4 G/DL (32.0-36.0) Red Cell Distribution Width 13.1 % (11.6-14.8) Platelet Count 169 K/UL (150-450) # Mean Platelet Volume 6.4 FL (6.5-10.1) L Neutrophils (%) (Auto) 79.1 % (45.0-75.0) H Lymphocytes (%) (Auto) 15.8 % (20.0-45.0) L Monocytes (%) (Auto) 3.7 % (1.0-10.0) Eosinophils (%) (Auto) 1.0 % (0.0-3.0) Basophils (%) (Auto) 0.4 % (0.0-2.0) Sodium Level 143 MMOL/L (136-145) Potassium Level 3.1 MMOL/L (3.5-5.1) L Chloride Level 107 MMOL/L (98-107) Carbon Dioxide Level 26 MMOL/L (21-32) Anion Gap 10 mmol/L (5-15) Blood Urea Nitrogen 19 mg/dL (7-18) H Creatinine 0.7 MG/DL (0.55-1.30) Estimat Glomerular Filtration Rate > 60 mL/min (>60) Glucose Level 120 MG/DL (74-106) H Calcium Level 8.6 MG/DL (8.5-10.1) Phosphorus Level 2.5 MG/DL (2.5-4.9) Magnesium Level 1.4 MG/DL (1.8-2.4) L Total Bilirubin 0.5 MG/DL (0.2-1.0) Aspartate Amino Transf (AST/SGOT) 31 U/L (15-37) Alanine Aminotransferase (ALT/SGPT) 37 U/L (12-78) Alkaline Phosphatase 60 U/L (46-116) Total Protein 6.2 G/DL (6.4-8.2) L Albumin 1.8 G/DL (3.4-5.0) L Globulin 4.4 g/dL Albumin/Globulin Ratio 0.4 (1.0-2.7) L Objective HEENT: Atraumatic and normocephalic. Anicteric. Pupils are equal, round and reactive to light and accommodation. Intubated and attached to the ventilator. NECK: JVP cannot be assessed as the patient is intubated. CARDIOVASCULAR: Normal S1 and S2. Regular rate and rhythm. Do not appreciate any murmurs, gallops, or rubs. LUNGS: Diminished breath sounds at both bases. ABDOMEN: Distended. Diminished bowel sounds. Slightly tender at the site of surgery. EXTREMITIES: No evidence of edema, clubbing, or cyanosis. JUWAN ULLOA Apr 10, 2017 23:36
[2017-04-11] VITALS (12 sets, daily range): BP systolic 98–132; BP diastolic 66–84
[2017-04-11] MEDS: LORazepam Inj 2mg/ml 1ml IV PRN (02:21)
[2017-04-11] MEDS: Piperacillin/Tazobactam 3.375 GM in D5W 55 ML IVPB SCH ×3 (04:24→21:45)
[2017-04-11] MEDS ORDERED: LORazepam Inj 2mg/ml 1ml IV PRN (04:32)
[2017-04-11] MEDS: NovoLOG Insulin Flexpen SUBQ SCH ×4 (05:50→17:51)
[2017-04-11 06:07] LABS: BASOPHILS % (AUTO) 0.6 % (0.0-2.0); EOSINOPHILS % (AUTO) 0.7 % (0.0-3.0); HEMATOCRIT 28.6 % (37.0-47.0); HEMOGLOBIN 9.6 G/DL (12.0-16.0); MEAN CORPUSCULAR VOLUME 94 FL (80-99); MONOCYTES % (AUTO) 5.6 % (1.0-10.0); PLATELET COUNT 248 K/UL (150-450); RED BLOOD COUNT 3.05 M/UL (4.20-5.40); RED CELL DISTRIBUTION WIDTH 13.2 % (11.6-14.8); WHITE BLOOD COUNT 9.1 K/UL (4.8-10.8)
[2017-04-11 06:20] LABS: PHOSPHORUS 3.6 MG/DL (2.5-4.9)
[2017-04-11 06:32] LABS: ALANINE AMINOTRANSFERASE 29 U/L (12-78); ALBUMIN 2.1 G/DL (3.4-5.0); ALBUMIN/GLOBULIN RATIO 0.4 (1.0-2.7); ALKALINE PHOSPHATASE 78 U/L (46-116); ANION GAP 8 mmol/L (5-15); ASPARTATE AMINO TRANSFERASE 26 U/L (15-37); BILIRUBIN,TOTAL 1.3 MG/DL (0.2-1.0); BLOOD UREA NITROGEN 26 mg/dL (7-18); CALCIUM 8.9 MG/DL (8.5-10.1); CARBON DIOXIDE 26 MMOL/L (21-32); CHLORIDE 109 MMOL/L (98-107); CREATININE 0.9 MG/DL (0.55-1.30); POTASSIUM 3.7 MMOL/L (3.5-5.1); SODIUM 143 MMOL/L (136-145)
[2017-04-11 06:43] LABS: BILIRUBIN,DIRECT 0.6 MG/DL (0.0-0.3)
[2017-04-11] MEDS ORDERED: DiphenhydrAMINE 50mg/ml Inj IVP PRN (08:30)
[2017-04-11] MEDS ORDERED: Acetaminophen 650 MG SUPP RECTAL PRN (09:00)
[2017-04-11] MEDS ORDERED: Midazolam/D5W 100ml 100 ML IVPB PRN (09:30)
[2017-04-11] MEDS: Pantoprazole Inj IV SCH (09:33)
[2017-04-11] MEDS: Magnesium Sulfate 1gm/100ml IVPB SCH ×2 (09:33→10:55)
--- NOTE | 2017-04-11 09:58 | General Progress Note ---
Progress Note Progress Note Surgery: doing well. comfortable. alert, following simple commands. afebrile, HD stable, labs improving. ileostomy with lots of liquid almost clear output. wounds clean. need to keep hydrated aggressively. as she will have high output ostomy. tube feeds as tolerated TPN - will be tpn dependant for fdc can eventually start oral feeds as she becomes more responsive and able to participate in swallow eval for safety needs strict intake and output to ensure adequate intake. wound care. wounds look clean and healing. pt/ot Brandt Auguste Apr 11, 2017 09:58
--- NOTE | 2017-04-11 10:10 | Diagnostic Imaging Report ---
Indication: NG tube placement Technique: XRAY Abdomen 1v Comparison: Chest radiograph 04/11/2017 Findings: NG tube courses below level of diaphragms, tip and side port within the stomach. Bowel gas pattern is nonobstructive. Surgical ghulam are noted in the midline. There is a surgical drainage catheter with its tip in the left pelvis. There is density of the right lower lung. Impression: NG tube in the stomach. Evidence of recent surgery with midline surgical ghulam and surgical drainage catheter. Right-sided airspace disease partially visualized.
--- NOTE | 2017-04-11 10:38 | GI Progress Note ---
Assessment/Plan Problems: (1) On total parenteral nutrition (TPN) ICD Codes: Z78.9 - Other specified health status SNOMED: 00997018, 476870749 (2) Anemia ICD Codes: D64.9 - Anemia, unspecified SNOMED: 115780680 (3) Electrolyte imbalance ICD Codes: E87.8 - Other disorders of electrolyte and fluid balance, not elsewhere classified SNOMED: 685277727 (4) Severe malnutrition ICD Codes: E43 - Unspecified severe protein-calorie malnutrition SNOMED: 04977658 (5) History of colostomy ICD Codes: Z98.890 - Other specified postprocedural states SNOMED: 279628434 (6) Multiorgan failure SNOMED: 12500917 (7) Strangulated ventral incisional hernia ICD Codes: K43.0 - Incisional hernia with obstruction, without gangrene SNOMED: 583420151 Status: unchanged Status Narrative Discussed with Dr. Mejia. Assessment/Plan fu surgical recs >> patient will need to be on TPN for approximately 6 months and be re-evaluated. - NGTFs and PO trial for nutritional supplementation CLD, adv as tolerated anemia work up >> folate deficiency monitor H&H, prn transfusions ppi electrolyte correction fu labs Subjective Subjective limited Objective Last 24 Hour Vital Signs Date Time Temp Pulse Resp B/P (MAP) Pulse Ox O2 Delivery O2 Flow Rate FiO2 04/11/17 08:00 120 04/11/17 08:00 98.2 115 20 101/72 96 Nasal Cannula 3.0 04/11/17 07:00 117 23 109/70 99 Nasal Cannula 3.0 04/11/17 06:00 120 23 109/70 99 Nasal Cannula 3.0 04/11/17 05:00 118 23 114/77 99 Nasal Cannula 3.0 04/11/17 04:00 119 04/11/17 04:00 98.3 123 23 123/84 98 Nasal Cannula 3.0 04/11/17 03:00 123 23 111/77 96 Nasal Cannula 3.0 04/11/17 02:00 122 23 111/68 96 Nasal Cannula 3.0 04/11/17 01:00 128 24 109/77 96 Nasal Cannula 3.0 04/11/17 00:00 98.9 125 26 132/75 97 Nasal Cannula 3.0 04/11/17 00:00 130 04/10/17 23:00 132 26 117/76 95 Nasal Cannula 3.0 04/10/17 22:00 133 28 124/91 97 Nasal Cannula 3.0 04/10/17 21:00 99.0 123 28 135/74 98 Nasal Cannula 3.0 04/10/17 20:46 Nasal Cannula 2.0 28 04/10/17 20:46 98 Nasal Cannula 2.0 28 04/10/17 20:00 120 04/10/17 20:00 99.0 124 26 149/88 94 Nasal Cannula 3.0 04/10/17 19:00 120 29 139/89 98 Nasal Cannula 3.0 04/10/17 18:00 119 22 148/90 98 Nasal Cannula 3.0 04/10/17 17:00 113 26 148/89 100 Nasal Cannula 3.0 04/10/17 16:00 99.2 118 26 148/89 100 Nasal Cannula 3.0 04/10/17 16:00 118 04/10/17 15:38 131/85 04/10/17 15:00 122 27 131/85 100 Nasal Cannula 3.0 04/10/17 14:00 116 24 130/78 98 Nasal Cannula 3.0 04/10/17 13:00 111 22 134/83 99 Nasal Cannula 3.0 04/10/17 12:12 99.0 04/10/17 12:00 99.0 114 22 134/83 100 Nasal Cannula 3.0 04/10/17 12:00 119 04/10/17 11:00 117 26 142/86 100 Nasal Cannula 3.0 Intake and Output 04/10/17 04/11/17 19:00 07:00 Intake Total 2225.125 ml 307.50 ml Output Total 1405 ml 1330 ml Balance 820.125 ml -1022.50 ml IV Total 560.125 ml 187.50 ml Tube Feeding 15 ml 120 ml Other 1650 ml Output Urine Total 1225 ml Emesis 150 ml Drainage Total 30 ml 30 ml Other 1300 ml # Voids 775 Laboratory Tests Test 04/11/17 05:00 White Blood Count 9.1 K/UL (4.8-10.8) Red Blood Count 3.05 M/UL (4.20-5.40) L Hemoglobin 9.6 G/DL (12.0-16.0) L Hematocrit 28.6 % (37.0-47.0) L Mean Corpuscular Volume 94 FL (80-99) Mean Corpuscular Hemoglobin 31.5 PG (27.0-31.0) H Mean Corpuscular Hemoglobin Concent 33.7 G/DL (32.0-36.0) Red Cell Distribution Width 13.2 % (11.6-14.8) Platelet Count 248 K/UL (150-450) Mean Platelet Volume 6.2 FL (6.5-10.1) L Neutrophils (%) (Auto) 77.0 % (45.0-75.0) H Lymphocytes (%) (Auto) 16.0 % (20.0-45.0) L Monocytes (%) (Auto) 5.6 % (1.0-10.0) Eosinophils (%) (Auto) 0.7 % (0.0-3.0) Basophils (%) (Auto) 0.6 % (0.0-2.0) Sodium Level 143 MMOL/L (136-145) Potassium Level 3.7 MMOL/L (3.5-5.1) Chloride Level 109 MMOL/L (98-107) H Carbon Dioxide Level 26 MMOL/L (21-32) Anion Gap 8 mmol/L (5-15) Blood Urea Nitrogen 26 mg/dL (7-18) H Creatinine 0.9 MG/DL (0.55-1.30) Estimat Glomerular Filtration Rate > 60 mL/min (>60) Glucose Level 80 MG/DL (74-106) Calcium Level 8.9 MG/DL (8.5-10.1) Phosphorus Level 3.6 MG/DL (2.5-4.9) Magnesium Level 1.6 MG/DL (1.8-2.4) L Total Bilirubin 1.3 MG/DL (0.2-1.0) H Direct Bilirubin 0.6 MG/DL (0.0-0.3) H Aspartate Amino Transf (AST/SGOT) 26 U/L (15-37) Alanine Aminotransferase (ALT/SGPT) 29 U/L (12-78) Alkaline Phosphatase 78 U/L (46-116) Pro-B-Type Natriuretic Peptide 550 pg/mL (0-125) H Total Protein 6.9 G/DL (6.4-8.2) Albumin 2.1 G/DL (3.4-5.0) L Globulin 4.8 g/dL Albumin/Globulin Ratio 0.4 (1.0-2.7) L Height (Feet): 5 Height (Inches): 0.00 Weight (Pounds): 90 General Appearance: confused Cardiovascular: normal rate Respiratory/Chest: normal breath sounds Abdominal Exam: other - NGT/colostomy site/surgical site Shahana Wang N.P. Apr 11, 2017 10:38
--- NOTE | 2017-04-11 11:05 | Nephrology Progress Note ---
Assessment/Plan Assessment 1. Hypernatremia resolved 2. Hypokalemia. 3. Acute renal failure or dehydration. 4. Malnutrition. 5. Hypocalcemia. 6. Hypomagnesemia. Plan to continue nutritional support with TPN replace mg replace k monitoring out put monitoring renal function Subjective Subjective extubated awake but confused Objective Objective Last 24 Hour Vital Signs Date Time Temp Pulse Resp B/P (MAP) Pulse Ox O2 Delivery O2 Flow Rate FiO2 04/11/17 08:00 120 04/11/17 08:00 98.2 115 20 101/72 96 Nasal Cannula 3.0 04/11/17 07:00 117 23 109/70 99 Nasal Cannula 3.0 04/11/17 06:00 120 23 109/70 99 Nasal Cannula 3.0 04/11/17 05:00 118 23 114/77 99 Nasal Cannula 3.0 04/11/17 04:00 119 04/11/17 04:00 98.3 123 23 123/84 98 Nasal Cannula 3.0 04/11/17 03:00 123 23 111/77 96 Nasal Cannula 3.0 04/11/17 02:00 122 23 111/68 96 Nasal Cannula 3.0 04/11/17 01:00 128 24 109/77 96 Nasal Cannula 3.0 04/11/17 00:00 98.9 125 26 132/75 97 Nasal Cannula 3.0 04/11/17 00:00 130 04/10/17 23:00 132 26 117/76 95 Nasal Cannula 3.0 04/10/17 22:00 133 28 124/91 97 Nasal Cannula 3.0 04/10/17 21:00 99.0 123 28 135/74 98 Nasal Cannula 3.0 04/10/17 20:46 Nasal Cannula 2.0 28 04/10/17 20:46 98 Nasal Cannula 2.0 28 04/10/17 20:00 120 04/10/17 20:00 99.0 124 26 149/88 94 Nasal Cannula 3.0 04/10/17 19:00 120 29 139/89 98 Nasal Cannula 3.0 04/10/17 18:00 119 22 148/90 98 Nasal Cannula 3.0 04/10/17 17:00 113 26 148/89 100 Nasal Cannula 3.0 04/10/17 16:00 99.2 118 26 148/89 100 Nasal Cannula 3.0 04/10/17 16:00 118 1/18/18 15:38 131/85 04/10/17 15:00 122 27 131/85 100 Nasal Cannula 3.0 04/10/17 14:00 116 24 130/78 98 Nasal Cannula 3.0 04/10/17 13:00 111 22 134/83 99 Nasal Cannula 3.0 04/10/17 12:12 99.0 04/10/17 12:00 99.0 114 22 134/83 100 Nasal Cannula 3.0 04/10/17 12:00 119 Intake and Output 04/10/17 04/11/17 19:00 07:00 Intake Total 2225.125 ml 307.50 ml Output Total 1405 ml 1330 ml Balance 820.125 ml -1022.50 ml IV Total 560.125 ml 187.50 ml Tube Feeding 15 ml 120 ml Other 1650 ml Output Urine Total 1225 ml Emesis 150 ml Drainage Total 30 ml 30 ml Other 1300 ml # Voids 775 Laboratory Tests 04/11/17 05:00: White Blood Count 9.1, Red Blood Count 3.05L, Hemoglobin 9.6L, Hematocrit 28.6L , Mean Corpuscular Volume 94, Mean Corpuscular Hemoglobin 31.5H, Mean Corpuscular Hemoglobin Concent 33.7, Red Cell Distribution Width 13.2, Platelet Count 248, Mean Platelet Volume 6.2L, Neutrophils (%) (Auto) 77.0H, Lymphocytes (%) (Auto) 16.0L, Monocytes (%) (Auto) 5.6, Eosinophils (%) (Auto) 0.7, Basophils (%) (Auto) 0.6, Sodium Level 143, Potassium Level 3.7, Chloride Level 109H, Carbon Dioxide Level 26, Anion Gap 8, Blood Urea Nitrogen 26H, Creatinine 0.9, Estimat Glomerular Filtration Rate > 60, Glucose Level 80, Calcium Level 8.9, Phosphorus Level 3.6, Magnesium Level 1.6L, Total Bilirubin 1.3H, Direct Bilirubin 0.6H, Aspartate Amino Transf (AST/SGOT) 26, Alanine Aminotransferase ( ALT/SGPT) 29, Alkaline Phosphatase 78, Pro-B-Type Natriuretic Peptide 550H, Total Protein 6.9, Albumin 2.1L, Globulin 4.8, Albumin/Globulin Ratio 0.4L Height (Feet): 5 Height (Inches): 0.00 Weight (Pounds): 90 Objective HEAD AND NECK: No JVP. No LAD. No thyromegaly. NG tube is placed. ET tube is in place. NG tube secreting greenish liquids. CARDIAC: Regular rate and rhythm. S1 and S2. No murmur. No rub. LUNGS: Has decreased breathing sound on both sides. ABDOMEN: Soft. Bowel sounds are hypoactive. Nontender. EXTREMITIES: No edema. No clubbing. No cyanosis. DELMI ARITA Apr 11, 2017 11:05
--- NOTE | 2017-04-11 11:48 | Pulmonology Progress Note ---
Assessment/Plan Problems: (1) Septic shock (2) Acute respiratory failure (3) Strangulated ventral incisional hernia (4) Severe malnutrition (5) On total parenteral nutrition (TPN) (6) Multiorgan failure Assessment/Plan Respiratory: monitor respiratory rate, Cardiac: continue to monitor HR/BP Renal: F/U I&O, keep IV fluid, TPN Infectious Disease: check cultures Gastrointestinal: continue feedings/current rate, hold feedings Hematologic: monitor H/H, transfuse if hgb<8.5 Neurologic: PRN Ativan, PRN Morphine, keep patient comfortable Discussed with: nurses, consultants Subjective ROS Limited/Unobtainable: No Constitutional: Reports: no symptoms HEENT: Repors: no symptoms Allergies: Coded Allergies: TRAZODONE (Verified Allergy, Unknown, 04/04/17) Objective Last 24 Hour Vital Signs Date Time Temp Pulse Resp B/P (MAP) Pulse Ox O2 Delivery O2 Flow Rate FiO2 04/11/17 08:00 120 04/11/17 08:00 98.2 115 20 101/72 96 Nasal Cannula 3.0 04/11/17 07:00 117 23 109/70 99 Nasal Cannula 3.0 04/11/17 06:00 120 23 109/70 99 Nasal Cannula 3.0 04/11/17 05:00 118 23 114/77 99 Nasal Cannula 3.0 04/11/17 04:00 119 04/11/17 04:00 98.3 123 23 123/84 98 Nasal Cannula 3.0 04/11/17 03:00 123 23 111/77 96 Nasal Cannula 3.0 04/11/17 02:00 122 23 111/68 96 Nasal Cannula 3.0 04/11/17 01:00 128 24 109/77 96 Nasal Cannula 3.0 04/11/17 00:00 98.9 125 26 132/75 97 Nasal Cannula 3.0 04/11/17 00:00 130 04/10/17 23:00 132 26 117/76 95 Nasal Cannula 3.0 04/10/17 22:00 133 28 124/91 97 Nasal Cannula 3.0 04/10/17 21:00 99.0 123 28 135/74 98 Nasal Cannula 3.0 04/10/17 20:46 Nasal Cannula 2.0 28 04/10/17 20:46 98 Nasal Cannula 2.0 28 04/10/17 20:00 120 04/10/17 20:00 99.0 124 26 149/88 94 Nasal Cannula 3.0 04/10/17 19:00 120 29 139/89 98 Nasal Cannula 3.0 04/10/17 18:00 119 22 148/90 98 Nasal Cannula 3.0 04/10/17 17:00 113 26 148/89 100 Nasal Cannula 3.0 04/10/17 16:00 99.2 118 26 148/89 100 Nasal Cannula 3.0 04/10/17 16:00 118 04/10/17 15:38 131/85 04/10/17 15:00 122 27 131/85 100 Nasal Cannula 3.0 04/10/17 14:00 116 24 130/78 98 Nasal Cannula 3.0 04/10/17 13:00 111 22 134/83 99 Nasal Cannula 3.0 04/10/17 12:12 99.0 04/10/17 12:00 99.0 114 22 134/83 100 Nasal Cannula 3.0 04/10/17 12:00 119 Intake and Output 04/10/17 04/11/17 19:00 07:00 Intake Total 2225.125 ml 307.50 ml Output Total 1405 ml 1330 ml Balance 820.125 ml -1022.50 ml IV Total 560.125 ml 187.50 ml Tube Feeding 15 ml 120 ml Other 1650 ml Output Urine Total 1225 ml Emesis 150 ml Drainage Total 30 ml 30 ml Other 1300 ml # Voids 775 General Appearance: WD/WN HEENT: normocephalic, atraumatic Respiratory/Chest: chest wall non-tender, lungs clear Breasts: no masses Cardiovascular: normal peripheral pulses, regular rhythm Abdomen: normal bowel sounds, no organomegaly Genitourinary: normal external genitalia Skin: no rash Laboratory Tests 04/11/17 05:00: White Blood Count 9.1, Red Blood Count 3.05L, Hemoglobin 9.6L, Hematocrit 28.6L , Mean Corpuscular Volume 94, Mean Corpuscular Hemoglobin 31.5H, Mean Corpuscular Hemoglobin Concent 33.7, Red Cell Distribution Width 13.2, Platelet Count 248, Mean Platelet Volume 6.2L, Neutrophils (%) (Auto) 77.0H, Lymphocytes (%) (Auto) 16.0L, Monocytes (%) (Auto) 5.6, Eosinophils (%) (Auto) 0.7, Basophils (%) (Auto) 0.6, Sodium Level 143, Potassium Level 3.7, Chloride Level 109H, Carbon Dioxide Level 26, Anion Gap 8, Blood Urea Nitrogen 26H, Creatinine 0.9, Estimat Glomerular Filtration Rate > 60, Glucose Level 80, Calcium Level 8.9, Phosphorus Level 3.6, Magnesium Level 1.6L, Total Bilirubin 1.3H, Direct Bilirubin 0.6H, Aspartate Amino Transf (AST/SGOT) 26, Alanine Aminotransferase ( ALT/SGPT) 29, Alkaline Phosphatase 78, Pro-B-Type Natriuretic Peptide 550H, Total Protein 6.9, Albumin 2.1L, Globulin 4.8, Albumin/Globulin Ratio 0.4L Current Medications Medications (Trade) Dose Ordered Sig/Nicole Route PRN Reason Start Time Stop Time Status Last Admin Dose Admin Acetaminophen (Tylenol) 650 mg Q4H PRN RECTAL FEVER 04/11/17 09:00 05/04/17 08:59 Chlorhexidine Gluconate (Collette-Hex 2%) 1 applic DAILY@2000 TOPIC 04/11/17 20:00 05/05/17 19:59 Dextrose 1,000 ml @ 0 mls/hr Q24H PRN IV PN interrupted or unavailable 04/11/17 20:00 05/11/17 19:59 Dextrose 1,000 ml @ 75 mls/hr [id number] IV 04/11/17 10:30 04/12/17 10:29 04/11/17 10:55 Dextrose (Dextrose 50%) STAT PRN IV Hypoglycemia 04/11/17 08:30 05/11/17 08:29 Diphenhydramine HCl (Benadryl) 12.5 mg Q6H PRN IVP Itching/Pruritis 04/11/17 08:30 05/04/17 08:29 Fat Emulsion Intravenous 216 ml/Amino Acids/ Electrolytes/ Dextrose 1,536 ml @ 64 mls/hr Q24H IV 04/11/17 20:00 05/11/17 19:59 Insulin Aspart (NovoLOG) Q6HR SUBQ 04/11/17 12:00 05/04/17 05:59 Lorazepam (Ativan 2mg/ml 1ml) 1 mg Q4H PRN IV For Anxiety 04/11/17 08:30 04/18/17 08:29 Ondansetron HCl (Zofran) 4 mg Q6H PRN IVP Nausea & Vomiting 04/11/17 08:30 05/04/17 08:29 Pantoprazole (Protonix) 40 mg DAILY IV 04/11/17 09:00 05/04/17 08:59 04/11/17 09:33 Piperacillin Sod/ Tazobactam Sod 3.375 gm/Dextrose 55 ml @ 13.75 mls/ hr Q8HR@0400,1200,2000 IVPB 04/11/17 12:00 04/18/17 11:59 Risperidone (RisperDAL) 0.5 mg Q12HR NG 04/11/17 09:00 05/11/17 08:59 04/11/17 10:55 YAYO CELIS Apr 11, 2017 11:48
--- NOTE | 2017-04-11 12:28 | Diagnostic Imaging Report ---
Indication: Dyspnea Technique: XRAY Chest 1v Comparison: 04/09/2017 Findings: NG tube in the stomach. Left subclavian catheter tip of the region of the SVC. Heart size and mediastinal contours are stable. There is small right pleural effusion with right basilar atelectasis/consolidation. There is mild interstitial edema, slightly improved No definite pneumothorax. No acute osseous abnormality seen. Midline surgical ghulam noted. Impression: Persistent small right pleural effusion and right basilar atelectasis/consolidation. Interstitial edema has slightly improved.
--- NOTE | 2017-04-11 14:20 | Infectious Diseases Prog Note ---
Assessment/Plan Assessment/Plan A: Sepsis Peritonitis Strangulated hernia Small bowel necrosis Respiratory failure resolved Anemia s/p laparotomy X 2 Short bowel syndrome P: Continue Zosyn Subjective ROS Limited/Unobtainable: Yes Constitutional: Reports: other - transferred from ICU to [facility] Neurologic: Reports: confusion, other - on restraint Allergies: Coded Allergies: TRAZODONE (Verified Allergy, Unknown, 04/04/17) Objective Vital Signs Last 24 Hour Vital Signs Date Time Temp Pulse Resp B/P (MAP) Pulse Ox O2 Delivery O2 Flow Rate FiO2 04/11/17 12:00 104 04/11/17 12:00 97.5 113 17 98/69 94 Nasal Cannula 3.0 04/11/17 08:00 120 04/11/17 08:00 98.2 115 20 101/72 96 Nasal Cannula 3.0 04/11/17 07:00 117 23 109/70 99 Nasal Cannula 3.0 04/11/17 06:00 120 23 109/70 99 Nasal Cannula 3.0 04/11/17 05:00 118 23 114/77 99 Nasal Cannula 3.0 04/11/17 04:00 119 04/11/17 04:00 98.3 123 23 123/84 98 Nasal Cannula 3.0 04/11/17 03:00 123 23 111/77 96 Nasal Cannula 3.0 04/11/17 02:00 122 23 111/68 96 Nasal Cannula 3.0 04/11/17 01:00 128 24 109/77 96 Nasal Cannula 3.0 04/11/17 00:00 98.9 125 26 132/75 97 Nasal Cannula 3.0 04/11/17 00:00 130 04/10/17 23:00 132 26 117/76 95 Nasal Cannula 3.0 04/10/17 22:00 133 28 124/91 97 Nasal Cannula 3.0 04/10/17 21:00 99.0 123 28 135/74 98 Nasal Cannula 3.0 04/10/17 20:46 Nasal Cannula 2.0 28 04/10/17 20:46 98 Nasal Cannula 2.0 28 04/10/17 20:00 120 04/10/17 20:00 99.0 124 26 149/88 94 Nasal Cannula 3.0 04/10/17 19:00 120 29 139/89 98 Nasal Cannula 3.0 04/10/17 18:00 119 22 148/90 98 Nasal Cannula 3.0 04/10/17 17:00 113 26 148/89 100 Nasal Cannula 3.0 04/10/17 16:00 99.2 118 26 148/89 100 Nasal Cannula 3.0 04/10/17 16:00 118 18 15:38 131/85 04/10/17 15:00 122 27 131/85 100 Nasal Cannula 3.0 Height (Feet): 5 Height (Inches): 0.00 Weight (Pounds): 90 General Appearance: no acute distress HEENT: mucous membranes moist Respiratory/Chest: lungs clear Cardiovascular: tachycardia, other - left subclavian line Abdomen: soft, non tender, other - s/p osteotomy, NG to suction on TON Extremities: no edema Neurologic/Psychiatric: alert, responsive, disoriented Musculoskeletal: atrophy Laboratory Tests Test 04/11/17 05:00 White Blood Count 9.1 K/UL (4.8-10.8) Red Blood Count 3.05 M/UL (4.20-5.40) L Hemoglobin 9.6 G/DL (12.0-16.0) L Hematocrit 28.6 % (37.0-47.0) L Mean Corpuscular Volume 94 FL (80-99) Mean Corpuscular Hemoglobin 31.5 PG (27.0-31.0) H Mean Corpuscular Hemoglobin Concent 33.7 G/DL (32.0-36.0) Red Cell Distribution Width 13.2 % (11.6-14.8) Platelet Count 248 K/UL (150-450) Mean Platelet Volume 6.2 FL (6.5-10.1) L Neutrophils (%) (Auto) 77.0 % (45.0-75.0) H Lymphocytes (%) (Auto) 16.0 % (20.0-45.0) L Monocytes (%) (Auto) 5.6 % (1.0-10.0) Eosinophils (%) (Auto) 0.7 % (0.0-3.0) Basophils (%) (Auto) 0.6 % (0.0-2.0) Sodium Level 143 MMOL/L (136-145) Potassium Level 3.7 MMOL/L (3.5-5.1) Chloride Level 109 MMOL/L (98-107) H Carbon Dioxide Level 26 MMOL/L (21-32) Anion Gap 8 mmol/L (5-15) Blood Urea Nitrogen 26 mg/dL (7-18) H Creatinine 0.9 MG/DL (0.55-1.30) Estimat Glomerular Filtration Rate > 60 mL/min (>60) Glucose Level 80 MG/DL (74-106) Calcium Level 8.9 MG/DL (8.5-10.1) Phosphorus Level 3.6 MG/DL (2.5-4.9) Magnesium Level 1.6 MG/DL (1.8-2.4) L Total Bilirubin 1.3 MG/DL (0.2-1.0) H Direct Bilirubin 0.6 MG/DL (0.0-0.3) H Aspartate Amino Transf (AST/SGOT) 26 U/L (15-37) Alanine Aminotransferase (ALT/SGPT) 29 U/L (12-78) Alkaline Phosphatase 78 U/L (46-116) Pro-B-Type Natriuretic Peptide 550 pg/mL (0-125) H Total Protein 6.9 G/DL (6.4-8.2) Albumin 2.1 G/DL (3.4-5.0) L Globulin 4.8 g/dL Albumin/Globulin Ratio 0.4 (1.0-2.7) L Current Medications Medications (Trade) Dose Ordered Sig/Nicole Route PRN Reason Start Time Stop Time Status Last Admin Dose Admin Acetaminophen (Tylenol) 650 mg Q4H PRN RECTAL FEVER 04/11/17 09:00 05/04/17 08:59 Chlorhexidine Gluconate (Collette-Hex 2%) 1 applic DAILY@2000 TOPIC 04/11/17 20:00 05/05/17 19:59 Dextrose 1,000 ml @ 0 mls/hr Q24H PRN IV PN interrupted or unavailable 04/11/17 20:00 05/11/17 19:59 Dextrose 1,000 ml @ 75 mls/hr [id number] IV 04/11/17 10:30 04/12/17 10:29 04/11/17 10:55 Dextrose (Dextrose 50%) STAT PRN IV Hypoglycemia 04/11/17 08:30 05/11/17 08:29 Diphenhydramine HCl (Benadryl) 12.5 mg Q6H PRN IVP Itching/Pruritis 04/11/17 08:30 05/04/17 08:29 Fat Emulsion Intravenous 216 ml/Amino Acids/ Electrolytes/ Dextrose 1,536 ml @ 64 mls/hr Q24H IV 04/11/17 20:00 05/11/17 19:59 Insulin Aspart (NovoLOG) Q6HR SUBQ 04/11/17 12:00 05/04/17 05:59 Lorazepam (Ativan 2mg/ml 1ml) 1 mg Q4H PRN IV For Anxiety 04/11/17 08:30 04/18/17 08:29 Ondansetron HCl (Zofran) 4 mg Q6H PRN IVP Nausea & Vomiting 04/11/17 08:30 05/04/17 08:29 Pantoprazole (Protonix) 40 mg DAILY IV 04/11/17 09:00 05/04/17 08:59 04/11/17 09:33 Piperacillin Sod/ Tazobactam Sod 3.375 gm/Dextrose 55 ml @ 13.75 mls/ hr Q8HR@0400,1200,2000 IVPB 04/11/17 12:00 04/18/17 11:59 04/11/17 13:26 Risperidone (RisperDAL) 0.5 mg Q12HR NG 04/11/17 09:00 05/11/17 08:59 04/11/17 10:55 MIO LOMAX Apr 11, 2017 14:19
--- NOTE | 2017-04-11 16:45 | Nephrology Progress Note ---
Assessment/Plan Assessment 1. Hypernatremia resolved 2. Hypokalemia. 3. Acute renal failure or dehydration. 4. Malnutrition. 5. Hypocalcemia. 6. Hypomagnesemia. Plan to continue nutritional support with TPN replace mg replace k monitoring out put monitoring renal function Subjective Constitutional: Reports: no symptoms Genitourinary: Reports: no symptoms Neurologic/Psychiatric: Reports: no symptoms Subjective started on feeding awake but confused Objective Objective Last 24 Hour Vital Signs Date Time Temp Pulse Resp B/P (MAP) Pulse Ox O2 Delivery O2 Flow Rate FiO2 04/11/17 16:00 97.6 114 17 102/66 95 Nasal Cannula 3.0 04/11/17 12:00 104 04/11/17 12:00 97.5 113 17 98/69 94 Nasal Cannula 3.0 04/11/17 08:00 120 04/11/17 08:00 98.2 115 20 101/72 96 Nasal Cannula 3.0 04/11/17 07:00 117 23 109/70 99 Nasal Cannula 3.0 04/11/17 06:00 120 23 109/70 99 Nasal Cannula 3.0 04/11/17 05:00 118 23 114/77 99 Nasal Cannula 3.0 04/11/17 04:00 119 04/11/17 04:00 98.3 123 23 123/84 98 Nasal Cannula 3.0 04/11/17 03:00 123 23 111/77 96 Nasal Cannula 3.0 04/11/17 02:00 122 23 111/68 96 Nasal Cannula 3.0 04/11/17 01:00 128 24 109/77 96 Nasal Cannula 3.0 04/11/17 00:00 98.9 125 26 132/75 97 Nasal Cannula 3.0 04/11/17 00:00 130 04/10/17 23:00 132 26 117/76 95 Nasal Cannula 3.0 04/10/17 22:00 133 28 124/91 97 Nasal Cannula 3.0 04/10/17 21:00 99.0 123 28 135/74 98 Nasal Cannula 3.0 04/10/17 20:46 Nasal Cannula 2.0 28 04/10/17 20:46 98 Nasal Cannula 2.0 28 04/10/17 20:00 120 04/10/17 20:00 99.0 124 26 149/88 94 Nasal Cannula 3.0 04/10/17 19:00 120 29 139/89 98 Nasal Cannula 3.0 04/10/17 18:00 119 22 148/90 98 Nasal Cannula 3.0 04/10/17 17:00 113 26 148/89 100 Nasal Cannula 3.0 Intake and Output 04/10/17 04/11/17 19:00 07:00 Intake Total 2225.125 ml 307.50 ml Output Total 1405 ml 1330 ml Balance 820.125 ml -1022.50 ml IV Total 560.125 ml 187.50 ml Tube Feeding 15 ml 120 ml Other 1650 ml Output Urine Total 1225 ml Emesis 150 ml Drainage Total 30 ml 30 ml Other 1300 ml # Voids 775 Laboratory Tests 04/11/17 05:00: White Blood Count 9.1, Red Blood Count 3.05L, Hemoglobin 9.6L, Hematocrit 28.6L , Mean Corpuscular Volume 94, Mean Corpuscular Hemoglobin 31.5H, Mean Corpuscular Hemoglobin Concent 33.7, Red Cell Distribution Width 13.2, Platelet Count 248, Mean Platelet Volume 6.2L, Neutrophils (%) (Auto) 77.0H, Lymphocytes (%) (Auto) 16.0L, Monocytes (%) (Auto) 5.6, Eosinophils (%) (Auto) 0.7, Basophils (%) (Auto) 0.6, Sodium Level 143, Potassium Level 3.7, Chloride Level 109H, Carbon Dioxide Level 26, Anion Gap 8, Blood Urea Nitrogen 26H, Creatinine 0.9, Estimat Glomerular Filtration Rate > 60, Glucose Level 80, Calcium Level 8.9, Phosphorus Level 3.6, Magnesium Level 1.6L, Total Bilirubin 1.3H, Direct Bilirubin 0.6H, Aspartate Amino Transf (AST/SGOT) 26, Alanine Aminotransferase ( ALT/SGPT) 29, Alkaline Phosphatase 78, Pro-B-Type Natriuretic Peptide 550H, Total Protein 6.9, Albumin 2.1L, Globulin 4.8, Albumin/Globulin Ratio 0.4L Height (Feet): 5 Height (Inches): 0.00 Weight (Pounds): 90 Objective HEAD AND NECK: No JVP. No LAD. No thyromegaly. NG tube is placed. ET tube is in place. NG tube secreting greenish liquids. CARDIAC: Regular rate and rhythm. S1 and S2. No murmur. No rub. LUNGS: Has decreased breathing sound on both sides. ABDOMEN: Soft. Bowel sounds are hypoactive. Nontender. EXTREMITIES: No edema. No clubbing. No cyanosis. DELMI ARITA Apr 11, 2017 16:45
--- NOTE | 2017-04-11 19:02 | Consultation ---
DATE OF CONSULTATION: 04/11/2017 CONSULTING PHYSICIAN: Alison Banda M.D. HISTORY OF PRESENT ILLNESS: This is a 51-year-old female patient. She was admitted to the hospital. She is now in the intensive care unit, but this patient has a history of bipolar disorder and she was actually admitted to [facility] secondary to failure to thrive, weakness, and weight loss. She also was found to have small bowel obstruction with bowel strangulation, however, her cognition continues to decline below baseline secondary to stress of her medical illness. She is very confused, disorganized, and her mood lability has worsened secondary to stress of her medical illness. Because she was previously at [facility], but she did have a history of bipolar 2 versus schizoaffective bipolar type, so that is why there was a psychiatric consultation requested for this patient and her attending physician has requested daily psychiatric consultation for this patient throughout hospital course at [facility] to manage her behavior and also to prevent any further decline in her cognition. MEDICAL HISTORY: Includes failure to thrive, weakness, weight loss, small bowel obstruction with strangulation, hypertension, psychiatric history of bipolar 2, rule out schizoaffective bipolar type. ALLERGIES: Trazodone. SOCIAL HISTORY: She lives in [facility]. Financially supported by [facility] and [employer]. PSYCHIATRIC HISTORY: History of bipolar disorder. FAMILY PSYCHIATRIC HISTORY: Denies. SUBSTANCE ABUSE HISTORY: Denies drug and alcohol use. PSYCHOTROPIC MEDICATIONS: On admission, per chart. The patient is a very poor historian, so she is unable to give me details of the type of psychotropic medications that she is on at this time 02:30. The patient still has some confusion and altered mental status. MENTAL STATUS EXAMINATION: This is a 51-year-old female with psychomotor agitation. Mood is irritable and agitated. Affect guarded and restricted. Thought process is disorganized and illogical. No signs of any suicidal or homicidal thoughts, but insight and judgment is poor. Appearance disheveled. Attitude irritable and agitated. Affect is guarded and restricted. Intellect poor. Mood depressed, anxious. Motor activity, psychomotor agitation. Attention span is poor. Orientation x2. Speech is low volume and slurred. Thought process, disorganized. Thought content, she denies any current suicidal or homicidal thoughts. Insight and judgment is poor. PLAN: My plan for this patient is, I am going to treat this patient with a psychotropic medication regimen consisting of 03:59 for now to control as she has slight anxiety and agitation. So, I am going to continue her on Ativan 0.5 mg intravenous q.4 hours as needed anxiety and she will continue to be followed by Psychiatry throughout hospital course. Right now, she is NPO, so I am not going to put her on any oral medications at this time, but she will continue to be followed by Psychiatry. Chart reviewed, discussed with staff. She will continue to be followed by Psychiatry throughout hospital course in order to prevent any further decline in her cognition. Seen and assessed at bedside. Alison Banda M.D. DR: SHAWN JOB#: [id number] CC:
[2017-04-11] MEDS ORDERED: Tubing IV Secondary IV ONE ×2 (19:28→20:52)
[2017-04-11] MEDS ORDERED: Tubing Blood Filter IV ONE (19:28)
[2017-04-11] MEDS ORDERED: NS 275ml ONE ×3 (19:28→20:52)
[2017-04-11] MEDS ORDERED: TPN IV SCH ×4 (20:00)
[2017-04-11] MEDS ORDERED: Dextrose 10% 1,000 ML IV PRN ×2 (20:00)
[2017-04-11] MEDS ORDERED: FAT EMULSION 20% IV SCH ×4 (20:00)
--- NOTE | 2017-04-11 21:05 | General Progress Note ---
Assessment/Plan Problem List: (1) Hyponatremia ICD Codes: E87.1 - Hypo-osmolality and hyponatremia SNOMED: 26917004 (2) Psychiatric disorder ICD Codes: F99 - Mental disorder, not otherwise specified SNOMED: 88396768, 654049031 (3) Vitamin D deficiency ICD Codes: E55.9 - Vitamin D deficiency, unspecified SNOMED: 28877712 (4) HTN (hypertension) ICD Codes: I10 - Essential (primary) hypertension SNOMED: 63188951 (5) Bipolar 1 disorder ICD Codes: F31.9 - Bipolar disorder, unspecified SNOMED: 132487962 Status: progressing Assessment/Plan electrolyte abnormality improving afebrile psychosis vitals holding Subjective ROS Limited/Unobtainable: Yes Allergies: Coded Allergies: TRAZODONE (Verified Allergy, Unknown, 04/04/17) Objective Last 24 Hour Vital Signs Date Time Temp Pulse Resp B/P (MAP) Pulse Ox O2 Delivery O2 Flow Rate FiO2 04/11/17 20:11 Nasal Cannula 2.0 28 04/11/17 20:11 98 Nasal Cannula 2.0 28 04/11/17 16:00 97.6 114 17 102/66 95 Nasal Cannula 3.0 04/11/17 16:00 112 04/11/17 12:00 104 04/11/17 12:00 97.5 113 17 98/69 94 Nasal Cannula 3.0 04/11/17 08:00 120 04/11/17 08:00 98.2 115 20 101/72 96 Nasal Cannula 3.0 04/11/17 07:00 117 23 109/70 99 Nasal Cannula 3.0 04/11/17 06:00 120 23 109/70 99 Nasal Cannula 3.0 04/11/17 05:00 118 23 114/77 99 Nasal Cannula 3.0 04/11/17 04:00 119 04/11/17 04:00 98.3 123 23 123/84 98 Nasal Cannula 3.0 04/11/17 03:00 123 23 111/77 96 Nasal Cannula 3.0 04/11/17 02:00 122 23 111/68 96 Nasal Cannula 3.0 04/11/17 01:00 128 24 109/77 96 Nasal Cannula 3.0 04/11/17 00:00 98.9 125 26 132/75 97 Nasal Cannula 3.0 04/11/17 00:00 130 1/18/18 23:00 132 26 117/76 95 Nasal Cannula 3.0 04/10/17 22:00 133 28 124/91 97 Nasal Cannula 3.0 Intake and Output 04/10/17 04/11/17 19:00 07:00 Intake Total 2225.125 ml 307.50 ml Output Total 1405 ml 1330 ml Balance 820.125 ml -1022.50 ml IV Total 560.125 ml 187.50 ml Tube Feeding 15 ml 120 ml Other 1650 ml Output Urine Total 1225 ml Emesis 150 ml Drainage Total 30 ml 30 ml Other 1300 ml # Voids 775 Laboratory Tests 04/11/17 05:00: White Blood Count 9.1, Red Blood Count 3.05L, Hemoglobin 9.6L, Hematocrit 28.6L , Mean Corpuscular Volume 94, Mean Corpuscular Hemoglobin 31.5H, Mean Corpuscular Hemoglobin Concent 33.7, Red Cell Distribution Width 13.2, Platelet Count 248, Mean Platelet Volume 6.2L, Neutrophils (%) (Auto) 77.0H, Lymphocytes (%) (Auto) 16.0L, Monocytes (%) (Auto) 5.6, Eosinophils (%) (Auto) 0.7, Basophils (%) (Auto) 0.6, Sodium Level 143, Potassium Level 3.7, Chloride Level 109H, Carbon Dioxide Level 26, Anion Gap 8, Blood Urea Nitrogen 26H, Creatinine 0.9, Estimat Glomerular Filtration Rate > 60, Glucose Level 80, Calcium Level 8.9, Phosphorus Level 3.6, Magnesium Level 1.6L, Total Bilirubin 1.3H, Direct Bilirubin 0.6H, Aspartate Amino Transf (AST/SGOT) 26, Alanine Aminotransferase ( ALT/SGPT) 29, Alkaline Phosphatase 78, Pro-B-Type Natriuretic Peptide 550H, Total Protein 6.9, Albumin 2.1L, Globulin 4.8, Albumin/Globulin Ratio 0.4L Height (Feet): 5 Height (Inches): 0.00 Weight (Pounds): 90 Respiratory/Chest: lungs clear Jaydon Tolentino MD Apr 11, 2017 21:05
[2017-04-11] MEDS: Dyna-Hex 2% Top Sol 2oz TOPIC SCH (21:20)
--- NOTE | 2017-04-11 23:56 | Cardiology Progress Note ---
Assessment/Plan Assessment/Plan 1. Sinus tachycardia, most likely due to underlying sepsis/leukocytosis, status post second look laparotomy, s/p ileostomy pouch creation, POD #3, continue hydration and correction of electrolyte derangement. Keep Mg >2.5, 2D echocardiography reveals normal LV systolic function. 3. Hypernatremia, resolved, hypotonic IVF, nephrology follow up. 4. Hypokalemia, resolved, keep K >4.0. Subjective Subjective Sinus tachycardia at 112. Objective Last 24 Hour Vital Signs Date Time Temp Pulse Resp B/P (MAP) Pulse Ox O2 Delivery O2 Flow Rate FiO2 04/11/17 20:11 Nasal Cannula 2.0 28 04/11/17 20:11 98 Nasal Cannula 2.0 28 04/11/17 20:00 98.9 117 24 109/72 99 Nasal Cannula 3.0 04/11/17 19:39 114 04/11/17 16:00 97.6 114 17 102/66 95 Nasal Cannula 3.0 04/11/17 16:00 112 04/11/17 12:00 104 04/11/17 12:00 97.5 113 17 98/69 94 Nasal Cannula 3.0 04/11/17 08:00 120 04/11/17 08:00 98.2 115 20 101/72 96 Nasal Cannula 3.0 04/11/17 07:00 117 23 109/70 99 Nasal Cannula 3.0 04/11/17 06:00 120 23 109/70 99 Nasal Cannula 3.0 04/11/17 05:00 118 23 114/77 99 Nasal Cannula 3.0 04/11/17 04:00 119 04/11/17 04:00 98.3 123 23 123/84 98 Nasal Cannula 3.0 04/11/17 03:00 123 23 111/77 96 Nasal Cannula 3.0 04/11/17 02:00 122 23 111/68 96 Nasal Cannula 3.0 04/11/17 01:00 128 24 109/77 96 Nasal Cannula 3.0 04/11/17 00:00 98.9 125 26 132/75 97 Nasal Cannula 3.0 04/11/17 00:00 130 Intake and Output 04/10/17 04/11/17 19:00 07:00 Intake Total 2225.125 ml 307.50 ml Output Total 1405 ml 1330 ml Balance 820.125 ml -1022.50 ml IV Total 560.125 ml 187.50 ml Tube Feeding 15 ml 120 ml Other 1650 ml Output Urine Total 1225 ml Emesis 150 ml Drainage Total 30 ml 30 ml Other 1300 ml # Voids 775 2D Echo: LVEF 60%, Mod MR, Grade I LVDD Laboratory Tests Test 04/11/17 05:00 White Blood Count 9.1 K/UL (4.8-10.8) Red Blood Count 3.05 M/UL (4.20-5.40) L Hemoglobin 9.6 G/DL (12.0-16.0) L Hematocrit 28.6 % (37.0-47.0) L Mean Corpuscular Volume 94 FL (80-99) Mean Corpuscular Hemoglobin 31.5 PG (27.0-31.0) H Mean Corpuscular Hemoglobin Concent 33.7 G/DL (32.0-36.0) Red Cell Distribution Width 13.2 % (11.6-14.8) Platelet Count 248 K/UL (150-450) Mean Platelet Volume 6.2 FL (6.5-10.1) L Neutrophils (%) (Auto) 77.0 % (45.0-75.0) H Lymphocytes (%) (Auto) 16.0 % (20.0-45.0) L Monocytes (%) (Auto) 5.6 % (1.0-10.0) Eosinophils (%) (Auto) 0.7 % (0.0-3.0) Basophils (%) (Auto) 0.6 % (0.0-2.0) Sodium Level 143 MMOL/L (136-145) Potassium Level 3.7 MMOL/L (3.5-5.1) Chloride Level 109 MMOL/L (98-107) H Carbon Dioxide Level 26 MMOL/L (21-32) Anion Gap 8 mmol/L (5-15) Blood Urea Nitrogen 26 mg/dL (7-18) H Creatinine 0.9 MG/DL (0.55-1.30) Estimat Glomerular Filtration Rate > 60 mL/min (>60) Glucose Level 80 MG/DL (74-106) Calcium Level 8.9 MG/DL (8.5-10.1) Phosphorus Level 3.6 MG/DL (2.5-4.9) Magnesium Level 1.6 MG/DL (1.8-2.4) L Total Bilirubin 1.3 MG/DL (0.2-1.0) H Direct Bilirubin 0.6 MG/DL (0.0-0.3) H Aspartate Amino Transf (AST/SGOT) 26 U/L (15-37) Alanine Aminotransferase (ALT/SGPT) 29 U/L (12-78) Alkaline Phosphatase 78 U/L (46-116) Pro-B-Type Natriuretic Peptide 550 pg/mL (0-125) H Total Protein 6.9 G/DL (6.4-8.2) Albumin 2.1 G/DL (3.4-5.0) L Globulin 4.8 g/dL Albumin/Globulin Ratio 0.4 (1.0-2.7) L Objective HEENT: Atraumatic and normocephalic. Anicteric. Pupils are equal, round and reactive to light and accommodation. Intubated and attached to the ventilator. NECK: JVP cannot be assessed as the patient is intubated. CARDIOVASCULAR: Normal S1 and S2. Regular rate and rhythm. tachycardic, no murmurs, gallops, or rubs. LUNGS: Diminished breath sounds at both bases. ABDOMEN: Distended. Diminished bowel sounds. Slightly tender at the site of surgery. EXTREMITIES: No evidence of edema, clubbing, or cyanosis. JUWAN ULLOA Apr 11, 2017 23:56
[2017-04-12] VITALS: BP 126/74
[2017-04-12] MEDS: NovoLOG Insulin Flexpen SUBQ SCH ×5 (00:23→23:41)
[2017-04-12 04:00] VITALS: BP 113/80
[2017-04-12] MEDS: Piperacillin/Tazobactam 3.375 GM in D5W 55 ML IVPB SCH ×3 (04:00→20:16)
--- NOTE | 2017-04-12 07:13 | Pulmonology Progress Note ---
Assessment/Plan Assessment/Plan ASSESSMENT Sepsis with septic shock peritonitis strangulated hernia with SB necrosis s/p exp laparotomy with SB resection MOF resolved Acute respiratory failure requiring intubation s/p extubation 04/08 probably PNA Acute renal failure 2 to dehydration e/lyte imbalance ( hypo K, hyper Na, hypo Mg, hypo Ca) anemia requiring blood transfusion severe malnutrition PLAN OF CARE [facility] status off pressors, extubated, slowly improving surgery follows, will need 6 months of TPN TPN TPN per GI management, replace lytes as needed Abx ID follows Bl cx negative; fluid cx + E coli, Enterobacter NGT and po trial careful I/O , expected large output from ileostomy as per surgery and will need replacement with IVF CLD as tolerated a/emetic prn O2 titrate ,prn, HHN prn CXR with Right basilar infiltrate or atelectasis and right middle lobe infiltrate or atelectasis. IS at the bedside and encourage to sarahy fup with CXR monitor HH, transfuse prn anemia w/up c/w folate deficiency, add folate when taking po pain management GI prophylaxis PT/OT swallow eval nephro follows; ARF resolved case discussed and evaluated by supervising physician Subjective Allergies: Coded Allergies: TRAZODONE (Verified Allergy, Unknown, 04/04/17) Subjective leukcoytossi today, afebrile CXR with evidence of PNA Objective Last 24 Hour Vital Signs Date Time Temp Pulse Resp B/P (MAP) Pulse Ox O2 Delivery O2 Flow Rate FiO2 04/12/17 04:00 98.4 122 32 113/80 96 Nasal Cannula 3.0 04/12/17 03:58 119 04/12/17 00:00 99.0 114 20 126/74 99 Nasal Cannula 3.0 04/11/17 23:50 117 04/11/17 20:11 Nasal Cannula 2.0 28 04/11/17 20:11 98 Nasal Cannula 2.0 28 04/11/17 20:00 98.9 117 24 109/72 99 Nasal Cannula 3.0 04/11/17 19:39 114 04/11/17 16:00 97.6 114 17 102/66 95 Nasal Cannula 3.0 04/11/17 16:00 112 04/11/17 12:00 104 04/11/17 12:00 97.5 113 17 98/69 94 Nasal Cannula 3.0 04/11/17 08:00 120 04/11/17 08:00 98.2 115 20 101/72 96 Nasal Cannula 3.0 Intake and Output 04/11/17 04/12/17 19:00 07:00 Intake Total 210 ml 621.86 ml Output Total 1320 ml Balance -1110 ml 621.86 ml Free Water 100 ml IV Total 621.86 ml Tube Feeding 110 ml Output Urine Total 300 ml Stool Total 1000 ml Drainage Total 20 ml Objective General Appearance: no acute distress, cachetic, other - A/A/O x 3 HEENT: normocephalic, atraumatic, anicteric Respiratory/Chest: lungs clear, no respiratory distress, no accessory muscle use Cardiovascular: normal peripheral pulses, no JVD, tachycardia - ST on tele Abdomen: other - alrge abdominal dressing. ileostomy with liquid large output Extremities: no edema, pedal pulses normal Neurologic/Psychiatric: alert, oriented x 3, responsive Current Medications Medications (Trade) Dose Ordered Sig/Nicole Route PRN Reason Start Time Stop Time Status Last Admin Dose Admin Acetaminophen (Tylenol) 650 mg Q4H PRN RECTAL FEVER 04/11/17 09:00 05/04/17 08:59 Chlorhexidine Gluconate (Collette-Hex 2%) 1 applic DAILY@2000 TOPIC 04/11/17 20:00 05/05/17 19:59 04/11/17 21:20 Dextrose 1,000 ml @ 0 mls/hr Q24H PRN IV PN interrupted or unavailable 04/11/17 20:00 05/11/17 19:59 Dextrose (Dextrose 50%) STAT PRN IV Hypoglycemia 04/11/17 08:30 05/11/17 08:29 Diphenhydramine HCl (Benadryl) 12.5 mg Q6H PRN IVP Itching/Pruritis 04/11/17 08:30 05/04/17 08:29 Fat Emulsion Intravenous 216 ml/Amino Acids/ Electrolytes/ Dextrose 1,536 ml @ 64 mls/hr Q24H IV 04/11/17 20:00 05/11/17 19:59 04/11/17 21:17 Insulin Aspart (NovoLOG) Q6HR SUBQ 04/11/17 12:00 05/04/17 05:59 04/12/17 06:33 Lorazepam (Ativan 2mg/ml 1ml) 1 mg Q4H PRN IV For Anxiety 04/11/17 08:30 04/18/17 08:29 Ondansetron HCl (Zofran) 4 mg Q6H PRN IVP Nausea & Vomiting 04/11/17 08:30 05/04/17 08:29 Pantoprazole (Protonix) 40 mg DAILY IV 04/11/17 09:00 05/04/17 08:59 04/11/17 09:33 Piperacillin Sod/ Tazobactam Sod 3.375 gm/Dextrose 55 ml @ 13.75 mls/ hr Q8HR@0400,1200,2000 IVPB 04/11/17 12:00 04/18/17 11:59 04/11/17 21:45 Risperidone (RisperDAL) 0.5 mg Q12HR NG 04/11/17 09:00 05/11/17 08:59 04/11/17 21:21 Tushar ([facility])Alexandra NP Apr 12, 2017 07:13
[2017-04-12 08:00] VITALS: BP 111/74
[2017-04-12] MEDS: Pantoprazole Inj IV SCH (08:43)
[2017-04-12 09:08] LABS: PHOSPHORUS 3.3 MG/DL (2.5-4.9)
[2017-04-12 09:18] LABS: ALANINE AMINOTRANSFERASE 24 U/L (12-78); ALBUMIN 2.2 G/DL (3.4-5.0); ALBUMIN/GLOBULIN RATIO 0.4 (1.0-2.7); ALKALINE PHOSPHATASE 87 U/L (46-116); ANION GAP 11 mmol/L (5-15); ASPARTATE AMINO TRANSFERASE 18 U/L (15-37); BILIRUBIN,TOTAL 1.1 MG/DL (0.2-1.0); BLOOD UREA NITROGEN 33 mg/dL (7-18); CALCIUM 9.1 MG/DL (8.5-10.1); CARBON DIOXIDE 25 MMOL/L (21-32); CHLORIDE 100 MMOL/L (98-107); CREATININE 0.7 MG/DL (0.55-1.30); POTASSIUM 3.3 MMOL/L (3.5-5.1); SODIUM 136 MMOL/L (136-145)
[2017-04-12 09:28] LABS: BASOPHILS % (AUTO) 0.7 % (0.0-2.0); EOSINOPHILS % (AUTO) 0.7 % (0.0-3.0); HEMATOCRIT 29.8 % (37.0-47.0); HEMOGLOBIN 10.1 G/DL (12.0-16.0); LYMPHOCYTES % (AUTO) 13.6 % (20.0-45.0); MEAN CORPUSCULAR VOLUME 93 FL (80-99); MONOCYTES % (AUTO) 5.2 % (1.0-10.0); NEUTROPHILS % (AUTO) 79.8 % (45.0-75.0); PLATELET COUNT 360 K/UL (150-450); RED BLOOD COUNT 3.21 M/UL (4.20-5.40); RED CELL DISTRIBUTION WIDTH 12.7 % (11.6-14.8); WHITE BLOOD COUNT 12.8 K/UL (4.8-10.8)
[2017-04-12] MEDS: LORazepam Inj 2mg/ml 1ml IV PRN (09:34)
--- NOTE | 2017-04-12 09:41 | Diagnostic Imaging Report ---
Indication: Reason For Exam: [id number] Technique: XRAY Chest 1v. Comparison: 04/11/2017 Findings: The cardiomediastinal silhouette is unchanged. Persistent opacification of the right lung base obscuring the right hemidiaphragm and right heart border is again seen. Impression: Right basilar infiltrate or atelectasis and right middle lobe infiltrate or atelectasis. Possibility of a right pleural effusion is not excluded. No significant change from prior examination.
[2017-04-12 09:44] LABS: BILIRUBIN,DIRECT 0.6 MG/DL (0.0-0.3)
[2017-04-12 12:00] VITALS: BP 106/72
[2017-04-12] MEDS ORDERED: Potassium Chloride 40 MEQ in Sodium Chloride 500ML 550 ML IVPB ONE (12:00)
--- NOTE | 2017-04-12 12:56 | General Progress Note ---
Assessment/Plan Problem List: (1) HTN (hypertension) ICD Codes: I10 - Essential (primary) hypertension SNOMED: 14038741 (2) Strangulated ventral incisional hernia ICD Codes: K43.0 - Incisional hernia with obstruction, without gangrene SNOMED: 425991255 (3) On total parenteral nutrition (TPN) ICD Codes: Z78.9 - Other specified health status SNOMED: 91058182, 941438244 (4) Anemia ICD Codes: D64.9 - Anemia, unspecified SNOMED: 971535200 (5) Electrolyte imbalance ICD Codes: E87.8 - Other disorders of electrolyte and fluid balance, not elsewhere classified SNOMED: 576426865 Assessment/Plan Assessment/Plan fu surgical recs >> patient will need to be on TPN for approximately 6 months and be re-evaluated. - NGTFs and PO trial for nutritional supplementation anemia work up >> folate deficiency monitor H&H, prn transfusions ppi electrolyte correction fu labs Subjective ROS Limited/Unobtainable: Yes Allergies: Coded Allergies: TRAZODONE (Verified Allergy, Unknown, 04/04/17) Subjective no event Objective Last 24 Hour Vital Signs Date Time Temp Pulse Resp B/P (MAP) Pulse Ox O2 Delivery O2 Flow Rate FiO2 04/12/17 12:00 98.6 149 18 106/72 96 Nasal Cannula 3.0 04/12/17 08:00 98.7 129 17 111/74 96 Nasal Cannula 3.0 04/12/17 08:00 130 04/12/17 04:00 98.4 122 32 113/80 96 Nasal Cannula 3.0 04/12/17 03:58 119 04/12/17 00:00 99.0 114 20 126/74 99 Nasal Cannula 3.0 04/11/17 23:50 117 04/11/17 20:11 Nasal Cannula 2.0 28 04/11/17 20:11 98 Nasal Cannula 2.0 28 04/11/17 20:00 98.9 117 24 109/72 99 Nasal Cannula 3.0 04/11/17 19:39 114 04/11/17 16:00 97.6 114 17 102/66 95 Nasal Cannula 3.0 04/11/17 16:00 112 Intake and Output 04/11/17 04/12/17 19:00 07:00 Intake Total 210 ml 631.86 ml Output Total 1320 ml Balance -1110 ml 631.86 ml Free Water 100 ml IV Total 621.86 ml Tube Feeding 110 ml 10 ml Output Urine Total 300 ml Stool Total 1000 ml Drainage Total 20 ml Laboratory Tests 04/12/17 08:15: White Blood Count 12.8H, Red Blood Count 3.21L, Hemoglobin 10.1L, Hematocrit 29.8L, Mean Corpuscular Volume 93, Mean Corpuscular Hemoglobin 31.5H, Mean Corpuscular Hemoglobin Concent 33.9, Red Cell Distribution Width 12.7, Platelet Count 360, Mean Platelet Volume 6.5, Neutrophils (%) (Auto) 79.8H, Lymphocytes ( %) (Auto) 13.6L, Monocytes (%) (Auto) 5.2, Eosinophils (%) (Auto) 0.7, Basophils (%) (Auto) 0.7, Sodium Level 136, Potassium Level 3.3L, Chloride Level 100, Carbon Dioxide Level 25, Anion Gap 11, Blood Urea Nitrogen 33H, Creatinine 0.7, Estimat Glomerular Filtration Rate > 60, Glucose Level 113H, Calcium Level 9.1, Phosphorus Level 3.3, Magnesium Level 1.9, Total Bilirubin 1.1H, Direct Bilirubin 0.6H, Aspartate Amino Transf (AST/SGOT) 18, Alanine Aminotransferase (ALT/SGPT) 24, Alkaline Phosphatase 87, Pro-B-Type Natriuretic Peptide 178H, Total Protein 7.8, Albumin 2.2L, Globulin 5.6, Albumin/Globulin Ratio 0.4L Height (Feet): 5 Height (Inches): 0.00 Weight (Pounds): 89 General Appearance: alert EENT: normal ENT inspection Neck: supple Cardiovascular: tachycardia Respiratory/Chest: decreased breath sounds Abdomen: non tender, soft Extremities: non-tender JOSE ANNE Apr 12, 2017 12:56
--- NOTE | 2017-04-12 13:56 | General Progress Note ---
Progress Note Progress Note Surgery: looks much more comfortable today. daughter at bedside. leukocytosis today. wound clean with dressings. ostomy functional with tube feeds noted. tolerating feeds. tolerating tpn -continue with wound care -tpn and tube feeds at goal -ostomy care -d/c planning Brandt Auguste Apr 12, 2017 13:56
--- NOTE | 2017-04-12 15:58 | General Progress Note ---
Assessment/Plan Problem List: (1) Hyponatremia ICD Codes: E87.1 - Hypo-osmolality and hyponatremia SNOMED: 03878808 (2) Psychiatric disorder ICD Codes: F99 - Mental disorder, not otherwise specified SNOMED: 07110936, 923593849 (3) Vitamin D deficiency ICD Codes: E55.9 - Vitamin D deficiency, unspecified SNOMED: 75775887 (4) HTN (hypertension) ICD Codes: I10 - Essential (primary) hypertension SNOMED: 47787737 (5) Bipolar 1 disorder ICD Codes: F31.9 - Bipolar disorder, unspecified SNOMED: 963721113 Status: progressing Assessment/Plan hyponatremia improving reviewed chart and labs and meds Subjective ROS Limited/Unobtainable: Yes Allergies: Coded Allergies: TRAZODONE (Verified Allergy, Unknown, 04/04/17) Objective Last 24 Hour Vital Signs Date Time Temp Pulse Resp B/P (MAP) Pulse Ox O2 Delivery O2 Flow Rate FiO2 04/12/17 12:00 146 04/12/17 12:00 98.6 149 18 106/72 96 Nasal Cannula 3.0 04/12/17 08:00 98.7 129 17 111/74 96 Nasal Cannula 3.0 04/12/17 08:00 130 04/12/17 04:00 98.4 122 32 113/80 96 Nasal Cannula 3.0 04/12/17 03:58 119 04/12/17 00:00 99.0 114 20 126/74 99 Nasal Cannula 3.0 04/11/17 23:50 117 04/11/17 20:11 Nasal Cannula 2.0 28 04/11/17 20:11 98 Nasal Cannula 2.0 28 04/11/17 20:00 98.9 117 24 109/72 99 Nasal Cannula 3.0 04/11/17 19:39 114 04/11/17 16:00 97.6 114 17 102/66 95 Nasal Cannula 3.0 04/11/17 16:00 112 Intake and Output 04/11/17 04/12/17 19:00 07:00 Intake Total 210 ml 631.86 ml Output Total 1320 ml Balance -1110 ml 631.86 ml Free Water 100 ml IV Total 621.86 ml Tube Feeding 110 ml 10 ml Output Urine Total 300 ml Stool Total 1000 ml Drainage Total 20 ml Laboratory Tests 04/12/17 08:15: White Blood Count 12.8H, Red Blood Count 3.21L, Hemoglobin 10.1L, Hematocrit 29.8L, Mean Corpuscular Volume 93, Mean Corpuscular Hemoglobin 31.5H, Mean Corpuscular Hemoglobin Concent 33.9, Red Cell Distribution Width 12.7, Platelet Count 360, Mean Platelet Volume 6.5, Neutrophils (%) (Auto) 79.8H, Lymphocytes ( %) (Auto) 13.6L, Monocytes (%) (Auto) 5.2, Eosinophils (%) (Auto) 0.7, Basophils (%) (Auto) 0.7, Sodium Level 136, Potassium Level 3.3L, Chloride Level 100, Carbon Dioxide Level 25, Anion Gap 11, Blood Urea Nitrogen 33H, Creatinine 0.7, Estimat Glomerular Filtration Rate > 60, Glucose Level 113H, Calcium Level 9.1, Phosphorus Level 3.3, Magnesium Level 1.9, Total Bilirubin 1.1H, Direct Bilirubin 0.6H, Aspartate Amino Transf (AST/SGOT) 18, Alanine Aminotransferase (ALT/SGPT) 24, Alkaline Phosphatase 87, Pro-B-Type Natriuretic Peptide 178H, Total Protein 7.8, Albumin 2.2L, Globulin 5.6, Albumin/Globulin Ratio 0.4L Height (Feet): 5 Height (Inches): 0.00 Weight (Pounds): 89 Cardiovascular: normal rate Respiratory/Chest: lungs clear Abdomen: soft Jaydon Tolentino MD Apr 12, 2017 15:58
[2017-04-12 16:00] VITALS: BP 102/65
--- NOTE | 2017-04-12 17:48 | Nephrology Progress Note ---
Assessment/Plan Assessment 1. Hypernatremia resolved 2. Hypokalemia. 3. Acute renal failure or dehydration. 4. Malnutrition. 5. Hypocalcemia. 6. Hypomagnesemia. Plan to continue nutritional support with TPN replace mg replace k monitoring out put monitoring renal function Subjective Constitutional: Reports: no symptoms HEENT: Reports: no symptoms Genitourinary: Reports: no symptoms Neurologic/Psychiatric: Reports: no symptoms Subjective started on feeding awake but confused Objective Objective Last 24 Hour Vital Signs Date Time Temp Pulse Resp B/P (MAP) Pulse Ox O2 Delivery O2 Flow Rate FiO2 04/12/17 16:00 151 04/12/17 16:00 99.0 147 18 102/65 96 Nasal Cannula 3.0 04/12/17 12:00 146 04/12/17 12:00 98.6 149 18 106/72 96 Nasal Cannula 3.0 04/12/17 08:00 98.7 129 17 111/74 96 Nasal Cannula 3.0 04/12/17 08:00 130 04/12/17 04:00 98.4 122 32 113/80 96 Nasal Cannula 3.0 04/12/17 03:58 119 04/12/17 00:00 99.0 114 20 126/74 99 Nasal Cannula 3.0 04/11/17 23:50 117 04/11/17 20:11 Nasal Cannula 2.0 28 04/11/17 20:11 98 Nasal Cannula 2.0 28 04/11/17 20:00 98.9 117 24 109/72 99 Nasal Cannula 3.0 04/11/17 19:39 114 Intake and Output 04/11/17 04/12/17 19:00 07:00 Intake Total 210 ml 631.86 ml Output Total 1320 ml Balance -1110 ml 631.86 ml Free Water 100 ml IV Total 621.86 ml Tube Feeding 110 ml 10 ml Output Urine Total 300 ml Stool Total 1000 ml Drainage Total 20 ml Laboratory Tests 04/12/17 08:15: White Blood Count 12.8H, Red Blood Count 3.21L, Hemoglobin 10.1L, Hematocrit 29.8L, Mean Corpuscular Volume 93, Mean Corpuscular Hemoglobin 31.5H, Mean Corpuscular Hemoglobin Concent 33.9, Red Cell Distribution Width 12.7, Platelet Count 360, Mean Platelet Volume 6.5, Neutrophils (%) (Auto) 79.8H, Lymphocytes ( %) (Auto) 13.6L, Monocytes (%) (Auto) 5.2, Eosinophils (%) (Auto) 0.7, Basophils (%) (Auto) 0.7, Sodium Level 136, Potassium Level 3.3L, Chloride Level 100, Carbon Dioxide Level 25, Anion Gap 11, Blood Urea Nitrogen 33H, Creatinine 0.7, Estimat Glomerular Filtration Rate > 60, Glucose Level 113H, Calcium Level 9.1, Phosphorus Level 3.3, Magnesium Level 1.9, Total Bilirubin 1.1H, Direct Bilirubin 0.6H, Aspartate Amino Transf (AST/SGOT) 18, Alanine Aminotransferase (ALT/SGPT) 24, Alkaline Phosphatase 87, Pro-B-Type Natriuretic Peptide 178H, Total Protein 7.8, Albumin 2.2L, Globulin 5.6, Albumin/Globulin Ratio 0.4L Height (Feet): 5 Height (Inches): 0.00 Weight (Pounds): 89 Objective HEAD AND NECK: No JVP. No LAD. No thyromegaly. NG tube is placed. ET tube is in place. NG tube secreting greenish liquids. CARDIAC: Regular rate and rhythm. S1 and S2. No murmur. No rub. LUNGS: Has decreased breathing sound on both sides. ABDOMEN: Soft. Bowel sounds are hypoactive. Nontender. EXTREMITIES: No edema. No clubbing. No cyanosis. DELMI ARITA Apr 12, 2017 17:48
[2017-04-12 20:00] VITALS: BP 103/63
[2017-04-12] MEDS: FAT EMULSION 20% IV SCH (20:15)
[2017-04-12] MEDS: TPN IV SCH (20:15)
[2017-04-12] MEDS: Dyna-Hex 2% Top Sol 2oz TOPIC SCH (20:16)
--- NOTE | 2017-04-12 22:30 | Progress Note ---
HISTORY OF PRESENT ILLNESS: The patient is a 51-year-old female patient. She is admitted to the hospital secondary to severe hyponatremia at [facility]. This patient has been admitted to the hospital. She also has overlying diagnosis of paranoid schizophrenia. So, daily psychiatric consultation has been requested because this patient's cognition has declined below baseline. She has increased mood lability and agitation. So, her attending physician has requested daily psychiatric consultation. MENTAL STATUS EXAMINATION: A 51-year-old female with psychomotor agitation. Mood is irritable and agitated. Affect guarded and restricted. Thought process is disorganized and illogical. No signs of any suicidal or homicidal thoughts, but there is some paranoia and mood lability. DIAGNOSIS: Paranoid schizophrenia, acute exacerbation. PLAN: Treat her with medication regimen of Risperdal 0.5 mg per NG tube q.12 h. to prevent any further decline in her cognition and she will continue to be followed by Psychiatry throughout hospital course. Also Ativan 1 mg IV q.4 h. p.r.n. anxiety and agitation. Encouraged her to interact appropriately with staff and other patients. Chart reviewed and discussed with the staff. Seen and assessed at bedside. Supportive therapy provided. to prevent any further decline in her cognition. Alison Banda M.D. DR: Wendy JOB#: [id number] CC:
[2017-04-13] VITALS: BP 106/69
[2017-04-13 04:00] VITALS: BP 119/72
[2017-04-13] MEDS: Piperacillin/Tazobactam 3.375 GM in D5W 55 ML IVPB SCH ×2 (04:21→12:03)
[2017-04-13] MEDS: NovoLOG Insulin Flexpen SUBQ SCH ×3 (05:59→17:22)
[2017-04-13 07:19] LABS: BASOPHILS % (AUTO) 0.7 % (0.0-2.0); EOSINOPHILS % (AUTO) 0.2 % (0.0-3.0); HEMATOCRIT 31.8 % (37.0-47.0); HEMOGLOBIN 10.5 G/DL (12.0-16.0); LYMPHOCYTES % (AUTO) 9.5 % (20.0-45.0); MEAN CORPUSCULAR VOLUME 93 FL (80-99); MONOCYTES % (AUTO) 7.1 % (1.0-10.0); NEUTROPHILS % (AUTO) 82.5 % (45.0-75.0); PLATELET COUNT 404 K/UL (150-450); RED BLOOD COUNT 3.41 M/UL (4.20-5.40); RED CELL DISTRIBUTION WIDTH 13.1 % (11.6-14.8); WHITE BLOOD COUNT 10.8 K/UL (4.8-10.8)
[2017-04-13 07:26] LABS: ANION GAP 13 mmol/L (5-15); BLOOD UREA NITROGEN 35 mg/dL (7-18); CALCIUM 9.2 MG/DL (8.5-10.1); CARBON DIOXIDE 22 MMOL/L (21-32); CHLORIDE 102 MMOL/L (98-107); CREATININE 0.9 MG/DL (0.55-1.30); POTASSIUM 3.7 MMOL/L (3.5-5.1); SODIUM 137 MMOL/L (136-145)
[2017-04-13 08:00] VITALS: BP 104/69
[2017-04-13] MEDS: Pantoprazole Inj IV SCH (08:17)
--- NOTE | 2017-04-13 08:57 | General Progress Note ---
Assessment/Plan Problem List: (1) HTN (hypertension) ICD Codes: I10 - Essential (primary) hypertension SNOMED: 07813725 (2) Strangulated ventral incisional hernia ICD Codes: K43.0 - Incisional hernia with obstruction, without gangrene SNOMED: 227282705 (3) On total parenteral nutrition (TPN) ICD Codes: Z78.9 - Other specified health status SNOMED: 23908891, 891380777 (4) Anemia ICD Codes: D64.9 - Anemia, unspecified SNOMED: 150987290 (5) Electrolyte imbalance ICD Codes: E87.8 - Other disorders of electrolyte and fluid balance, not elsewhere classified SNOMED: 220232807 Assessment/Plan Assessment/Plan fu surgical recs >> patient will need to be on TPN for approximately 6 months and be re-evaluated. pending swallow eval for tomorrow anemia work up >> folate deficiency monitor H&H, prn transfusions ppi electrolyte correction fu labs Subjective ROS Limited/Unobtainable: No Allergies: Coded Allergies: TRAZODONE (Verified Allergy, Unknown, 04/04/17) Subjective no event Objective Last 24 Hour Vital Signs Date Time Temp Pulse Resp B/P (MAP) Pulse Ox O2 Delivery O2 Flow Rate FiO2 04/13/17 04:00 97.9 132 20 119/72 96 Nasal Cannula 3.0 04/13/17 03:59 150 04/13/17 00:08 139 04/13/17 00:00 97.7 144 24 106/69 96 Nasal Cannula 3.0 04/12/17 20:00 98.0 140 22 103/63 97 Nasal Cannula 3.0 04/12/17 19:45 142 04/12/17 18:32 145 04/12/17 16:00 151 04/12/17 16:00 99.0 147 18 102/65 96 Nasal Cannula 3.0 04/12/17 12:00 146 04/12/17 12:00 98.6 149 18 106/72 96 Nasal Cannula 3.0 Intake and Output 04/12/17 04/13/17 19:00 07:00 Intake Total 1528.00 ml 959.43 ml Output Total 850 ml 900 ml Balance 678.00 ml 59.43 ml Free Water 60 ml IV Total 1393.00 ml 779.43 ml Tube Feeding 120 ml 120 ml Other 15 ml Output Urine Total 250 ml 900 ml Stool Total 600 ml Laboratory Tests 04/13/17 06:20: White Blood Count 10.8, Red Blood Count 3.41L, Hemoglobin 10.5L, Hematocrit 31.8L, Mean Corpuscular Volume 93, Mean Corpuscular Hemoglobin 30.7, Mean Corpuscular Hemoglobin Concent 33.0, Red Cell Distribution Width 13.1, Platelet Count 404, Mean Platelet Volume 6.5, Neutrophils (%) (Auto) 82.5H, Lymphocytes ( %) (Auto) 9.5L, Monocytes (%) (Auto) 7.1, Eosinophils (%) (Auto) 0.2, Basophils (%) (Auto) 0.7, Sodium Level 137, Potassium Level 3.7, Chloride Level 102, Carbon Dioxide Level 22, Anion Gap 13, Blood Urea Nitrogen 35H, Creatinine 0.9, Estimat Glomerular Filtration Rate > 60, Glucose Level 179H, Calcium Level 9.2 Height (Feet): 5 Height (Inches): 0.00 Weight (Pounds): 89 General Appearance: no apparent distress EENT: normal ENT inspection Neck: supple Cardiovascular: tachycardia Respiratory/Chest: decreased breath sounds Abdomen: normal bowel sounds, non tender, soft Extremities: non-tender JOSE ANNE Apr 13, 2017 08:56
--- NOTE | 2017-04-13 11:23 | Pulmonology Progress Note ---
Assessment/Plan Assessment/Plan ASSESSMENT Sepsis with septic shock peritonitis strangulated hernia with SB necrosis s/p exp laparotomy with SB resection MOF resolved Acute respiratory failure requiring intubation s/p extubation 04/[address](likely due to dehydarion) Acute renal failure 2 to dehydration e/lyte imbalance ( hypo K, hyper Na, hypo Mg, hypo Ca) anemia requiring blood transfusion severe malnutrition PLAN OF CARE WILLOW status off pressors, extubated, slowly improving surgery follows, will need 6 months of TPN TPN TPN per GI management, replace lytes as needed , discussed with GI, will start IVF ( in addition to TPN) Abx ID follows Bl cx negative; fluid cx + E coli, Enterobacter NGT and po trial VSS pending careful I/O , expected large output from ileostomy as per surgery and will need replacement with IVF CLD as tolerated when OK by surgery a/emetic prn O2 titrate ,prn, HHN prn CXR with Right basilar infiltrate or atelectasis and right middle lobe infiltrate or atelectasis. IS at the bedside and encourage to use fup with CXR in am monitor HH, transfuse prn anemia w/up c/w folate deficiency, add folate when taking po pain management GI prophylaxis PT/OT swallow eval nephro follows; ARF resolved case discussed and evaluated by supervising physician Subjective Allergies: Coded Allergies: TRAZODONE (Verified Allergy, Unknown, 04/04/17) Subjective no leukocytosis, low grade fever pulse ox stable CXR with poss PNA Objective Last 24 Hour Vital Signs Date Time Temp Pulse Resp B/P (MAP) Pulse Ox O2 Delivery O2 Flow Rate FiO2 04/13/17 09:15 98.9 04/13/17 08:00 149 04/13/17 08:00 100.8 153 19 104/69 96 Nasal Cannula 3.0 04/13/17 04:00 97.9 132 20 119/72 96 Nasal Cannula 3.0 04/13/17 03:59 150 04/13/17 00:08 139 04/13/17 00:00 97.7 144 24 106/69 96 Nasal Cannula 3.0 04/12/17 20:00 98.0 140 22 103/63 97 Nasal Cannula 3.0 04/12/17 19:45 142 04/12/17 18:32 145 04/12/17 16:00 151 04/12/17 16:00 99.0 147 18 102/65 96 Nasal Cannula 3.0 04/12/17 12:00 146 04/12/17 12:00 98.6 149 18 106/72 96 Nasal Cannula 3.0 Intake and Output 04/12/17 04/13/17 19:00 07:00 Intake Total 1528.00 ml 959.43 ml Output Total 850 ml 900 ml Balance 678.00 ml 59.43 ml Free Water 60 ml IV Total 1393.00 ml 779.43 ml Tube Feeding 120 ml 120 ml Other 15 ml Output Urine Total 250 ml 900 ml Stool Total 600 ml General Appearance: no acute distress, cachetic, other - A/A/O x 3 HEENT: normocephalic, atraumatic, anicteric Respiratory/Chest: lungs clear, no respiratory distress, no accessory muscle use Cardiovascular: normal peripheral pulses, no JVD, tachycardia - ST on tele Abdomen: other - alrge abdominal dressing. ileostomy with liquid large output Extremities: no edema, pedal pulses normal Neurologic/Psychiatric: alert, oriented x 3, responsive Laboratory Tests 04/13/17 06:20: White Blood Count 10.8, Red Blood Count 3.41L, Hemoglobin 10.5L, Hematocrit 31.8L, Mean Corpuscular Volume 93, Mean Corpuscular Hemoglobin 30.7, Mean Corpuscular Hemoglobin Concent 33.0, Red Cell Distribution Width 13.1, Platelet Count 404, Mean Platelet Volume 6.5, Neutrophils (%) (Auto) 82.5H, Lymphocytes ( %) (Auto) 9.5L, Monocytes (%) (Auto) 7.1, Eosinophils (%) (Auto) 0.2, Basophils (%) (Auto) 0.7, Sodium Level 137, Potassium Level 3.7, Chloride Level 102, Carbon Dioxide Level 22, Anion Gap 13, Blood Urea Nitrogen 35H, Creatinine 0.9, Estimat Glomerular Filtration Rate > 60, Glucose Level 179H, Calcium Level 9.2 Current Medications Medications (Trade) Dose Ordered Sig/Nicole Route PRN Reason Start Time Stop Time Status Last Admin Dose Admin Acetaminophen (Tylenol) 650 mg Q4H PRN ORAL Mild Pain/Temp > 100.5 04/12/17 18:45 05/12/17 18:44 04/13/17 08:16 Chlorhexidine Gluconate (Collette-Hex 2%) 1 applic DAILY@2000 TOPIC 04/11/17 20:00 05/05/17 19:59 04/12/17 20:16 Dextrose 1,000 ml @ 0 mls/hr Q24H PRN IV PN interrupted or unavailable 04/11/17 20:00 05/11/17 19:59 Dextrose (Dextrose 50%) STAT PRN IV Hypoglycemia 04/11/17 08:30 05/11/17 08:29 Diphenhydramine HCl (Benadryl) 12.5 mg Q6H PRN IVP Itching/Pruritis 04/11/17 08:30 05/04/17 08:29 Fat Emulsion Intravenous 216 ml/Amino Acids/ Electrolytes/ Dextrose 1,536 ml @ 64 mls/hr Q24H IV 04/12/17 20:00 05/12/17 19:59 04/12/17 20:15 Insulin Aspart (NovoLOG) Q6HR SUBQ 04/11/17 12:00 05/04/17 05:59 04/13/17 05:59 Lorazepam (Ativan 2mg/ml 1ml) 1 mg Q4H PRN IV For Anxiety 04/11/17 08:30 04/18/17 08:29 04/12/17 09:34 Ondansetron HCl (Zofran) 4 mg Q6H PRN IVP Nausea & Vomiting 04/11/17 08:30 05/04/17 08:29 Pantoprazole (Protonix) 40 mg DAILY IV 04/11/17 09:00 05/04/17 08:59 04/13/17 08:17 Piperacillin Sod/ Tazobactam Sod 3.375 gm/Dextrose 55 ml @ 13.75 mls/ hr Q8HR@0400,1200,2000 IVPB 04/11/17 12:00 04/18/17 11:59 04/13/17 04:21 Risperidone (RisperDAL) 0.5 mg Q12HR NG 04/11/17 09:00 05/11/17 08:59 04/13/17 08:16 Tushar MilliganAlexandra alford NP Apr 13, 2017 11:23
[2017-04-13 12:00] VITALS: BP 111/70
--- NOTE | 2017-04-13 12:45 | Progress Note ---
DATE: 04/13/2017 NOTE: Poor audio/Multiple blanks SUBJECTIVE: This is a 51-year-old female patient severe hyponatremia, but she has also altered mental status, confusion, cognition has declined below baseline. So, attending physician as requested daily Psychiatry consultation. MENTAL STATUS EXAMINATION: This is a 51-year-old female with psychomotor agitation. Mood is irritable and agitated. Affect guarded and restricted. Thought process is disorganized and illogical. No signs of any suicidal or homicidal thoughts. Insight and judgment is poor. DIAGNOSIS: Paranoid schizophrenia, acute exacerbation. PLAN: Continue treating this patient with psychotropic medications to stabilize her mood . Seen and assessed at bedside. Supportive therapy provided. Chart reviewed. Discussed with staff. Alison Banda M.D. DR: LAZARO JOB#: [id number] CC:
--- NOTE | 2017-04-13 13:11 | Infectious Diseases Prog Note ---
Assessment/Plan Assessment/Plan A: Sepsis Peritonitis Strangulated hernia Small bowel necrosis Respiratory failure resolved Anemia s/p laparotomy X 2 Short bowel syndrome Fever Atelectasis/ Pneumonia of R lung P: Continue Ceftriaxone & Flagyl If Temp> 101 will send blood cultures Subjective ROS Limited/Unobtainable: Yes Constitutional: Reports: fever, other - Qpgd=744.8 Neurologic: Reports: confusion, other - on restraint Allergies: Coded Allergies: TRAZODONE (Verified Allergy, Unknown, 04/04/17) Objective Vital Signs Last 24 Hour Vital Signs Date Time Temp Pulse Resp B/P (MAP) Pulse Ox O2 Delivery O2 Flow Rate FiO2 04/13/17 12:00 98.3 133 19 111/70 95 Nasal Cannula 3.0 04/13/17 09:15 98.9 04/13/17 08:00 149 04/13/17 08:00 100.8 153 19 104/69 96 Nasal Cannula 3.0 04/13/17 04:00 97.9 132 20 119/72 96 Nasal Cannula 3.0 04/13/17 03:59 150 04/13/17 00:08 139 04/13/17 00:00 97.7 144 24 106/69 96 Nasal Cannula 3.0 04/12/17 20:00 98.0 140 22 103/63 97 Nasal Cannula 3.0 04/12/17 19:45 142 04/12/17 18:32 145 04/12/17 16:00 151 04/12/17 16:00 99.0 147 18 102/65 96 Nasal Cannula 3.0 Height (Feet): 5 Height (Inches): 0.00 Weight (Pounds): 89 General Appearance: no acute distress HEENT: mucous membranes moist Respiratory/Chest: lungs clear Cardiovascular: tachycardia, other - left subcllavian line Abdomen: soft, non tender, other - s/p osteotomy Extremities: no edema Neurologic/Psychiatric: disoriented Laboratory Tests Test 04/13/17 06:20 White Blood Count 10.8 K/UL (4.8-10.8) Red Blood Count 3.41 M/UL (4.20-5.40) L Hemoglobin 10.5 G/DL (12.0-16.0) L Hematocrit 31.8 % (37.0-47.0) L Mean Corpuscular Volume 93 FL (80-99) Mean Corpuscular Hemoglobin 30.7 PG (27.0-31.0) Mean Corpuscular Hemoglobin Concent 33.0 G/DL (32.0-36.0) Red Cell Distribution Width 13.1 % (11.6-14.8) Platelet Count 404 K/UL (150-450) Mean Platelet Volume 6.5 FL (6.5-10.1) Neutrophils (%) (Auto) 82.5 % (45.0-75.0) H Lymphocytes (%) (Auto) 9.5 % (20.0-45.0) L Monocytes (%) (Auto) 7.1 % (1.0-10.0) Eosinophils (%) (Auto) 0.2 % (0.0-3.0) Basophils (%) (Auto) 0.7 % (0.0-2.0) Sodium Level 137 MMOL/L (136-145) Potassium Level 3.7 MMOL/L (3.5-5.1) Chloride Level 102 MMOL/L (98-107) Carbon Dioxide Level 22 MMOL/L (21-32) Anion Gap 13 mmol/L (5-15) Blood Urea Nitrogen 35 mg/dL (7-18) H Creatinine 0.9 MG/DL (0.55-1.30) Estimat Glomerular Filtration Rate > 60 mL/min (>60) Glucose Level 179 MG/DL (74-106) H Calcium Level 9.2 MG/DL (8.5-10.1) Current Medications Medications (Trade) Dose Ordered Sig/Nicole Route PRN Reason Start Time Stop Time Status Last Admin Dose Admin Acetaminophen (Tylenol) 650 mg Q4H PRN ORAL Mild Pain/Temp > 100.5 04/12/17 18:45 05/12/17 18:44 04/13/17 12:24 Ceftriaxone Sodium 1 gm/ Dextrose 55 ml @ 110 mls/hr Q24H IVPB 04/13/17 18:00 04/20/17 17:59 Chlorhexidine Gluconate (Collette-Hex 2%) 1 applic DAILY@2000 TOPIC 04/11/17 20:00 05/05/17 19:59 04/12/17 20:16 Dextrose 1,000 ml @ 0 mls/hr Q24H PRN IV PN interrupted or unavailable 04/11/17 20:00 05/11/17 19:59 Dextrose (Dextrose 50%) STAT PRN IV Hypoglycemia 04/11/17 08:30 05/11/17 08:29 Diphenhydramine HCl (Benadryl) 12.5 mg Q6H PRN IVP Itching/Pruritis 04/11/17 08:30 05/04/17 08:29 Fat Emulsion Intravenous 216 ml/Amino Acids/ Electrolytes/ Dextrose 1,536 ml @ 64 mls/hr Q24H IV 04/12/17 20:00 05/12/17 19:59 04/12/17 20:15 Insulin Aspart (NovoLOG) Q6HR SUBQ 04/11/17 12:00 05/04/17 05:59 04/13/17 12:04 Lorazepam (Ativan 2mg/ml 1ml) 1 mg Q4H PRN IV For Anxiety 04/11/17 08:30 04/18/17 08:29 04/12/17 09:34 Metronidazole 100 ml @ 100 mls/hr Q8HR IV 04/13/17 22:00 04/20/17 21:59 Ondansetron HCl (Zofran) 4 mg Q6H PRN IVP Nausea & Vomiting 04/11/17 08:30 05/04/17 08:29 Pantoprazole (Protonix) 40 mg DAILY IV 04/11/17 09:00 05/04/17 08:59 04/13/17 08:17 Risperidone (RisperDAL) 0.5 mg Q12HR NG 04/11/17 09:00 05/11/17 08:59 04/13/17 08:16 Sodium Chloride 1,000 ml @ 50 mls/hr Q20H IV 04/13/17 13:00 05/13/17 12:59 04/13/17 12:23 MIO LOMAX Apr 13, 2017 13:11
--- NOTE | 2017-04-13 13:24 | General Progress Note ---
Progress Note Progress Note Surgery: doing well. today very responsive and following commands. waves hi. seems to recognize me. no n/d/f/c. comfortable. afebrile, HD stable, labs reviewed. abd soft, nt/nd, ostomy viable, midline wound c/d/i. rlq wound c/d/i -TPN -tube feeds to goal -speech to eval for swallow and hopefully can start PO intake robson. -wound care with packing and dressings. -d/c planning. Brandt Auguste Apr 13, 2017 13:24
[2017-04-13 16:00] VITALS: BP 110/64
--- NOTE | 2017-04-13 16:46 | Cardiology Progress Note ---
Assessment/Plan Assessment/Plan 1. Sinus tachycardia, most likely due to underlying sepsis/leukocytosis, status post second look laparotomy, s/p ileostomy pouch creation, POD #5, continue hydration and correction of electrolyte derangement. Keep Mg >2.5, 2D echocardiography reveals normal LV systolic function. 3. Hypernatremia, resolved, hypotonic IVF, nephrology follow up. 4. Hypokalemia, resolved, keep K >4.0. Subjective Subjective Sinus tachycardia at 112. Objective Last 24 Hour Vital Signs Date Time Temp Pulse Resp B/P (MAP) Pulse Ox O2 Delivery O2 Flow Rate FiO2 04/13/17 13:20 98.9 04/13/17 12:00 98.3 133 19 111/70 95 Nasal Cannula 3.0 04/13/17 12:00 130 04/13/17 08:00 149 04/13/17 08:00 100.8 153 19 104/69 96 Nasal Cannula 3.0 04/13/17 04:00 97.9 132 20 119/72 96 Nasal Cannula 3.0 04/13/17 03:59 150 04/13/17 00:08 139 04/13/17 00:00 97.7 144 24 106/69 96 Nasal Cannula 3.0 04/12/17 20:00 98.0 140 22 103/63 97 Nasal Cannula 3.0 04/12/17 19:45 142 04/12/17 18:32 145 Intake and Output 04/12/17 04/13/17 19:00 07:00 Intake Total 1528.00 ml 959.43 ml Output Total 850 ml 900 ml Balance 678.00 ml 59.43 ml Free Water 60 ml IV Total 1393.00 ml 779.43 ml Tube Feeding 120 ml 120 ml Other 15 ml Output Urine Total 250 ml 900 ml Stool Total 600 ml 2D Echo: LVEF 60%, Mod MR, Grade I LVDD Laboratory Tests Test 04/13/17 06:20 White Blood Count 10.8 K/UL (4.8-10.8) Red Blood Count 3.41 M/UL (4.20-5.40) L Hemoglobin 10.5 G/DL (12.0-16.0) L Hematocrit 31.8 % (37.0-47.0) L Mean Corpuscular Volume 93 FL (80-99) Mean Corpuscular Hemoglobin 30.7 PG (27.0-31.0) Mean Corpuscular Hemoglobin Concent 33.0 G/DL (32.0-36.0) Red Cell Distribution Width 13.1 % (11.6-14.8) Platelet Count 404 K/UL (150-450) Mean Platelet Volume 6.5 FL (6.5-10.1) Neutrophils (%) (Auto) 82.5 % (45.0-75.0) H Lymphocytes (%) (Auto) 9.5 % (20.0-45.0) L Monocytes (%) (Auto) 7.1 % (1.0-10.0) Eosinophils (%) (Auto) 0.2 % (0.0-3.0) Basophils (%) (Auto) 0.7 % (0.0-2.0) Sodium Level 137 MMOL/L (136-145) Potassium Level 3.7 MMOL/L (3.5-5.1) Chloride Level 102 MMOL/L (98-107) Carbon Dioxide Level 22 MMOL/L (21-32) Anion Gap 13 mmol/L (5-15) Blood Urea Nitrogen 35 mg/dL (7-18) H Creatinine 0.9 MG/DL (0.55-1.30) Estimat Glomerular Filtration Rate > 60 mL/min (>60) Glucose Level 179 MG/DL (74-106) H Calcium Level 9.2 MG/DL (8.5-10.1) Objective HEENT: Atraumatic and normocephalic. Anicteric. Pupils are equal, round and reactive to light and accommodation. Intubated and attached to the ventilator. NECK: JVP cannot be assessed as the patient is intubated. CARDIOVASCULAR: Normal S1 and S2. Regular rate and rhythm. tachycardic, no murmurs, gallops, or rubs. LUNGS: Diminished breath sounds at both bases. ABDOMEN: Distended. Diminished bowel sounds. Slightly tender at the site of surgery. EXTREMITIES: No evidence of edema, clubbing, or cyanosis. JUWAN ULLOA Apr 13, 2017 16:46
[2017-04-13] MEDS: cefTRIAXone 1gm/D5W 55ml IVPB SCH ×2 (17:18)
[2017-04-13 20:00] VITALS: BP 119/68
[2017-04-13] MEDS: TPN IV SCH (20:32)
[2017-04-13] MEDS: FAT EMULSION 20% IV SCH (20:32)
[2017-04-13] MEDS: Dyna-Hex 2% Top Sol 2oz TOPIC SCH (20:32)
--- NOTE | 2017-04-13 20:48 | Nephrology Progress Note ---
Assessment/Plan Assessment 1. Hypernatremia resolved 2. Hypokalemia. 3. Acute renal failure or dehydration. 4. Malnutrition. 5. Hypocalcemia. 6. Hypomagnesemia. Plan to continue nutritional support with TPN replace mg replace k monitoring out put monitoring renal function Subjective Constitutional: Reports: no symptoms HEENT: Reports: no symptoms Genitourinary: Reports: no symptoms Neurologic/Psychiatric: Reports: no symptoms Subjective started on feeding more responsive today fallow command Objective Objective Last 24 Hour Vital Signs Date Time Temp Pulse Resp B/P (MAP) Pulse Ox O2 Delivery O2 Flow Rate FiO2 04/13/17 16:00 98.4 127 19 110/64 96 Nasal Cannula 3.0 04/13/17 16:00 124 04/13/17 13:20 98.9 04/13/17 12:00 98.3 133 19 111/70 95 Nasal Cannula 3.0 04/13/17 12:00 130 04/13/17 08:00 149 04/13/17 08:00 100.8 153 19 104/69 96 Nasal Cannula 3.0 04/13/17 04:00 97.9 132 20 119/72 96 Nasal Cannula 3.0 04/13/17 03:59 150 04/13/17 00:08 139 04/13/17 00:00 97.7 144 24 106/69 96 Nasal Cannula 3.0 Intake and Output 04/12/17 04/13/17 19:00 07:00 Intake Total 1528.00 ml 959.43 ml Output Total 850 ml 900 ml Balance 678.00 ml 59.43 ml Free Water 60 ml IV Total 1393.00 ml 779.43 ml Tube Feeding 120 ml 120 ml Other 15 ml Output Urine Total 250 ml 900 ml Stool Total 600 ml Laboratory Tests 04/13/17 06:20: White Blood Count 10.8, Red Blood Count 3.41L, Hemoglobin 10.5L, Hematocrit 31.8L, Mean Corpuscular Volume 93, Mean Corpuscular Hemoglobin 30.7, Mean Corpuscular Hemoglobin Concent 33.0, Red Cell Distribution Width 13.1, Platelet Count 404, Mean Platelet Volume 6.5, Neutrophils (%) (Auto) 82.5H, Lymphocytes ( %) (Auto) 9.5L, Monocytes (%) (Auto) 7.1, Eosinophils (%) (Auto) 0.2, Basophils (%) (Auto) 0.7, Sodium Level 137, Potassium Level 3.7, Chloride Level 102, Carbon Dioxide Level 22, Anion Gap 13, Blood Urea Nitrogen 35H, Creatinine 0.9, Estimat Glomerular Filtration Rate > 60, Glucose Level 179H, Calcium Level 9.2 Height (Feet): 5 Height (Inches): 0.00 Weight (Pounds): 89 Objective HEAD AND NECK: No JVP. No LAD. No thyromegaly. NG tube is placed. ET tube is in place. NG tube secreting greenish liquids. CARDIAC: Regular rate and rhythm. S1 and S2. No murmur. No rub. LUNGS: Has decreased breathing sound on both sides. ABDOMEN: Soft. Bowel sounds are hypoactive. Nontender. EXTREMITIES: No edema. No clubbing. No cyanosis. DELMI ARITA Apr 13, 2017 20:48
[2017-04-13] MEDS: Flagyl 500mg/NS 100ml Pre-Mix IV SCH (21:55)
--- NOTE | 2017-04-13 22:33 | General Progress Note ---
Assessment/Plan Problem List: (1) Hyponatremia ICD Codes: E87.1 - Hypo-osmolality and hyponatremia SNOMED: 43335950 (2) Psychiatric disorder ICD Codes: F99 - Mental disorder, not otherwise specified SNOMED: 28117943, 261606706 (3) Vitamin D deficiency ICD Codes: E55.9 - Vitamin D deficiency, unspecified SNOMED: 25461174 (4) HTN (hypertension) ICD Codes: I10 - Essential (primary) hypertension SNOMED: 16098334 (5) Bipolar 1 disorder ICD Codes: F31.9 - Bipolar disorder, unspecified SNOMED: 472625730 Status: progressing Assessment/Plan hyponatremia reviewed chart and labs and meds confused Subjective ROS Limited/Unobtainable: Yes Allergies: Coded Allergies: TRAZODONE (Verified Allergy, Unknown, 04/04/17) Objective Last 24 Hour Vital Signs Date Time Temp Pulse Resp B/P (MAP) Pulse Ox O2 Delivery O2 Flow Rate FiO2 04/13/17 16:00 98.4 127 19 110/64 96 Nasal Cannula 3.0 04/13/17 16:00 124 04/13/17 13:20 98.9 04/13/17 12:00 98.3 133 19 111/70 95 Nasal Cannula 3.0 04/13/17 12:00 130 04/13/17 08:00 149 04/13/17 08:00 100.8 153 19 104/69 96 Nasal Cannula 3.0 04/13/17 04:00 97.9 132 20 119/72 96 Nasal Cannula 3.0 04/13/17 03:59 150 04/13/17 00:08 139 04/13/17 00:00 97.7 144 24 106/69 96 Nasal Cannula 3.0 Intake and Output 04/12/17 04/13/17 19:00 07:00 Intake Total 1528.00 ml 959.43 ml Output Total 850 ml 900 ml Balance 678.00 ml 59.43 ml Free Water 60 ml IV Total 1393.00 ml 779.43 ml Tube Feeding 120 ml 120 ml Other 15 ml Output Urine Total 250 ml 900 ml Stool Total 600 ml Laboratory Tests 04/13/17 06:20: White Blood Count 10.8, Red Blood Count 3.41L, Hemoglobin 10.5L, Hematocrit 31.8L, Mean Corpuscular Volume 93, Mean Corpuscular Hemoglobin 30.7, Mean Corpuscular Hemoglobin Concent 33.0, Red Cell Distribution Width 13.1, Platelet Count 404, Mean Platelet Volume 6.5, Neutrophils (%) (Auto) 82.5H, Lymphocytes ( %) (Auto) 9.5L, Monocytes (%) (Auto) 7.1, Eosinophils (%) (Auto) 0.2, Basophils (%) (Auto) 0.7, Sodium Level 137, Potassium Level 3.7, Chloride Level 102, Carbon Dioxide Level 22, Anion Gap 13, Blood Urea Nitrogen 35H, Creatinine 0.9, Estimat Glomerular Filtration Rate > 60, Glucose Level 179H, Calcium Level 9.2 Height (Feet): 5 Height (Inches): 0.00 Weight (Pounds): 89 Neck: normal inspection Cardiovascular: normal rate Abdomen: soft Jaydon Tolentino MD Apr 13, 2017 22:33
--- NOTE | 2017-04-13 23:56 | Cardiology Progress Note ---
Assessment/Plan Assessment/Plan 1. Sinus tachycardia, most likely due to underlying sepsis/leukocytosis, status post second look laparotomy, s/p ileostomy pouch creation, POD #5, continue hydration and correction of electrolyte derangement. Keep Mg >2.5, 2D echocardiography reveals normal LV systolic function. 3. Hypernatremia, resolved, hypotonic IVF, nephrology follow up. 4. Hypokalemia, resolved, keep K >4.0. Subjective Subjective Sinus tachycardia at 127. Objective Last 24 Hour Vital Signs Date Time Temp Pulse Resp B/P (MAP) Pulse Ox O2 Delivery O2 Flow Rate FiO2 04/13/17 16:00 98.4 127 19 110/64 96 Nasal Cannula 3.0 04/13/17 16:00 124 04/13/17 13:20 98.9 04/13/17 12:00 98.3 133 19 111/70 95 Nasal Cannula 3.0 04/13/17 12:00 130 04/13/17 08:00 149 04/13/17 08:00 100.8 153 19 104/69 96 Nasal Cannula 3.0 04/13/17 04:00 97.9 132 20 119/72 96 Nasal Cannula 3.0 04/13/17 03:59 150 04/13/17 00:08 139 04/13/17 00:00 97.7 144 24 106/69 96 Nasal Cannula 3.0 Intake and Output 04/12/17 04/13/17 19:00 07:00 Intake Total 1528.00 ml 959.43 ml Output Total 850 ml 900 ml Balance 678.00 ml 59.43 ml Free Water 60 ml IV Total 1393.00 ml 779.43 ml Tube Feeding 120 ml 120 ml Other 15 ml Output Urine Total 250 ml 900 ml Stool Total 600 ml 2D Echo: LVEF 60%, Mod MR, Grade I LVDD Laboratory Tests Test 04/13/17 06:20 White Blood Count 10.8 K/UL (4.8-10.8) Red Blood Count 3.41 M/UL (4.20-5.40) L Hemoglobin 10.5 G/DL (12.0-16.0) L Hematocrit 31.8 % (37.0-47.0) L Mean Corpuscular Volume 93 FL (80-99) Mean Corpuscular Hemoglobin 30.7 PG (27.0-31.0) Mean Corpuscular Hemoglobin Concent 33.0 G/DL (32.0-36.0) Red Cell Distribution Width 13.1 % (11.6-14.8) Platelet Count 404 K/UL (150-450) Mean Platelet Volume 6.5 FL (6.5-10.1) Neutrophils (%) (Auto) 82.5 % (45.0-75.0) H Lymphocytes (%) (Auto) 9.5 % (20.0-45.0) L Monocytes (%) (Auto) 7.1 % (1.0-10.0) Eosinophils (%) (Auto) 0.2 % (0.0-3.0) Basophils (%) (Auto) 0.7 % (0.0-2.0) Sodium Level 137 MMOL/L (136-145) Potassium Level 3.7 MMOL/L (3.5-5.1) Chloride Level 102 MMOL/L (98-107) Carbon Dioxide Level 22 MMOL/L (21-32) Anion Gap 13 mmol/L (5-15) Blood Urea Nitrogen 35 mg/dL (7-18) H Creatinine 0.9 MG/DL (0.55-1.30) Estimat Glomerular Filtration Rate > 60 mL/min (>60) Glucose Level 179 MG/DL (74-106) H Calcium Level 9.2 MG/DL (8.5-10.1) Objective HEENT: Atraumatic and normocephalic. Anicteric. Pupils are equal, round and reactive to light and accommodation. Intubated and attached to the ventilator. NECK: JVP cannot be assessed as the patient is intubated. CARDIOVASCULAR: Normal S1 and S2. Regular rate and rhythm. tachycardic, no murmurs, gallops, or rubs. LUNGS: Diminished breath sounds at both bases. ABDOMEN: Distended. Diminished bowel sounds. Slightly tender at the site of surgery. EXTREMITIES: No evidence of edema, clubbing, or cyanosis. JUWAN ULLOA Apr 13, 2017 23:56
[2017-04-14] VITALS: BP 114/75
[2017-04-14] MEDS: NovoLOG Insulin Flexpen SUBQ SCH ×5 (00:12→23:49)
[2017-04-14 04:00] VITALS: BP 118/71
[2017-04-14] MEDS: Flagyl 500mg/NS 100ml Pre-Mix IV SCH ×3 (05:44→21:14)
[2017-04-14 06:59] LABS: ANION GAP 13 mmol/L (5-15); BLOOD UREA NITROGEN 44 mg/dL (7-18); CALCIUM 9.1 MG/DL (8.5-10.1); CARBON DIOXIDE 21 MMOL/L (21-32); CHLORIDE 107 MMOL/L (98-107); POTASSIUM 3.9 MMOL/L (3.5-5.1); SODIUM 140 MMOL/L (136-145)
[2017-04-14 07:11] LABS: EOSINOPHILS % (AUTO) 0.1 % (0.0-3.0); HEMATOCRIT 28.9 % (37.0-47.0); LYMPHOCYTES % (AUTO) 13.4 % (20.0-45.0); MEAN CORPUSCULAR VOLUME 93 FL (80-99); MONOCYTES % (AUTO) 9.4 % (1.0-10.0); PLATELET COUNT 410 K/UL (150-450); RED BLOOD COUNT 3.11 M/UL (4.20-5.40); RED CELL DISTRIBUTION WIDTH 12.9 % (11.6-14.8); WHITE BLOOD COUNT 8.9 K/UL (4.8-10.8)
[2017-04-14 08:00] VITALS: BP 118/71
--- NOTE | 2017-04-14 08:22 | Nephrology Progress Note ---
Assessment/Plan Assessment 1. Hypernatremia resolved 2. Hypokalemia. 3. Acute renal failure or dehydration. 4. Malnutrition. 5. Hypocalcemia. 6. Hypomagnesemia. Plan to continue nutritional support with TPN replace mg replace k monitoring out put monitoring renal function Subjective Subjective started on feeding more responsive today fallow command Objective Objective Last 24 Hour Vital Signs Date Time Temp Pulse Resp B/P (MAP) Pulse Ox O2 Delivery O2 Flow Rate FiO2 04/14/17 04:00 140 04/14/17 04:00 99.0 140 26 118/71 95 Nasal Cannula 3.0 04/14/17 00:00 99.7 155 28 114/75 95 Nasal Cannula 3.0 04/14/17 00:00 155 04/13/17 20:00 100.8 153 17 119/68 96 Nasal Cannula 3.0 04/13/17 20:00 153 04/13/17 19:05 Nasal Cannula 2.0 28 04/13/17 19:05 99 Nasal Cannula 2.0 28 04/13/17 16:00 98.4 127 19 110/64 96 Nasal Cannula 3.0 04/13/17 16:00 124 04/13/17 13:20 98.9 04/13/17 12:00 98.3 133 19 111/70 95 Nasal Cannula 3.0 04/13/17 12:00 130 Intake and Output 04/13/17 04/14/17 19:00 07:00 Intake Total 1415.32 ml 2470 ml Output Total 1100 ml 600 ml Balance 315.32 ml 1870 ml Free Water 100 ml IV Total 1130.32 ml 1930 ml Tube Feeding 240 ml 440 ml Other 45 ml Output Urine Total 250 ml 250 ml Stool Total 850 ml 350 ml # Voids 1 Laboratory Tests 04/14/17 05:45: White Blood Count 8.9, Red Blood Count 3.11L, Hemoglobin 10.0L, Hematocrit 28.9L , Mean Corpuscular Volume 93, Mean Corpuscular Hemoglobin 32.1H, Mean Corpuscular Hemoglobin Concent 34.5, Red Cell Distribution Width 12.9, Platelet Count 410, Mean Platelet Volume 6.4L, Neutrophils (%) (Auto) 76.0H, Lymphocytes (%) (Auto) 13.4L, Monocytes (%) (Auto) 9.4, Eosinophils (%) (Auto) 0.1, Basophils (%) (Auto) 1.0, Sodium Level 140, Potassium Level 3.9, Chloride Level 107, Carbon Dioxide Level 21, Anion Gap 13, Blood Urea Nitrogen 44H, Creatinine 1.0, Estimat Glomerular Filtration Rate 58.2, Glucose Level 162H, Calcium Level 9.1 Height (Feet): 5 Height (Inches): 0.00 Weight (Pounds): 93 Objective HEAD AND NECK: No JVP. No LAD. No thyromegaly. NG tube is placed. ET tube is in place. NG tube secreting greenish liquids. CARDIAC: Regular rate and rhythm. S1 and S2. No murmur. No rub. LUNGS: Has decreased breathing sound on both sides. ABDOMEN: Soft. Bowel sounds are hypoactive. Nontender. EXTREMITIES: No edema. No clubbing. No cyanosis. DELMI ARITA Apr 14, 2017 08:21
[2017-04-14] MEDS: Pantoprazole Inj IV SCH (08:46)
--- NOTE | 2017-04-14 11:42 | Pulmonology Progress Note ---
Assessment/Plan Problems: (1) Septic shock (2) Acute respiratory failure (3) Strangulated ventral incisional hernia (4) Severe malnutrition (5) On total parenteral nutrition (TPN) (6) Multiorgan failure Assessment/Plan Respiratory: monitor respiratory rate, Cardiac: continue to monitor HR/BP, remains tachycardic Renal: F/U I&O, keep IV fluid, TPN, check electrolytes Infectious Disease: check cultures Gastrointestinal: continue feedings/current rate, hold feedings Hematologic: monitor H/H, transfuse if hgb<8.5 Neurologic: PRN Ativan, PRN Morphine, keep patient comfortable Discussed with: nurses, consultants Subjective ROS Limited/Unobtainable: No Constitutional: Reports: no symptoms HEENT: Repors: no symptoms Allergies: Coded Allergies: TRAZODONE (Verified Allergy, Unknown, 04/04/17) Objective Last 24 Hour Vital Signs Date Time Temp Pulse Resp B/P (MAP) Pulse Ox O2 Delivery O2 Flow Rate FiO2 04/14/17 08:00 141 04/14/17 08:00 98.1 139 35 118/71 95 Nasal Cannula 3.0 04/14/17 04:00 140 04/14/17 04:00 99.0 140 26 118/71 95 Nasal Cannula 3.0 04/14/17 00:00 99.7 155 28 114/75 95 Nasal Cannula 3.0 04/14/17 00:00 155 04/13/17 20:00 100.8 153 17 119/68 96 Nasal Cannula 3.0 04/13/17 20:00 153 04/13/17 19:05 Nasal Cannula 2.0 28 04/13/17 19:05 99 Nasal Cannula 2.0 28 04/13/17 16:00 98.4 127 19 110/64 96 Nasal Cannula 3.0 04/13/17 16:00 124 04/13/17 13:20 98.9 04/13/17 12:00 98.3 133 19 111/70 95 Nasal Cannula 3.0 04/13/17 12:00 130 Intake and Output 04/13/17 04/14/17 19:00 07:00 Intake Total 1415.32 ml 2624 ml Output Total 1100 ml 600 ml Balance 315.32 ml 2024 ml Free Water 100 ml IV Total 1130.32 ml 2044 ml Tube Feeding 240 ml 480 ml Other 45 ml Output Urine Total 250 ml 250 ml Stool Total 850 ml 350 ml # Voids 1 General Appearance: WD/WN, no acute distress HEENT: atraumatic, PERRL Respiratory/Chest: lungs clear Cardiovascular: normal peripheral pulses, normal rate Abdomen: normal bowel sounds, non distended, no mass Extremities: no cyanosis, no clubbing Skin: no rash Laboratory Tests 04/14/17 05:45: White Blood Count 8.9, Red Blood Count 3.11L, Hemoglobin 10.0L, Hematocrit 28.9L , Mean Corpuscular Volume 93, Mean Corpuscular Hemoglobin 32.1H, Mean Corpuscular Hemoglobin Concent 34.5, Red Cell Distribution Width 12.9, Platelet Count 410, Mean Platelet Volume 6.4L, Neutrophils (%) (Auto) 76.0H, Lymphocytes (%) (Auto) 13.4L, Monocytes (%) (Auto) 9.4, Eosinophils (%) (Auto) 0.1, Basophils (%) (Auto) 1.0, Sodium Level 140, Potassium Level 3.9, Chloride Level 107, Carbon Dioxide Level 21, Anion Gap 13, Blood Urea Nitrogen 44H, Creatinine 1.0, Estimat Glomerular Filtration Rate 58.2, Glucose Level 162H, Calcium Level 9.1 Current Medications Medications (Trade) Dose Ordered Sig/Nicole Route PRN Reason Start Time Stop Time Status Last Admin Dose Admin Acetaminophen (Tylenol) 650 mg Q4H PRN ORAL Mild Pain/Temp > 100.5 04/12/17 18:45 05/12/17 18:44 04/13/17 12:24 Ceftriaxone Sodium 1 gm/ Dextrose 55 ml @ 110 mls/hr Q24H IVPB 04/13/17 18:00 04/20/17 17:59 04/13/17 17:18 Chlorhexidine Gluconate (Collette-Hex 2%) 1 applic DAILY@2000 TOPIC 04/11/17 20:00 05/05/17 19:59 04/13/17 20:32 Dextrose 1,000 ml @ 0 mls/hr Q24H PRN IV PN interrupted or unavailable 04/11/17 20:00 05/11/17 19:59 Dextrose (Dextrose 50%) STAT PRN IV Hypoglycemia 04/11/17 08:30 05/11/17 08:29 Diphenhydramine HCl (Benadryl) 12.5 mg Q6H PRN IVP Itching/Pruritis 04/11/17 08:30 05/04/17 08:29 Fat Emulsion Intravenous 216 ml/Amino Acids/ Electrolytes/ Dextrose 1,536 ml @ 64 mls/hr Q24H IV 04/12/17 20:00 05/12/17 19:59 04/13/17 20:32 Insulin Aspart (NovoLOG) Q6HR SUBQ 04/11/17 12:00 05/04/17 05:59 04/14/17 11:29 Lorazepam (Ativan 2mg/ml 1ml) 1 mg Q4H PRN IV For Anxiety 04/11/17 08:30 04/18/17 08:29 04/12/17 09:34 Metronidazole 100 ml @ 100 mls/hr Q8HR IV 04/13/17 22:00 04/20/17 21:59 04/14/17 05:44 Ondansetron HCl (Zofran) 4 mg Q6H PRN IVP Nausea & Vomiting 04/11/17 08:30 05/04/17 08:29 Pantoprazole (Protonix) 40 mg DAILY IV 04/11/17 09:00 05/04/17 08:59 04/14/17 08:46 Risperidone (RisperDAL) 0.5 mg Q12HR NG 04/11/17 09:00 05/11/17 08:59 04/14/17 08:46 Sodium Chloride 1,000 ml @ 50 mls/hr Q20H IV 04/13/17 13:00 05/13/17 12:59 04/14/17 08:45 YAYO CELIS Apr 14, 2017 11:42
[2017-04-14 12:00] VITALS: BP 115/66
--- NOTE | 2017-04-14 13:59 | General Progress Note ---
Progress Note Progress Note Surgery: no acute events. doing remarkably well. afebrile, HD stable, labs improved. abd soft, nt/nd, ostomy viable, midline wound c/d/i. rlq wound c/d/i -TPN -tube feeds to goal -speech to eval for swallow and hopefully can start PO intake robson. -wound care with packing and dressings. -d/c planning. Brandt Auguste Apr 14, 2017 13:59
--- NOTE | 2017-04-14 14:16 | General Progress Note ---
Assessment/Plan Problem List: (1) Abdominal pain ICD Codes: R10.9 - Unspecified abdominal pain SNOMED: 85157371 (2) Peritonitis, acute generalized ICD Codes: K65.0 - Generalized (acute) peritonitis SNOMED: 20523716 (3) Strangulated ventral incisional hernia ICD Codes: K43.0 - Incisional hernia with obstruction, without gangrene SNOMED: 825850059 (4) Acute respiratory failure ICD Codes: J96.00 - Acute respiratory failure, unspecified whether with hypoxia or hypercapnia SNOMED: 19193994 (5) Septic shock ICD Codes: A41.9 - Sepsis, unspecified organism; R65.21 - Severe sepsis with septic shock SNOMED: 19414088 Status: unchanged Assessment/Plan vent abx sx f/u cbc bmp am id eval ltach transfer Subjective Constitutional: Reports: weakness Allergies: Coded Allergies: TRAZODONE (Verified Allergy, Unknown, 04/04/17) All Systems: reviewed and negative except above Subjective o2nc confused ng in place Objective Last 24 Hour Vital Signs Date Time Temp Pulse Resp B/P (MAP) Pulse Ox O2 Delivery O2 Flow Rate FiO2 04/14/17 12:00 98.4 133 40 115/66 95 Nasal Cannula 3.0 04/14/17 12:00 133 04/14/17 08:00 141 04/14/17 08:00 98.1 139 35 118/71 95 Nasal Cannula 3.0 04/14/17 04:00 140 04/14/17 04:00 99.0 140 26 118/71 95 Nasal Cannula 3.0 04/14/17 00:00 99.7 155 28 114/75 95 Nasal Cannula 3.0 04/14/17 00:00 155 04/13/17 20:00 100.8 153 17 119/68 96 Nasal Cannula 3.0 04/13/17 20:00 153 04/13/17 19:05 Nasal Cannula 2.0 28 04/13/17 19:05 99 Nasal Cannula 2.0 28 04/13/17 16:00 98.4 127 19 110/64 96 Nasal Cannula 3.0 04/13/17 16:00 124 Intake and Output 04/13/17 04/14/17 19:00 07:00 Intake Total 1415.32 ml 2624 ml Output Total 1100 ml 600 ml Balance 315.32 ml 2024 ml Free Water 100 ml IV Total 1130.32 ml 2044 ml Tube Feeding 240 ml 480 ml Other 45 ml Output Urine Total 250 ml 250 ml Stool Total 850 ml 350 ml # Voids 1 Laboratory Tests 04/14/17 05:45: White Blood Count 8.9, Red Blood Count 3.11L, Hemoglobin 10.0L, Hematocrit 28.9L , Mean Corpuscular Volume 93, Mean Corpuscular Hemoglobin 32.1H, Mean Corpuscular Hemoglobin Concent 34.5, Red Cell Distribution Width 12.9, Platelet Count 410, Mean Platelet Volume 6.4L, Neutrophils (%) (Auto) 76.0H, Lymphocytes (%) (Auto) 13.4L, Monocytes (%) (Auto) 9.4, Eosinophils (%) (Auto) 0.1, Basophils (%) (Auto) 1.0, Sodium Level 140, Potassium Level 3.9, Chloride Level 107, Carbon Dioxide Level 21, Anion Gap 13, Blood Urea Nitrogen 44H, Creatinine 1.0, Estimat Glomerular Filtration Rate 58.2, Glucose Level 162H, Calcium Level 9.1 Height (Feet): 5 Height (Inches): 0.00 Weight (Pounds): 93 General Appearance: lethargic, confused EENT: normal ENT inspection Neck: normal alignment Cardiovascular: normal peripheral pulses, normal rate, regular rhythm Respiratory/Chest: decreased breath sounds Abdomen: hypoactive bowel sounds Extremities: normal inspection Edema: no edema noted Arm (L), no edema noted Arm (R), no edema noted Leg (L), no edema noted Leg (R), no edema noted Pedal (L), no edema noted Pedal (R), no edema noted Generalized Neurologic: motor weakness Skin: normal pigmentation, warm/dry LACY HERNÁNDEZ Apr 14, 2017 14:16
--- NOTE | 2017-04-14 14:38 | GI Progress Note ---
Assessment/Plan Problems: (1) On total parenteral nutrition (TPN) ICD Codes: Z78.9 - Other specified health status SNOMED: 96682039, 911415978 (2) Anemia ICD Codes: D64.9 - Anemia, unspecified SNOMED: 293328544 (3) Electrolyte imbalance ICD Codes: E87.8 - Other disorders of electrolyte and fluid balance, not elsewhere classified SNOMED: 017687868 (4) Severe malnutrition ICD Codes: E43 - Unspecified severe protein-calorie malnutrition SNOMED: 05387925 (5) History of colostomy ICD Codes: Z98.890 - Other specified postprocedural states SNOMED: 126197842 (6) Multiorgan failure SNOMED: 39956079 (7) Strangulated ventral incisional hernia ICD Codes: K43.0 - Incisional hernia with obstruction, without gangrene SNOMED: 867477553 Status: progressing Status Narrative Discussed with Dr. Mejia. Assessment/Plan fu surgical recs >> patient will need to be on TPN for approximately 6 months and be re-evaluated. - NGTFs and PO trial for nutritional supplementation CLD, adv as tolerated anemia work up >> folate deficiency monitor H&H, prn transfusions ppi electrolyte correction fu labs Subjective Subjective limited Objective Last 24 Hour Vital Signs Date Time Temp Pulse Resp B/P (MAP) Pulse Ox O2 Delivery O2 Flow Rate FiO2 04/14/17 12:00 98.4 133 40 115/66 95 Nasal Cannula 3.0 04/14/17 12:00 133 04/14/17 08:00 141 04/14/17 08:00 98.1 139 35 118/71 95 Nasal Cannula 3.0 04/14/17 04:00 140 04/14/17 04:00 99.0 140 26 118/71 95 Nasal Cannula 3.0 04/14/17 00:00 99.7 155 28 114/75 95 Nasal Cannula 3.0 04/14/17 00:00 155 04/13/17 20:00 100.8 153 17 119/68 96 Nasal Cannula 3.0 04/13/17 20:00 153 04/13/17 19:05 Nasal Cannula 2.0 28 04/13/17 19:05 99 Nasal Cannula 2.0 28 04/13/17 16:00 98.4 127 19 110/64 96 Nasal Cannula 3.0 04/13/17 16:00 124 Intake and Output 04/13/17 04/14/17 19:00 07:00 Intake Total 1415.32 ml 2624 ml Output Total 1100 ml 600 ml Balance 315.32 ml 2024 ml Free Water 100 ml IV Total 1130.32 ml 2044 ml Tube Feeding 240 ml 480 ml Other 45 ml Output Urine Total 250 ml 250 ml Stool Total 850 ml 350 ml # Voids 1 Laboratory Tests Test 04/14/17 05:45 White Blood Count 8.9 K/UL (4.8-10.8) Red Blood Count 3.11 M/UL (4.20-5.40) L Hemoglobin 10.0 G/DL (12.0-16.0) L Hematocrit 28.9 % (37.0-47.0) L Mean Corpuscular Volume 93 FL (80-99) Mean Corpuscular Hemoglobin 32.1 PG (27.0-31.0) H Mean Corpuscular Hemoglobin Concent 34.5 G/DL (32.0-36.0) Red Cell Distribution Width 12.9 % (11.6-14.8) Platelet Count 410 K/UL (150-450) Mean Platelet Volume 6.4 FL (6.5-10.1) L Neutrophils (%) (Auto) 76.0 % (45.0-75.0) H Lymphocytes (%) (Auto) 13.4 % (20.0-45.0) L Monocytes (%) (Auto) 9.4 % (1.0-10.0) Eosinophils (%) (Auto) 0.1 % (0.0-3.0) Basophils (%) (Auto) 1.0 % (0.0-2.0) Sodium Level 140 MMOL/L (136-145) Potassium Level 3.9 MMOL/L (3.5-5.1) Chloride Level 107 MMOL/L (98-107) Carbon Dioxide Level 21 MMOL/L (21-32) Anion Gap 13 mmol/L (5-15) Blood Urea Nitrogen 44 mg/dL (7-18) H Creatinine 1.0 MG/DL (0.55-1.30) Estimat Glomerular Filtration Rate 58.2 mL/min (>60) Glucose Level 162 MG/DL (74-106) H Calcium Level 9.1 MG/DL (8.5-10.1) Height (Feet): 5 Height (Inches): 0.00 Weight (Pounds): 93 Shahana Wang N.P. Apr 14, 2017 14:38
[2017-04-14 16:00] VITALS: BP 114/70
--- NOTE | 2017-04-14 16:21 | Diagnostic Imaging Report ---
Indication: Dyspnea Technique: XRAY Chest 1v Comparison: 04/12/2017 Findings: NG tube in the stomach. Left subclavian catheter tip of the region of the SVC. Heart size and mediastinal contours are stable. Worsening of aeration with increasing right middle and lower lobe opacities. Small right pleural effusion appears decreased however this may be related to changes in patient positioning. There is no pneumothorax. No acute osseous abnormality. Impression: Worsening aeration with increasing right middle and lower lung airspace opacities.
[2017-04-14] MEDS ORDERED: Tubing IV Secondary IV ONE ×2 (17:13→17:17)
[2017-04-14] MEDS ORDERED: NS 500ML ONE ×2 (17:13→18:50)
--- NOTE | 2017-04-14 17:21 | Cardiology Progress Note ---
Assessment/Plan Assessment/Plan 1. Sinus tachycardia, most likely due to underlying PNA/possible effusion. 2. Status post second look laparotomy, s/p ileostomy pouch creation, POD #7, continue hydration and correction of electrolyte derangement. Keep Mg >2.5, 2D echocardiography reveals normal LV systolic and diastolic function. 3. Right lower lobe PNA with associated pleural effusion Subjective Subjective Sinus tachycardia at 145. Objective Last 24 Hour Vital Signs Date Time Temp Pulse Resp B/P (MAP) Pulse Ox O2 Delivery O2 Flow Rate FiO2 04/14/17 16:00 137 04/14/17 12:00 98.4 133 40 115/66 95 Nasal Cannula 3.0 04/14/17 12:00 133 04/14/17 08:00 141 04/14/17 08:00 98.1 139 35 118/71 95 Nasal Cannula 3.0 04/14/17 04:00 140 04/14/17 04:00 99.0 140 26 118/71 95 Nasal Cannula 3.0 04/14/17 00:00 99.7 155 28 114/75 95 Nasal Cannula 3.0 04/14/17 00:00 155 04/13/17 20:00 100.8 153 17 119/68 96 Nasal Cannula 3.0 04/13/17 20:00 153 04/13/17 19:05 Nasal Cannula 2.0 28 04/13/17 19:05 99 Nasal Cannula 2.0 28 Intake and Output 04/13/17 04/14/17 19:00 07:00 Intake Total 1415.32 ml 2624 ml Output Total 1100 ml 600 ml Balance 315.32 ml 2024 ml Free Water 100 ml IV Total 1130.32 ml 2044 ml Tube Feeding 240 ml 480 ml Other 45 ml Output Urine Total 250 ml 250 ml Stool Total 850 ml 350 ml # Voids 1 2D Echo: LVEF 60%, Mod MR, Grade I LVDD Laboratory Tests Test 04/14/17 05:45 White Blood Count 8.9 K/UL (4.8-10.8) Red Blood Count 3.11 M/UL (4.20-5.40) L Hemoglobin 10.0 G/DL (12.0-16.0) L Hematocrit 28.9 % (37.0-47.0) L Mean Corpuscular Volume 93 FL (80-99) Mean Corpuscular Hemoglobin 32.1 PG (27.0-31.0) H Mean Corpuscular Hemoglobin Concent 34.5 G/DL (32.0-36.0) Red Cell Distribution Width 12.9 % (11.6-14.8) Platelet Count 410 K/UL (150-450) Mean Platelet Volume 6.4 FL (6.5-10.1) L Neutrophils (%) (Auto) 76.0 % (45.0-75.0) H Lymphocytes (%) (Auto) 13.4 % (20.0-45.0) L Monocytes (%) (Auto) 9.4 % (1.0-10.0) Eosinophils (%) (Auto) 0.1 % (0.0-3.0) Basophils (%) (Auto) 1.0 % (0.0-2.0) Sodium Level 140 MMOL/L (136-145) Potassium Level 3.9 MMOL/L (3.5-5.1) Chloride Level 107 MMOL/L (98-107) Carbon Dioxide Level 21 MMOL/L (21-32) Anion Gap 13 mmol/L (5-15) Blood Urea Nitrogen 44 mg/dL (7-18) H Creatinine 1.0 MG/DL (0.55-1.30) Estimat Glomerular Filtration Rate 58.2 mL/min (>60) Glucose Level 162 MG/DL (74-106) H Calcium Level 9.1 MG/DL (8.5-10.1) Objective HEENT: Atraumatic and normocephalic. Anicteric. Pupils are equal, round and reactive to light and accommodation. Intubated and attached to the ventilator. NECK: JVP cannot be assessed as the patient is intubated. CARDIOVASCULAR: Normal S1 and S2. Regular rate and rhythm. tachycardic, no murmurs, gallops, or rubs. LUNGS: Diminished breath sounds at both bases. ABDOMEN: Distended. Diminished bowel sounds. Slightly tender at the site of surgery. EXTREMITIES: No evidence of edema, clubbing, or cyanosis. JUWAN ULLOA Apr 14, 2017 17:21
[2017-04-14] MEDS: cefTRIAXone 1gm/D5W 55ml IVPB SCH ×2 (17:42)
[2017-04-14] MEDS ORDERED: NS 275ml ONE (18:50)
[2017-04-14 20:00] VITALS: BP 129/69
[2017-04-14] MEDS: Dyna-Hex 2% Top Sol 2oz TOPIC SCH (20:12)
[2017-04-14] MEDS: FAT EMULSION 20% IV SCH (20:14)
[2017-04-14] MEDS: TPN IV SCH (20:14)
--- NOTE | 2017-04-14 22:15 | Consultation ---
DATE OF CONSULTATION: 04/14/2017 HISTORY OF PRESENT ILLNESS: The patient has severe hyponatremia, but she has altered mental status, confusion secondary to the progression of her medical illness. Her attending physician has requested daily psychiatric consultation to prevent any further decline in cognition and also to prevent mood lability. MENTAL STATUS EXAMINATION: The patient is a 51-year-old female psychomotor agitation. Mood is irritable and agitated. Affect guarded and restricted. Thought process is disorganized and illogical. No signs of any suicidal or homicidal thoughts. Insight and judgment is poor. DIAGNOSIS: Paranoid schizophrenia, acute exacerbation. PLAN: Treat with Risperdal 0.5 milligrams per NG-tube q.12 hours to reduce agitation and psychosis. Encourage her to interact appropriate with staff and other patients. She also takes Ativan 1 milligram IV q. 4 hours as needed. The patient continued to be followed by Psychiatry throughout the hospital course to prevent further decline in cognition. Chart reviewed and discussed with staff. seen and assessed at bedside. Alison Banda M.D. DR: BELEN JOB#: [id number] CC:
[2017-04-15] VITALS: BP 115/70
[2017-04-15 04:00] VITALS: BP 115/70
[2017-04-15 04:40] LABS: BASOPHILS % (AUTO) 0.8 % (0.0-2.0); EOSINOPHILS % (AUTO) 0.8 % (0.0-3.0); HEMATOCRIT 28.8 % (37.0-47.0); HEMOGLOBIN 9.4 G/DL (12.0-16.0); MEAN CORPUSCULAR VOLUME 95 FL (80-99); NEUTROPHILS % (AUTO) 70.4 % (45.0-75.0); PLATELET COUNT 421 K/UL (150-450); RED BLOOD COUNT 3.02 M/UL (4.20-5.40); RED CELL DISTRIBUTION WIDTH 13.5 % (11.6-14.8); WHITE BLOOD COUNT 7.3 K/UL (4.8-10.8)
[2017-04-15 05:17] LABS: ALANINE AMINOTRANSFERASE 18 U/L (12-78); ALBUMIN 1.7 G/DL (3.4-5.0); ALBUMIN/GLOBULIN RATIO 0.3 (1.0-2.7); ALKALINE PHOSPHATASE 78 U/L (46-116); AMYLASE 400 U/L (25-115); ANION GAP 11 mmol/L (5-15); ASPARTATE AMINO TRANSFERASE 19 U/L (15-37); BILIRUBIN,TOTAL 1.2 MG/DL (0.2-1.0); BLOOD UREA NITROGEN 49 mg/dL (7-18); CALCIUM 9.4 MG/DL (8.5-10.1); CARBON DIOXIDE 22 MMOL/L (21-32); CHLORIDE 114 MMOL/L (98-107); PHOSPHORUS 3.2 MG/DL (2.5-4.9); POTASSIUM 3.7 MMOL/L (3.5-5.1); SODIUM 147 MMOL/L (136-145)
[2017-04-15 05:52] LABS: BILIRUBIN,DIRECT 0.7 MG/DL (0.0-0.3)
[2017-04-15] MEDS: NovoLOG Insulin Flexpen SUBQ SCH ×4 (06:22→23:11)
[2017-04-15] MEDS: Flagyl 500mg/NS 100ml Pre-Mix IV SCH ×3 (06:29→21:26)
[2017-04-15 08:00] VITALS: BP 131/71
[2017-04-15] MEDS: Pantoprazole Inj IV SCH (08:44)
[2017-04-15 09:14] LABS: INR 1.1 (0.9-1.1)
--- NOTE | 2017-04-15 09:18 | Pulmonology Progress Note ---
Assessment/Plan Problems: (1) Septic shock (2) Acute respiratory failure (3) Strangulated ventral incisional hernia (4) Severe malnutrition (5) On total parenteral nutrition (TPN) Assessment/Plan Respiratory: monitor respiratory rate, cehst PT for RLL atelectasis, US chest to look for pleural effusion. ( not large. Cardiac: continue to monitor HR/BP, remains tachycardic Renal: F/U I&O, keep IV fluid, TPN, check electrolytes Infectious Disease: check cultures Gastrointestinal: continue feedings/current rate, hold feedings Hematologic: monitor H/H, transfuse if hgb<8.5 Neurologic: PRN Ativan, PRN Morphine, keep patient comfortable Discussed with: nurses, consultants Subjective ROS Limited/Unobtainable: No Interval Events: awake, comfortable Allergies: Coded Allergies: TRAZODONE (Verified Allergy, Unknown, 04/04/17) Objective Last 24 Hour Vital Signs Date Time Temp Pulse Resp B/P (MAP) Pulse Ox O2 Delivery O2 Flow Rate FiO2 04/15/17 08:00 139 04/15/17 04:00 127 04/15/17 04:00 98.7 128 24 115/70 98 Nasal Cannula 3.0 04/15/17 00:00 131 04/15/17 00:00 98.4 128 24 115/70 98 Nasal Cannula 3.0 04/14/17 20:00 98.8 96 15 129/69 100 Nasal Cannula 3.0 04/14/17 20:00 138 04/14/17 19:16 Nasal Cannula 2.0 28 04/14/17 19:16 98 Nasal Cannula 2.0 28 04/14/17 16:00 98.1 131 30 114/70 97 Nasal Cannula 3.0 04/14/17 16:00 137 04/14/17 12:00 98.4 133 40 115/66 95 Nasal Cannula 3.0 04/14/17 12:00 133 Intake and Output 04/14/17 04/15/17 19:00 07:00 Intake Total 1446 ml 2018 ml Output Total 1450 ml 1435 ml Balance -4 ml 583 ml IV Total 936 ml 1538 ml Tube Feeding 480 ml 480 ml Other 30 ml Output Urine Total 600 ml 400 ml Stool Total 850 ml 1035 ml General Appearance: cachetic HEENT: atraumatic Respiratory/Chest: chest wall non-tender, lungs clear Breasts: no masses Abdomen: normal bowel sounds, no organomegaly Extremities: no cyanosis, no clubbing Skin: no rash Laboratory Tests 04/15/17 03:10: White Blood Count 7.3, Red Blood Count 3.02L, Hemoglobin 9.4L, Hematocrit 28.8L , Mean Corpuscular Volume 95, Mean Corpuscular Hemoglobin 31.1H, Mean Corpuscular Hemoglobin Concent 32.7, Red Cell Distribution Width 13.5, Platelet Count 421, Mean Platelet Volume 6.8, Neutrophils (%) (Auto) 70.4, Lymphocytes (% ) (Auto) 18.0L, Monocytes (%) (Auto) 10.0, Eosinophils (%) (Auto) 0.8, Basophils (%) (Auto) 0.8, Erythrocyte Sedimentation Rate 120H, Sodium Level 147H , Potassium Level 3.7, Chloride Level 114H, Carbon Dioxide Level 22, Anion Gap 11, Blood Urea Nitrogen 49H, Creatinine 1.0, Estimat Glomerular Filtration Rate 58.2, Glucose Level 146H, Calcium Level 9.4, Phosphorus Level 3.2, Magnesium Level 2.0, Total Bilirubin 1.2H, Direct Bilirubin 0.7H, Aspartate Amino Transf ( AST/SGOT) 19, Alanine Aminotransferase (ALT/SGPT) 18, Alkaline Phosphatase 78, C -Reactive Protein, Quantitative 37.9H, Total Protein 8.3H, Albumin 1.7L, Globulin 6.6, Albumin/Globulin Ratio 0.3L, Amylase Level 400H, Lipase 2215H 04/15/17 08:45: Prothrombin Time [Pending], Prothromb Time International Ratio [Pending], Activated Partial Thromboplast Time [Pending] Current Medications Medications (Trade) Dose Ordered Sig/Nicole Route PRN Reason Start Time Stop Time Status Last Admin Dose Admin Acetaminophen (Tylenol) 650 mg Q4H PRN ORAL Mild Pain/Temp > 100.5 04/12/17 18:45 05/12/17 18:44 04/13/17 12:24 Ceftriaxone Sodium 1 gm/ Dextrose 55 ml @ 110 mls/hr Q24H IVPB 04/13/17 18:00 04/20/17 17:59 04/14/17 17:42 Chlorhexidine Gluconate (Collette-Hex 2%) 1 applic DAILY@2000 TOPIC 04/11/17 20:00 05/05/17 19:59 04/14/17 20:12 Dextrose 1,000 ml @ 0 mls/hr Q24H PRN IV PN interrupted or unavailable 04/11/17 20:00 05/11/17 19:59 Dextrose (Dextrose 50%) STAT PRN IV Hypoglycemia 04/11/17 08:30 05/11/17 08:29 Diphenhydramine HCl (Benadryl) 12.5 mg Q6H PRN IVP Itching/Pruritis 04/11/17 08:30 05/04/17 08:29 Fat Emulsion Intravenous 216 ml/Amino Acids/ Electrolytes/ Dextrose 1,536 ml @ 64 mls/hr Q24H IV 04/12/17 20:00 05/12/17 19:59 04/14/17 20:14 Insulin Aspart (NovoLOG) Q6HR SUBQ 04/11/17 12:00 05/04/17 05:59 04/15/17 06:22 Lorazepam (Ativan 2mg/ml 1ml) 1 mg Q4H PRN IV For Anxiety 04/11/17 08:30 04/18/17 08:29 04/12/17 09:34 Metronidazole 100 ml @ 100 mls/hr Q8HR IV 04/13/17 22:00 04/20/17 21:59 04/15/17 06:29 Ondansetron HCl (Zofran) 4 mg Q6H PRN IVP Nausea & Vomiting 04/11/17 08:30 05/04/17 08:29 Pantoprazole (Protonix) 40 mg DAILY IV 04/11/17 09:00 05/04/17 08:59 04/15/17 08:44 Risperidone (RisperDAL) 0.5 mg Q12HR NG 04/11/17 09:00 05/11/17 08:59 04/15/17 08:44 Sodium Chloride 1,000 ml @ 75 mls/hr [id number] IV 04/14/17 18:00 05/14/17 17:59 04/15/17 07:29 YAYO CELIS Apr 15, 2017 09:17
--- NOTE | 2017-04-15 09:20 | Infectious Diseases Prog Note ---
Assessment/Plan Assessment/Plan A: Sepsis Peritonitis Strangulated hernia Small bowel necrosis Respiratory failure resolved Anemia s/p laparotomy X 2 Short bowel syndrome Fever Atelectasis/ Pneumonia of R lung P: Continue Ceftriaxone & Flagyl If Temp> 101 will send blood cultures Subjective ROS Limited/Unobtainable: Yes Constitutional: Reports: other - aferile Neurologic: Reports: confusion, other - on restraint Allergies: Coded Allergies: TRAZODONE (Verified Allergy, Unknown, 04/04/17) Objective Vital Signs Last 24 Hour Vital Signs Date Time Temp Pulse Resp B/P (MAP) Pulse Ox O2 Delivery O2 Flow Rate FiO2 04/15/17 08:00 139 04/15/17 04:00 127 04/15/17 04:00 98.7 128 24 115/70 98 Nasal Cannula 3.0 04/15/17 00:00 131 04/15/17 00:00 98.4 128 24 115/70 98 Nasal Cannula 3.0 04/14/17 20:00 98.8 96 15 129/69 100 Nasal Cannula 3.0 04/14/17 20:00 138 04/14/17 19:16 Nasal Cannula 2.0 28 04/14/17 19:16 98 Nasal Cannula 2.0 28 04/14/17 16:00 98.1 131 30 114/70 97 Nasal Cannula 3.0 04/14/17 16:00 137 04/14/17 12:00 98.4 133 40 115/66 95 Nasal Cannula 3.0 04/14/17 12:00 133 Height (Feet): 5 Height (Inches): 0.00 Weight (Pounds): 94 General Appearance: no acute distress HEENT: other - NG tube Respiratory/Chest: lungs clear Cardiovascular: tachycardia Abdomen: soft, non tender, other - s/p osteotomy Extremities: no edema Neurologic/Psychiatric: other - sleeping Laboratory Tests Test 04/15/17 03:10 04/15/17 08:45 White Blood Count 7.3 K/UL (4.8-10.8) Red Blood Count 3.02 M/UL (4.20-5.40) L Hemoglobin 9.4 G/DL (12.0-16.0) L Hematocrit 28.8 % (37.0-47.0) L Mean Corpuscular Volume 95 FL (80-99) Mean Corpuscular Hemoglobin 31.1 PG (27.0-31.0) H Mean Corpuscular Hemoglobin Concent 32.7 G/DL (32.0-36.0) Red Cell Distribution Width 13.5 % (11.6-14.8) Platelet Count 421 K/UL (150-450) Mean Platelet Volume 6.8 FL (6.5-10.1) Neutrophils (%) (Auto) 70.4 % (45.0-75.0) Lymphocytes (%) (Auto) 18.0 % (20.0-45.0) L Monocytes (%) (Auto) 10.0 % (1.0-10.0) Eosinophils (%) (Auto) 0.8 % (0.0-3.0) Basophils (%) (Auto) 0.8 % (0.0-2.0) Erythrocyte Sedimentation Rate 120 MM/HR (0-30) H Sodium Level 147 MMOL/L (136-145) H Potassium Level 3.7 MMOL/L (3.5-5.1) Chloride Level 114 MMOL/L (98-107) H Carbon Dioxide Level 22 MMOL/L (21-32) Anion Gap 11 mmol/L (5-15) Blood Urea Nitrogen 49 mg/dL (7-18) H Creatinine 1.0 MG/DL (0.55-1.30) Estimat Glomerular Filtration Rate 58.2 mL/min (>60) Glucose Level 146 MG/DL (74-106) H Calcium Level 9.4 MG/DL (8.5-10.1) Phosphorus Level 3.2 MG/DL (2.5-4.9) Magnesium Level 2.0 MG/DL (1.8-2.4) Total Bilirubin 1.2 MG/DL (0.2-1.0) H Direct Bilirubin 0.7 MG/DL (0.0-0.3) H Aspartate Amino Transf (AST/SGOT) 19 U/L (15-37) Alanine Aminotransferase (ALT/SGPT) 18 U/L (12-78) Alkaline Phosphatase 78 U/L (46-116) C-Reactive Protein, Quantitative 37.9 mg/dL (0.00-0.90) H Total Protein 8.3 G/DL (6.4-8.2) H Albumin 1.7 G/DL (3.4-5.0) L Globulin 6.6 g/dL Albumin/Globulin Ratio 0.3 (1.0-2.7) L Amylase Level 400 U/L (25-115) H Lipase 2215 U/L (73-393) H Prothrombin Time 11.9 SEC (9.30-11.50) H Prothromb Time International Ratio 1.1 (0.9-1.1) Activated Partial Thromboplast Time 29 SEC (23-33) Current Medications Medications (Trade) Dose Ordered Sig/Nicole Route PRN Reason Start Time Stop Time Status Last Admin Dose Admin Acetaminophen (Tylenol) 650 mg Q4H PRN ORAL Mild Pain/Temp > 100.5 04/12/17 18:45 05/12/17 18:44 04/13/17 12:24 Ceftriaxone Sodium 1 gm/ Dextrose 55 ml @ 110 mls/hr Q24H IVPB 04/13/17 18:00 04/20/17 17:59 04/14/17 17:42 Chlorhexidine Gluconate (Collette-Hex 2%) 1 applic DAILY@2000 TOPIC 04/11/17 20:00 05/05/17 19:59 04/14/17 20:12 Dextrose 1,000 ml @ 0 mls/hr Q24H PRN IV PN interrupted or unavailable 04/11/17 20:00 05/11/17 19:59 Dextrose (Dextrose 50%) STAT PRN IV Hypoglycemia 04/11/17 08:30 05/11/17 08:29 Diphenhydramine HCl (Benadryl) 12.5 mg Q6H PRN IVP Itching/Pruritis 04/11/17 08:30 05/04/17 08:29 Fat Emulsion Intravenous 216 ml/Amino Acids/ Electrolytes/ Dextrose 1,536 ml @ 64 mls/hr Q24H IV 04/12/17 20:00 05/12/17 19:59 04/14/17 20:14 Insulin Aspart (NovoLOG) Q6HR SUBQ 04/11/17 12:00 05/04/17 05:59 04/15/17 06:22 Lorazepam (Ativan 2mg/ml 1ml) 1 mg Q4H PRN IV For Anxiety 04/11/17 08:30 04/18/17 08:29 04/12/17 09:34 Metronidazole 100 ml @ 100 mls/hr Q8HR IV 04/13/17 22:00 04/20/17 21:59 04/15/17 06:29 Ondansetron HCl (Zofran) 4 mg Q6H PRN IVP Nausea & Vomiting 04/11/17 08:30 05/04/17 08:29 Pantoprazole (Protonix) 40 mg DAILY IV 04/11/17 09:00 05/04/17 08:59 04/15/17 08:44 Risperidone (RisperDAL) 0.5 mg Q12HR NG 04/11/17 09:00 05/11/17 08:59 04/15/17 08:44 Sodium Chloride 1,000 ml @ 75 mls/hr [id number] IV 04/14/17 18:00 05/14/17 17:59 04/15/17 07:29 MIO LOMAX Apr 15, 2017 09:20
--- NOTE | 2017-04-15 10:23 | GI Progress Note ---
Assessment/Plan Problems: (1) On total parenteral nutrition (TPN) ICD Codes: Z78.9 - Other specified health status SNOMED: 75961386, 564443899 (2) Anemia ICD Codes: D64.9 - Anemia, unspecified SNOMED: 853350144 (3) Electrolyte imbalance ICD Codes: E87.8 - Other disorders of electrolyte and fluid balance, not elsewhere classified SNOMED: 230221000 (4) Severe malnutrition ICD Codes: E43 - Unspecified severe protein-calorie malnutrition SNOMED: 00896097 (5) History of colostomy ICD Codes: Z98.890 - Other specified postprocedural states SNOMED: 211863343 (6) Multiorgan failure SNOMED: 59945413 (7) Strangulated ventral incisional hernia ICD Codes: K43.0 - Incisional hernia with obstruction, without gangrene SNOMED: 456953570 Status: progressing, unchanged Status Narrative Discussed with Dr. Mejia. Assessment/Plan fu surgical recs >> patient will need to be on TPN for approximately 6 months and be re-evaluated. - NGTFs and PO trial for nutritional supplementation CLD, adv as tolerated anemia work up >> folate deficiency monitor H&H, prn transfusions ppi electrolyte correction fu labs Subjective Subjective limited Objective Last 24 Hour Vital Signs Date Time Temp Pulse Resp B/P (MAP) Pulse Ox O2 Delivery O2 Flow Rate FiO2 04/15/17 08:00 139 04/15/17 07:20 Nasal Cannula 2.0 28 04/15/17 07:20 98 Nasal Cannula 2.0 28 04/15/17 04:00 127 04/15/17 04:00 98.7 128 24 115/70 98 Nasal Cannula 3.0 04/15/17 00:00 131 04/15/17 00:00 98.4 128 24 115/70 98 Nasal Cannula 3.0 04/14/17 20:00 98.8 96 15 129/69 100 Nasal Cannula 3.0 04/14/17 20:00 138 04/14/17 19:16 Nasal Cannula 2.0 28 04/14/17 19:16 98 Nasal Cannula 2.0 28 04/14/17 16:00 98.1 131 30 114/70 97 Nasal Cannula 3.0 04/14/17 16:00 137 04/14/17 12:00 98.4 133 40 115/66 95 Nasal Cannula 3.0 04/14/17 12:00 133 Intake and Output 04/14/17 04/15/17 19:00 07:00 Intake Total 1446 ml 2018 ml Output Total 1450 ml 1435 ml Balance -4 ml 583 ml IV Total 936 ml 1538 ml Tube Feeding 480 ml 480 ml Other 30 ml Output Urine Total 600 ml 400 ml Stool Total 850 ml 1035 ml Laboratory Tests Test 04/15/17 03:10 04/15/17 08:45 White Blood Count 7.3 K/UL (4.8-10.8) Red Blood Count 3.02 M/UL (4.20-5.40) L Hemoglobin 9.4 G/DL (12.0-16.0) L Hematocrit 28.8 % (37.0-47.0) L Mean Corpuscular Volume 95 FL (80-99) Mean Corpuscular Hemoglobin 31.1 PG (27.0-31.0) H Mean Corpuscular Hemoglobin Concent 32.7 G/DL (32.0-36.0) Red Cell Distribution Width 13.5 % (11.6-14.8) Platelet Count 421 K/UL (150-450) Mean Platelet Volume 6.8 FL (6.5-10.1) Neutrophils (%) (Auto) 70.4 % (45.0-75.0) Lymphocytes (%) (Auto) 18.0 % (20.0-45.0) L Monocytes (%) (Auto) 10.0 % (1.0-10.0) Eosinophils (%) (Auto) 0.8 % (0.0-3.0) Basophils (%) (Auto) 0.8 % (0.0-2.0) Erythrocyte Sedimentation Rate 120 MM/HR (0-30) H Sodium Level 147 MMOL/L (136-145) H Potassium Level 3.7 MMOL/L (3.5-5.1) Chloride Level 114 MMOL/L (98-107) H Carbon Dioxide Level 22 MMOL/L (21-32) Anion Gap 11 mmol/L (5-15) Blood Urea Nitrogen 49 mg/dL (7-18) H Creatinine 1.0 MG/DL (0.55-1.30) Estimat Glomerular Filtration Rate 58.2 mL/min (>60) Glucose Level 146 MG/DL (74-106) H Calcium Level 9.4 MG/DL (8.5-10.1) Phosphorus Level 3.2 MG/DL (2.5-4.9) Magnesium Level 2.0 MG/DL (1.8-2.4) Total Bilirubin 1.2 MG/DL (0.2-1.0) H Direct Bilirubin 0.7 MG/DL (0.0-0.3) H Aspartate Amino Transf (AST/SGOT) 19 U/L (15-37) Alanine Aminotransferase (ALT/SGPT) 18 U/L (12-78) Alkaline Phosphatase 78 U/L (46-116) C-Reactive Protein, Quantitative 37.9 mg/dL (0.00-0.90) H Total Protein 8.3 G/DL (6.4-8.2) H Albumin 1.7 G/DL (3.4-5.0) L Globulin 6.6 g/dL Albumin/Globulin Ratio 0.3 (1.0-2.7) L Amylase Level 400 U/L (25-115) H Lipase 2215 U/L (73-393) H Prothrombin Time 11.9 SEC (9.30-11.50) H Prothromb Time International Ratio 1.1 (0.9-1.1) Activated Partial Thromboplast Time 29 SEC (23-33) Height (Feet): 5 Height (Inches): 0.00 Weight (Pounds): 94 General Appearance: confused Cardiovascular: normal rate Abdominal Exam: incision site Shahana Wang N.P. Apr 15, 2017 10:23
[2017-04-15 12:00] VITALS: BP 146/80
--- NOTE | 2017-04-15 12:52 | Nephrology Progress Note ---
Assessment/Plan Assessment 1. Hypernatremia resolved 2. Hypokalemia. 3. Acute renal failure or dehydration. 4. Malnutrition. 5. Hypocalcemia. 6. Hypomagnesemia. Plan to continue nutritional support with TPN replace mg replace k monitoring out put monitoring renal function Subjective Constitutional: Reports: no symptoms HEENT: Reports: no symptoms Genitourinary: Reports: no symptoms Neurologic/Psychiatric: Reports: no symptoms Subjective started on feeding more responsive today fallow command Objective Objective Last 24 Hour Vital Signs Date Time Temp Pulse Resp B/P (MAP) Pulse Ox O2 Delivery O2 Flow Rate FiO2 04/15/17 12:00 98.2 137 22 146/80 97 Nasal Cannula 3.0 04/15/17 08:00 98.2 139 28 131/71 95 Nasal Cannula 3.0 04/15/17 08:00 139 04/15/17 07:20 Nasal Cannula 2.0 28 04/15/17 07:20 98 Nasal Cannula 2.0 28 04/15/17 04:00 127 04/15/17 04:00 98.7 128 24 115/70 98 Nasal Cannula 3.0 04/15/17 00:00 131 04/15/17 00:00 98.4 128 24 115/70 98 Nasal Cannula 3.0 04/14/17 20:00 98.8 96 15 129/69 100 Nasal Cannula 3.0 04/14/17 20:00 138 04/14/17 19:16 Nasal Cannula 2.0 28 04/14/17 19:16 98 Nasal Cannula 2.0 28 04/14/17 16:00 98.1 131 30 114/70 97 Nasal Cannula 3.0 04/14/17 16:00 137 Intake and Output 04/14/17 04/15/17 19:00 07:00 Intake Total 1446 ml 2018 ml Output Total 1450 ml 1435 ml Balance -4 ml 583 ml IV Total 936 ml 1538 ml Tube Feeding 480 ml 480 ml Other 30 ml Output Urine Total 600 ml 400 ml Stool Total 850 ml 1035 ml Laboratory Tests 04/15/17 03:10: White Blood Count 7.3, Red Blood Count 3.02L, Hemoglobin 9.4L, Hematocrit 28.8L , Mean Corpuscular Volume 95, Mean Corpuscular Hemoglobin 31.1H, Mean Corpuscular Hemoglobin Concent 32.7, Red Cell Distribution Width 13.5, Platelet Count 421, Mean Platelet Volume 6.8, Neutrophils (%) (Auto) 70.4, Lymphocytes (% ) (Auto) 18.0L, Monocytes (%) (Auto) 10.0, Eosinophils (%) (Auto) 0.8, Basophils (%) (Auto) 0.8, Erythrocyte Sedimentation Rate 120H, Sodium Level 147H , Potassium Level 3.7, Chloride Level 114H, Carbon Dioxide Level 22, Anion Gap 11, Blood Urea Nitrogen 49H, Creatinine 1.0, Estimat Glomerular Filtration Rate 58.2, Glucose Level 146H, Calcium Level 9.4, Phosphorus Level 3.2, Magnesium Level 2.0, Total Bilirubin 1.2H, Direct Bilirubin 0.7H, Aspartate Amino Transf ( AST/SGOT) 19, Alanine Aminotransferase (ALT/SGPT) 18, Alkaline Phosphatase 78, C -Reactive Protein, Quantitative 37.9H, Total Protein 8.3H, Albumin 1.7L, Globulin 6.6, Albumin/Globulin Ratio 0.3L, Amylase Level 400H, Lipase 2215H 04/15/17 08:45: Prothrombin Time 11.9H, Prothromb Time International Ratio 1.1, Activated Partial Thromboplast Time 29 Height (Feet): 5 Height (Inches): 0.00 Weight (Pounds): 94 Objective HEAD AND NECK: No JVP. No LAD. No thyromegaly. NG tube is placed. ET tube is in place. NG tube secreting greenish liquids. CARDIAC: Regular rate and rhythm. S1 and S2. No murmur. No rub. LUNGS: Has decreased breathing sound on both sides. ABDOMEN: Soft. Bowel sounds are hypoactive. Nontender. EXTREMITIES: No edema. No clubbing. No cyanosis. DELMI ARITA Apr 15, 2017 12:52
--- NOTE | 2017-04-15 13:19 | General Progress Note ---
Progress Note Progress Note Surgery: no acute events. doing remarkably well. afebrile, HD stable, labs improved. abd soft, nt/nd, ostomy viable, midline wound c/d/i. rlq wound c/d/i -TPN -tube feeds to goal -speech to eval for swallow and hopefully can start PO intake robson. -wound care with packing and dressings. -d/c planning -electrolytes a little off and lipase elevated. trend for now Brandt Auguste Apr 15, 2017 13:19
--- NOTE | 2017-04-15 14:01 | General Progress Note ---
Assessment/Plan Problem List: (1) Abdominal pain ICD Codes: R10.9 - Unspecified abdominal pain SNOMED: 36342804 (2) Peritonitis, acute generalized ICD Codes: K65.0 - Generalized (acute) peritonitis SNOMED: 53192279 (3) Strangulated ventral incisional hernia ICD Codes: K43.0 - Incisional hernia with obstruction, without gangrene SNOMED: 449466895 (4) Acute respiratory failure ICD Codes: J96.00 - Acute respiratory failure, unspecified whether with hypoxia or hypercapnia SNOMED: 47017313 (5) Septic shock ICD Codes: A41.9 - Sepsis, unspecified organism; R65.21 - Severe sepsis with septic shock SNOMED: 24143379 Status: unchanged Assessment/Plan vent abx sx f/u cbc bmp am id eval ltach transfer Subjective Constitutional: Reports: weakness Allergies: Coded Allergies: TRAZODONE (Verified Allergy, Unknown, 04/04/17) All Systems: reviewed and negative except above Subjective o2nc confused ng in place Objective Last 24 Hour Vital Signs Date Time Temp Pulse Resp B/P (MAP) Pulse Ox O2 Delivery O2 Flow Rate FiO2 04/15/17 12:00 98.2 137 22 146/80 97 Nasal Cannula 3.0 04/15/17 11:32 138 04/15/17 08:00 98.2 139 28 131/71 95 Nasal Cannula 3.0 04/15/17 08:00 139 04/15/17 07:20 Nasal Cannula 2.0 28 04/15/17 07:20 98 Nasal Cannula 2.0 28 04/15/17 04:00 127 04/15/17 04:00 98.7 128 24 115/70 98 Nasal Cannula 3.0 04/15/17 00:00 131 04/15/17 00:00 98.4 128 24 115/70 98 Nasal Cannula 3.0 04/14/17 20:00 98.8 96 15 129/69 100 Nasal Cannula 3.0 04/14/17 20:00 138 04/14/17 19:16 Nasal Cannula 2.0 28 04/14/17 19:16 98 Nasal Cannula 2.0 28 04/14/17 16:00 98.1 131 30 114/70 97 Nasal Cannula 3.0 04/14/17 16:00 137 Intake and Output 04/14/17 04/15/17 19:00 07:00 Intake Total 1446 ml 2018 ml Output Total 1450 ml 1435 ml Balance -4 ml 583 ml IV Total 936 ml 1538 ml Tube Feeding 480 ml 480 ml Other 30 ml Output Urine Total 600 ml 400 ml Stool Total 850 ml 1035 ml Laboratory Tests 04/15/17 03:10: White Blood Count 7.3, Red Blood Count 3.02L, Hemoglobin 9.4L, Hematocrit 28.8L , Mean Corpuscular Volume 95, Mean Corpuscular Hemoglobin 31.1H, Mean Corpuscular Hemoglobin Concent 32.7, Red Cell Distribution Width 13.5, Platelet Count 421, Mean Platelet Volume 6.8, Neutrophils (%) (Auto) 70.4, Lymphocytes (% ) (Auto) 18.0L, Monocytes (%) (Auto) 10.0, Eosinophils (%) (Auto) 0.8, Basophils (%) (Auto) 0.8, Erythrocyte Sedimentation Rate 120H, Sodium Level 147H , Potassium Level 3.7, Chloride Level 114H, Carbon Dioxide Level 22, Anion Gap 11, Blood Urea Nitrogen 49H, Creatinine 1.0, Estimat Glomerular Filtration Rate 58.2, Glucose Level 146H, Calcium Level 9.4, Phosphorus Level 3.2, Magnesium Level 2.0, Total Bilirubin 1.2H, Direct Bilirubin 0.7H, Aspartate Amino Transf ( AST/SGOT) 19, Alanine Aminotransferase (ALT/SGPT) 18, Alkaline Phosphatase 78, C -Reactive Protein, Quantitative 37.9H, Total Protein 8.3H, Albumin 1.7L, Globulin 6.6, Albumin/Globulin Ratio 0.3L, Amylase Level 400H, Lipase 2215H 04/15/17 08:45: Prothrombin Time 11.9H, Prothromb Time International Ratio 1.1, Activated Partial Thromboplast Time 29 Height (Feet): 5 Height (Inches): 0.00 Weight (Pounds): 94 General Appearance: lethargic, confused EENT: normal ENT inspection Neck: normal alignment Cardiovascular: normal peripheral pulses, normal rate, regular rhythm Respiratory/Chest: chest wall non-tender, lungs clear, normal breath sounds Abdomen: hypoactive bowel sounds Extremities: normal inspection Edema: no edema noted Arm (L), no edema noted Arm (R), no edema noted Leg (L), no edema noted Leg (R), no edema noted Pedal (L), no edema noted Pedal (R), no edema noted Generalized Neurologic: motor weakness Skin: normal pigmentation, warm/dry LACY HERNÁNDEZ Apr 15, 2017 14:01
[2017-04-15 16:00] VITALS: BP 145/83
--- NOTE | 2017-04-15 16:37 | Cardiology Progress Note ---
Assessment/Plan Assessment/Plan 1. Sinus tachycardia, most likely due to underlying PNA/possible effusion or hypovemia, increase IV fluid to 125 ml/hr. 2. Status post second look laparotomy, s/p ileostomy pouch creation, POD #8, continue hydration and correction of electrolyte derangement. Keep Mg >2.5, 2D echocardiography reveals normal LV systolic and diastolic function. 3. Right lower lobe PNA with associated pleural effusion 4. HTN, switch IVF to 1/2 NS Subjective Subjective Sinus tachycardia at 153. Objective Last 24 Hour Vital Signs Date Time Temp Pulse Resp B/P (MAP) Pulse Ox O2 Delivery O2 Flow Rate FiO2 04/15/17 12:00 98.2 137 22 146/80 97 Nasal Cannula 3.0 04/15/17 11:32 138 04/15/17 08:00 98.2 139 28 131/71 95 Nasal Cannula 3.0 04/15/17 08:00 139 04/15/17 07:20 Nasal Cannula 2.0 28 04/15/17 07:20 98 Nasal Cannula 2.0 28 04/15/17 04:00 127 04/15/17 04:00 98.7 128 24 115/70 98 Nasal Cannula 3.0 04/15/17 00:00 131 04/15/17 00:00 98.4 128 24 115/70 98 Nasal Cannula 3.0 04/14/17 20:00 98.8 96 15 129/69 100 Nasal Cannula 3.0 04/14/17 20:00 138 04/14/17 19:16 Nasal Cannula 2.0 28 04/14/17 19:16 98 Nasal Cannula 2.0 28 Intake and Output 04/14/17 04/15/17 19:00 07:00 Intake Total 1446 ml 2018 ml Output Total 1450 ml 1435 ml Balance -4 ml 583 ml IV Total 936 ml 1538 ml Tube Feeding 480 ml 480 ml Other 30 ml Output Urine Total 600 ml 400 ml Stool Total 850 ml 1035 ml 2D Echo: LVEF 60%, Mod MR, Grade I LVDD Laboratory Tests Test 04/15/17 03:10 04/15/17 08:45 White Blood Count 7.3 K/UL (4.8-10.8) Red Blood Count 3.02 M/UL (4.20-5.40) L Hemoglobin 9.4 G/DL (12.0-16.0) L Hematocrit 28.8 % (37.0-47.0) L Mean Corpuscular Volume 95 FL (80-99) Mean Corpuscular Hemoglobin 31.1 PG (27.0-31.0) H Mean Corpuscular Hemoglobin Concent 32.7 G/DL (32.0-36.0) Red Cell Distribution Width 13.5 % (11.6-14.8) Platelet Count 421 K/UL (150-450) Mean Platelet Volume 6.8 FL (6.5-10.1) Neutrophils (%) (Auto) 70.4 % (45.0-75.0) Lymphocytes (%) (Auto) 18.0 % (20.0-45.0) L Monocytes (%) (Auto) 10.0 % (1.0-10.0) Eosinophils (%) (Auto) 0.8 % (0.0-3.0) Basophils (%) (Auto) 0.8 % (0.0-2.0) Erythrocyte Sedimentation Rate 120 MM/HR (0-30) H Sodium Level 147 MMOL/L (136-145) H Potassium Level 3.7 MMOL/L (3.5-5.1) Chloride Level 114 MMOL/L (98-107) H Carbon Dioxide Level 22 MMOL/L (21-32) Anion Gap 11 mmol/L (5-15) Blood Urea Nitrogen 49 mg/dL (7-18) H Creatinine 1.0 MG/DL (0.55-1.30) Estimat Glomerular Filtration Rate 58.2 mL/min (>60) Glucose Level 146 MG/DL (74-106) H Calcium Level 9.4 MG/DL (8.5-10.1) Phosphorus Level 3.2 MG/DL (2.5-4.9) Magnesium Level 2.0 MG/DL (1.8-2.4) Total Bilirubin 1.2 MG/DL (0.2-1.0) H Direct Bilirubin 0.7 MG/DL (0.0-0.3) H Aspartate Amino Transf (AST/SGOT) 19 U/L (15-37) Alanine Aminotransferase (ALT/SGPT) 18 U/L (12-78) Alkaline Phosphatase 78 U/L (46-116) C-Reactive Protein, Quantitative 37.9 mg/dL (0.00-0.90) H Total Protein 8.3 G/DL (6.4-8.2) H Albumin 1.7 G/DL (3.4-5.0) L Globulin 6.6 g/dL Albumin/Globulin Ratio 0.3 (1.0-2.7) L Amylase Level 400 U/L (25-115) H Lipase 2215 U/L (73-393) H Prothrombin Time 11.9 SEC (9.30-11.50) H Prothromb Time International Ratio 1.1 (0.9-1.1) Activated Partial Thromboplast Time 29 SEC (23-33) Objective HEENT: Atraumatic and normocephalic. Anicteric. Pupils are equal, round and reactive to light and accommodation. Intubated and attached to the ventilator. NECK: JVP cannot be assessed as the patient is intubated. CARDIOVASCULAR: Normal S1 and S2. Regular rate and rhythm. tachycardic, no murmurs, gallops, or rubs. LUNGS: Diminished breath sounds at both bases. ABDOMEN: Distended. Diminished bowel sounds. Slightly tender at the site of surgery. EXTREMITIES: No evidence of edema, clubbing, or cyanosis. JUWAN ULLOA Apr 15, 2017 16:37
--- NOTE | 2017-04-15 17:15 | Progress Note ---
DATE: 04/15/2017 SUBJECTIVE: The patient is a female patient, 51 years old, with severe hyponatremia. This patient is still confused. She has altered mental status agitation, and irritability. That is why her attending physician has requested daily psychiatric consultation to manage her mood lability and to prevent any further decline in cognition. MENTAL STATUS EXAMINATION: The patient is a 51-year-old female with psychomotor agitation. Mood is irritable and agitated. Affect is guarded and restricted. Intellect poor. Mood depressed and anxious. Motor activity, psychomotor agitation. Attention span is poor. Orientation x2. Speech is pressured. Insight and judgment is poor. DIAGNOSIS: Paranoid schizophrenia with acute exacerbation, rule out depression with psychotic features. PLAN: Continue her on psychotropic medications to stabilize her mood, reduce agitation, and try to prevent any further decline in her cognition. Chart reviewed. Discussed with staff. Seen and assessed at bedside. Supportive therapy provided. Alison Banda M.D. DR: LAZARO JOB#: [id number] CC:
[2017-04-15] MEDS: cefTRIAXone 1gm/D5W 55ml IVPB SCH ×2 (18:48)
[2017-04-15 20:00] VITALS: BP 138/79
[2017-04-15] MEDS ORDERED: TPN IV SCH (20:00)
[2017-04-15] MEDS ORDERED: FAT EMULSION 20% IV SCH (20:00)
[2017-04-15] MEDS: Dyna-Hex 2% Top Sol 2oz TOPIC SCH (20:23)
[2017-04-16] VITALS: BP 135/76
[2017-04-16 04:00] VITALS: BP 135/78
[2017-04-16] MEDS: Flagyl 500mg/NS 100ml Pre-Mix IV SCH ×3 (05:05→21:23)
[2017-04-16] MEDS: NovoLOG Insulin Flexpen SUBQ SCH ×3 (05:06→17:40)
[2017-04-16 05:22] LABS: BASOPHILS % (AUTO) 0.9 % (0.0-2.0); EOSINOPHILS % (AUTO) 0.5 % (0.0-3.0); LYMPHOCYTES % (AUTO) 16.9 % (20.0-45.0); MEAN CORPUSCULAR VOLUME 95 FL (80-99); MONOCYTES % (AUTO) 9.7 % (1.0-10.0); PLATELET COUNT 474 K/UL (150-450); RED BLOOD COUNT 2.93 M/UL (4.20-5.40); RED CELL DISTRIBUTION WIDTH 13.6 % (11.6-14.8); WHITE BLOOD COUNT 9.3 K/UL (4.8-10.8)
[2017-04-16 05:56] LABS: ALANINE AMINOTRANSFERASE 19 U/L (12-78); ALBUMIN 1.7 G/DL (3.4-5.0); ALBUMIN/GLOBULIN RATIO 0.3 (1.0-2.7); ALKALINE PHOSPHATASE 92 U/L (46-116); ANION GAP 13 mmol/L (5-15); ASPARTATE AMINO TRANSFERASE 20 U/L (15-37); BILIRUBIN,TOTAL 0.6 MG/DL (0.2-1.0); BLOOD UREA NITROGEN 44 mg/dL (7-18); CALCIUM 9.2 MG/DL (8.5-10.1); CARBON DIOXIDE 19 MMOL/L (21-32); CHLORIDE 117 MMOL/L (98-107); CREATININE 0.9 MG/DL (0.55-1.30); POTASSIUM 4.2 MMOL/L (3.5-5.1); SODIUM 149 MMOL/L (136-145)
[2017-04-16 06:00] LABS: PHOSPHORUS 2.7 MG/DL (2.5-4.9)
[2017-04-16 08:00] VITALS: BP 139/74
[2017-04-16] MEDS: Pantoprazole Inj IV SCH (08:40)
--- NOTE | 2017-04-16 09:41 | Diagnostic Imaging Report ---
Indication: Reason For Exam: DYSPNEA Technique: One view of the chest Comparison: 04/14/2017 Findings: Infiltrate in the right mid and lower lung appears stable. There is decreasing atelectasis at the right lung base Stable satisfactory positions of nasogastric tube, left-sided central venous catheter. Left lung pleural space remain clear. The heart size is normal. Impression: Decreasing right basilar atelectasis. 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
--- NOTE | 2017-04-16 10:47 | Pulmonology Progress Note ---
Assessment/Plan Problems: (1) Septic shock (2) Acute respiratory failure (3) Strangulated ventral incisional hernia (4) Severe malnutrition (5) On total parenteral nutrition (TPN) Assessment/Plan Respiratory: monitor respiratory rate, Cardiac: continue to monitor HR/BP, remains tachycardic Renal: F/U I&O, keep IV fluid, TPN, check electrolytes Infectious Disease: check cultures Gastrointestinal: continue feedings/current rate, hold feedings Hematologic: monitor H/H, transfuse if hgb<8.5 Neurologic: PRN Ativan, PRN Morphine, keep patient comfortable Discussed with: nurses, consultants Subjective ROS Limited/Unobtainable: No Interval Events: awake, confused Allergies: Coded Allergies: TRAZODONE (Verified Allergy, Unknown, 04/04/17) Objective Last 24 Hour Vital Signs Date Time Temp Pulse Resp B/P (MAP) Pulse Ox O2 Delivery O2 Flow Rate FiO2 04/16/17 08:00 98.4 137 23 139/74 100 Nasal Cannula 3.0 04/16/17 08:00 137 04/16/17 07:20 Nasal Cannula 2.0 28 04/16/17 07:20 98 Nasal Cannula 2.0 28 04/16/17 04:00 134 04/16/17 04:00 99.2 136 32 135/78 98 Nasal Cannula 3.0 04/16/17 00:00 148 04/16/17 00:00 98.7 147 32 135/76 96 Nasal Cannula 3.0 04/15/17 20:00 148 04/15/17 20:00 99.1 150 28 138/79 96 Nasal Cannula 3.0 04/15/17 19:22 Nasal Cannula 2.0 28 04/15/17 19:22 97 Nasal Cannula 2.0 28 04/15/17 16:00 149 04/15/17 16:00 99.5 138 24 145/83 96 Nasal Cannula 3.0 04/15/17 12:00 98.2 137 22 146/80 97 Nasal Cannula 3.0 04/15/17 11:32 138 Intake and Output 04/15/17 04/16/17 19:00 07:00 Intake Total 2180.25 ml 3022 ml Output Total 1300 ml 1920 ml Balance 880.25 ml 1102 ml IV Total 1700.25 ml 2482 ml Tube Feeding 480 ml 480 ml Other 60 ml Output Urine Total 400 ml 1000 ml Stool Total 900 ml 900 ml Drainage Total 20 ml General Appearance: WD/WN HEENT: normocephalic, atraumatic Respiratory/Chest: chest wall non-tender, lungs clear Breasts: no masses Cardiovascular: normal peripheral pulses, regular rhythm Abdomen: normal bowel sounds, soft, non tender Genitourinary: normal external genitalia Extremities: no cyanosis Skin: no rash, no lesions Laboratory Tests 04/15/17 19:15: Urine Random Sodium 39 04/16/17 03:10: White Blood Count 9.3, Red Blood Count 2.93L, Hemoglobin 9.0L, Hematocrit 28.0L , Mean Corpuscular Volume 95, Mean Corpuscular Hemoglobin 30.8, Mean Corpuscular Hemoglobin Concent 32.3, Red Cell Distribution Width 13.6, Platelet Count 474H, Mean Platelet Volume 6.4L, Neutrophils (%) (Auto) 72.0, Lymphocytes (%) (Auto) 16.9L, Monocytes (%) (Auto) 9.7, Eosinophils (%) (Auto) 0.5, Basophils (%) (Auto) 0.9, Sodium Level 149H, Potassium Level 4.2, Chloride Level 117H, Carbon Dioxide Level 19L, Anion Gap 13, Blood Urea Nitrogen 44H, Creatinine 0.9, Estimat Glomerular Filtration Rate > 60, Glucose Level 180H, Calcium Level 9.2, Ionized Calcium (Measured) 1.19, Phosphorus Level 2.7, Magnesium Level 1.8, Total Bilirubin 0.6, Aspartate Amino Transf (AST/SGOT) 20, Alanine Aminotransferase (ALT/SGPT) 19, Alkaline Phosphatase 92, Pro-B-Type Natriuretic Peptide 140H, Total Protein 8.1, Albumin 1.7L, Globulin 6.4, Albumin /Globulin Ratio 0.3L Current Medications Medications (Trade) Dose Ordered Sig/Nicole Route PRN Reason Start Time Stop Time Status Last Admin Dose Admin Acetaminophen (Tylenol) 650 mg Q4H PRN ORAL Mild Pain/Temp > 100.5 04/12/17 18:45 05/12/17 18:44 04/13/17 12:24 Ceftriaxone Sodium 1 gm/ Dextrose 55 ml @ 110 mls/hr Q24H IVPB 04/13/17 18:00 04/20/17 17:59 04/15/17 18:48 Chlorhexidine Gluconate (Collette-Hex 2%) 1 applic DAILY@2000 TOPIC 04/11/17 20:00 05/05/17 19:59 04/15/17 20:23 Dextrose 1,000 ml @ 0 mls/hr Q24H PRN IV PN interrupted or unavailable 04/11/17 20:00 05/11/17 19:59 Dextrose (Dextrose 50%) STAT PRN IV Hypoglycemia 04/11/17 08:30 05/11/17 08:29 Diphenhydramine HCl (Benadryl) 12.5 mg Q6H PRN IVP Itching/Pruritis 04/11/17 08:30 05/04/17 08:29 Fat Emulsion Intravenous 216 ml/Amino Acids/ Electrolytes/ Dextrose 1,536 ml @ 64 mls/hr Q24H IV 04/15/17 20:00 04/16/17 19:59 04/15/17 20:24 Fat Emulsion Intravenous 216 ml/Amino Acids/ Electrolytes/ Dextrose 1,536 ml @ 64 mls/hr Q24H IV 04/16/17 20:00 05/16/17 19:59 Insulin Aspart (NovoLOG) Q6HR SUBQ 04/11/17 12:00 05/04/17 05:59 04/16/17 05:06 Lorazepam (Ativan 2mg/ml 1ml) 1 mg Q4H PRN IV For Anxiety 04/11/17 08:30 04/18/17 08:29 04/12/17 09:34 Metronidazole 100 ml @ 100 mls/hr Q8HR IV 04/13/17 22:00 04/20/17 21:59 04/16/17 05:05 Morphine Sulfate (Morphine Sulfate) 2 mg Q4H PRN IVP Pain 4-10 04/15/17 13:15 04/22/17 13:14 Ondansetron HCl (Zofran) 4 mg Q6H PRN IVP Nausea & Vomiting 04/11/17 08:30 05/04/17 08:29 Pantoprazole (Protonix) 40 mg DAILY IV 04/11/17 09:00 05/04/17 08:59 04/16/17 08:40 Risperidone (RisperDAL) 0.5 mg Q12HR NG 04/11/17 09:00 05/11/17 08:59 04/16/17 08:39 Sodium Chloride 1,000 ml @ 125 mls/hr Q8H IV 04/15/17 17:45 05/15/17 17:44 04/16/17 10:12 YAYO CELIS Apr 16, 2017 10:47
[2017-04-16] MEDS: Morphine Sulfate 2mg/ml Inj IVP PRN ×2 (10:53→21:23)
[2017-04-16 12:00] VITALS: BP 133/77
--- NOTE | 2017-04-16 12:26 | Wound Care Consultation ---
Wound Assessment Wound Assessment #1: Wound Present on Admission: Yes New Wound: No Status Change of Wound: No Wound Location Body Site Modif: left, anterior Wound Location Body Site: breast Wound Type: scab - lesion etiology unknown-scattered dry scabs Jacquelyn Test: Does not Jacquelyn Wound Length: 4.5 - scattered Wound Width: 4.5 - scattered Percent of Wound Black/Brown: 100 - scattered dry Wound Drainage Amount: None Wound Drainage Odor: None/Absent Tissue Surrounding Wound: Erythemic Wound General Appearance: Necrotic - scattered dry scabs Wound Assessment #2: Wound Number: 2 Wound Present on Admission: Yes New Wound: No Status Change of Wound: No Wound Location Body Site Modif: mid Wound Location Body Site: other Wound Type: pressure ulcer Jacquelyn Test: Does not Jacquelyn Pressure Ulcer Stage: Deep Tissue Injury Wound Thickness: Full Thickness Wound Length: 6.5 Wound Width: 7.0 Wound Depth: utd Percent of Wound Purple/Maroon: 100 Wound Drainage Amount: None Wound Drainage Odor: None/Absent Tissue Surrounding Wound: Intact Wound General Appearance: Reddened - maroon Wound Comment #11 sacrococcygeal extending to right buttocks deep tissue injury. #2 left breast lesion-etiology unknown scattered dry scabs. Reassessed this Pt. Noted good progress on sacrococcygeal DTI site. Skin still intact. Will cont the same wound care treatment and recommendations below. Recommendation. -Local wound care as ordered. -Turn and reposition. -Keep clean and dry. -Optimize nutrition. -Offload affected areas. -Apply low air loss SPR mattress. -Avoid shear and friction -Assess and follow up with MD for any further change of condition to skin noted. BRITTANIE WASHINGTON RN Apr 16, 2017 12:26
--- NOTE | 2017-04-16 13:02 | Infectious Diseases Prog Note ---
Assessment/Plan Assessment/Plan A: Sepsis Peritonitis Strangulated hernia Small bowel necrosis Respiratory failure resolved Anemia s/p laparotomy X 2 Short bowel syndrome Fever Atelectasis of R lung P: Continue Ceftriaxone & Flagyl X 2 days Subjective ROS Limited/Unobtainable: Yes Allergies: Coded Allergies: TRAZODONE (Verified Allergy, Unknown, 04/04/17) Objective Vital Signs Last 24 Hour Vital Signs Date Time Temp Pulse Resp B/P (MAP) Pulse Ox O2 Delivery O2 Flow Rate FiO2 04/16/17 12:00 99.1 138 22 133/77 96 Nasal Cannula 3.0 04/16/17 11:23 98.4 04/16/17 08:00 98.4 137 23 139/74 100 Nasal Cannula 3.0 04/16/17 08:00 137 04/16/17 07:20 Nasal Cannula 2.0 28 04/16/17 07:20 98 Nasal Cannula 2.0 28 04/16/17 04:00 134 04/16/17 04:00 99.2 136 32 135/78 98 Nasal Cannula 3.0 04/16/17 00:00 148 04/16/17 00:00 98.7 147 32 135/76 96 Nasal Cannula 3.0 04/15/17 20:00 148 04/15/17 20:00 99.1 150 28 138/79 96 Nasal Cannula 3.0 04/15/17 19:22 Nasal Cannula 2.0 28 04/15/17 19:22 97 Nasal Cannula 2.0 28 04/15/17 16:00 149 04/15/17 16:00 99.5 138 24 145/83 96 Nasal Cannula 3.0 Height (Feet): 5 Height (Inches): 0.00 Weight (Pounds): 94 General Appearance: no acute distress HEENT: other - hisutism Respiratory/Chest: lungs clear Cardiovascular: tachycardia Abdomen: soft, non tender, other - NG tube feeding, osteotomy Extremities: no edema Neurologic/Psychiatric: alert, disoriented Laboratory Tests Test 04/15/17 19:15 04/16/17 03:10 Urine Random Sodium 39 MEQ/L (20-110) White Blood Count 9.3 K/UL (4.8-10.8) Red Blood Count 2.93 M/UL (4.20-5.40) L Hemoglobin 9.0 G/DL (12.0-16.0) L Hematocrit 28.0 % (37.0-47.0) L Mean Corpuscular Volume 95 FL (80-99) Mean Corpuscular Hemoglobin 30.8 PG (27.0-31.0) Mean Corpuscular Hemoglobin Concent 32.3 G/DL (32.0-36.0) Red Cell Distribution Width 13.6 % (11.6-14.8) Platelet Count 474 K/UL (150-450) H Mean Platelet Volume 6.4 FL (6.5-10.1) L Neutrophils (%) (Auto) 72.0 % (45.0-75.0) Lymphocytes (%) (Auto) 16.9 % (20.0-45.0) L Monocytes (%) (Auto) 9.7 % (1.0-10.0) Eosinophils (%) (Auto) 0.5 % (0.0-3.0) Basophils (%) (Auto) 0.9 % (0.0-2.0) Sodium Level 149 MMOL/L (136-145) H Potassium Level 4.2 MMOL/L (3.5-5.1) Chloride Level 117 MMOL/L (98-107) H Carbon Dioxide Level 19 MMOL/L (21-32) L Anion Gap 13 mmol/L (5-15) Blood Urea Nitrogen 44 mg/dL (7-18) H Creatinine 0.9 MG/DL (0.55-1.30) Estimat Glomerular Filtration Rate > 60 mL/min (>60) Glucose Level 180 MG/DL (74-106) H Calcium Level 9.2 MG/DL (8.5-10.1) Ionized Calcium (Measured) 1.19 mmol/L (1.10-1.35) Phosphorus Level 2.7 MG/DL (2.5-4.9) Magnesium Level 1.8 MG/DL (1.8-2.4) Total Bilirubin 0.6 MG/DL (0.2-1.0) Aspartate Amino Transf (AST/SGOT) 20 U/L (15-37) Alanine Aminotransferase (ALT/SGPT) 19 U/L (12-78) Alkaline Phosphatase 92 U/L (46-116) Pro-B-Type Natriuretic Peptide 140 pg/mL (0-125) H Total Protein 8.1 G/DL (6.4-8.2) Albumin 1.7 G/DL (3.4-5.0) L Globulin 6.4 g/dL Albumin/Globulin Ratio 0.3 (1.0-2.7) L Current Medications Medications (Trade) Dose Ordered Sig/Nicole Route PRN Reason Start Time Stop Time Status Last Admin Dose Admin Acetaminophen (Tylenol) 650 mg Q4H PRN ORAL Mild Pain/Temp > 100.5 04/12/17 18:45 05/12/17 18:44 04/13/17 12:24 Ceftriaxone Sodium 1 gm/ Dextrose 55 ml @ 110 mls/hr Q24H IVPB 04/13/17 18:00 04/20/17 17:59 04/15/17 18:48 Chlorhexidine Gluconate (Collette-Hex 2%) 1 applic DAILY@2000 TOPIC 04/11/17 20:00 05/05/17 19:59 04/15/17 20:23 Dextrose 1,000 ml @ 0 mls/hr Q24H PRN IV PN interrupted or unavailable 04/11/17 20:00 05/11/17 19:59 Dextrose (Dextrose 50%) STAT PRN IV Hypoglycemia 04/11/17 08:30 05/11/17 08:29 Diphenhydramine HCl (Benadryl) 12.5 mg Q6H PRN IVP Itching/Pruritis 04/11/17 08:30 05/04/17 08:29 Fat Emulsion Intravenous 216 ml/Amino Acids/ Electrolytes/ Dextrose 1,536 ml @ 64 mls/hr Q24H IV 04/15/17 20:00 04/16/17 19:59 04/15/17 20:24 Fat Emulsion Intravenous 216 ml/Amino Acids/ Electrolytes/ Dextrose 1,536 ml @ 64 mls/hr Q24H IV 04/16/17 20:00 05/16/17 19:59 Insulin Aspart (NovoLOG) Q6HR SUBQ 04/11/17 12:00 05/04/17 05:59 04/16/17 11:49 Lorazepam (Ativan 2mg/ml 1ml) 1 mg Q4H PRN IV For Anxiety 04/11/17 08:30 04/18/17 08:29 04/12/17 09:34 Metronidazole 100 ml @ 100 mls/hr Q8HR IV 1/21/18 22:00 04/20/17 21:59 04/16/17 05:05 Morphine Sulfate (Morphine Sulfate) 2 mg Q4H PRN IVP Pain 4-10 04/15/17 13:15 04/22/17 13:14 04/16/17 10:53 Ondansetron HCl (Zofran) 4 mg Q6H PRN IVP Nausea & Vomiting 04/11/17 08:30 05/04/17 08:29 Pantoprazole (Protonix) 40 mg DAILY IV 04/11/17 09:00 05/04/17 08:59 04/16/17 08:40 Risperidone (RisperDAL) 0.5 mg Q12HR NG 04/11/17 09:00 05/11/17 08:59 04/16/17 08:39 Sodium Chloride 1,000 ml @ 125 mls/hr Q8H IV 04/15/17 17:45 05/15/17 17:44 04/16/17 10:12 MIO LOMAX Apr 16, 2017 13:02
--- NOTE | 2017-04-16 13:45 | GI Progress Note ---
Assessment/Plan Problems: (1) On total parenteral nutrition (TPN) ICD Codes: Z78.9 - Other specified health status SNOMED: 91338747, 192588611 (2) Anemia ICD Codes: D64.9 - Anemia, unspecified SNOMED: 177217013 (3) Electrolyte imbalance ICD Codes: E87.8 - Other disorders of electrolyte and fluid balance, not elsewhere classified SNOMED: 211973935 (4) Severe malnutrition ICD Codes: E43 - Unspecified severe protein-calorie malnutrition SNOMED: 03560371 (5) History of colostomy ICD Codes: Z98.890 - Other specified postprocedural states SNOMED: 467258237 (6) Multiorgan failure SNOMED: 55418578 (7) Strangulated ventral incisional hernia ICD Codes: K43.0 - Incisional hernia with obstruction, without gangrene SNOMED: 825990212 Status: progressing, unchanged Status Narrative Discussed with Dr. Mejia. Assessment/Plan fu surgical recs >> patient will need to be on TPN for approximately 6 months and be re-evaluated. ST evaluation reviewed >> high risk for aspiration, strict NPO >> cont NGTFs per RD anemia work up >> folate deficiency monitor H&H, prn transfusions ppi electrolyte correction fu labs Subjective Subjective limited Objective Last 24 Hour Vital Signs Date Time Temp Pulse Resp B/P (MAP) Pulse Ox O2 Delivery O2 Flow Rate FiO2 04/16/17 12:00 99.1 138 22 133/77 96 Nasal Cannula 3.0 04/16/17 11:23 98.4 04/16/17 08:00 98.4 137 23 139/74 100 Nasal Cannula 3.0 04/16/17 08:00 137 04/16/17 07:20 Nasal Cannula 2.0 28 04/16/17 07:20 98 Nasal Cannula 2.0 28 04/16/17 04:00 134 04/16/17 04:00 99.2 136 32 135/78 98 Nasal Cannula 3.0 04/16/17 00:00 148 04/16/17 00:00 98.7 147 32 135/76 96 Nasal Cannula 3.0 04/15/17 20:00 148 04/15/17 20:00 99.1 150 28 138/79 96 Nasal Cannula 3.0 04/15/17 19:22 Nasal Cannula 2.0 28 04/15/17 19:22 97 Nasal Cannula 2.0 28 04/15/17 16:00 149 04/15/17 16:00 99.5 138 24 145/83 96 Nasal Cannula 3.0 Intake and Output 04/15/17 04/16/17 19:00 07:00 Intake Total 2180.25 ml 3022 ml Output Total 1300 ml 1920 ml Balance 880.25 ml 1102 ml IV Total 1700.25 ml 2482 ml Tube Feeding 480 ml 480 ml Other 60 ml Output Urine Total 400 ml 1000 ml Stool Total 900 ml 900 ml Drainage Total 20 ml Laboratory Tests Test 04/15/17 19:15 04/16/17 03:10 Urine Random Sodium 39 MEQ/L (20-110) White Blood Count 9.3 K/UL (4.8-10.8) Red Blood Count 2.93 M/UL (4.20-5.40) L Hemoglobin 9.0 G/DL (12.0-16.0) L Hematocrit 28.0 % (37.0-47.0) L Mean Corpuscular Volume 95 FL (80-99) Mean Corpuscular Hemoglobin 30.8 PG (27.0-31.0) Mean Corpuscular Hemoglobin Concent 32.3 G/DL (32.0-36.0) Red Cell Distribution Width 13.6 % (11.6-14.8) Platelet Count 474 K/UL (150-450) H Mean Platelet Volume 6.4 FL (6.5-10.1) L Neutrophils (%) (Auto) 72.0 % (45.0-75.0) Lymphocytes (%) (Auto) 16.9 % (20.0-45.0) L Monocytes (%) (Auto) 9.7 % (1.0-10.0) Eosinophils (%) (Auto) 0.5 % (0.0-3.0) Basophils (%) (Auto) 0.9 % (0.0-2.0) Sodium Level 149 MMOL/L (136-145) H Potassium Level 4.2 MMOL/L (3.5-5.1) Chloride Level 117 MMOL/L (98-107) H Carbon Dioxide Level 19 MMOL/L (21-32) L Anion Gap 13 mmol/L (5-15) Blood Urea Nitrogen 44 mg/dL (7-18) H Creatinine 0.9 MG/DL (0.55-1.30) Estimat Glomerular Filtration Rate > 60 mL/min (>60) Glucose Level 180 MG/DL (74-106) H Calcium Level 9.2 MG/DL (8.5-10.1) Ionized Calcium (Measured) 1.19 mmol/L (1.10-1.35) Phosphorus Level 2.7 MG/DL (2.5-4.9) Magnesium Level 1.8 MG/DL (1.8-2.4) Total Bilirubin 0.6 MG/DL (0.2-1.0) Aspartate Amino Transf (AST/SGOT) 20 U/L (15-37) Alanine Aminotransferase (ALT/SGPT) 19 U/L (12-78) Alkaline Phosphatase 92 U/L (46-116) Pro-B-Type Natriuretic Peptide 140 pg/mL (0-125) H Total Protein 8.1 G/DL (6.4-8.2) Albumin 1.7 G/DL (3.4-5.0) L Globulin 6.4 g/dL Albumin/Globulin Ratio 0.3 (1.0-2.7) L Height (Feet): 5 Height (Inches): 0.00 Weight (Pounds): 94 General Appearance: alert Cardiovascular: normal rate Respiratory/Chest: normal breath sounds Abdominal Exam: soft, incision site, other - NGT Shahana Wang NMinnie Apr 16, 2017 13:45
--- NOTE | 2017-04-16 14:52 | Nephrology Progress Note ---
Assessment/Plan Assessment 1. Hypernatremia resolved 2. Hypokalemia. 3. Acute renal failure or dehydration. 4. Malnutrition. 5. Hypocalcemia. 6. Hypomagnesemia. Plan to continue nutritional support with TPN replace mg replace k monitoring out put monitoring renal function Subjective Subjective started on feeding more responsive today fallow command Objective Objective Last 24 Hour Vital Signs Date Time Temp Pulse Resp B/P (MAP) Pulse Ox O2 Delivery O2 Flow Rate FiO2 04/16/17 12:00 137 04/16/17 12:00 99.1 138 22 133/77 96 Nasal Cannula 3.0 04/16/17 11:23 98.4 04/16/17 08:00 98.4 137 23 139/74 100 Nasal Cannula 3.0 04/16/17 08:00 137 04/16/17 07:20 Nasal Cannula 2.0 28 04/16/17 07:20 98 Nasal Cannula 2.0 28 04/16/17 04:00 134 04/16/17 04:00 99.2 136 32 135/78 98 Nasal Cannula 3.0 04/16/17 00:00 148 04/16/17 00:00 98.7 147 32 135/76 96 Nasal Cannula 3.0 04/15/17 20:00 148 04/15/17 20:00 99.1 150 28 138/79 96 Nasal Cannula 3.0 04/15/17 19:22 Nasal Cannula 2.0 28 04/15/17 19:22 97 Nasal Cannula 2.0 28 04/15/17 16:00 149 04/15/17 16:00 99.5 138 24 145/83 96 Nasal Cannula 3.0 Intake and Output 04/15/17 04/16/17 19:00 07:00 Intake Total 2180.25 ml 3022 ml Output Total 1300 ml 1920 ml Balance 880.25 ml 1102 ml IV Total 1700.25 ml 2482 ml Tube Feeding 480 ml 480 ml Other 60 ml Output Urine Total 400 ml 1000 ml Stool Total 900 ml 900 ml Drainage Total 20 ml Laboratory Tests 04/15/17 19:15: Urine Random Sodium 39 04/16/17 03:10: White Blood Count 9.3, Red Blood Count 2.93L, Hemoglobin 9.0L, Hematocrit 28.0L , Mean Corpuscular Volume 95, Mean Corpuscular Hemoglobin 30.8, Mean Corpuscular Hemoglobin Concent 32.3, Red Cell Distribution Width 13.6, Platelet Count 474H, Mean Platelet Volume 6.4L, Neutrophils (%) (Auto) 72.0, Lymphocytes (%) (Auto) 16.9L, Monocytes (%) (Auto) 9.7, Eosinophils (%) (Auto) 0.5, Basophils (%) (Auto) 0.9, Sodium Level 149H, Potassium Level 4.2, Chloride Level 117H, Carbon Dioxide Level 19L, Anion Gap 13, Blood Urea Nitrogen 44H, Creatinine 0.9, Estimat Glomerular Filtration Rate > 60, Glucose Level 180H, Calcium Level 9.2, Ionized Calcium (Measured) 1.19, Phosphorus Level 2.7, Magnesium Level 1.8, Total Bilirubin 0.6, Aspartate Amino Transf (AST/SGOT) 20, Alanine Aminotransferase (ALT/SGPT) 19, Alkaline Phosphatase 92, Pro-B-Type Natriuretic Peptide 140H, Total Protein 8.1, Albumin 1.7L, Globulin 6.4, Albumin /Globulin Ratio 0.3L Height (Feet): 5 Height (Inches): 0.00 Weight (Pounds): 94 Objective HEAD AND NECK: No JVP. No LAD. No thyromegaly. NG tube is placed. ET tube is in place. NG tube secreting greenish liquids. CARDIAC: Regular rate and rhythm. S1 and S2. No murmur. No rub. LUNGS: Has decreased breathing sound on both sides. ABDOMEN: Soft. Bowel sounds are hypoactive. Nontender. EXTREMITIES: No edema. No clubbing. No cyanosis. DELMI ARITA Apr 16, 2017 14:52
--- NOTE | 2017-04-16 15:21 | General Progress Note ---
Assessment/Plan Problem List: (1) Abdominal pain ICD Codes: R10.9 - Unspecified abdominal pain SNOMED: 60057278 (2) Peritonitis, acute generalized ICD Codes: K65.0 - Generalized (acute) peritonitis SNOMED: 88191101 (3) Strangulated ventral incisional hernia ICD Codes: K43.0 - Incisional hernia with obstruction, without gangrene SNOMED: 855565020 (4) Acute respiratory failure ICD Codes: J96.00 - Acute respiratory failure, unspecified whether with hypoxia or hypercapnia SNOMED: 68368436 (5) Septic shock ICD Codes: A41.9 - Sepsis, unspecified organism; R65.21 - Severe sepsis with septic shock SNOMED: 92995282 Status: unchanged Assessment/Plan vent abx sx f/u cbc bmp am id eval ltach transfer Subjective Constitutional: Reports: weakness Allergies: Coded Allergies: TRAZODONE (Verified Allergy, Unknown, 04/04/17) All Systems: reviewed and negative except above Subjective o2nc confused ng in place Objective Last 24 Hour Vital Signs Date Time Temp Pulse Resp B/P (MAP) Pulse Ox O2 Delivery O2 Flow Rate FiO2 04/16/17 12:00 137 04/16/17 12:00 99.1 138 22 133/77 96 Nasal Cannula 3.0 04/16/17 11:23 98.4 04/16/17 08:00 98.4 137 23 139/74 100 Nasal Cannula 3.0 04/16/17 08:00 137 04/16/17 07:20 Nasal Cannula 2.0 28 04/16/17 07:20 98 Nasal Cannula 2.0 28 04/16/17 04:00 134 04/16/17 04:00 99.2 136 32 135/78 98 Nasal Cannula 3.0 04/16/17 00:00 148 04/16/17 00:00 98.7 147 32 135/76 96 Nasal Cannula 3.0 04/15/17 20:00 148 04/15/17 20:00 99.1 150 28 138/79 96 Nasal Cannula 3.0 04/15/17 19:22 Nasal Cannula 2.0 28 04/15/17 19:22 97 Nasal Cannula 2.0 28 04/15/17 16:00 149 04/15/17 16:00 99.5 138 24 145/83 96 Nasal Cannula 3.0 Intake and Output 04/15/17 04/16/17 19:00 07:00 Intake Total 2180.25 ml 3022 ml Output Total 1300 ml 1920 ml Balance 880.25 ml 1102 ml IV Total 1700.25 ml 2482 ml Tube Feeding 480 ml 480 ml Other 60 ml Output Urine Total 400 ml 1000 ml Stool Total 900 ml 900 ml Drainage Total 20 ml Laboratory Tests 04/15/17 19:15: Urine Random Sodium 39 04/16/17 03:10: White Blood Count 9.3, Red Blood Count 2.93L, Hemoglobin 9.0L, Hematocrit 28.0L , Mean Corpuscular Volume 95, Mean Corpuscular Hemoglobin 30.8, Mean Corpuscular Hemoglobin Concent 32.3, Red Cell Distribution Width 13.6, Platelet Count 474H, Mean Platelet Volume 6.4L, Neutrophils (%) (Auto) 72.0, Lymphocytes (%) (Auto) 16.9L, Monocytes (%) (Auto) 9.7, Eosinophils (%) (Auto) 0.5, Basophils (%) (Auto) 0.9, Sodium Level 149H, Potassium Level 4.2, Chloride Level 117H, Carbon Dioxide Level 19L, Anion Gap 13, Blood Urea Nitrogen 44H, Creatinine 0.9, Estimat Glomerular Filtration Rate > 60, Glucose Level 180H, Calcium Level 9.2, Ionized Calcium (Measured) 1.19, Phosphorus Level 2.7, Magnesium Level 1.8, Total Bilirubin 0.6, Aspartate Amino Transf (AST/SGOT) 20, Alanine Aminotransferase (ALT/SGPT) 19, Alkaline Phosphatase 92, Pro-B-Type Natriuretic Peptide 140H, Total Protein 8.1, Albumin 1.7L, Globulin 6.4, Albumin /Globulin Ratio 0.3L Height (Feet): 5 Height (Inches): 0.00 Weight (Pounds): 94 General Appearance: lethargic, confused EENT: normal ENT inspection Neck: normal alignment Cardiovascular: normal peripheral pulses, normal rate, regular rhythm Respiratory/Chest: chest wall non-tender, lungs clear, normal breath sounds Abdomen: hypoactive bowel sounds Extremities: normal inspection Edema: no edema noted Arm (L), no edema noted Arm (R), no edema noted Leg (L), no edema noted Leg (R), no edema noted Pedal (L), no edema noted Pedal (R), no edema noted Generalized Neurologic: motor weakness Skin: normal pigmentation, warm/dry LACY HERNÁNDEZ Apr 16, 2017 15:21
[2017-04-16 16:00] VITALS: BP 123/74
--- NOTE | 2017-04-16 16:30 | General Progress Note ---
Progress Note Progress Note Surgery: no acute events. doing remarkably well. afebrile, HD stable, electrolytes off. abd soft, nt/nd, ostomy viable, midline wound c/d/i. rlq wound c/d/i -TPN -tube feeds to goal -speech to eval for swallow and hopefully can start PO intake robson. -wound care with packing and dressings. -d/c planning -electrolytes a little off and lipase elevated. trend for now Brandt Auguste Apr 16, 2017 16:30
[2017-04-16] MEDS: cefTRIAXone 1gm/D5W 55ml IVPB SCH ×2 (17:38)
--- NOTE | 2017-04-16 18:47 | Cardiology Progress Note ---
Assessment/Plan Assessment/Plan 1. Sinus tachycardia, slightly better, most likely due to underlying PNA/ possible effusion or hypovolemia. 2. Status post second look laparotomy, s/p ileostomy pouch creation, POD #9, continue hydration and correction of electrolyte derangement. Keep Mg >2.5, 2D echocardiography reveals normal LV systolic and diastolic function. 3. Right lower lobe PNA with associated pleural effusion. 4. HTN, well controlled. Subjective Subjective Sinus tachycardia at 126. Objective Last 24 Hour Vital Signs Date Time Temp Pulse Resp B/P (MAP) Pulse Ox O2 Delivery O2 Flow Rate FiO2 04/16/17 16:00 126 04/16/17 16:00 97.5 127 25 123/74 96 Nasal Cannula 3.0 04/16/17 12:00 137 04/16/17 12:00 99.1 138 22 133/77 96 Nasal Cannula 3.0 04/16/17 11:23 98.4 04/16/17 08:00 98.4 137 23 139/74 100 Nasal Cannula 3.0 04/16/17 08:00 137 04/16/17 07:20 Nasal Cannula 2.0 28 04/16/17 07:20 98 Nasal Cannula 2.0 28 04/16/17 04:00 134 04/16/17 04:00 99.2 136 32 135/78 98 Nasal Cannula 3.0 04/16/17 00:00 148 04/16/17 00:00 98.7 147 32 135/76 96 Nasal Cannula 3.0 04/15/17 20:00 148 04/15/17 20:00 99.1 150 28 138/79 96 Nasal Cannula 3.0 04/15/17 19:22 Nasal Cannula 2.0 28 04/15/17 19:22 97 Nasal Cannula 2.0 28 Intake and Output 04/15/17 04/16/17 19:00 07:00 Intake Total 2180.25 ml 3022 ml Output Total 1300 ml 1920 ml Balance 880.25 ml 1102 ml IV Total 1700.25 ml 2482 ml Tube Feeding 480 ml 480 ml Other 60 ml Output Urine Total 400 ml 1000 ml Stool Total 900 ml 900 ml Drainage Total 20 ml 2D Echo: LVEF 60%, Mod MR, Grade I LVDD Laboratory Tests Test 04/15/17 19:15 04/16/17 03:10 Urine Random Sodium 39 MEQ/L (20-110) White Blood Count 9.3 K/UL (4.8-10.8) Red Blood Count 2.93 M/UL (4.20-5.40) L Hemoglobin 9.0 G/DL (12.0-16.0) L Hematocrit 28.0 % (37.0-47.0) L Mean Corpuscular Volume 95 FL (80-99) Mean Corpuscular Hemoglobin 30.8 PG (27.0-31.0) Mean Corpuscular Hemoglobin Concent 32.3 G/DL (32.0-36.0) Red Cell Distribution Width 13.6 % (11.6-14.8) Platelet Count 474 K/UL (150-450) H Mean Platelet Volume 6.4 FL (6.5-10.1) L Neutrophils (%) (Auto) 72.0 % (45.0-75.0) Lymphocytes (%) (Auto) 16.9 % (20.0-45.0) L Monocytes (%) (Auto) 9.7 % (1.0-10.0) Eosinophils (%) (Auto) 0.5 % (0.0-3.0) Basophils (%) (Auto) 0.9 % (0.0-2.0) Sodium Level 149 MMOL/L (136-145) H Potassium Level 4.2 MMOL/L (3.5-5.1) Chloride Level 117 MMOL/L (98-107) H Carbon Dioxide Level 19 MMOL/L (21-32) L Anion Gap 13 mmol/L (5-15) Blood Urea Nitrogen 44 mg/dL (7-18) H Creatinine 0.9 MG/DL (0.55-1.30) Estimat Glomerular Filtration Rate > 60 mL/min (>60) Glucose Level 180 MG/DL (74-106) H Calcium Level 9.2 MG/DL (8.5-10.1) Ionized Calcium (Measured) 1.19 mmol/L (1.10-1.35) Phosphorus Level 2.7 MG/DL (2.5-4.9) Magnesium Level 1.8 MG/DL (1.8-2.4) Total Bilirubin 0.6 MG/DL (0.2-1.0) Aspartate Amino Transf (AST/SGOT) 20 U/L (15-37) Alanine Aminotransferase (ALT/SGPT) 19 U/L (12-78) Alkaline Phosphatase 92 U/L (46-116) Pro-B-Type Natriuretic Peptide 140 pg/mL (0-125) H Total Protein 8.1 G/DL (6.4-8.2) Albumin 1.7 G/DL (3.4-5.0) L Globulin 6.4 g/dL Albumin/Globulin Ratio 0.3 (1.0-2.7) L Objective HEENT: Atraumatic and normocephalic. Anicteric. Pupils are equal, round and reactive to light and accommodation. NECK: JVP cannot be assessed as the patient is intubated. CARDIOVASCULAR: Normal S1 and S2. Regular rate and rhythm. tachycardic, no murmurs, gallops, or rubs. LUNGS: Diminished breath sounds at both bases. ABDOMEN: Non-distended, normal bowel sounds, soft, NGT EXTREMITIES: No evidence of edema, clubbing, or cyanosis. JUWAN ULLOA Apr 16, 2017 18:47
[2017-04-16 20:00] VITALS: BP 122/80
[2017-04-16] MEDS ORDERED: TPN IV SCH (20:00)
[2017-04-16] MEDS ORDERED: FAT EMULSION 20% IV SCH (20:00)
[2017-04-16] MEDS: Dyna-Hex 2% Top Sol 2oz TOPIC SCH (20:13)
[2017-04-16] MEDS: LORazepam Inj 2mg/ml 1ml IV PRN (22:49)
[2017-04-17] VITALS: BP 116/80
[2017-04-17] MEDS: NovoLOG Insulin Flexpen SUBQ SCH ×4 (00:32→17:53)
[2017-04-17] MEDS: LORazepam Inj 2mg/ml 1ml IV PRN (02:55)
[2017-04-17 04:00] VITALS: BP 112/69
[2017-04-17] MEDS: Flagyl 500mg/NS 100ml Pre-Mix IV SCH ×2 (05:33→13:54)
[2017-04-17 06:05] LABS: HEMATOCRIT 24.3 % (37.0-47.0); HEMOGLOBIN 7.9 G/DL (12.0-16.0); MEAN CORPUSCULAR VOLUME 96 FL (80-99); PLATELET COUNT 395 K/UL (150-450); RED BLOOD COUNT 2.54 M/UL (4.20-5.40); RED CELL DISTRIBUTION WIDTH 13.4 % (11.6-14.8); WHITE BLOOD COUNT 10.4 K/UL (4.8-10.8)
[2017-04-17 06:24] LABS: PHOSPHORUS 3.2 MG/DL (2.5-4.9)
[2017-04-17 06:41] LABS: ALANINE AMINOTRANSFERASE 18 U/L (12-78); ALBUMIN 1.6 G/DL (3.4-5.0); ALBUMIN/GLOBULIN RATIO 0.3 (1.0-2.7); ALKALINE PHOSPHATASE 79 U/L (46-116); ANION GAP 9 mmol/L (5-15); ASPARTATE AMINO TRANSFERASE 19 U/L (15-37); BILIRUBIN,TOTAL 0.4 MG/DL (0.2-1.0); BLOOD UREA NITROGEN 35 mg/dL (7-18); CALCIUM 8.4 MG/DL (8.5-10.1); CARBON DIOXIDE 23 MMOL/L (21-32); CHLORIDE 113 MMOL/L (98-107); CREATININE 0.6 MG/DL (0.55-1.30); POTASSIUM 4.2 MMOL/L (3.5-5.1); SODIUM 144 MMOL/L (136-145)
[2017-04-17 08:00] VITALS: BP 117/74
[2017-04-17] MEDS: Pantoprazole Inj IV SCH (08:28)
[2017-04-17 08:43] LABS: EOSINOPHILS % (AUTO) 2.1 % (0.0-3.0); HEMATOCRIT 26.4 % (37.0-47.0); HEMOGLOBIN 8.6 G/DL (12.0-16.0); LYMPHOCYTES % (AUTO) 24.8 % (20.0-45.0); MEAN CORPUSCULAR VOLUME 96 FL (80-99); MONOCYTES % (AUTO) 6.6 % (1.0-10.0); NEUTROPHILS % (AUTO) 65.5 % (45.0-75.0); PLATELET COUNT 418 K/UL (150-450); RED BLOOD COUNT 2.76 M/UL (4.20-5.40); RED CELL DISTRIBUTION WIDTH 13.8 % (11.6-14.8); WHITE BLOOD COUNT 11.9 K/UL (4.8-10.8)
--- NOTE | 2017-04-17 09:11 | Nephrology Progress Note ---
Assessment/Plan Assessment 1. Hypernatremia resolved 2. Hypokalemia. 3. Acute renal failure or dehydration. 4. Malnutrition. 5. Hypocalcemia. 6. Hypomagnesemia. Plan to continue nutritional support with TPN replace mg replace k monitoring out put monitoring renal function Subjective Constitutional: Reports: no symptoms HEENT: Reports: no symptoms Genitourinary: Reports: no symptoms Neurologic/Psychiatric: Reports: no symptoms Subjective started on feeding she is also on TPN Objective Objective Last 24 Hour Vital Signs Date Time Temp Pulse Resp B/P (MAP) Pulse Ox O2 Delivery O2 Flow Rate FiO2 04/17/17 04:00 110 04/17/17 04:00 98.0 114 21 112/69 96 Nasal Cannula 3.0 04/17/17 00:00 97.9 112 20 116/80 97 Nasal Cannula 3.0 04/17/17 00:00 118 04/16/17 21:53 97.5 04/16/17 20:00 124 04/16/17 20:00 97.5 129 20 122/80 97 Nasal Cannula 3.0 04/16/17 19:29 Nasal Cannula 2.0 28 04/16/17 19:26 97 Nasal Cannula 2.0 28 04/16/17 16:00 126 04/16/17 16:00 97.5 127 25 123/74 96 Nasal Cannula 3.0 04/16/17 12:00 137 04/16/17 12:00 99.1 138 22 133/77 96 Nasal Cannula 3.0 Intake and Output 04/16/17 04/17/17 19:00 07:00 Intake Total 2928 ml 2726 ml Output Total 1540 ml 1000 ml Balance 1388 ml 1726 ml Free Water 150 ml 150 ml IV Total 2298 ml 2076 ml Tube Feeding 480 ml 440 ml Other 60 ml Output Urine Total 475 ml 700 ml Stool Total 1065 ml 300 ml Chest Tube Drainage Total 0 ml Laboratory Tests 04/17/17 05:10: White Blood Count 10.4, Red Blood Count 2.54L, Hemoglobin 7.9L, Hematocrit 24.3L , Mean Corpuscular Volume 96, Mean Corpuscular Hemoglobin 31.1H, Mean Corpuscular Hemoglobin Concent 32.5, Red Cell Distribution Width 13.4, Platelet Count 395, Mean Platelet Volume 6.6, Neutrophils (%) (Auto) , Lymphocytes (%) ( Auto) , Monocytes (%) (Auto) , Eosinophils (%) (Auto) , Basophils (%) (Auto) , Neutrophils % (Manual) [Pending], Lymphocytes % (Manual) [Pending], Platelet Estimate [Pending], Platelet Morphology [Pending], Sodium Level 144, Potassium Level 4.2, Chloride Level 113H, Carbon Dioxide Level 23, Anion Gap 9, Blood Urea Nitrogen 35H, Creatinine 0.6, Estimat Glomerular Filtration Rate > 60, Glucose Level 89, Calcium Level 8.4L, Phosphorus Level 3.2, Magnesium Level 1.4L , Total Bilirubin 0.4, Aspartate Amino Transf (AST/SGOT) 19, Alanine Aminotransferase (ALT/SGPT) 18, Alkaline Phosphatase 79, Total Protein 6.6, Albumin 1.6L, Globulin 5.0, Albumin/Globulin Ratio 0.3L 04/17/17 08:20: White Blood Count 11.9H, Red Blood Count 2.76L, Hemoglobin 8.6L, Hematocrit 26.4L, Mean Corpuscular Volume 96, Mean Corpuscular Hemoglobin 31.1H, Mean Corpuscular Hemoglobin Concent 32.6, Red Cell Distribution Width 13.8, Platelet Count 418, Mean Platelet Volume 6.8, Neutrophils (%) (Auto) 65.5, Lymphocytes (% ) (Auto) 24.8, Monocytes (%) (Auto) 6.6, Eosinophils (%) (Auto) 2.1, Basophils ( %) (Auto) 1.0 Height (Feet): 5 Height (Inches): 0.00 Weight (Pounds): 94 Objective HEAD AND NECK: No JVP. No LAD. No thyromegaly. NG tube is placed. ET tube is in place. NG tube secreting greenish liquids. CARDIAC: Regular rate and rhythm. S1 and S2. No murmur. No rub. LUNGS: Has decreased breathing sound on both sides. ABDOMEN: Soft. Bowel sounds are hypoactive. Nontender. EXTREMITIES: No edema. No clubbing. No cyanosis. DELMI ARITA Apr 17, 2017 09:11
--- NOTE | 2017-04-17 09:39 | Diagnostic Imaging Report ---
Indication: Shortness of breath, suspected, abnormal recent chest radiograph pleural effusion Technique: Grayscale images of the bilateral hemithoraces Comparison: Reference made to chest radiograph dated 04/14/2017 Findings: On the right, grayscale images demonstrate consolidated lung but no fluid. On the left, no pleural fluid is demonstrated Impression: Negative for evidence of pleural fluid Consolidated lung noted on the right, likely pneumonia
--- NOTE | 2017-04-17 10:00 | Diagnostic Imaging Report ---
Indication: Dyspnea Technique: One view of the chest Comparison: 04/16/2017 Findings: Right mid and lower lung infiltrates persist but may be minimally improved. There is developing atelectasis at the left lung base. Normal heart size. Stable satisfactory positions of left subclavian central venous catheter, nasogastric tube. Midline abdominal surgical clips are again noted Impression: Minimally improved but persistent right mid and lower lung infiltrates, over one day New minimal left basilar atelectasis Other stable findings as described
--- NOTE | 2017-04-17 10:46 | Pulmonology Progress Note ---
Assessment/Plan Problems: (1) Septic shock (2) Acute respiratory failure (3) Strangulated ventral incisional hernia (4) Severe malnutrition (5) On total parenteral nutrition (TPN) Assessment/Plan Respiratory: monitor respiratory rate, Cardiac: continue to monitor HR/BP, remains tachycardic, slightly better Renal: F/U I&O, keep IV fluid, TPN, check electrolytes, Mg 2 gm Infectious Disease: check cultures Gastrointestinal: continue feedings/current rate, hold feedings Hematologic: monitor H/H, transfuse if hgb<8.5 Neurologic: PRN Ativan, PRN Morphine, keep patient comfortable Discussed with: nurses, consultants Subjective ROS Limited/Unobtainable: No Constitutional: Reports: no symptoms HEENT: Repors: no symptoms Allergies: Coded Allergies: TRAZODONE (Verified Allergy, Unknown, 04/04/17) Objective Last 24 Hour Vital Signs Date Time Temp Pulse Resp B/P (MAP) Pulse Ox O2 Delivery O2 Flow Rate FiO2 04/17/17 08:00 115 04/17/17 08:00 99.0 116 25 117/74 98 Nasal Cannula 3.0 04/17/17 04:00 110 04/17/17 04:00 98.0 114 21 112/69 96 Nasal Cannula 3.0 04/17/17 00:00 97.9 112 20 116/80 97 Nasal Cannula 3.0 04/17/17 00:00 118 04/16/17 21:53 97.5 04/16/17 20:00 124 04/16/17 20:00 97.5 129 20 122/80 97 Nasal Cannula 3.0 04/16/17 19:29 Nasal Cannula 2.0 28 04/16/17 19:26 97 Nasal Cannula 2.0 28 04/16/17 16:00 126 04/16/17 16:00 97.5 127 25 123/74 96 Nasal Cannula 3.0 04/16/17 12:00 137 04/16/17 12:00 99.1 138 22 133/77 96 Nasal Cannula 3.0 Intake and Output 04/16/17 04/17/17 19:00 07:00 Intake Total 2928 ml 2955 ml Output Total 1540 ml 1000 ml Balance 1388 ml 1955 ml Free Water 150 ml 150 ml IV Total 2298 ml 2265 ml Tube Feeding 480 ml 480 ml Other 60 ml Output Urine Total 475 ml 700 ml Stool Total 1065 ml 300 ml Chest Tube Drainage Total 0 ml HEENT: normocephalic, anicteric Respiratory/Chest: chest wall non-tender, lungs clear Breasts: no masses Cardiovascular: normal peripheral pulses Abdomen: normal bowel sounds Genitourinary: normal external genitalia Extremities: no cyanosis, no clubbing Laboratory Tests 04/17/17 05:10: White Blood Count 10.4, Red Blood Count 2.54L, Hemoglobin 7.9L, Hematocrit 24.3L , Mean Corpuscular Volume 96, Mean Corpuscular Hemoglobin 31.1H, Mean Corpuscular Hemoglobin Concent 32.5, Red Cell Distribution Width 13.4, Platelet Count 395, Mean Platelet Volume 6.6, Neutrophils (%) (Auto) , Lymphocytes (%) ( Auto) , Monocytes (%) (Auto) , Eosinophils (%) (Auto) , Basophils (%) (Auto) , Differential Total Cells Counted 100, Neutrophils % (Manual) 69, Lymphocytes % ( Manual) 21, Monocytes % (Manual) 8, Eosinophils % (Manual) 2, Basophils % ( Manual) 0, Band Neutrophils 0, Platelet Estimate Adequate, Platelet Morphology Normal, Hypochromasia 3+, Anisocytosis 1+, Spherocytes 1+, Sodium Level 144, Potassium Level 4.2, Chloride Level 113H, Carbon Dioxide Level 23, Anion Gap 9, Blood Urea Nitrogen 35H, Creatinine 0.6, Estimat Glomerular Filtration Rate > 60 , Glucose Level 89, Calcium Level 8.4L, Phosphorus Level 3.2, Magnesium Level 1.4L, Total Bilirubin 0.4, Aspartate Amino Transf (AST/SGOT) 19, Alanine Aminotransferase (ALT/SGPT) 18, Alkaline Phosphatase 79, Total Protein 6.6, Albumin 1.6L, Globulin 5.0, Albumin/Globulin Ratio 0.3L 04/17/17 08:20: White Blood Count 11.9H, Red Blood Count 2.76L, Hemoglobin 8.6L, Hematocrit 26.4L, Mean Corpuscular Volume 96, Mean Corpuscular Hemoglobin 31.1H, Mean Corpuscular Hemoglobin Concent 32.6, Red Cell Distribution Width 13.8, Platelet Count 418, Mean Platelet Volume 6.8, Neutrophils (%) (Auto) 65.5, Lymphocytes (% ) (Auto) 24.8, Monocytes (%) (Auto) 6.6, Eosinophils (%) (Auto) 2.1, Basophils ( %) (Auto) 1.0 Current Medications Medications (Trade) Dose Ordered Sig/Nicole Route PRN Reason Start Time Stop Time Status Last Admin Dose Admin Acetaminophen (Tylenol) 650 mg Q4H PRN ORAL Mild Pain/Temp > 100.5 04/12/17 18:45 05/12/17 18:44 04/13/17 12:24 Ceftriaxone Sodium 1 gm/ Dextrose 55 ml @ 110 mls/hr Q24H IVPB 04/13/17 18:00 04/20/17 17:59 04/16/17 17:38 Chlorhexidine Gluconate (Collette-Hex 2%) 1 applic DAILY@2000 TOPIC 04/11/17 20:00 05/05/17 19:59 04/16/17 20:13 Dextrose 1,000 ml @ 0 mls/hr Q24H PRN IV PN interrupted or unavailable 04/11/17 20:00 05/11/17 19:59 Dextrose (Dextrose 50%) STAT PRN IV Hypoglycemia 04/11/17 08:30 05/11/17 08:29 Diphenhydramine HCl (Benadryl) 12.5 mg Q6H PRN IVP Itching/Pruritis 04/11/17 08:30 05/04/17 08:29 Fat Emulsion Intravenous 216 ml/Amino Acids/ Electrolytes/ Dextrose 1,536 ml @ 64 mls/hr Q24H IV 04/16/17 20:00 05/16/17 19:59 04/16/17 20:13 Insulin Aspart (NovoLOG) Q6HR SUBQ 04/11/17 12:00 05/04/17 05:59 04/17/17 00:32 Lorazepam (Ativan 2mg/ml 1ml) 1 mg Q4H PRN IV For Anxiety 04/11/17 08:30 04/18/17 08:29 04/17/17 02:55 Magnesium Sulfate 100 ml @ 100 mls/hr Q1H IVPB 04/17/17 10:00 04/17/17 11:59 04/17/17 10:09 Metronidazole 100 ml @ 100 mls/hr Q8HR IV 04/13/17 22:00 04/20/17 21:59 04/17/17 05:33 Morphine Sulfate (Morphine Sulfate) 2 mg Q4H PRN IVP Pain 4-10 04/15/17 13:15 04/22/17 13:14 04/16/17 21:23 Ondansetron HCl (Zofran) 4 mg Q6H PRN IVP Nausea & Vomiting 04/11/17 08:30 05/04/17 08:29 Pantoprazole (Protonix) 40 mg DAILY IV 04/11/17 09:00 05/04/17 08:59 04/17/17 08:28 Risperidone (RisperDAL) 0.5 mg Q12HR NG 04/11/17 09:00 05/11/17 08:59 04/17/17 08:27 Sodium Chloride 1,000 ml @ 125 mls/hr Q8H IV 04/15/17 17:45 05/15/17 17:44 04/17/17 05:01 YAYO CELIS Apr 17, 2017 10:46
--- NOTE | 2017-04-17 11:48 | Infectious Diseases Prog Note ---
Assessment/Plan Assessment/Plan A: Sepsis Peritonitis Strangulated hernia Small bowel necrosis Respiratory failure resolved Anemia s/p laparotomy X 2 Short bowel syndrome Fever Atelectasis of R lung P: Continue Ceftriaxone & Flagyl X 1 day Subjective ROS Limited/Unobtainable: Yes Neurologic: Reports: confusion, other - on restraint Allergies: Coded Allergies: TRAZODONE (Verified Allergy, Unknown, 04/04/17) Objective Vital Signs Last 24 Hour Vital Signs Date Time Temp Pulse Resp B/P (MAP) Pulse Ox O2 Delivery O2 Flow Rate FiO2 04/17/17 08:00 115 04/17/17 08:00 99.0 116 25 117/74 98 Nasal Cannula 3.0 04/17/17 04:00 110 04/17/17 04:00 98.0 114 21 112/69 96 Nasal Cannula 3.0 04/17/17 00:00 97.9 112 20 116/80 97 Nasal Cannula 3.0 04/17/17 00:00 118 04/16/17 21:53 97.5 04/16/17 20:00 124 04/16/17 20:00 97.5 129 20 122/80 97 Nasal Cannula 3.0 04/16/17 19:29 Nasal Cannula 2.0 28 04/16/17 19:26 97 Nasal Cannula 2.0 28 04/16/17 16:00 126 04/16/17 16:00 97.5 127 25 123/74 96 Nasal Cannula 3.0 04/16/17 12:00 137 04/16/17 12:00 99.1 138 22 133/77 96 Nasal Cannula 3.0 Height (Feet): 5 Height (Inches): 0.00 Weight (Pounds): 94 General Appearance: no acute distress HEENT: mucous membranes moist Respiratory/Chest: lungs clear Cardiovascular: tachycardia Abdomen: soft, non tender, other - NG tube feeding, osteotomy Extremities: no edema Neurologic/Psychiatric: alert, responsive Laboratory Tests Test 04/17/17 05:10 04/17/17 08:20 White Blood Count 10.4 K/UL (4.8-10.8) 11.9 K/UL (4.8-10.8) H Red Blood Count 2.54 M/UL (4.20-5.40) L 2.76 M/UL (4.20-5.40) L Hemoglobin 7.9 G/DL (12.0-16.0) L 8.6 G/DL (12.0-16.0) L Hematocrit 24.3 % (37.0-47.0) L 26.4 % (37.0-47.0) L Mean Corpuscular Volume 96 FL (80-99) 96 FL (80-99) Mean Corpuscular Hemoglobin 31.1 PG (27.0-31.0) H 31.1 PG (27.0-31.0) H Mean Corpuscular Hemoglobin Concent 32.5 G/DL (32.0-36.0) 32.6 G/DL (32.0-36.0) Red Cell Distribution Width 13.4 % (11.6-14.8) 13.8 % (11.6-14.8) Platelet Count 395 K/UL (150-450) 418 K/UL (150-450) Mean Platelet Volume 6.6 FL (6.5-10.1) 6.8 FL (6.5-10.1) Neutrophils (%) (Auto) % (45.0-75.0) 65.5 % (45.0-75.0) Lymphocytes (%) (Auto) % (20.0-45.0) 24.8 % (20.0-45.0) Monocytes (%) (Auto) % (1.0-10.0) 6.6 % (1.0-10.0) Eosinophils (%) (Auto) % (0.0-3.0) 2.1 % (0.0-3.0) Basophils (%) (Auto) % (0.0-2.0) 1.0 % (0.0-2.0) Differential Total Cells Counted 100 Neutrophils % (Manual) 69 % (45-75) Lymphocytes % (Manual) 21 % (20-45) Monocytes % (Manual) 8 % (1-10) Eosinophils % (Manual) 2 % (0-3) Basophils % (Manual) 0 % (0-2) Band Neutrophils 0 % (0-8) Platelet Estimate Adequate Platelet Morphology Normal Hypochromasia 3+ Anisocytosis 1+ Spherocytes 1+ Sodium Level 144 MMOL/L (136-145) Potassium Level 4.2 MMOL/L (3.5-5.1) Chloride Level 113 MMOL/L (98-107) H Carbon Dioxide Level 23 MMOL/L (21-32) Anion Gap 9 mmol/L (5-15) Blood Urea Nitrogen 35 mg/dL (7-18) H Creatinine 0.6 MG/DL (0.55-1.30) Estimat Glomerular Filtration Rate > 60 mL/min (>60) Glucose Level 89 MG/DL (74-106) Calcium Level 8.4 MG/DL (8.5-10.1) L Phosphorus Level 3.2 MG/DL (2.5-4.9) Magnesium Level 1.4 MG/DL (1.8-2.4) L Total Bilirubin 0.4 MG/DL (0.2-1.0) Aspartate Amino Transf (AST/SGOT) 19 U/L (15-37) Alanine Aminotransferase (ALT/SGPT) 18 U/L (12-78) Alkaline Phosphatase 79 U/L (46-116) Total Protein 6.6 G/DL (6.4-8.2) Albumin 1.6 G/DL (3.4-5.0) L Globulin 5.0 g/dL Albumin/Globulin Ratio 0.3 (1.0-2.7) L Current Medications Medications (Trade) Dose Ordered Sig/Nicole Route PRN Reason Start Time Stop Time Status Last Admin Dose Admin Acetaminophen (Tylenol) 650 mg Q4H PRN ORAL Mild Pain/Temp > 100.5 04/12/17 18:45 05/12/17 18:44 04/13/17 12:24 Ceftriaxone Sodium 1 gm/ Dextrose 55 ml @ 110 mls/hr Q24H IVPB 04/13/17 18:00 04/20/17 17:59 04/16/17 17:38 Chlorhexidine Gluconate (Collette-Hex 2%) 1 applic DAILY@2000 TOPIC 04/11/17 20:00 05/05/17 19:59 04/16/17 20:13 Dextrose 1,000 ml @ 0 mls/hr Q24H PRN IV PN interrupted or unavailable 04/11/17 20:00 05/11/17 19:59 Dextrose (Dextrose 50%) STAT PRN IV Hypoglycemia 04/11/17 08:30 05/11/17 08:29 Diphenhydramine HCl (Benadryl) 12.5 mg Q6H PRN IVP Itching/Pruritis 04/11/17 08:30 05/04/17 08:29 Fat Emulsion Intravenous 216 ml/Amino Acids/ Electrolytes/ Dextrose 1,536 ml @ 64 mls/hr Q24H IV 04/16/17 20:00 05/16/17 19:59 04/16/17 20:13 Insulin Aspart (NovoLOG) Q6HR SUBQ 04/11/17 12:00 05/04/17 05:59 04/17/17 11:40 Lorazepam (Ativan 2mg/ml 1ml) 1 mg Q4H PRN IV For Anxiety 04/11/17 08:30 04/18/17 08:29 04/17/17 02:55 Magnesium Sulfate 100 ml @ 100 mls/hr Q1H IVPB 04/17/17 10:00 04/17/17 11:59 04/17/17 11:25 Metronidazole 100 ml @ 100 mls/hr Q8HR IV 04/13/17 22:00 04/20/17 21:59 04/17/17 05:33 Morphine Sulfate (Morphine Sulfate) 2 mg Q4H PRN IVP Pain 4-10 04/15/17 13:15 04/22/17 13:14 04/16/17 21:23 Ondansetron HCl (Zofran) 4 mg Q6H PRN IVP Nausea & Vomiting 04/11/17 08:30 05/04/17 08:29 Pantoprazole (Protonix) 40 mg DAILY IV 04/11/17 09:00 05/04/17 08:59 04/17/17 08:28 Risperidone (RisperDAL) 0.5 mg Q12HR NG 04/11/17 09:00 05/11/17 08:59 04/17/17 08:27 Sodium Chloride 1,000 ml @ 125 mls/hr Q8H IV 04/15/17 17:45 05/15/17 17:44 04/17/17 05:01 MIO LOMAX Apr 17, 2017 11:48
--- NOTE | 2017-04-17 11:58 | General Progress Note ---
Assessment/Plan Problem List: (1) Abdominal pain ICD Codes: R10.9 - Unspecified abdominal pain SNOMED: 41437417 (2) Peritonitis, acute generalized ICD Codes: K65.0 - Generalized (acute) peritonitis SNOMED: 21380351 (3) Strangulated ventral incisional hernia ICD Codes: K43.0 - Incisional hernia with obstruction, without gangrene SNOMED: 944752046 (4) Acute respiratory failure ICD Codes: J96.00 - Acute respiratory failure, unspecified whether with hypoxia or hypercapnia SNOMED: 07959073 (5) Septic shock ICD Codes: A41.9 - Sepsis, unspecified organism; R65.21 - Severe sepsis with septic shock SNOMED: 31248477 Status: unchanged Assessment/Plan vent abx sx f/u cbc bmp am id eval ltach transfer Subjective Constitutional: Reports: weakness Allergies: Coded Allergies: TRAZODONE (Verified Allergy, Unknown, 04/04/17) All Systems: reviewed and negative except above Subjective o2nc confused ng in place Objective Last 24 Hour Vital Signs Date Time Temp Pulse Resp B/P (MAP) Pulse Ox O2 Delivery O2 Flow Rate FiO2 04/17/17 08:00 115 04/17/17 08:00 99.0 116 25 117/74 98 Nasal Cannula 3.0 04/17/17 04:00 110 04/17/17 04:00 98.0 114 21 112/69 96 Nasal Cannula 3.0 04/17/17 00:00 97.9 112 20 116/80 97 Nasal Cannula 3.0 04/17/17 00:00 118 04/16/17 21:53 97.5 04/16/17 20:00 124 04/16/17 20:00 97.5 129 20 122/80 97 Nasal Cannula 3.0 04/16/17 19:29 Nasal Cannula 2.0 28 04/16/17 19:26 97 Nasal Cannula 2.0 28 04/16/17 16:00 126 04/16/17 16:00 97.5 127 25 123/74 96 Nasal Cannula 3.0 04/16/17 12:00 137 04/16/17 12:00 99.1 138 22 133/77 96 Nasal Cannula 3.0 Intake and Output 04/16/17 04/17/17 19:00 07:00 Intake Total 2928 ml 2955 ml Output Total 1540 ml 1000 ml Balance 1388 ml 1955 ml Free Water 150 ml 150 ml IV Total 2298 ml 2265 ml Tube Feeding 480 ml 480 ml Other 60 ml Output Urine Total 475 ml 700 ml Stool Total 1065 ml 300 ml Chest Tube Drainage Total 0 ml Laboratory Tests 04/17/17 05:10: White Blood Count 10.4, Red Blood Count 2.54L, Hemoglobin 7.9L, Hematocrit 24.3L , Mean Corpuscular Volume 96, Mean Corpuscular Hemoglobin 31.1H, Mean Corpuscular Hemoglobin Concent 32.5, Red Cell Distribution Width 13.4, Platelet Count 395, Mean Platelet Volume 6.6, Neutrophils (%) (Auto) , Lymphocytes (%) ( Auto) , Monocytes (%) (Auto) , Eosinophils (%) (Auto) , Basophils (%) (Auto) , Differential Total Cells Counted 100, Neutrophils % (Manual) 69, Lymphocytes % ( Manual) 21, Monocytes % (Manual) 8, Eosinophils % (Manual) 2, Basophils % ( Manual) 0, Band Neutrophils 0, Platelet Estimate Adequate, Platelet Morphology Normal, Hypochromasia 3+, Anisocytosis 1+, Spherocytes 1+, Sodium Level 144, Potassium Level 4.2, Chloride Level 113H, Carbon Dioxide Level 23, Anion Gap 9, Blood Urea Nitrogen 35H, Creatinine 0.6, Estimat Glomerular Filtration Rate > 60 , Glucose Level 89, Calcium Level 8.4L, Phosphorus Level 3.2, Magnesium Level 1.4L, Total Bilirubin 0.4, Aspartate Amino Transf (AST/SGOT) 19, Alanine Aminotransferase (ALT/SGPT) 18, Alkaline Phosphatase 79, Total Protein 6.6, Albumin 1.6L, Globulin 5.0, Albumin/Globulin Ratio 0.3L 04/17/17 08:20: White Blood Count 11.9H, Red Blood Count 2.76L, Hemoglobin 8.6L, Hematocrit 26.4L, Mean Corpuscular Volume 96, Mean Corpuscular Hemoglobin 31.1H, Mean Corpuscular Hemoglobin Concent 32.6, Red Cell Distribution Width 13.8, Platelet Count 418, Mean Platelet Volume 6.8, Neutrophils (%) (Auto) 65.5, Lymphocytes (% ) (Auto) 24.8, Monocytes (%) (Auto) 6.6, Eosinophils (%) (Auto) 2.1, Basophils ( %) (Auto) 1.0 Height (Feet): 5 Height (Inches): 0.00 Weight (Pounds): 94 General Appearance: lethargic, confused EENT: normal ENT inspection Neck: normal alignment Cardiovascular: normal peripheral pulses, normal rate, regular rhythm Respiratory/Chest: chest wall non-tender, lungs clear, normal breath sounds Abdomen: hypoactive bowel sounds Extremities: normal inspection Edema: no edema noted Arm (L), no edema noted Arm (R), no edema noted Leg (L), no edema noted Leg (R), no edema noted Pedal (L), no edema noted Pedal (R), no edema noted Generalized Neurologic: motor weakness Skin: normal pigmentation, warm/dry LACY HERNÁNDEZ Apr 17, 2017 11:58
[2017-04-17 12:00] VITALS: BP 99/61
--- NOTE | 2017-04-17 12:11 | GI Progress Note ---
Assessment/Plan Problems: (1) On total parenteral nutrition (TPN) ICD Codes: Z78.9 - Other specified health status SNOMED: 51662178, 990472306 (2) Anemia ICD Codes: D64.9 - Anemia, unspecified SNOMED: 666142421 (3) Electrolyte imbalance ICD Codes: E87.8 - Other disorders of electrolyte and fluid balance, not elsewhere classified SNOMED: 573273033 (4) Severe malnutrition ICD Codes: E43 - Unspecified severe protein-calorie malnutrition SNOMED: 73515357 (5) History of colostomy ICD Codes: Z98.890 - Other specified postprocedural states SNOMED: 686339641 (6) Multiorgan failure SNOMED: 59239666 (7) Strangulated ventral incisional hernia ICD Codes: K43.0 - Incisional hernia with obstruction, without gangrene SNOMED: 141153829 Status: doing well, stable, progressing Status Narrative Discussed with Dr. Mejia. Assessment/Plan fu surgical recs >> patient will need to be on TPN for approximately 6 months and be re-evaluated. ST evaluation reviewed >> high risk for aspiration, strict NPO >> cont NGTFs per RD anemia work up >> folate deficiency monitor H&H, prn transfusions ppi electrolyte correction fu labs Subjective Subjective limited Objective Last 24 Hour Vital Signs Date Time Temp Pulse Resp B/P (MAP) Pulse Ox O2 Delivery O2 Flow Rate FiO2 04/17/17 08:00 115 04/17/17 08:00 99.0 116 25 117/74 98 Nasal Cannula 3.0 04/17/17 04:00 110 04/17/17 04:00 98.0 114 21 112/69 96 Nasal Cannula 3.0 04/17/17 00:00 97.9 112 20 116/80 97 Nasal Cannula 3.0 04/17/17 00:00 118 04/16/17 21:53 97.5 04/16/17 20:00 124 04/16/17 20:00 97.5 129 20 122/80 97 Nasal Cannula 3.0 04/16/17 19:29 Nasal Cannula 2.0 28 04/16/17 19:26 97 Nasal Cannula 2.0 28 04/16/17 16:00 126 04/16/17 16:00 97.5 127 25 123/74 96 Nasal Cannula 3.0 Intake and Output 1/24/18 1/25/18 19:00 07:00 Intake Total 2928 ml 2955 ml Output Total 1540 ml 1000 ml Balance 1388 ml 1955 ml Free Water 150 ml 150 ml IV Total 2298 ml 2265 ml Tube Feeding 480 ml 480 ml Other 60 ml Output Urine Total 475 ml 700 ml Stool Total 1065 ml 300 ml Chest Tube Drainage Total 0 ml Laboratory Tests Test 04/17/17 05:10 04/17/17 08:20 White Blood Count 10.4 K/UL (4.8-10.8) 11.9 K/UL (4.8-10.8) H Red Blood Count 2.54 M/UL (4.20-5.40) L 2.76 M/UL (4.20-5.40) L Hemoglobin 7.9 G/DL (12.0-16.0) L 8.6 G/DL (12.0-16.0) L Hematocrit 24.3 % (37.0-47.0) L 26.4 % (37.0-47.0) L Mean Corpuscular Volume 96 FL (80-99) 96 FL (80-99) Mean Corpuscular Hemoglobin 31.1 PG (27.0-31.0) H 31.1 PG (27.0-31.0) H Mean Corpuscular Hemoglobin Concent 32.5 G/DL (32.0-36.0) 32.6 G/DL (32.0-36.0) Red Cell Distribution Width 13.4 % (11.6-14.8) 13.8 % (11.6-14.8) Platelet Count 395 K/UL (150-450) 418 K/UL (150-450) Mean Platelet Volume 6.6 FL (6.5-10.1) 6.8 FL (6.5-10.1) Neutrophils (%) (Auto) % (45.0-75.0) 65.5 % (45.0-75.0) Lymphocytes (%) (Auto) % (20.0-45.0) 24.8 % (20.0-45.0) Monocytes (%) (Auto) % (1.0-10.0) 6.6 % (1.0-10.0) Eosinophils (%) (Auto) % (0.0-3.0) 2.1 % (0.0-3.0) Basophils (%) (Auto) % (0.0-2.0) 1.0 % (0.0-2.0) Differential Total Cells Counted 100 Neutrophils % (Manual) 69 % (45-75) Lymphocytes % (Manual) 21 % (20-45) Monocytes % (Manual) 8 % (1-10) Eosinophils % (Manual) 2 % (0-3) Basophils % (Manual) 0 % (0-2) Band Neutrophils 0 % (0-8) Platelet Estimate Adequate Platelet Morphology Normal Hypochromasia 3+ Anisocytosis 1+ Spherocytes 1+ Sodium Level 144 MMOL/L (136-145) Potassium Level 4.2 MMOL/L (3.5-5.1) Chloride Level 113 MMOL/L (98-107) H Carbon Dioxide Level 23 MMOL/L (21-32) Anion Gap 9 mmol/L (5-15) Blood Urea Nitrogen 35 mg/dL (7-18) H Creatinine 0.6 MG/DL (0.55-1.30) Estimat Glomerular Filtration Rate > 60 mL/min (>60) Glucose Level 89 MG/DL (74-106) Calcium Level 8.4 MG/DL (8.5-10.1) L Phosphorus Level 3.2 MG/DL (2.5-4.9) Magnesium Level 1.4 MG/DL (1.8-2.4) L Total Bilirubin 0.4 MG/DL (0.2-1.0) Aspartate Amino Transf (AST/SGOT) 19 U/L (15-37) Alanine Aminotransferase (ALT/SGPT) 18 U/L (12-78) Alkaline Phosphatase 79 U/L (46-116) Total Protein 6.6 G/DL (6.4-8.2) Albumin 1.6 G/DL (3.4-5.0) L Globulin 5.0 g/dL Albumin/Globulin Ratio 0.3 (1.0-2.7) L Height (Feet): 5 Height (Inches): 0.00 Weight (Pounds): 94 General Appearance: alert Cardiovascular: normal rate Respiratory/Chest: normal breath sounds Abdominal Exam: incision site Shahana Wang N.PGiselle Apr 17, 2017 12:11
[2017-04-17 16:00] VITALS: BP 109/66
[2017-04-17] MEDS: cefTRIAXone 1gm/D5W 55ml IVPB SCH ×2 (17:52)
--- NOTE | 2017-04-17 18:03 | Cardiology Progress Note ---
Assessment/Plan Assessment/Plan 1. Sinus tachycardia, significantly better with increase the rate of IVF. 2. Status post second look laparotomy, s/p ileostomy pouch creation, POD #10, continue hydration and correction of electrolyte derangement. Keep Mg >2.5, 2D echocardiography reveals normal LV systolic and diastolic function. 3. Right lower lobe PNA with associated pleural effusion. 4. HTN, well controlled. Subjective Subjective Sinus tachycardia at 103. Objective Last 24 Hour Vital Signs Date Time Temp Pulse Resp B/P (MAP) Pulse Ox O2 Delivery O2 Flow Rate FiO2 04/17/17 16:00 103 04/17/17 16:00 98.6 109 26 109/66 98 Nasal Cannula 3.0 04/17/17 12:00 97.3 93 25 99/61 98 Nasal Cannula 3.0 04/17/17 12:00 109 04/17/17 08:00 115 04/17/17 08:00 99.0 116 25 117/74 98 Nasal Cannula 3.0 04/17/17 04:00 110 04/17/17 04:00 98.0 114 21 112/69 96 Nasal Cannula 3.0 04/17/17 00:00 97.9 112 20 116/80 97 Nasal Cannula 3.0 04/17/17 00:00 118 04/16/17 21:53 97.5 04/16/17 20:00 124 04/16/17 20:00 97.5 129 20 122/80 97 Nasal Cannula 3.0 04/16/17 19:29 Nasal Cannula 2.0 28 04/16/17 19:26 97 Nasal Cannula 2.0 28 Intake and Output 04/16/17 04/17/17 19:00 07:00 Intake Total 2928 ml 2955 ml Output Total 1540 ml 1000 ml Balance 1388 ml 1955 ml Free Water 150 ml 150 ml IV Total 2298 ml 2265 ml Tube Feeding 480 ml 480 ml Other 60 ml Output Urine Total 475 ml 700 ml Stool Total 1065 ml 300 ml Chest Tube Drainage Total 0 ml 2D Echo: LVEF 60%, Mod MR, Grade I LVDD Laboratory Tests Test 04/17/17 05:10 04/17/17 08:20 White Blood Count 10.4 K/UL (4.8-10.8) 11.9 K/UL (4.8-10.8) H Red Blood Count 2.54 M/UL (4.20-5.40) L 2.76 M/UL (4.20-5.40) L Hemoglobin 7.9 G/DL (12.0-16.0) L 8.6 G/DL (12.0-16.0) L Hematocrit 24.3 % (37.0-47.0) L 26.4 % (37.0-47.0) L Mean Corpuscular Volume 96 FL (80-99) 96 FL (80-99) Mean Corpuscular Hemoglobin 31.1 PG (27.0-31.0) H 31.1 PG (27.0-31.0) H Mean Corpuscular Hemoglobin Concent 32.5 G/DL (32.0-36.0) 32.6 G/DL (32.0-36.0) Red Cell Distribution Width 13.4 % (11.6-14.8) 13.8 % (11.6-14.8) Platelet Count 395 K/UL (150-450) 418 K/UL (150-450) Mean Platelet Volume 6.6 FL (6.5-10.1) 6.8 FL (6.5-10.1) Neutrophils (%) (Auto) % (45.0-75.0) 65.5 % (45.0-75.0) Lymphocytes (%) (Auto) % (20.0-45.0) 24.8 % (20.0-45.0) Monocytes (%) (Auto) % (1.0-10.0) 6.6 % (1.0-10.0) Eosinophils (%) (Auto) % (0.0-3.0) 2.1 % (0.0-3.0) Basophils (%) (Auto) % (0.0-2.0) 1.0 % (0.0-2.0) Differential Total Cells Counted 100 Neutrophils % (Manual) 69 % (45-75) Lymphocytes % (Manual) 21 % (20-45) Monocytes % (Manual) 8 % (1-10) Eosinophils % (Manual) 2 % (0-3) Basophils % (Manual) 0 % (0-2) Band Neutrophils 0 % (0-8) Platelet Estimate Adequate Platelet Morphology Normal Hypochromasia 3+ Anisocytosis 1+ Spherocytes 1+ Sodium Level 144 MMOL/L (136-145) Potassium Level 4.2 MMOL/L (3.5-5.1) Chloride Level 113 MMOL/L (98-107) H Carbon Dioxide Level 23 MMOL/L (21-32) Anion Gap 9 mmol/L (5-15) Blood Urea Nitrogen 35 mg/dL (7-18) H Creatinine 0.6 MG/DL (0.55-1.30) Estimat Glomerular Filtration Rate > 60 mL/min (>60) Glucose Level 89 MG/DL (74-106) Calcium Level 8.4 MG/DL (8.5-10.1) L Phosphorus Level 3.2 MG/DL (2.5-4.9) Magnesium Level 1.4 MG/DL (1.8-2.4) L Total Bilirubin 0.4 MG/DL (0.2-1.0) Aspartate Amino Transf (AST/SGOT) 19 U/L (15-37) Alanine Aminotransferase (ALT/SGPT) 18 U/L (12-78) Alkaline Phosphatase 79 U/L (46-116) Total Protein 6.6 G/DL (6.4-8.2) Albumin 1.6 G/DL (3.4-5.0) L Globulin 5.0 g/dL Albumin/Globulin Ratio 0.3 (1.0-2.7) L Objective HEENT: Atraumatic and normocephalic. Anicteric. Pupils are equal, round and reactive to light and accommodation. NECK: JVP cannot be assessed as the patient is intubated. CARDIOVASCULAR: Normal S1 and S2. Regular rate and rhythm. tachycardic, no murmurs, gallops, or rubs. LUNGS: Diminished breath sounds at both bases. ABDOMEN: Non-distended, normal bowel sounds, soft, NGT EXTREMITIES: No evidence of edema, clubbing, or cyanosis. JUWAN ULLOA Apr 17, 2017 18:03
[2017-04-17] MEDS ORDERED: Tubing IV Secondary IV ONE (18:59)
[2017-04-17] MEDS ORDERED: 1/2 NS 1000ml IV ONE (18:59)
[2017-04-17] MEDS ORDERED: NS 500ML ONE (18:59)
--- NOTE | 2017-04-18 18:07 | Discharge Summary ---
Discharge Summary Hospital Course Date of Admission Apr 04, 2017 at 01:23 Date of Discharge Apr 17, 2017 at 19:00 Admitting Diagnosis HPI Chari Girish is a 51 year old female who was admitted on Apr 04, 2017 at 01:23 for Severe Hyponatremia Hospital Course [id number] Discharge Discharge Disposition Patient was discharged to [facility] Discharge Diagnoses: Dona Foster NP Apr 18, 2017 18:07
--- NOTE | 2017-04-19 02:15 | Discharge Summary 2 SIG ---
DATE OF ADMISSION: 04/04/2017 DATE OF DISCHARGE: 04/17/2017 CONSULTANTS: 1. Brandt Auguste M.D. 2. Tato Watson M.D. 3. Chapincito Mejia M.D. 4. Andrew Tipton M.D. 5. Urbano Verdugo M.D. 6. Mariel Saldana M.D. 7. Alison Banda M.D. BRIEF HOSPITAL COURSE: The patient is a 51-year-old female with multiple medical comorbidities and psychiatric disorder, who was at [facility], was diagnosed with strangulated ventral hernia. She was in ICU and required surgical care. She was transferred to [facility] [place]. On arrival to [place], she was hypotensive and required to be placed on IV pressors. She was tachypneic and had significant abdominal pain. She had prior abdominal surgeries, however, the patient is a poor historian and unable to recall the reason for prior surgeries. She was found to be severely dehydrated and had hyponatremia. During admission, she was noted to have abdominal tenderness. CT scan performed demonstrated strangulated ventral hernia with bowel obstruction. The patient underwent emergent exploratory laparotomy on 04/04/[address] Auguste. Findings showed a strangulated ventral hernia with necrotic small bowel. 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 She underwent exploratory laparotomy with small-bowel resection and ileostomy dissection. There was a temporary abdominal closure with plans for second-look laparotomy. She was given Zosyn and Flagyl prior to surgery. Postoperatively, she was in ICU and was placed on NPO. Dr. Saldana was consulted for electrolyte imbalance. IV fluid was changed to D5 water with 40 KCl. Electrolytes were repleted. She was given blood transfusion. She was also followed by Infectious Disease specialist and was placed on Zosyn and Flagyl. Fluconazole and vancomycin was discontinued. She had severe leukocytosis with septic shock. She was eventually tapered off IV pressors. She underwent second laparotomy on 04/07/2017 with ileostomy creation and closure of prior large right lower quadrant ileostomy site with tissue transfer. She continued to be placed on NPO and was eventually started on TPN. She had sinus tachycardia due to underlying sepsis. Echocardiogram done showed normal LV systolic function. She was eventually extubated on 04/08/2017. The patient had blood culture negative. Fluid culture with E. coli and Enterobacter. The patient had a nasogastric tube and was started on p.o. trials. However, the patient will be needing TPN for approximately six months until able to take anything p.o. Anemia workup done showed folate deficiency. She was given supplements. She was also followed by psychiatric service for paranoid schizophrenia. Tube feeding was at goal. Wound care packing and dressings were done. She will eventually need speech therapy and evaluation for swallow. She was eventually cleared for discharge and was transferred to [facility]. FINAL DIAGNOSES: 1. Septic shock. 2. Strangulated ventral incisional hernia status post exploratory laparotomy x2. 3. Acute respiratory failure status post extubation. 4. Multiorgan failure. 5. Severe protein-calorie malnutrition. 6. Anemia. 7. Sinus tachycardia. 8. Right lower lobe pneumonia. 9. Hypertension. 10. Peritonitis. 11. Small bowel necrosis. 12. Atelectasis of the right lung. 13. Acute anemia requiring transfusion. 14. Hypokalemia. 15. Hypernatremia. 16. Acute renal failure. 17. Hypomagnesemia. 18. Paranoid schizophrenia. 19. Status post exploratory laparotomy x2. Refer to two operative reports. 20. Sacral coccygeal deep tissue injury present on admission. DISPOSITION: The patient was discharged to [facility]. Juan Marrufo D.O. I have been assigned to dictate discharge summary on this account and I was not involved in the patient's management. Dona Foster N.P. DR: TONY JOB#: [id number] CC:
== END 2017-04-17 19:00 | DRG 853 ==
LOC: ICU 04-04 01:23 → 2W 04-11 06:51
DX: A41.9 Sepsis, unspecified organism (principal); K43.4 Parastomal hernia with gangrene; J96.00 Acute respiratory failure, unspecified whether with hypoxia or hypercapnia; R65.21 Severe sepsis with septic shock; K65.0 Generalized (acute) peritonitis; E43 Unspecified severe protein-calorie malnutrition; K43.1 Incisional hernia with gangrene; J18.9 Pneumonia, unspecified organism; F31.81 Bipolar II disorder; F20.0 Paranoid schizophrenia; E87.0 Hyperosmolality and hypernatremia; N17.9 Acute kidney failure, unspecified; Z68.1 Body mass index [BMI] 19.9 or less, adult; K91.2 Postsurgical malabsorption, not elsewhere classified; J98.11 Atelectasis; D64.9 Anemia, unspecified; R62.7 Adult failure to thrive; I10 Essential (primary) hypertension; E86.0 Dehydration; K42.9 Umbilical hernia without obstruction or gangrene; E87.6 Hypokalemia; E83.51 Hypocalcemia; E83.39 Other disorders of phosphorus metabolism; F41.9 Anxiety disorder, unspecified; E55.9 Vitamin D deficiency, unspecified; L89.150 Pressure ulcer of sacral region, unstageable
CPT/HCPCS: 36415; 36600; 71045; 74018; 76604; 80048; 80053; 80202; 81001; 82043; 82044; 82150; 82248; 82330; 82378; 82553; 82570; 82607; 82728; 82746; 82803; 82962; 83036; 83540; 83550; 83605; 83690; 83735; 83880; 84100; 84300; 84439; 84443; 84484; 85007; 85025; 85044; 85610; 85651; 85730; 86140; 86850; 86900; 86901; 86920; 87040; 87070; 87075; 87081; 87181; 87205; 89050; 93005; 93306; 94002; 94003; 94150; 94760; J1815